=== PATIENT | female | born 1970 | race Caucasian/White ===

== ENCOUNTER 2023-02-02 07:42 | Outpatient (OUT) | payer MEDICAID, SELFPAY ==
--- NOTE | 2023-02-02 08:12 | MM_ITS ---
Patient: DELIO BOUDREAUX Exam Date: 02/02/2023 : 1970 Gender:F Ordering : COLE ENRIQUE Admission #: [id number] Family : Order #: [id number] CLICK HERE TO VIEW EXAM RADIOLOGY REPORT PROCEDURE: MM TOMOSYNTHESIS SCREENING BI COMPARISON: MG MAMM SCREEN CLARENCE W CAD, 02/11/2019. MG MAMM RT DIAG FU, 02/19/2019. INDICATIONS: Screening Calculator Name NCI Breast Cancer Risk Assessment Tool 5 Year Breast Cancer Risk 0.80% Lifetime Breast Cancer Risk 6.30% Personal Breast Cancer No Personal Ovarian Cancer No Treatments None Family Cancers Grandfather-maternal with prostate/penile cancer at age ~60; Grandmother-maternal with breast cancer at age ~70; Uncle-maternal with rectal cancer at age 50. LOCATION: [facility] BREAST COMPOSITION: Scattered areas fibroglandular density. FINDINGS: DIAGNOSTIC CATEGORY 1--NEGATIVE. NO CHANGE FROM COMPARISON ASSESSMENT. Scattered benign-appearing calcifications are present. Scattered benign-appearing lymph nodes are present. RIGHT BREAST: No significant suspicious finding. LEFT BREAST: No significant suspicious finding. RECOMMENDATIONS: ROUTINE MAMMOGRAM AND CLINICAL EVALUATION IN 12 MONTHS. PLEASE NOTE: A NORMAL MAMMOGRAM DOES NOT EXCLUDE THE POSSIBILITY OF BREAST CANCER. A CLINICALLY SUSPICIOUS PALPABLE LUMP SHOULD BE BIOPSIED. Dictated by: Wilberto Arias MD on 02/02/2023 at 08:52 Approved by: Wilberto Arias MD on 02/02/2023 at 08:56
== END 2023-02-02 07:43 ==
LOC: MAMMO 07:47
PROVIDERS: PCP Nurse Practitioner Family; Visit Provider Nurse Practitioner Family
DX: Z12.31 Encounter for screening mammogram for malignant neoplasm of breast (principal); Z80.3 Family history of malignant neoplasm of breast; Z80.42 Family history of malignant neoplasm of prostate; Z80.8 Family history of malignant neoplasm of other organs or systems
CPT/HCPCS: 77063; 77067

== ENCOUNTER 2023-08-28 09:20 | Emergency (ER) | payer MEDICAID, SELFPAY ==
[2023-08-28 09:23] VITALS: BP 181/91; PULSE 94; RESP 18; TEMP 36.7; O2SAT 99; BMI 44.9
--- NOTE | 2023-08-28 09:44 | ED.EXTPRO1 ---
HPI - Extremity Problem General Chief complaint: Extremity Problem, Nontraumatic Stated complaint: UPPER EXTREMITY INJURY R HAND Time Seen by Provider: 08/28/23 09:30 Source: patient Mode of arrival: walk-in Limitations: no limitations History of Present Illness HPI Narrative: 52-year-old female presents for swelling and redness and discomfort to her right index finger. It started a few nights ago when she was cleaning out a freezer and sustained an abrasion. She subsequent developed a blister and some redness which extends to the dorsum of her hand. No fever or drainage. Symptoms are continuous and the pain is moderate. Related Data Home Medications Medication Instructions Recorded Confirmed omeprazole 40 mg capsule,delayed 40 mg PO DAILY 08/28/23 08/28/23 release Previous Rx's Medication Instructions Recorded cephalexin 500 mg capsule 500 mg PO QID 10 days #40 caps 08/28/23 sulfamethoxazole 800 1 tab PO BID 10 days #20 tabs 08/28/23 mg-trimethoprim 160 mg tablet (Bactrim DS) Allergies Allergy/AdvReac Type Severity Reaction Status Date / Time acetaminophen [From Vicodin] AdvReac Intermediate Verified 08/28/23 09:31 diphenhydramine AdvReac Intermediate Verified 08/28/23 09:31 [From Benadryl] hydrocodone [From Vicodin] AdvReac Intermediate Verified 08/28/23 09:31 penicillin G AdvReac Intermediate Verified 08/28/23 09:31 Review of Systems ROS Narrative A ten point review of systems is negative except as noted above. PFSH PFSH Social History Smoking status: Former smoker Exam Narrative Exam Narrative: Nurses note and vital signs reviewed and patient is not hypoxic. General: The patient appears well and in no apparent distress. Patient is resting comfortably on cart. Skin: Warm, dry, no pallor noted. There is no rash noted. Head: Normocephalic, atraumatic Eye: Normal conjunctiva, no drainage Ears, Nose, Mouth, and Throat: oral mucosa is moist. Nares patent. Cardiovascular: Regular Rate and Rhythm Respiratory: Patient is in no distress, no accessory muscle use, lungs are clear to auscultation, no wheezing, rales or rhonchi Back: non-tender GI: soft and nontender Musculoskeletal: in her right index finger there is a tense blister on the dorsum distally. DIP and MCP have good range of motion. There is erythema which extends to the MCP joint. The other fingers are not erythematous or swollen. Neurological: A&O, normal speech Psychiatric: Cooperative Constitutional Vital Signs, click to edit/add: Last Vital Signs Temp 98.0 F 08/28/23 09:23 Pulse 94 H 08/28/23 09:23 Resp 18 08/28/23 09:23 BP 181/91 H 08/28/23 09:23 Pulse Ox 99 08/28/23 09:23 O2 Del Method Room Air 08/28/23 09:23 Course Vital Signs Vital signs: Vital Signs Temperature 98.0 F 08/28/23 09:23 Pulse Rate 94 H 08/28/23 09:23 Respiratory Rate 18 08/28/23 09:23 Blood Pressure 181/91 H 08/28/23 09:23 Pulse Oximetry 99 08/28/23 09:23 Oxygen Delivery Method Room Air 08/28/23 09:23 Temperature 98.0 F 08/28/23 09:23 Pulse Rate 94 H 08/28/23 09:23 Respiratory Rate 18 08/28/23 09:23 Blood Pressure 181/91 H 08/28/23 09:23 Pulse Oximetry 99 08/28/23 09:23 Oxygen Delivery Method Room Air 08/28/23 09:23 MDM - Extremity (Nontraumatic) MDM Narrative Medical decision making narrative: work is nonspecific. she was given IV Ancef and prescribed Keflex and Bactrim. She was advised returning to the emergency department if symptoms worsen, otherwise follow up with PCP. Treatment diagnosis and follow up are discussed with the patient. At this point I do not clinically suspect sheand otitis and she does not require hospitalization at this point. Differential Diagnosis Differential diagnosis: Likely other (cellulitis, abscess, T no synovitis) Lab Data Attestation: I reviewed the patient's lab results. Labs: Lab Results 08/28/23 Range/Units 09:50 WBC 8.8 (4.0-11.0) 10^3/uL RBC 4.96 (4.20-5.40) 10^6/uL Hgb 13.1 (12.0-16.0) g/dL Hct 39.9 (36.0-48.0) % MCV 80.4 L (81.0-99.0) fL MCH 26.4 L (26.7-34.0) pg MCHC 32.8 (29.9-35.2) g/dL RDW 13.4 (11.0-15.0) % Plt Count 243 (150-450) 10^3/uL MPV 10.2 (9.5-13.5) fL Neut % (Auto) 68.9 (43.0-75.0) % Lymph % (Auto) 22.5 (20.5-60.0) % [place] % (Auto) 6.0 (1.7-12.0) % Eos % (Auto) 1.4 (0.9-7.0) % Baso % (Auto) 0.5 (0.2-2.0) % Neut # (Auto) 6.1 (1.4-6.5) 10^3/uL Lymph # (Auto) 2.0 (1.2-3.8) 10^3/uL [place] # (Auto) 0.5 (0.3-0.8) 10^3/uL Eos # (Auto) 0.1 (0.0-0.7) 10^3/uL Baso # (Auto) 0.0 (0.0-0.1) 10^3/uL Abs Immat Gran (auto) 0.06 H (0.00-0.03) 10^3/uL Imm/Tot Granulo (auto) 0.7 H (0.0-0.5) % Sodium 138 (136-145) mmol/L Potassium 4.2 (3.5-5.1) mmol/L Chloride 103 (98-107) mmol/L Carbon Dioxide 29.8 (21.0-32.0) mmol/L Anion Gap 9.4 BUN 10.0 (7.0-18.0) mg/dL Creatinine 0.80 (0.55-1.02) mg/dL Est GFR ( Amer) >60 (>=60) Est GFR (Non-Af Amer) >60 (>=60) BUN/Creatinine Ratio 12.5 Glucose 132 H (74-106) mg/dL Calcium 8.6 (8.5-10.1) mg/dL Discharge Plan Discharge Chief Complaint: Extremity Problem, Nontraumatic Clinical Impression: Cellulitis Patient Disposition: Home, Self-Care Time of Disposition Decision: 11:11 Condition: Good Mode of Transportation: Private Vehicle Prescriptions / Home Meds: New sulfamethoxazole-trimethoprim [Bactrim DS] 800-160 mg tablet 1 tab PO BID 10 Days Qty: 20 0RF cephalexin 500 mg capsule 500 mg PO QID 10 Days Qty: 40 0RF No Action omeprazole 40 mg capsule,delayed release(DR/EC) 40 mg PO DAILY Instructions: Cellulitis (ED) Stand Alone Forms: Portal Instructions Referrals: COLE ENRIQUE [Primary Care Provider] - 1 week Procedures ED Procedure Instructions Procedures Procedures: following procedure was performed by me. Alcohol wipe was carried out to the blister and using a #11 blade a small incision was made and clear fluid was extracted. Culture was obtained.
[2023-08-28 09:59] LABS: Basophils Percent Auto 0.5 % (0.2-2.0); Eosinophils Absolute Auto 0.1 10^3/uL (0.0-0.7); Eosinophils Percent Auto 1.4 % (0.9-7.0); Hematocrit 39.9 % (36.0-48.0); Hemoglobin 13.1 g/dL (12.0-16.0); Immature Granulocytes Abs Auto 0.06 10^3/uL (0.00-0.03); Immature Granulocytes Pct Auto 0.7 % (0.0-0.5); Lymphocytes Percent Auto 22.5 % (20.5-60.0); Mean Corpuscular HGB Conc 32.8 g/dL (29.9-35.2); Mean Corpuscular Hemoglobin 26.4 pg (26.7-34.0); Mean Corpuscular Volume 80.4 fL (81.0-99.0); Mean Platelet Volume 10.2 fL (9.5-13.5); Monocytes Absolute Auto 0.5 10^3/uL (0.3-0.8); Neutrophils Absolute Auto 6.1 10^3/uL (1.4-6.5); Neutrophils Percent Auto 68.9 % (43.0-75.0); Platelet Count 243 10^3/uL (150-450); Red Blood Count 4.96 10^6/uL (4.20-5.40); Red Cell Distribution Width 13.4 % (11.0-15.0); White Blood Count 8.8 10^3/uL (4.0-11.0)
[2023-08-28] MEDS: CEFAZOLIN SODIUM/DEXTROSE,ISO 1 GM/50 ML IV.SOLN IV (09:59)
[2023-08-28 10:09] LABS: Anion Gap 9.4; BUN Creatinine Ratio 12.5; Calcium 8.6 mg/dL (8.5-10.1); Carbon Dioxide 29.8 mmol/L (21.0-32.0); Chloride 103 mmol/L (98-107); Estimated GFR (African America >60 (>=60); Estimated GFR (Non-African Ame >60 (>=60); Glucose 132 mg/dL (74-106); Potassium 4.2 mmol/L (3.5-5.1); Sodium 138 mmol/L (136-145)
[2023-08-28 11:21] VITALS: BP 147/77; PULSE 87; RESP 18; O2SAT 99
== END 2023-08-28 11:22 | disposition home or self-care (01) ==
PROVIDERS: Emergency Provider Emergency Medicine; PCP Nurse Practitioner Family
DX: L03.011 Cellulitis of right finger (principal); Z79.899 Other long term (current) drug therapy; Z87.891 Personal history of nicotine dependence
CPT/HCPCS: 36415; 80048; 85025; 87070; 87150; 87186; 96365; 99284; J0690

== ENCOUNTER 2024-01-11 12:00 | Emergency (ER) | payer MEDICAID, SELFPAY ==
[2024-01-11 12:26] VITALS: BP 187/115; PULSE 84; TEMP 36.9; O2SAT 98
[2024-01-11 12:51] VITALS: BP 179/106; PULSE 83; TEMP 36.7; O2SAT 98; BMI 47.8
[2024-01-11] MEDS: FLUORESCEIN SODIUM 1 MG STRIP OP (12:57)
--- NOTE | 2024-01-11 13:04 | ED.EYEPROB1 ---
HPI - Eye Problem General Chief complaint: Eye Problems Stated complaint: EYE TROUBLES Time Seen by Provider: 01/11/24 12:49 Source: patient Mode of arrival: walk-in Limitations: no limitations History of Present Illness HPI Narrative: 53-year-old female presented to the emergency department for a chief complaint of right eye redness and drainage. No history of trauma or foreign body. She has not been around anybody who she is aware of having pinkeye. She states symptoms seem to be getting in the left eye as well but that left eye is not red. Symptoms present for the last day or 2. Related Data Home Medications ?Medication ?Instructions ?Recorded ?Confirmed omeprazole 40 mg capsule,delayed 40 mg PO DAILY 08/28/23 08/28/23 release Previous Rx's ?Medication ?Instructions ?Recorded cephalexin 500 mg capsule 500 mg PO QID 10 days #40 caps 08/28/23 ibuprofen 800 mg tablet 800 mg PO Q8H PRN pain #20 tabs 08/28/23 sulfamethoxazole 800 1 tab PO BID 10 days #20 tabs 08/28/23 mg-trimethoprim 160 mg tablet (Bactrim DS) sulfacetamide sodium 10 % eye drops 2 drp ophthalmic (eye) Q4H #15 mL 01/11/24 Allergies Allergy/AdvReac Type Severity Reaction Status Date / Time acetaminophen [From Vicodin] AdvReac Intermediate Verified 08/28/23 09:31 diphenhydramine AdvReac Intermediate Verified 08/28/23 09:31 [From Benadryl] hydrocodone [From Vicodin] AdvReac Intermediate Verified 08/28/23 09:31 penicillin G AdvReac Intermediate Verified 08/28/23 09:31 Review of Systems ROS Narrative A ten point review of systems is negative except as noted above. PFSH PFSH Social History Smoking status: Former smoker Exam Narrative Exam Narrative: Nurses note and vital signs reviewed and patient is not hypoxic. General: The patient appears well and in no apparent distress. Patient is resting comfortably on cart. Skin: Warm, dry, no pallor noted. There is no rash noted. Head: Normocephalic, atraumatic Eye: Left eye appears normal, right conjunctiva is injected. No periorbital swelling or erythema. Extraocular movements are intact. No foreign body is found. Staining and Shell lamp examination show no corneal abrasion. Globe intact. Ears, Nose, Mouth, and Throat: oral mucosa is moist. Nares patent. Cardiovascular: Regular Rate and Rhythm Respiratory: Patient is in no distress, no accessory muscle use Back: non-tender GI: Normal bowel sounds, no tenderness to palpation, no masses appreciated. No rebound, guarding, or rigidity noted. Musculoskeletal: No joint swelling Neurological: Awake and alert Psychiatric: Cooperative Constitutional Vital Signs, click to edit/add: Last Vital Signs Temp 98.1 F 01/11/24 12:51 Pulse 83 01/11/24 12:51 Resp 16 01/11/24 12:51 BP 179/106 H 01/11/24 12:51 Pulse Ox 98 01/11/24 12:51 O2 Del Method Room Air 01/11/24 12:26 Course Vital Signs Vital signs: Vital Signs Temperature 98.5 F 01/11/24 12:26 Pulse Rate 84 01/11/24 12:26 Respiratory Rate 20 01/11/24 12:26 Blood Pressure 187/115 H 01/11/24 12:26 Pulse Oximetry 98 01/11/24 12:26 Oxygen Delivery Method Room Air 01/11/24 12:26 Temperature 98.1 F 01/11/24 12:51 Pulse Rate 83 01/11/24 12:51 Respiratory Rate 16 01/11/24 12:51 Blood Pressure 179/106 H 01/11/24 12:51 Pulse Oximetry 98 01/11/24 12:51 Oxygen Delivery Method Room Air 01/11/24 12:26 MDM - Eye Problem MDM Narrative Medical decision making narrative: My clinical impression is that she has conjunctivitis. No evidence of foreign body or corneal abrasion. Treatment diagnosis and follow-up were discussed with the patient. Differential Diagnosis Differential diagnosis: Likely corneal abrasion, conjunctivitis and other (Foreign body) Discharge Plan Discharge Stand Alone Forms: Portal Instructions Chief Complaint: Eye Problems Clinical Impression: Acute conjunctivitis of right eye Patient Disposition: Home, Self-Care Time of Disposition Decision: 13:03 Condition: Good Mode of Transportation: Private Vehicle Prescriptions / Home Meds: New sulfacetamide sodium 10 % drops 2 drp ophthalmic (eye) Q4H Qty: 15 0RF No Action omeprazole 40 mg capsule,delayed release(DR/EC) 40 mg PO DAILY sulfamethoxazole-trimethoprim [Bactrim DS] 800-160 mg tablet 1 tab PO BID 10 Days Qty: 20 0RF cephalexin 500 mg capsule 500 mg PO QID 10 Days Qty: 40 0RF ibuprofen 800 mg tablet 800 mg PO Q8H PRN (Reason: pain) Qty: 20 0RF Print Language: Pashto Instructions: How to Use Eye Drops (ED), Conjunctivitis (ED) Referrals: COLE ENRIQUE [Primary Care Provider] - 1 week
== END 2024-01-11 13:25 | disposition home or self-care (01) ==
PROVIDERS: Emergency Provider Emergency Medicine; PCP Nurse Practitioner Family
DX: H10.31 Unspecified acute conjunctivitis, right eye (principal)
CPT/HCPCS: 99283

== ENCOUNTER 2024-02-07 16:08 | Emergency (ER) | payer MEDICAID, SELFPAY ==
[2024-02-07 16:10] VITALS: BP 152/96; PULSE 88; TEMP 36.8; O2SAT 97; BMI 44.3
--- NOTE | 2024-02-07 16:21 | CT_ITS ---
The [address] [address] Patient Name: DELIO BOUDREAUX MRN: [id number] date: 1970 Sex: F Assigned Patient Location: ER Current Patient Location: ER Accession/Order Number: [id number] Exam Date: 02/07/2024 16:36 Report Date: 02/07/2024 17:12 At the request of: SHAYY FRANCO Procedure: CT head/brain wo con CT HEAD WITHOUT CONTRAST. INDICATION: Head injury. COMPARISON: None available for comparison TECHNIQUE: Axial CT head images from the skull base to the vertex without IV contrast were acquired. Coronal and sagittal reformats were also obtained. FINDINGS: EXTRA-AXIAL SPACE: Age-appropriate ventricles. No acute extra-axial collection. There is an extra-axial hyperdense lesion in the right middle cranial fossa measuring 2.2 x 1.4 cm.. No midline shift. CEREBRUM: No focal abnormality. No CT evidence of acute large territorial cortical infarct, hemorrhage or mass effect. CEREBELLUM: No focal abnormality. No CT evidence of acute infarct, hemorrhage or mass effect. BRAINSTEM: No focal abnormality. No CT evidence of acute infarct, hemorrhage or mass effect. EXTRACRANIAL STRUCTURES. The paranasal sinuses are clear. Mastoid air cells are clear. Orbits are unremarkable. No discrete pituitary mass. Intact calvarium. CT/CT head/brain wo con IMPRESSION: 1. No acute intracranial abnormality. 2. Right middle cranial fossa extra-axial 2.2 cm hyperdense lesion which may represent a meningioma or MCA aneurysm. Consider CTA head for further evaluation. Electronically authenticated by: RAMÓN ARMSTRONG Date: 02/07/2024 17:12
--- NOTE | 2024-02-07 16:28 | ED_ITS ---
HPI HPI - Head Injury General Chief complaint: Head Injury Stated complaint: head injury Time Seen by Provider: 02/07/24 16:10 Source: patient Mode of arrival: walk-in Limitations: no limitations History of Present Illness HPI Narrative: 53-year-old female presents for head injury. 2 hours ago she was working on an air conditioner but goes into the window and the window frame came out and the metal part of the frame hit her on the left forehead. No LOC but she felt dizzy and has a headache. The glass did not break. No other injury was sustained. She does not take blood thinners. Related Data Home Medications ?Medication ?Instructions ?Recorded ?Confirmed omeprazole 40 mg capsule,delayed 40 mg PO DAILY 08/28/23 08/28/23 release Previous Rx's ?Medication ?Instructions ?Recorded cephalexin 500 mg capsule 500 mg PO QID 10 days #40 caps 08/28/23 ibuprofen 800 mg tablet 800 mg PO Q8H PRN pain #20 tabs 08/28/23 sulfamethoxazole 800 1 tab PO BID 10 days #20 tabs 08/28/23 mg-trimethoprim 160 mg tablet (Bactrim DS) sulfacetamide sodium 10 % eye drops 2 drp ophthalmic (eye) Q4H #15 mL 01/11/24 Allergies Allergy/AdvReac Type Severity Reaction Status Date / Time diphenhydramine AdvReac Intermediate Verified 08/28/23 09:31 [From Benadryl] hydrocodone [From Vicodin] AdvReac Intermediate Verified 08/28/23 09:31 penicillin G AdvReac Intermediate Verified 08/28/23 09:31 Opioid HPI Opioid Management Most Recent Pain and Opioid Data: Last Pain Scale 4 08/28/23 10:19 Review of Systems ROS Narrative A ten point review of systems is negative except as noted above. PFSH PFSH Social History Smoking status: Former smoker Exam Narrative Exam Narrative: Nurses note and vital signs reviewed and patient is not hypoxic. General: The patient appears well and in no apparent distress. Patient is resting comfortably on cart. Skin: Warm, dry, no pallor noted. There is no rash noted. Head: Normocephalic, hematoma present on the left upper forehead. No laceration. Cervical spine nontender Eye: Normal conjunctiva, no drainage Ears, Nose, Mouth, and Throat: oral mucosa is moist. Nares patent. Cardiovascular: Regular Rate and Rhythm Respiratory: Patient is in no distress, no accessory muscle use, lungs are clear to auscultation, no wheezing, rales or rhonchi Back: non-tender GI: Soft and nontender Musculoskeletal: The patient has no evidence of calf tenderness, no pitting e george, symmetrical pulses noted bilaterally Neurological: A&O, normal speech, upper and lower extremity strength intact Psychiatric: Cooperative Constitutional Vital Signs, click to edit/add: Last Vital Signs Temp 98.3 F 02/07/24 16:10 Pulse 88 02/07/24 16:10 Resp 16 02/07/24 16:10 BP 152/96 H 02/07/24 16:10 Pulse Ox 97 02/07/24 16:10 O2 Del Method Room Air 02/07/24 16:10 Course Vital Signs Vital signs: Vital Signs Temperature 98.3 F 02/07/24 16:10 Pulse Rate 88 02/07/24 16:10 Respiratory Rate 16 02/07/24 16:10 Blood Pressure 152/96 H 02/07/24 16:10 Pulse Oximetry 97 02/07/24 16:10 Oxygen Delivery Method Room Air 02/07/24 16:10 Temperature 98.3 F 02/07/24 16:10 Pulse Rate 88 02/07/24 16:10 Respiratory Rate 16 02/07/24 16:10 Blood Pressure 152/96 H 02/07/24 16:10 Pulse Oximetry 97 02/07/24 16:10 Oxygen Delivery Method Room Air 02/07/24 16:10 MDM - Head Injury MDM Narrative Medical decision making narrative: CT scan shows a known meningioma. There are no acute findings and she is able to be discharged home. Treatment diagnosis and follow-up were discussed with the patient. Differential Diagnosis Differential diagnosis: Likely epidural hematoma, closed head injury, subarachnoid hematoma and subdural hematoma Discharge Plan Discharge Stand Alone Forms: Portal Instructions Chief Complaint: Head Injury Clinical Impression: Forehead contusion Patient Disposition: Home, Self-Care Time of Disposition Decision: 17:21 Condition: Good Mode of Transportation: Private Vehicle Prescriptions / Home Meds: No Action omeprazole 40 mg capsule,delayed release(DR/EC) 40 mg PO DAILY sulfamethoxazole-trimethoprim [Bactrim DS] 800-160 mg tablet 1 tab PO BID 10 Days Qty: 20 0RF cephalexin 500 mg capsule 500 mg PO QID 10 Days Qty: 40 0RF ibuprofen 800 mg tablet 800 mg PO Q8H PRN (Reason: pain) Qty: 20 0RF sulfacetamide sodium 10 % drops 2 drp ophthalmic (eye) Q4H Qty: 15 0RF Print Language: Senegalese Instructions: Contusion in Adults (ED), Hematoma (ED) Referrals: COLE ENRIQUE [Primary Care Provider] - 1 week
--- OUTSIDE RECORDS SUMMARY | 2024-02-07 16:28 | XMS_ITS ---
Patient Summarization (C-CDA 2.1 CCD) Created on: February 07, 2024 DELIO ANDINO : 1970 Sex: Female Author Organization Sample organization Care Team Providers Care Audit Reviewer Name Role Phone Roxanna Howard Unavailable Idania Enrique Unavailable [place] Unavailable NO FAMILY, PHYSICIAN Primary Care Provider Unava ilable DO Denis Banegas Attending Provider MD [place] Attending Provider [phone] CHARU MCKEON Attending Unavailable CHARU MCKEON Consulting Unavailable MCKNIGHT, ESTELA Primary Care Unavailable CHARU MCKEON Admitting Unavailable CARLTON, TOOTIEOR Consulting Unavailable KLAUS, IDANIA Primary Care Unavailable KLAUS, IDANIA Admitting Unavailable KLAUS, IDANIA Attending Unavailable KLAUS, IDANIA Consulting Unavailable KLAUS, IDANIA Primary Care Unavailable KLAUS, IDANIA Admitting Unavailable KLAUS, IDANIA Attending Unavailable NO FAMILY, PHYSICIAN Primary Care Provider Unava ilable DO Tera Banegas Attending Provider NO FAMILY, PHYSICIAN Primary Care Unavailable [place] Attending Unavailabl e [place] Admitting Unavailabl e NO FAMILY, PHYSICIAN Primary Care Unavailable Tera Banegas Attending Unavailab Tera Perez Admitting Unavailab Tera Perez Admitting Unavailab le NO FAMILY, PHYSICIAN Primary Care Unavailable Tera Banegas Attending Unavailab Tracey Villareal Unavailable Allergies Allergy Classification Reported Allergen(s) Allergy Type Date of Onset Reaction(s) Facility (9 sources) Acetaminophen / HYDROcodone; Translations: [Vicodin] Drug Allergy 03-16-20 14 nausea, palpitations [facility] Repository (2 sources) diphenhydrAMINE; Translations: [Benadryl] Drug Allergy 03-16-20 14 can't breathe and heat palpitations [facility] Repository (8 sources) Penicillin G Drug Allergy [facility] Other (9 sources) diphenhydrAMINE Drug Allergy 08-29-19 23 can't breathe and heat palpitations, Difficulty Breathing [facility] (3 sources) Acetaminophen; Translations: [acetaminophen] Drug Allergy 08-29-19 23 Palpitations [facility] (3 sources) HYDROcodone; Translations: [hydrocodone] Drug Allergy 08-29-19 23 Palpitations [facility] (4 sources) Penicillins; Translations: [Penicillins] Allergy to substance 03-16-20 14 [facility] (1 source) diphenhydrAMINE Drug Allergy 08-29-19 23 [facility] (1 source) Unable to Assess Drug allergy (disorder) 06-12-20 22 [facility] Encounters Encounter Date Encounter Type Care Provider Facility Start: 09-29-2023 End: 09-29-2023 ambulatory Tracey Soriano Other [facility] Other Start: 09-29-2023 Office outpatient visit 15 minutes [facility] Start: 07-08-2023 End: 07-08-2023 ambulatory Tracey Soriano Other [employer] Other Start: 07-08-2023 Office outpatient visit 25 minutes [facility] Start: 05-19-2023 End: 05-19-2023 ambulatory PHYSICIAN NO FAMILY Facility:[facility] Start: 05-19-2023 End: 05-19-2023 ambulatory PHYSICIAN NO [facility] Work Phone: Start: 05-19-2023 End: 05-19-2023 Patient encounter procedure PHYSICIAN NO [facility] [place] Work Phone: Start: 12-27-2022 Encounter for genera l adult medical examination without abnormal findings IDANIA ENRIQUE [facility] Start: 12-20-2022 End: 12-21-2022 ambulatory IDANIA ENRIQUE Facility:[facility] Start: 12-20-2022 End: 12-21-2022 Encounter for general adult medical examination without abnormal findings IDANIA ENRIQUE Facility:[facility] Start: 10-12-2022 End: 10-12-2022 ambulatory Idania Enrique Other [employer] Other Start: 10-12-2022 Telephone encounter Idania myers [facility] Start: 10-11-2022 End: 10-11-2022 ambulatory Idania Ernique Other [facility] Other Start: 10-11-2022 Telephone encounter Idania myers [facility] Start: 09-08-2022 End: 09-08-2022 ambulatory [place] Other [facility] Other Start: 09-08-2022 Telephone encounter Ten [facility]z [facility] Start: 08-29-2022 End: 08-29-2022 ambulatory PHYSICIAN NO FAMILY Facility:[facility] Start: 08-29-2022 End: 08-29-2022 Admission to same day surgery center PHYSICIAN NO [facility] Work Phone: Start: 08-29-2022 End: 08-29-2022 ambulatory PHYSICIAN NO [facility] Work Phone: Start: 06-23-2022 End: 06-23-2022 ambulatory Tera Baengas Facility:[facility] Start: 06-23-2022 End: 06-23-2022 Patient encounter procedure PHYSICIAN NO [facility] [place] Work Phone: Start: 06-07-2022 End: 06-07-2022 ambulatory [place] Other [facility] Other Start: 06-07-2022 Telephone encounter Ten lainez [facility] Start: 05-15-2022 End: 05-16-2022 ambulatory IDANIA ENRIQUE [facility] Other Start: 05-15-2022 Encounter for genera l adult medical examination without abnormal findings Idania Klaus [facility] Start: 05-15-2022 Periodic preventive med est patient 40-64yrs Idania Noriegaault [facility] Start: 01-19-2022 End: 01-19-2022 ambulatory CHARU MCKEON Facility: Start: 09-19-2021 End: 09-19-2021 ambulatory Roxanna Campbellmond Other [employer] Other Start: 09-19-2021 Office outpatient visit 15 minutes Roxanna Howard [facility] Goals Date Patient Goal Desired Activity /State Immunizations Immunization Date Immunization Notes Care Provider Trae rowe 11-03-2013 tetanus toxoid, reduced diphtheria toxoid, and acellular pertussis vaccine, adsorbed Roxanna Anita Other [facility] Other Medications Current Medications Medication Drug Class(es) Dates Sig (Normalized) Sig (Original) Acetaminophen / butalbital / Caffeine (1 source) Barbiturate, Central Nervous System Stimulant, Methylxanthine Fioricet Active acetaminophen 325 mg / HYDROcodone bitartrate 5 mg oral tablet (1 source) Opioid Agonist Start: 09-19-2021 take 1 tablet by mouth every six hours HYDROcodone-Acetami nophen 5-325 MG 1 tablet as needed Orally every 6 hrs for 3 days Aug, Active ciprofloxacin 3 mg/ml ophthalmic solution (1 source) Quinolone Antimicrobial Start: 09-29-2023 take 1-2 drop(s) into the eye(s) every four hours Ciprofloxacin HCl 0.3 % 1-2 drops Ophthalmic every 4 hours for 7 days Sep, Active cyclobenzaprine (1 source) Muscle Relaxant Cyclobenzaprine HCl Active dextromethorphan hydrobromide 15 mg / guaiFENesin 400 mg / pseudoephedrine hydrochloride 60 mg oral tablet (1 source) alpha-Adrenergic Agonist, Uncompetitive I-jqfwug-W-aspartat e Receptor Antagonist, Sigma-1 Agonist Start: 07-08-2023 take 4 tablets by mouth every twenty-four hours as needed Capmist DM 60-15-400 MG as needed Orally every 4-6 hours as needed, max 4 tablets in 24 hours for 5 days Jun, Active elderberry fruit 200 mg oral capsule (2 sources) Start: 08-29-2022 Elderberry Fruit Active 200 MG PO August 29, 2022 1:00am Elderberry preparation (7 sources) Elderberry Activ e ibuprofen 800 mg oral tablet (8 sources) Nonsteroidal Anti-inflammatory Drug Start: 09-19-2021 take 1 tablet by mouth three times daily at mealtime as needed Ibuprofen 800 MG 1 tablet with food or milk as needed Orally Three times a day for 10 day(s) prn mild to moderate pain Aug, Active take 1 tablet by angela th three times daily at mealtime as needed Ibuprofen 600 MG 1 tablet with food or milk as needed Orally Three times a day for 30 days Active Ibuprofen Active methylPREDNISolone 4 mg oral tablet (1 source) Corticosteroid Start: 07-08-2023 methylPREDNISolone 4 MG as directed Orally for daily dose take half with breakfast, half with dinner for 6 days Jun, Active omeprazole 20 mg delayed release oral capsule (8 sources) Proton Pump Inhibitor take 1 capsule by mouth every twenty-fou r hours Omeprazole 20 MG 1 capsule Orally Once a day for 30 days Active sertraline 100 mg oral tablet (1 source) Serotonin Reuptake Inhibitor take 1 tablet by mouth every twenty-fou r hours Zoloft 100 MG 1 tablet Orally Once a day for 30 day(s) Active Completed/Discontinued Medications Medication Drug Class(es) Dates Sig (Normalized) Sig (Original) acyclovir 800 mg oral tablet (5 sources) Herpesvirus Nucleoside Analog DNA Polymerase Inhibitor, Herpes Simplex Virus Nucleoside Analog DNA Polymerase Inhibitor, Herpes Zoster Virus Nucleoside Analog DNA Polymerase Inhibitor Start: 10-12-2022 take 1 tablet by mouth every eight hours Acyclovir 800 MG 1 tablet Orally Three times a day for 5 days Sep, Not-Taking Start: 09-19-2021 take 1 tablet by angela th five times daily Acyclovir 800 MG 1 tablet Orally 5 times a day for 10 day(s) 31 Douglas, 2022 Active Ketorolac (7 sources) Nonsteroidal Anti-inflammatory Drug, Cyclooxygenase Inhibitor Start: 12-15-2016 Toradol p er 15 mg Nov, 60 mg Payers Date Payer Category Payer Medicaid [id number] 2022 Self-pay [id number] 1970 Unknown [id number] 2.16.84 [id number] 1970 Unknown [id number] 2.16.84 [id number] 1970 Unknown [id number] 2.16.84 [id number] 1959 Unknown [id number] 2.1 [id number] Unknown [id number] 2.1 [id number] Unknown [id number] 2.16.8 [id number] Unknown [id number] 2.16.8 [id number] Unknown [id number] 2.16.8 [id number] Plan of Treatment Date Care Activity Detail Author Start: 08-29-2022 [facility] Patient Education Colon Polyps [facility] Work Phone: Problems Active Problems Problem Classification Problem Date Documented Date Episodic/Chronic Acute bronchitis (8 sources) Acute bronchitis; Translations: [Acute bronchitis] Episodic Anxiety disorders (1 source) Anxiety disorder, unspecified Onset: 09-19-2021 Resolved: 09-19-2021 Chronic Esophageal disorders (1 source) Gastro-esophageal reflux disease without esophagitis; Translations: [GERD WITHOUT ESOPHAGITIS] Onset: 01-20-2022 Chronic Inflammation; infection of eye (except that caused by tuberculosis or sexually transmitteddisease) (1 source) Unspecified acute conjunctivitis, bilateral Episodic Neoplasms of unspecified nature or uncertain behavior (8 sources) Neoplasm of brain; Translations: [Neoplasm of unspecified behavior of brain] Chronic Osteoarthritis (8 sources) Osteoarthritis of right knee joint; Translations: [Unilateral primary osteoarthritis, right knee] Chronic Other and unspecified benign neoplasm (1 source) Benign neoplasm of meninges, unspecified; Translations: [Benign neoplasm of meninges, unspecified] Onset: 05-19-2023 Chronic Other and unspecified benign neoplasm (2 sources) History of polyp of colon; Translations: [Personal history of colonic polyps] 08-29-2022 Episodic Other upper respiratory infections (2 sources) Acute pharyngitis, unspecified; Translations: [Acute sinusitis, unspecified] Episodic Residual codes; unclassified (2 sources) Family history of malignant neoplasm of digestive organs Episodic Residual codes; unclassified (6 sources) Family history of malignant neoplasm of digestive organ; Translations: [Family history of malignant neoplasm of digestive organs] Episodic Unclassified (1 source) Encounter for screening for malignant neoplasm of colon; Translations: [Encounter for screening for malignant neoplasm of colon] Onset: 08-29-2022 Viral infection (2 sources) Zoster without complications; Translations: [Other viral agents as the cause of diseases classified elsewhere] Onset: 09-19-2021 Resolved: 09-19-2021 Episodic Past or Other Problems Problem Classification Problem Date Documented Da te Episodic/Chronic Nonspecific chest pain (4 sources) Chest pain, unspecified; Translations: [CHEST PAIN UNSPECIFIED] Onset: 01-19-2022 Episodic Other aftercare (1 source) Other fpc (current) drug therapy; 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] Onset: 01-20-2022 Episodic Other and unspecified benign neoplasm (2 sources) Personal history of colonic polyps; Translations: [Personal history of colonic polyps] Onset: 08-29-2022 08-29-2022 Episodic Other nervous system disorders (1 source) Ataxia, unspecified; Translations: [Ataxia, unspecified] Onset: 06-23-2022 Episodic Screening and history of mental health and substance abuse codes (1 source) Personal history of nicotine dependence; Translations: [PERSONAL HISTORY OF NICOTINE DEPEND] Onset: 01-20-2022 Episodic Procedures Date Procedure Procedure Detail Performing Clinician Start: 05-19-2023 MRI of head PHYSICIAN NO FAMILY Start: 08-29-2022 Colonoscopy PHYSICIAN NO FAMILY Start: 06-23-2022 MRI of head PHYSICIAN NO FAMILY Results Test Name Value Interpretation Reference Range Facility [facility] 07-08-2023 S. pyogenes Org specific cx Ql (Throat) Negative [facility] Other Quick Strep [facility] Other MR head/brain wo/w conon MR head/brain wo/w con [facility] [place] [address] MRI Report Signed Patient: Delio Andino MR#: [id number] 224 : 1970 Acct:[id number] Age/Sex: 52 / F ADM Date: 05/19/23 Loc: MR Room: Type: [facility] Attending Dr: Tera Banegas DO Copies to: Tera Banegas DO Ordering Provider: Tera Banegas DO Date of Service: 05/19/23 MR/MR head/brain wo/w con: D32.9 MRI of the brain with IV contrast. Reason for exam: Meningioma follow-up. COMPARISON: Brain MRI 06/23/2022. TECHNIQUE: Multisequence, multiplanar images of the brain were performed with and without IV contrast. FINDINGS: Midline structures appear unchanged. No evidence of restriction diffusion is an diffusion-weighted imaging. No evidence of blood products are seen on GRE imaging. No abnormal white matter signal is seen on the T2 or T2 FLAIR imaging. Midbrain, marshall, medulla and cerebellum all appear unremarkable. Intraorbital contents appear unremarkable. Visualized paranasal sinuses are clear. Postcontrast imaging with 10 demonstrates a meningioma adjacent to the right temporal lobe measuring 2.3 x 1.6 x 1.6 cm grossly unchanged from the prior MRI study. No new areas of abnormal enhancement are noted. MR/MR head/brain wo/w con IMPRESSION: No significant change in brain findings compared to the prior MRI study from 06/23/2022. A meningioma is once again demonstrated adjacent to the right temporal lobe measuring 2.3 x 1.6 x 1.6 cm. Impression dictated by: Miguel Duncan Jr., D.O.05/19/2023 12:02 PM Dictation Location: [place] [address] Transcribed By: [facility] 05/19/23 1202 Dictated By: Miguel Duncan Jr, 05/19/23 1155 Signed By: 05/19/23 120 [facility] Vladimir 08-29-2022 L Specimen: [id number] Received: 08/29/22 Status: MARIAM Willis Num: [id number] Spec Type: Surgical Subm Dr: [place] MD Tissues: A Colon Biopsy (SIGMOID POLYP) Procedures: HE/Porfirio, Gross/Micro L4 Age/ Patient Sex Location Account Attending Physician Delio Andino 51/F [id number] [place] MD SPEC NUM: [id number] RECD: 08/29/22 STATUS: MARIAM WILLIS NUM: [id number] MELANIE: 08/29/22 DR: [place] MD ENTERED: 08/29/[address]: SPEC TYPE: Surgical DEPT: S ORDERED: HE/2, Gross/Micro L4 ORDERED: HE/2, Gross/Micro L4 Pathological Diagnosis Colon, sigmoid, polypectomy: - Hyperplastic polyp. Clinical Information Family history of colon cancer Gross Description Received in formalin labeled with the patient's name, number and sigmoid polyps is one fragment of soft zimmerman tissue measuring 0.4 cm. Entirely submitted in one cassette labeled A1. Microscopic Description Two glass slides with H E stained material have been examined. The microscopic findings support the above pathologic diagnosis. CPT Codes 43974 Specimen: [id number] Received: 08/29/22 Status: MARIAM Willis Num: [id number] Spec Type: Surgical Subm Dr: [place] MD Tissues: A Colon Biopsy (SIGMOID POLYP) Procedures: HE/2, Gross/Micro L4 Patient: Delio Andino [id number] (Continued) Signed (signature on file) Zack Martinez MD 08/30/[address] [place] [address] MR head/brain wo/w conon MR head/brain wo/[place] [address] MRI Report Signed Patient: Delio Andino MR#: [id number] 224 : 1970 Acct:[id number] Age/Sex: 51 / F ADM Date: 06/23/22 Loc: MR Room: Type: [facility] Attending Dr: Denis Banegas DO Copies to: Tera Banegas DO Ordering Provider: Tera Banegas DO Date of Service: 06/23/22 MR/MR head/brain wo/w con: R27.0 MR head/brain wo/w con 06/23/2022 9:54 AM SIGN AND SYMPTOMS: Dizziness, imbalance, headaches, previous history of brain tumor PROTOCOL: Multiplanar multisequence MR images of the brain were obtained with and without IV contrast CONTRAST: 20 mL of intravenous ProHance COMPARISON: 02/19/2019 FINDINGS: Extra axial spaces: There is redemonstration of a dural based homogeneously enhancing 18 x 25 mm mass over the anterior aspect of the right temporal lobe along the anterior margin of the right middle cranial fossa consistent with a meningioma. This is similar to that seen on the prior study. Hemorrhage: None. Ventricular system: Within normal limits. Basal cisterns: Within normal limits and not effaced. Cerebral parenchyma: Normal in signal. Midline shift: None.. Cerebellum: Within normal limits. Brainstem: Within normal limits. OTHER: Calvarium: Normal marrow signal. Vascular system: Satisfactory flow voids within the anterior and posterior circulation. Visualized Paranasal sinuses: Within normal limits. Visualized Orbits: Within normal limits. Visualized upper cervical spine: Within normal limits. Sella and skull base: Within normal limits. MR/MR head/brain wo/w con IMPRESSION: There is redemonstration of a dural based homogeneously enhancing 18 x 25 mm mass over the anterior aspect of the right temporal lobe along the anterior margin of the right middle cranial fossa consistent with a meningioma. This is similar to that seen on the prior study. No acute intracranial pathology or abnormal postcontrast enhancement is noted otherwise. Impression dictated by: Johann Miguel M.D.06/23/2022 3:32 PM Dictation Location: [place] [address] Transcribed By: [facility] 06/23/22 153 Dictated By: Johann Miguel II, MD 06/23/22 1527 Signed By: 06/23/22 1532 [facility] CBC AUTO DIFFon 05-15-2022 BASO # 0.0 103/ul Normal 0.0-0.1 [facility] Comment on above: Performed By: #### C BC #### [facility] [address] [place] [address] Dr. Rehana Valencia Basophils/100 WBC (Bld) 0.5 % Normal 0.2-2.0 [facility] Comment on above: Performed By: #### C BC #### [facility] [address] [place] [address] Dr. Rehana Valencia EO # 0.1 103/ul Normal 0.0-0.7 [facility] Comment on above: Performed By: #### C BC #### [facility] [address] [place] [address] Dr. Rehana Valencia Eosinophils/100 WBC (Bld) 1.5 % Normal 0.9-7.0 [facility] Comment on above: Performed By: #### C BC #### [facility] [address] [place] [address] Dr. Rehana Valencia Erythrocyte distribution width (RBC) [Ratio] 13.5 % Normal 11.0-15.0 [facility] Comment on above: Performed By: #### C BC #### [facility] [address] [place] [address] Dr. Rehana Valencia Hematocrit (Bld) [Volume fraction] 42.8 % Normal 36.0-48.0 [facility] Comment on above: Performed By: #### C BC #### [facility] [address] [place] [address] Dr. Rehana Valencia Hemoglobin (Bld) [Mass/Vol] 13.8 g/dL Normal 12.0-16.0 [facility] Comment on above: Performed By: #### C BC #### [facility] [address] [place] [address] Dr. Rehana Valencia IG # 0.14 10e3/ul Critically high 0.00-0.03 [facility] Comment on above: Performed By: #### C BC #### [facility] [address] [place] [address] Dr. Rehana Valencia IG % 1.7 % Critically high 0.0-0.5 [facility] Comment on above: Performed By: #### C BC #### [facility] [address] [place] [address] Dr. Rehana Valencia LYMPH # 1.9 103/ul Normal 1.2-3.8 [facility] Comment on above: Performed By: #### C BC #### [facility] [address] [place] [address] Dr. Rehana Valencia Lymphocytes/100 WBC (Bld) 22.6 % Normal 20.5-60.0 [facility] Comment on above: Performed By: #### C BC #### [facility] [address] [place] [address] Dr. Rehana Valencia MANUAL DIFF REQ NO Normal [facility] Comment on above: Performed By: #### C BC #### [facility] [address] [place] [address] Dr. Rehana Valencia MCH (RBC) [Entitic mass] 25.7 pg Critically low 26.7-34.0 [facility] Comment on above: Performed By: #### C BC #### [facility] [address] [place] [address] Dr. Rehana Valencia MCHC (RBC) [Mass/Vol] 32.2 g/dL Normal 29.9-35.2 [facility] Comment on above: Performed By: #### C BC #### [facility] [address] [place] [address] Dr. Rehana Valencia MCV (RBC) [Entitic vol] 79.9 fL Critically low 81.0-99.0 [facility] Comment on above: Performed By: #### C BC #### [facility] [address] [place] [address] Dr. Rehana Valencia MONO # 0.8 103/ul Normal 0.3-0.8 [facility] Comment on above: Performed By: #### C BC #### [facility] [address] [place] [address] Dr. Rehana Valencia Monocytes/100 WBC (Bld) 9.3 % Normal 1.7-12.0 [facility] Comment on above: Performed By: #### C BC #### [facility] [address] [place] [address] Dr. Rehana Valencia NEUT # 5.4 103/ul Normal 1.4-6.5 [facility] Comment on above: Performed By: #### C BC #### [facility] [address] [place] [address] Dr. Rehana Valencia Neutrophils/100 WBC (Bld) 64.4 % Normal 43.0-75.0 [facility] Comment on above: Performed By: #### C BC #### [facility] [address] [place] [address] Dr. Rehana Valencia Platelet mean volume (Bld) [Entitic vol] 10.2 fL Normal 9.5-13.5 [facility] Comment on above: Performed By: #### C BC #### [facility] [address] [place] [address] Dr. Rehana Valencia PLT 221 103/ul Normal 150-450 [facility] Comment on above: Performed By: #### C BC #### [facility] [address] [place] [address] [address] Rehana Valencia RBC 5.36 106/ul Normal 4.20-5.40 [facility] Comment on above: Performed By: #### C BC #### [facility] [address] [place] [address] [address] Rehana Valencia WBC 8.4 103/ul Normal 4.0-11.0 [facility] Comment on above: Performed By: #### C BC #### [facility] [facility] [address] [place] [address] Dr. Rehana Valencia GLYCOHEMOGLOBIN A1Con 2021 ADA RECOMMENDATION SEE BELOW Normal [facility] Comment on above: Result Comment: ADA RECOMMENDED LIMIT 4.0 - 6.0 ADA THERAPEUTIC TARGET < 7.0 ACTION SUGGESTED > 7.0 Performed By: #### A 1C #### [facility] [address] [place] [address] Dr. Rehana Valencia Glucose [Mass/Vol] 120 mg/dL Normal [facility] Comment on above: Performed By: #### A 1C #### [facility] [address] [place] [address] Dr. Rehana Valencia HbA1c (Bld) [Mass fraction] 5.8 % Normal 4.5-6.2 [facility] Comment on above: Performed By: #### A 1C #### [facility] [address] [place] [address] Dr. Rehana Valencia LIPID PROFILEon 05-15-2022 CHOL-HDL RATIO NORM SEE BELOW Normal [facility] Comment on above: Result Comment: 3.3 - 4.4 LOW RISK 4.4 - 7.1 AVERAGE RISK 7.1 - 11.0 MODERATE RISK >11.0 HIGH RISK Performed By: #### C MP, LIPID #### [facility] [address] [place] [address] Dr. Rehana Valencia Cholesterol [Mass/Vol] 171 mg/dL Normal <=200 [facility] Comment on above: Performed By: #### C MP, LIPID #### [facility] [address] [address] [address] Rehana Valencia Cholesterol in HDL [Mass/Vol] 52 mg/dL Normal 40-60 [facility] Comment on above: Performed By: #### C MP, LIPID #### [facility] [address] [address] [address] Rehana Valencia Cholesterol in LDL [Mass/Vol] 81.4 mg/dL Normal [facility] Comment on above: Performed By: #### C MP, LIPID #### [facility] [address] [address] [address] Rehana Valencia Cholesterol.total/Ch olesterol in HDL [Mass ratio] 3.3 {ratio} Normal [facility] Comment on above: Performed By: #### C MP, LIPID #### [facility] [address] [place] [address] Dr. Rehana Valencia HDL NORMAL > or = 60 mg/dl - LOW CARDIOVASCULAR RISK <40 mg/dl - HIGH CARDIOVASCULAR RISK Normal [facility] Comment on above: Performed By: #### C MP, LIPID #### [facility] [address] [address] [address] Rehana Valencia LDL CALC NORMAL SEE BELOW Normal [facility] Comment on above: Result Comment: <100 mg/dl OPTIMAL 100 - 129 mg/dl NEAR OR ABOVE OPTIMAL 130 - 159 mg/dl BORDERLINE HIGH 160 - 189 mg/dl HIGH >190 mg/dl VERY HIGH Performed By: #### C MP, LIPID #### [facility] [address] [address] [address] Rehana Valencia Triglyceride [Mass/Vol] 188 mg/dL Critically high <=150 [facility] Comment on above: Performed By: #### C MP, LIPID #### [facility] [address] [place] [address] Dr. Rehana Valencia VLDL CALC 37.6 mg/dL Normal [facility] Comment on above: Performed By: #### C MP, LIPID #### [facility] [address] [address] [address] Rehana Valencia PROF 14(COMP METB)on 022 Albumin [Mass/Vol] 3.7 g/dL Normal 3.4-5.0 [facility] Comment on above: Performed By: #### C MP, LIPID #### [facility] [address] [place] [address] Dr. Rehana Valencia Albumin/Globulin [Mass ratio] 0.9 {ratio} Normal [facility] Comment on above: Performed By: #### C MP, LIPID #### [facility] [address] [place] [address] Dr. Rehana Valencia ALP [Catalytic activity/Vol] 89 U/L Normal 46-116 [facility] Comment on above: Performed By: #### C MP, LIPID #### [facility] [address] [place] [address] Dr. Rehana Valencia ALT [Catalytic activity/Vol] 78 U/L Critically high 14-59 [facility] Comment on above: Performed By: #### C MP, LIPID #### [facility] [address] [place] [address] Dr. Rehana Valencia Anion gap [Moles/Vol] 9.9 mmol/L Normal [facility] Comment on above: Performed By: #### C MP, LIPID #### [facility] [address] [place] [address] Dr. Rehana Valencia AST [Catalytic activity/Vol] 41 U/L Critically high 15-37 [facility] Comment on above: Performed By: #### C MP, LIPID #### [facility] [address] [place] [address] Dr. Rehana Valencia Bilirubin [Mass/Vol] 0.4 mg/dL Normal 0.2-1.0 [facility] Comment on above: Performed By: #### C MP, LIPID #### [facility] [address] [place] [address] Dr. Rehana Valencia Calcium [Mass/Vol] 8.8 mg/dL Normal 8.5-10.1 [facility] Comment on above: Performed By: #### C MP, LIPID #### [facility] [address] [place] [address] Dr. Rehana Valencia Chloride [Moles/Vol] 104 mmol/L Normal 98-107 [facility] Comment on above: Performed By: #### C MP, LIPID #### [facility] [address] [address] [address] Rehana Valencia CO2 [Moles/Vol] 30.9 mmol/L Normal 21.0-32.0 [facility] Comment on above: Performed By: #### C MP, LIPID #### [facility] [address] [address] [address] Rehana Valencia Creatinine [Mass/Vol] 0.78 mg/dL Normal 0.55-1.02 [facility] Comment on above: Performed By: #### C MP, LIPID #### [facility] [address] [place] [address] Dr. Rehana Valencia EGFR-AF NAURUAN >60 Normal >=60 [facility] Comment on above: Performed By: #### C MP, LIPID #### [facility] [address] [place] [address] Dr. Rehana Valencia EGFR-NON AF NAURUAN >60 Normal >=60 [facility] Comment on above: Performed By: #### C MP, LIPID #### [facility] [address] [place] [address] Dr. Rehana Valencia Globulin (S) [Mass/Vol] 4.0 g/dL Normal [facility] Comment on above: Performed By: #### C MP, LIPID #### [facility] [address] [place] [address] Dr. Rehana Valencia Glucose [Mass/Vol] 97 mg/dL Normal 74-106 [facility] Comment on above: Performed By: #### C MP, LIPID #### [facility] [address] [address] [address] Rehana Valencia Potassium [Moles/Vol] 4.8 mmol/L Normal 3.5-5.1 [facility] Comment on above: Performed By: #### C MP, LIPID #### [facility] [address] [place] [address] Dr. Rehaan Valencia Protein [Mass/Vol] 7.7 g/dL Normal 6.4-8.2 [facility] Comment on above: Performed By: #### C MP, LIPID #### [facility] [address] [place] [address] Dr. Rehana Valencia Sodium [Moles/Vol] 140 mmol/L Normal 136-145 [facility] Comment on above: Performed By: #### C MP, LIPID #### [facility] [address] [place] [address] Dr. Rehana Valencia Urea nitrogen [Mass/Vol] 10.0 mg/dL Normal 7.0-18.0 [facility] Comment on above: Performed By: #### C MP, LIPID #### [facility] [address] [place] [address] Dr. Rehana Valencia Urea nitrogen/Creatinine [Mass ratio] 12.8 mg/mg Normal [facility] Comment on above: Performed By: #### C MP, LIPID #### [facility] [address] [place] [address] Dr. Rehana Valencia CARDIAC JOHANN 3-6on 2 CK [Catalytic activity/Vol] 62 U/L Normal 26-192 [facility] Comment on above: Performed By: #### C MREP #### [facility] [address] [place] [address] Dr. Rehana Valencia CK.MB [Mass/Vol] 1.03 ng/mL Normal <=3.60 [facility] Comment on above: Performed By: #### C MREP #### [facility] [address] [place] [address] Dr. Rehana Valencia HSTROP 8.3 pg/mL Normal 4.0-51.3 [facility] Comment on above: Result Comment: CUT- OFF POINTS HAVE BEEN ESTABLISHED BASED ON THE FOURTH UNIVERSAL DEFINITIONS OF MYOCARDIAL INFARCTION. THE UPPER REFERENCE LIMIT (URL) OF TROPONIN, DEFINED THE 99TH PERCENTILE OF cTnI DISTRIBUTION IN A REFERENCE POPULATION, HAS BEEN CONFIRMED THE DECISION THRESHOLD FOR [place] DIAGNOSIS. Performed By: #### C MREP #### [facility] [address] [place] [address] Dr. Rehana Valencia CARDIAC JOHANN ADMITon 022 CK [Catalytic activity/Vol] 56 U/L Normal 26-192 [facility] Comment on above: Performed By: #### B MORENA ABREU #### [facility] [address] [place] [address] Dr. Rehana Valencia CK.MB [Mass/Vol] 0.98 ng/mL Normal <=3.60 [facility] Comment on above: Performed By: #### B MORENA ABREU #### [facility] [address] [place] [address] Dr. Rehana Valencia HSTROP 7.6 pg/mL Normal 4.0-51.3 [facility] Comment on above: Result Comment: CUT- OFF POINTS HAVE BEEN ESTABLISHED BASED ON THE FOURTH UNIVERSAL DEFINITIONS OF MYOCARDIAL INFARCTION. THE UPPER REFERENCE LIMIT (URL) OF TROPONIN, DEFINED THE 99TH PERCENTILE OF cTnI DISTRIBUTION IN A REFERENCE POPULATION, HAS BEEN CONFIRMED THE DECISION THRESHOLD FOR [place] DIAGNOSIS. Performed By: #### MORENA Sidhu MP #### [facility] [address] [place] [address] Dr. Rehana Valencia LUIS 45 ng/mL Normal 9-82 [facility] Comment on above: Performed By: #### MORENA Sidhu MP #### [facility] [address] [place] [address] Dr. Rehana Valencia CBC AUTO DIFFon 01-19-2022 BASO # 0.0 103/ul Normal 0.0-0.1 [facility] Comment on above: Performed By: #### C BC #### [facility] [address] [place] [address] Dr. Rehana Valencia Basophils/100 WBC (Bld) 0.3 % Normal 0.2-2.0 [facility] Comment on above: Performed By: #### C BC #### [facility] [address] [place] [address] Dr. Rheana Valencia EO # 0.1 103/ul Normal 0.0-0.7 [facility] Comment on above: Performed By: #### C BC #### [facility] [address] [place] [address] Dr. Rehana Valencia Eosinophils/100 WBC (Bld) 1.2 % Normal 0.9-7.0 [facility] Comment on above: Performed By: #### C BC #### [facility] [address] [place] [address] Dr. Rehana Valencia Erythrocyte distribution width (RBC) [Ratio] 13.8 % Normal 11.0-15.0 [facility] Comment on above: Performed By: #### C BC #### [facility] [address] [place] [address] Dr. Rehana Valencia Hematocrit (Bld) [Volume fraction] 38.5 % Normal 36.0-48.0 [facility] Comment on above: Performed By: #### C BC #### [facility] [address] [place] [address] Dr. Rehana Valencia Hemoglobin (Bld) [Mass/Vol] 12.9 g/dL Normal 12.0-16.0 [facility] Comment on above: Performed By: #### C BC #### [facility] [address] [place] [address] Dr. Rehana Valencia IG # 0.11 10e3/ul Critically high 0.00-0.03 [facility] Comment on above: Performed By: #### C BC #### [facility] [address] [place] [address] Dr. Rehana Valencia IG % 1.2 % Critically high 0.0-0.[address] [facility] Comment on above: Performed By: #### C BC #### [facility] [address] [place] [address] Dr. Rehana Valencia LYMPH # 3.0 103/ul Normal 1.2-3.8 [facility] Comment on above: Performed By: #### C BC #### [facility] [address] [place] [address] Dr. Rehana Valencia Lymphocytes/100 WBC (Bld) 31.8 % Normal 20.5-60.0 [facility] Comment on above: Performed By: #### C BC #### [facility] [address] [place] [address] Dr. Rehana Valencia MANUAL DIFF REQ NO Normal [facility] Comment on above: Performed By: #### C BC #### [facility] [address] [place] [address] Dr. Rehana Valencia MCH (RBC) [Entitic mass] 26.4 pg Critically low 26.7-34.0 [facility] Comment on above: Performed By: #### C BC #### [facility] [address] [place] [address] Dr. Rehana Valencia MCHC (RBC) [Mass/Vol] 33.5 g/dL Normal 29.9-35.2 [facility] Comment on above: Performed By: #### C BC #### [facility] [address] [place] [address] Dr. Rehana Valencia MCV (RBC) [Entitic vol] 78.9 fL Critically low 81.0-99.0 [facility] Comment on above: Performed By: #### C BC #### [facility] [address] [place] [address] Dr. Rehana Valencia MONO # 0.6 103/ul Normal 0.3-0.8 [facility] Comment on above: Performed By: #### C BC #### [facility] [address] [place] [address] Dr. Rehana Valencia Monocytes/100 WBC (Bld) 6.8 % Normal 1.7-12.0 [facility] Comment on above: Performed By: #### C BC #### [facility] [address] [place] [address] Dr. Rehana Valencia NEUT # 5.5 103/ul Normal 1.4-6.5 [facility] Comment on above: Performed By: #### C BC #### [facility] [address] [place] [address] Dr. Rehana Valencia Neutrophils/100 WBC (Bld) 58.7 % Normal 43.0-75.0 [facility] Comment on above: Performed By: #### C BC #### [facility] [address] [place] [address] Dr. Rehana Valencia Platelet mean volume (Bld) [Entitic vol] 10.0 fL Normal 9.5-13.5 [facility] Comment on above: Performed By: #### C BC #### [facility] [address] [place] [address] Dr. Rehana Valencia PLT 237 103/ul Normal 150-450 [facility] Comment on above: Performed By: #### C BC #### [facility] [address] [place] [address] Dr. Rehana Valencia RBC 4.88 106/ul Normal 4.20-5.40 [facility] Comment on above: Performed By: #### C BC #### [facility] [address] [place] [address] Dr. Rehana Valencia WBC 9.4 103/ul Normal 4.0-11.0 [facility] Comment on above: Performed By: #### C BC #### [facility] [address] [place] [address] Dr. Rehana Valencia PROF CHEM 8 (BAS METB)on Anion gap [Moles/Vol] 8.1 mmol/L Normal [facility] Comment on above: Performed By: #### B MORENA ABREU #### [facility] [address] [place] [address] Dr. Rehana Valencia Calcium [Mass/Vol] 9.1 mg/dL Normal 8.5-10.1 [facility] Comment on above: Performed By: #### B ASIF ABREUDM #### [facility] [address] [place] [address] Dr. Rehana Valencia Chloride [Moles/Vol] 104 mmol/L Normal 98-107 [facility] Comment on above: Performed By: #### B LOIS CMADM #### [facility] [address] [place] [address] Dr. Rehana Valencia CO2 [Moles/Vol] 32.3 mmol/L Critically high 21.0-32.0 [facility] Comment on above: Performed By: #### B LOIS CMADM #### [facility] [address] [place] [address] Dr. Rehana Valencia Creatinine [Mass/Vol] 0.83 mg/dL Normal 0.55-1.02 [facility] Comment on above: Performed By: #### B MORENA ABREU #### [facility] [address] [place] [address] Dr. Rehana Valencia EGFR-AF NAURUAN >60 Normal >=60 [facility] Comment on above: Performed By: #### B LOIS, ASIFDM #### [facility] [address] [address] [address] Rehana Valencia EGFR-NON AF NAURUAN >60 Normal >=60 [facility] Comment on above: Performed By: #### B LOIS, ASIFDM #### [facility] [address] [place] [address] Dr. Rehana Valencia Glucose [Mass/Vol] 123 mg/dL Critically high 74-106 [facility] Comment on above: Performed By: #### B MORENA ABREU #### [facility] [address] [place] [address] Dr. Rehana Valencia Potassium [Moles/Vol] 4.4 mmol/L Normal 3.5-5.1 [facility] Comment on above: Performed By: #### B MORENA ABREU #### [facility] [address] [place] [address] Dr. Rehana Valencia Sodium [Moles/Vol] 140 mmol/L Normal 136-145 [facility] Comment on above: Performed By: #### B ASIF ABREUDM #### [facility] [address] [place] [address] Dr. Rehana Valencia Urea nitrogen [Mass/Vol] 15.0 mg/dL Normal 7.0-18.0 [facility] Comment on above: Performed By: #### B MORENA ABREU #### [facility] [address] [place] [address] Dr. Rehana Valencia Urea nitrogen/Creatinine [Mass ratio] 18.1 mg/mg Normal [facility] Comment on above: Performed By: #### B MORENA ABREU #### [facility] [address] [place] [address] Dr. Rehana Valencia XR CHEST 1 Von 01-19-2022 XR CHEST 1 V EXAM: XR CHEST 1 V 01/19/2022 12:44 AM EDT [id number] CLINICAL STATEMENT: CHEST PAIN, UNSPECIFIED COMPARISON: 10/07/2010 TECHNIQUE: Single AP radiograph of the chest is submitted.\ FINDINGS: There is no acute airspace disease. The cardiac silhouette is normal. The costophrenic recesses are sharp. No pneumothorax. The bony elements are unremarkable. IMPRESSION: No acute cardiopulmonary process. FOLLOW-UP: Follow-up as clinically indicated. Electronically authenticated by: MARIO VINCENT Date: 2022-01-19 01:58 Normal [facility] Social History Date Type Detail Facility Start: 08-29-2022 End: 08-29-2022 Tobacco smoking status NHIS Ex-smoker (finding) [facility] Start: 1970 Sex Assigned At Female F [facility] Unknown if ever smoked [facility] Other Sex Assigned At Sex Assigned At Bir th [facility] Other Vital Signs Date Time Vital Sign Value Performing Clinician Facility 09-29-2023 09:30-0500 Body height 160.02 cm Tracey Soriano Other [facility] Other 09-29-2023 09:30-0500 Body mass index (BMI) [Ratio] 44.78 kg/m2 Tracey Soriano Other [facility] Other 09-29-2023 09:30-0500 Body temperature 98.2 [degF] Tracey Soriano Other [facility] Other 09-29-2023 09:30-0500 Body weight 114.67 kg Tracey Soriano Other [facility] Other 09-29-2023 09:30-0500 Diastolic blood pressure 85 mm[Hg] Tracey Soriano Other [facility] Other 09-29-2023 09:30-0500 Respiratory rate 18 /min Tracey Soriano Other [facility] Other 09-29-2023 09:30-0500 SaO2% (BldA) [Mass fraction] 98 % Tracey Soriano Other [facility] Other 09-29-2023 09:30-0500 Systolic blood pressure 153 mm[Hg] Tracey Soriano Other [facility] Other 07-08-2023 10:35-0500 Body height 160.02 cm Tracey Soriano Other [facility] Other 07-08-2023 10:35-0500 Body mass index (BMI) [Ratio] 43.32 kg/m2 Tracey Soriano Other [facility] Other 07-08-2023 10:35-0500 Body temperature 99 [degF] Tracey Soriano Other [facility] Other 07-08-2023 10:35-0500 Body weight 110.95 kg Tracye Soriano Other [facility] Other 07-08-2023 10:35-0500 Respiratory rate 18 /min Tracey Soriano Other [facility] Other 07-08-2023 10:35-0500 SaO2% (BldA) [Mass fraction] 97 % Tracey Soriano Other [facility] Other 08-29-2022 12:43-0500 Diastolic blood pressure 70 mm[Hg] PHYSICIAN [facility] 08-29-2022 12:43-0500 Heart rate 70 /min PHYSICIAN NO [facility] 08-29-2022 12:43-0500 Respiratory rate 16 /min PHYSICIAN NO [facility] 08-29-2022 12:43-0500 SaO2% (BldA) [Mass fraction] 98 % PHYSICIAN NO [facility] 08-29-2022 12:43-0500 Systolic blood pressure 130 mm[Hg] PHYSICIAN NO [facility] 08-29-2022 09:36-0500 Body height 162.56 cm PHYSICIAN NO [facility] 08-29-2022 09:36-0500 Body temperature 98.4 [degF] PHYSICIAN NO [facility] 08-29-2022 09:36-0500 Body weight 117.93 kg PHYSICIAN NO [facility] 06-12-2022 14:26-0400 Body height 160.02 cm PHYSICIAN NO [facility] 06-12-2022 14:26-0400 Body weight 108.86 kg PHYSICIAN NO [facility] 05-15-2022 14:30-0400 Body height 160.02 cm Idania Enrique Other [facility] Other 05-15-2022 14:30-0400 Body mass index (BMI) [Ratio] 42.16 kg/m2 Idania Enrique Other [facility] Other 05-15-2022 14:30-0400 Body temperature 97.8 [degF] Idania Enrique Other [facility] Other 05-15-2022 14:30-0400 Body weight 107.96 kg Idania Enrique Other [facility] Other 05-15-2022 14:30-0400 Diastolic blood pressure 73 mm[Hg] Idania Enrique Other [facility] Other 05-15-2022 14:30-0400 Respiratory rate 18 /min Idania Enrique Other [facility] Other 05-15-2022 14:30-0400 SaO2% (BldA) [Mass fraction] 98 % Idania Enrique Other [facility] Other 05-15-2022 14:30-0400 Systolic blood pressure 134 mm[Hg] Idania Enrique Other [facility] Other 09-19-2021 19:40-0500 Body height 160.02 cm Roxanna Howard Other [facility] Other 09-19-2021 19:40-0500 Body mass index (BMI) [Ratio] 44.81 kg/m2 Roxanna Campbellmond Other [facility] Other 09-19-2021 19:40-0500 Body temperature 97.8 [degF] Roxanna Howard Other [facility] Other 09-19-2021 19:40-0500 Body weight 114.76 kg Roxanna Howard Other [employer] Other 09-19-2021 19:40-0500 Diastolic blood pressure 99 mm[Hg] Roxanna Campbellmond Other [employer] Other 09-19-2021 19:40-0500 Respiratory rate 18 /min Roxanna Campbellmond Other [employer] Other 09-19-2021 19:40-0500 SaO2% (BldA) [Mass fraction] 99 % Roxanna Campbellmond Other [employer] Other 09-19-2021 19:40-0500 Systolic blood pressure 172 mm[Hg] Roxanna Howard Other [employer] Other Clinical Notes 09-19-2021 to 09-29-2023 Note Date & Type Note Facility 09-29-2023 Evaluation note Encounter Date Diagnosis Assessment Notes Sep, Acute bacterial conjunctivitis of both eyes (ICD-10 - H10.33) Discussed diagnosis with patient today in office. Advised patient to use eye drops as prescribed, discussed proper administration. Contagious until after 24 hours on antibiotic eye drops. Advised good hand hygiene and infection control, wash linens and bedding, do not touch eye directly with eye drop bottle, wipe off bottle after every use, do not share eye drop bottles. Apply cool compress to eye several times a day, clean eye with warm, most cloth from inner to outer canthus. Avoid eye makeup until sx resolve, discard all eye makeup that was used at time of infection. Eye symptoms should improve in 2-3 days with treatment, if no improvement follow up with PCP or eye doctor. Work note provided, no extension allowed. Immediate eval if symptoms worsen, eye pain, vision changes, redness and swelling occur around the eye, headache, fever, N/V or any other concerning symptoms. Patient verbalizes understanding and is agreeable to treatment plan. [employer] Other 11-19-2023 Evaluation note* Encounter Date Diagnosis Assessment Notes Treatment Notes Treatment Clinical Notes Jun, Sore throat (ICD-10 - J02.9) Jun, Acute sinusitis, unspecified (ICD-10 - J01.90) Advised patient that rapid Strep test was negative. Declines/refusing other testing at this time. Discussed diagnosis with patient today. Will treat as viral at this time based on physical exam and duration of symptoms. Advised patient viral syndromes last 7-10 days. If symptoms do not improve in the next 3-4 days patient may call UC and I will send antibiotic. Take rx of Medrol dose pack and Capmist as directed. Encouraged supportive care as directed today. Push fluids/rest, nasal saline washes as directed, may use Tylenol oas needed for discomfort/ Patient to follow up with PCP or UC for any new or worsening symptoms. Immediate eval if SOB, wheezing, difficulty breathing, or other concerning symptoms. Patient verbalizes understanding and is agreeable to treatment plan. Jun, Other viral agents as the cause of diseases classified elsewhere (ICD-10 - B97.89) [employer] Other [facility] Encounter Date Diagnosis Assessment Notes Treatment Notes Treatment Clinical Notes May, Family history of malignant neoplasm of digestive organs (ICD-10 - Z80.0) [employer] Other 09-26-2022 Evaluation note* Encounter Date Diagnosis Assessment Notes Treatment Notes Treatment Clinical Notes Apr, Brain tumor (ICD-10 - D49.6) referral is being made today to neurology due to history of brain tumor symptoms of dizziness and vertigo symptoms that she was told related to that Apr, Encounter for wellness examination (ICD-10 - Z00.00) Today during your appointment we discussed your health history and family history of chronic health problems. We also discussed screenings that should be done to rule out chronic health problems. These screenings can help prevent many health problems from becoming major as early intervention is the best treatment for all conditions. We will be checking your cholesterol, kidney function, blood sugar as well as special tests to rule out breast cancer and colon cancer. Based on the findings, we will come up with a plan together of when the best time for your next screening should be. Apr, Family hx of colon cancer requiring screening colonoscopy (ICD-10 - Z80.0) [employer] Other 01-31-2022 Evaluation note* Encounter Date Diagnosis Assessment Notes Treatment Notes Treatment Clinical Notes Aug, Herpes zoster without complication (ICD-10 - B02.9) Drink plenty fluids, get plenty of rest. Continue home medications as prescribed. Take the acyclovir as prescribed until gone. Use the ibuprofen as prescribed as needed for mild to moderate pain for severe pain use the [place], hydrocodone as prescribed. Follow-up with your family physician, call tomorrow for an appointment for recheck without fail to discuss your home situation and anxiety as well as reevaluate your herpes rash Aug, Anxiety (ICD-10 - F41.9) [employer] Other Evaluation note* Diagnosis Onset Date Resolution Status History of colon polyps acut e [facility] Work Phone: Evaluation noteNo InformationNort Silver [employer] Other Evaluation noteNo assessment information available [facility] Work Phone: History general Narrative - Reported* Type Description Date Medical History anxiety Medical History depression Medical History Brain tumor Surgical History tonsillectomy Surgical History cholecystectomy Hospitalization History see above surgical histo ry [employer] Other Hospital Discharge instructions Additional Instructions DISCHARGE INSTRUCTIONS FOR ENDOSCOPY FOR COLONOSCOPY: -Expect a gassy or full feeling after a colonoscopy. Report any NEW abdominal pain or vomiting. -Watch for rectal bleeding if you have a polyp removed. You may have oozing, but notify the doctor if you pass clots. -Avoid aspirin for 2 days IF a polyp is removed. -It is important to keep your appointments for follow up examinations because polyps can grow back. FOR SEDATION FOR 24 HOURS: -NO driving -Do NOT operate machinery such as power tools, lawn mowers, snow blowers, sewing machines, etc. -Avoid alcoholic beverages and drugs for allergies, nerves, or sleep. -Do NOT stay alone. Do NOT leave your child unattended. -Do NOT make important personal or business decisions or sign any legal documents. -Eat solid foods and drink liquids in smaller amounts than usual until normal appetite returns. If you should experience an upset stomach, liquids high in sugar content (soda, Shiv-aid, non-acid juices) are recommended. -You can resume normal activities tomorrow. FOLLOW UP Please call the office and make a follow up appointment to see me in 3 months Low FODMAP diet Sernova 1 p.o. every morning which is OTC Repeat colonoscopy in 5 years Take it easy today. Back to normal tomorrow. -Notify the doctor if you have any problems. -Office number [phone] Work Phone: Reason for Referral Reason patient has gi ngosed brain tumor - scans in [facility] Diagnosis 1 Brain tumor (D49.6) Referral Organization [facility] Family Medicin e Basil Referring Provider First Name Idania Referring Provider Last Name Klaus Referring Provider Specialty Nurse Pract aguila Referred Organization [facility] Referred Provider Tera Banegas Referred Address [address] [place], [place],[address] Referred Provider Specialty Neurology Referral Priority Routine General Notes Seema Robert 022 09:28:25 AM >Received today and waiting for office notes to be locked before sending referral Reason screening colon oscopy Diagnosis 1 Family hx of colon c ancer requiring screening colonoscopy (Z80.0) Referral Organization [facility] Family Medicin e Basil Referring Provider First Name Idania Referring Provider Last Name Klaus Referring Provider Specialty Nurse [facility] Referred Organization [facility] Gastroenterolo gy Referred Provider [place] Referred Address [address] ,[place], [place],[address] Referred Provider Specialty Gastroentero logy Referral Priority Routine General Notes Seema Robert 022 03:01:03 PM >Received today and sent P2P Chief Complaint and Reason for Visit Chief Complaint r27.0 Family Hx of Colon Cancer Reason for Visit History of colon gadiel yps Chief Complaint d32.9 Advance Directives Advance Directive Response Recorded Date/ Time Advance Directives No September 10:36am Advance Directive Response Recorded Date/ Time Advance Directives No September 11:36am Summary Purpose Family History No Family History Records Found Additional Source Comments REASON FOR VISIT (unrecogniz ed section and content) RASH ON FACE AND UP NOSEESTA BLISH, Basil Establish PrimaryMAIL PPWGASTRO REPORTSRefillRefillSORE THROAT, HEADACHESPOSSIBLE BILATERAL PINK EYE Care Teams (unrecognized sec tion and content) Team Status: Inactive Member Role Status Dates PHYSICIAN NO FAMILY Primary Care Provider Active [place] MD Attending Provider Active Team Status: Inactive Member Role Status Dates PHYSICIAN NO FAMILY Primary Care Provider Active Denis Banegas DO Attending Provider Active Team Status: Active Member Role Status Dates PHYSICIAN NO FAMILY Primary Care Provider Active Team Status: Inactive Member Role Status Dates PHYSICIAN NO FAMILY Primary Care Provider Active Christopher M Makenzie , DO Attending Provider Active INFORMATION SOURCE (unrecogn ized section and content) DATE CREATED AUTHOR 12/28/2022 [facility] DATE CREATED AUTHOR AUTHOR'S JAIMIE GLEZ 05/25/2023 [facility] Goals (unrecognized section and content) Goals may be documented in a n alternate section FOR RECORDS PERTAINING TO PATIENTS WHO ARE OR HAVE BEEN ENROLLED IN A CHEMICAL DEPENDENCY/SUBSTANCEABUSE PROGRAM, SOME INFORMATION MAY BE OMITTED. This clinical summary was aggregated from multiple sources. Caution should be exercised in using it in the provision of clinical care. This summary normalizes information from multiple sources, and as a consequence, information in this document may materially change the coding, format and clinical context of patient data. In addition, data may be omitted in some cases. CLINICAL DECISIONS SHOULD BE BASED ON THE PRIMARY CLINICAL RECORDS. [employer] provides no warranty or guarantee of the accuracy or completeness of information in this document.
--- NOTE | 2024-02-07 16:51 | ECG_ITS ---
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
[2024-02-07 17:29] VITALS: BP 148/72; O2SAT 98
== END 2024-02-07 17:29 | disposition home or self-care (01) ==
PROVIDERS: Emergency Provider Emergency Medicine; PCP Nurse Practitioner Family
DX: S00.83XA Contusion of other part of head, initial encounter (principal); W22.8XXA Striking against or struck by other objects, initial encounter; Z87.891 Personal history of nicotine dependence
CPT/HCPCS: 70450; 93005; 99284

== ENCOUNTER 2024-04-30 10:39 | Outpatient (OUT) | payer MEDICAID, SELFPAY ==
--- NOTE | 2024-04-30 10:45 | MM_ITS ---
Patient Name: DELIO BOUDREAUX MR#: [id number] : 1970 Exam Date: 04/30/2024 Ordering Doctor: JASON RESTREPO RADIOLOGY REPORT PROCEDURE: MM TOMOSYNTHESIS SCREENING BI COMPARISON: MG MAMM RT DIAG FU, 02/19/2019. MM TOMOSYNTHESIS SCREENING BI, 02/02/2023. INDICATIONS: Screening Calculator Name NCI Breast Cancer Risk Assessment Tool 5 Year Breast Cancer Risk 0.80% Lifetime Breast Cancer Risk 6.20% Personal Breast Cancer No Personal Ovarian Cancer No Treatments None Family Cancers Grandfather-maternal with prostate/penile cancer at age ~60; Grandmother-maternal with breast cancer at age ~70; Uncle-maternal with rectal cancer at age 50. LOCATION: [facility] BREAST COMPOSITION: There are scattered areas of fibroglandular density. FINDINGS: DIAGNOSTIC CATEGORY 2--BENIGN FINDING. NO CHANGE FROM COMPARISON. Scattered benign-appearing calcifications are present. Scattered benign-appearing lymph nodes are present. RIGHT BREAST: No significant suspicious finding. LEFT BREAST: No significant suspicious finding. RECOMMENDATIONS: ROUTINE MAMMOGRAM AND CLINICAL EVALUATION IN 12 MONTHS. PLEASE NOTE: A NORMAL MAMMOGRAM DOES NOT EXCLUDE THE POSSIBILITY OF BREAST CANCER. A CLINICALLY SUSPICIOUS PALPABLE LUMP SHOULD BE BIOPSIED. Dictated by: Wilberto Arias MD on 04/30/2024 at 15:34 Approved by: Wilberto Arias MD on 04/30/2024 at 15:36
--- OUTSIDE RECORDS SUMMARY | 2024-04-30 10:58 | XMS_ITS | CCD ---
Author Organization [facility] Care Team Providers Care Road Maker Name Role Phone Roxanna Howard Unavailable Idania Enrique Unavailable [place] Unavailable NO FAMILY, PHYSICIAN Primary Care Provider Unava ilable DO Denis Banegas Attending Provider MD [place] Attending Provider CHARU MCKEON Attending Unavailable CHARU MCKEON Consulting Unavailable MCKNIGHT, ESTELA Primary Care Unavailable CHARU MCKEON Admitting Unavailable CARLTON, MARIO Consulting Unavailable KLAUS, IDANIA Primary Care Unavailable KLAUS, IDANIA Admitting Unavailable KLAUS, IDANIA Attending Unavailable KLAUS, IDANIA Consulting Unavailable KLAUS, IDANIA Primary Care Unavailable KLAUS, IDANIA Admitting Unavailable KLAUS, IDANIA Attending Unavailable NO FAMILY, PHYSICIAN Primary Care Provider Unava ilable DO Tera Banegas Attending Provider [phone] Tracey Soriano Unavailable KEI Zhou Primary Care Provider KEI Zhou Attending Provider [phone] NO FAMILY, PHYSICIAN Primary Care Unavailable Tera Banegas Attending Unavailab Tera Perez Admitting Unavailab Krys De León Attending Unavailable Krys Zhou Primary Care Unavailable Krys Zhou Admitting Unavailable Allergies Allergy Classification Reported Allergen(s) Allergy Type Date of Onset Reaction(s) Facility (9 sources) Acetaminophen / HYDROcodone; Translations: [Vicodin] Drug Allergy 03-16-20 14 nausea, palpitations [facility] (2 sources) diphenhydrAMINE; Translations: [Benadryl] Drug Allergy 03-16-20 14 can't breathe and heat palpitations [facility] (8 sources) Penicillin G Drug Allergy [facility] [place] [facility] Other (10 sources) diphenhydrAMINE Drug Allergy 08-29-19 23 can't breathe and heat palpitations, Difficulty Breathing, Difficulty Breathing, can't breathe and heat palpitations [place] (4 sources) Acetaminophen; Translations: [acetaminophen] Drug Allergy 08-29-19 23 Palpitations, Palpitations, nausea, palpitations [place] (4 sources) HYDROcodone; Translations: [hydrocodone] Drug Allergy 08-29-19 23 Palpitations, Palpitations, nausea, palpitations [place] (5 sources) Penicillins; Translations: [Penicillins] Allergy to substance 03-16-20 14 [facility] (1 source) diphenhydrAMINE Drug Allergy 03-20-20 24 [place] [facility] Medications Current Medications Medication Drug Class(es) Dates [...] 6 hrs for 3 days Aug, Active busPIRone hydrochloride 5 mg oral tablet (1 source) Start: 03-20-2024 take 5 mg by mouth twice daily Buspirone Active 5 MG PO Twice daily 60 March 20, 2024 12:00am ciprofloxacin 3 mg/ml ophthalmic solution (1 source) Quinolone Antimicrobial Start: 09-29-2023 take 1-2 drop(s) into the eye(s) every four hours Ciprofloxacin HCl 0.3 % 1-2 drops Ophthalmic every 4 hours for 7 days Sep, Active cyclobenzaprine hydrochloride 10 mg oral tablet (2 sources) Muscle Relaxant Start: 10-08-2023 take 10 mg by mouth three times daily Cyclobenzaprine Active 10 MG PO Three times daily 270 90 October 08, 2023 1:00am Cyclobenzaprine HCl Active dextromethorphan hydrobromide 15 mg / guaiFENesin 400 mg / pseudoephedrine hydrochloride 60 mg oral tablet (1 source) alpha-Adrenergic Agonist, Uncompetitive Y-uyrfmp-F-aspartate Receptor Antagonist, Sigma-1 Agonist Start: 07-08-2023 take 4 tablets by mouth every twenty-four hours as needed Capmist DM 60-15-400 MG as needed Orally every 4-6 hours as needed, max 4 tablets in 24 hours for 5 days Jun, Active elderberry fruit 200 mg oral capsule (3 sources) Start: 08-29-2022 Elderberry Fruit Active 200 MG PO August 29, 2022 1:00am Elderberry preparation (7 sources) Elderberry Active ibuprofen 600 mg oral tablet (11 sources) Nonsteroidal Anti-inflammatory Drug Start: 10-08-2023 End: 03-20-2024 take 600 mg by mouth three times daily Ibuprofen Active 600 MG PO Three times daily March 20, 2024 2:11pm Start: 09-19-2021 take 1 tablet by angela th three [...] day for 30 days Active Ibuprofen Active losartan potassium 25 mg oral tablet (3 sources) Angiotensin 2 Receptor Denzel Start: 10-08-2023 End: 03-20-2024 take 25 mg by mouth once daily Losartan Active 25 MG PO Daily March 20, 2024 2:10pm methylPREDNISolone 4 mg oral tablet (2 sources) Corticosteroid Start: 03-20-2024 take 1 tablet by mouth once Methylprednisolone (Medrol (Todd)) 4 mg tablets,dose pack Active 0 PO per package directions 07 02March 20, 2024 12:00am PO PER PKG DIR Start: 07-08-2023 methylPREDNISo lone 4 MG as directed Orally for daily dose take half with breakfast, half with dinner for 6 days Jun, Active omeprazole 20 mg delayed release oral capsule (11 sources) Proton Pump Inhibitor Start: 10-08-2023 End: 03-20-2024 take 20 mg by mouth once daily Omeprazole Active 20 MG PO Daily 90 90 March 20, 2024 2:11pm take 1 capsule by mo [facility] every twenty-four hours Omeprazole 20 MG 1 capsule Orally Once a day for 30 days Active ondansetron 4 mg disintegrating oral tablet (1 source) Serotonin-3 Receptor Antagonist Start: 11-20-2023 take 4 mg by mouth every eight hours Ondansetron Active 4 MG PO Q8H 30 November 20, 2023 12:00am sertraline 100 mg oral tablet (1 source) Serotonin Reuptake Inhibitor take 1 tablet by mouth every twenty-four hours Zoloft 100 MG 1 tablet Orally Once a day for 30 day(s) Active valACYclovir 1000 mg oral tablet (2 sources) Herpesvirus Nucleoside Analog DNA Polymerase Inhibitor, Herpes Simplex Virus Nucleoside Analog DNA Polymerase Inhibitor, Herpes Zoster Virus Nucleoside Analog DNA Polymerase Inhibitor Start: 10-09-2023 End: 03-20-2024 Valacyclovir Active 2000 MG PO Every 12 hours 4 March 20, 2024 2:11pm Take at onset of symptoms, 2 tablets and then repeat in 12 hours Completed/Discontinued Medications Medication Drug Class(es) Dates Sig [...] Start: 09-19-2021 take 1 tablet by angela five times daily Acyclovir 800 MG 1 tablet Orally 5 times a day for 10 day(s) Aug, Active Ketorolac (7 sources) Nonsteroidal Anti-inflammatory Drug, Cyclooxygenase Inhibitor Start: 12-15-2016 Toradol p er 15 mg Nov, 60 mg Problems Active Problems Problem Classification Problem Date Documented Date Episodic/Chronic Acute bronchitis (8 sources) Acute bronchitis; Translations: [Acute bronchitis] Episodic Anxiety disorders (3 sources) Anxiety disorder, unspecified; Translations: [Anxiety] Onset: 09-19-2021 Resolved: 09-19-2021 Chronic Blindness and vision defects (3 sources) Eye / vision finding; Translations: [Unspecified visual disturbance] Onset: 04-23-2024 03-23-2024 Episodic Esophageal disorders (3 sources) Gastro-esophageal reflux disease without esophagitis; Translations: [Gastroesophageal reflux disease] Onset: 01-20-2022 10-08-2023 Chronic Essential hypertension (2 sources) Hypertensive disorder; Translations: [Essential (primary) hypertension] 11-05-2023 Chronic Headache; including migraine (3 sources) Migraine; Translations: [Migraine, unspecified, not intractable, without status migrainosus] Onset: 04-23-2024 11-22-2023 Chronic Headache; including migraine (1 source) Generalized headache; Translations: [Generalized headache] 10-08-2023 Episodic Inflammation; infection of eye (except that caused by tuberculosis or sexually transmitteddisease) (1 source) Unspecified acute conjunctivitis, bilateral Episodic Malaise and fatigue (1 source) Fatigue; Translations: [Other fatigue] 10-08-2023 Episodic Mood disorders (1 source) Depressive disorder; Translations: [Depression] 10-08-2023 Chronic Neoplasms of unspecified nature or uncertain behavior (8 sources) Neoplasm of brain; Translations: [Neoplasm of unspecified behavior of brain] Chronic Noninfectious gastroenteritis (1 source) Gastroenteritis; Translations: [Noninfective gastroenteritis and colitis, unspecified] 11-20-2023 Episodic Osteoarthritis (9 sources) Osteoarthritis of right knee joint; Translations: [Unilateral primary osteoarthritis, right knee] 10-08-2023 Chronic Other and unspecified benign neoplasm (1 source) Intracranial meningioma; Translations: [Benign neoplasm of cerebral meninges] 10-10-2023 Chronic Other and unspecified benign neoplasm (2 sources) Benign neoplasm of cerebral meninges; Translations: [Benign neoplasm of cerebral meninges] Onset: 04-23-2024 03-20-2024 Chronic Other and unspecified benign neoplasm (1 source) Benign neoplasm of meninges, unspecified; Translations: [Benign neoplasm of meninges, unspecified] Onset: 05-19-2023 Chronic Other and unspecified benign neoplasm (3 sources) History of polyp of colon; Translations: [Personal history of colonic polyps] 08-29-2022 Episodic Other and unspecified benign neoplasm (1 source) Personal history of colonic polyps; Translations: [Personal history of colonic polyps] 08-29-2022 Episodic Other and unspecified benign neoplasm (1 source) Polyp of colon; Translations: [Polyp of colon] 10-10-2023 Episodic Other connective tissue disease (1 source) Achilles tendinitis; Translations: [Achilles tendinitis, unspecified leg] 03-20-2024 Episodic Other connective tissue disease (1 source) Achilles tendinitis, unspecified leg; Translations: [Achilles bursitis or tendinitis] 03-20-2024 Episodic Other eye disorders (1 source) Disorder of eye region; Translations: [Ocular pain, unspecified eye] 01-19-2024 Episodic Other nervous system disorders (1 source) Carpal tunnel syndrome; Translations: [Carpal tunnel syndrome, unspecified upper limb] 10-08-2023 Chronic Other non-traumatic joint disorders (1 source) Hip pain; Translations: [Pain in right hip] 11-06-2023 Episodic Other upper respiratory infections (2 sources) Acute pharyngitis, unspecified; Translations: [Acute sinusitis, unspecified] Episodic Residual codes; unclassified (2 sources) Family history of malignant neoplasm of digestive organs Episodic Residual codes; unclassified (6 sources) Family history of malignant neoplasm of digestive organ; Translations: [Family history of malignant neoplasm of digestive organs] Episodic Residual codes; unclassified (1 source) Family history of diabetes mellitus; Translations: [Family history of diabetes mellitus] 10-08-2023 Episodic Spondylosis; intervertebral disc disorders; other back problems (1 source) Neck pain; Translations: [Cervicalgia] 10-08-2023 Episodic Viral infection (4 sources) Zoster without complications; Translations: [Other viral agents as the cause of diseases classified elsewhere] Onset: 09-19-2021 Resolved: 09-19-2021 Episodic Past or Other Problems Problem Classification Problem Date Documented Da te Episodic/Chronic Nonspecific chest pain (4 sources) Chest pain, unspecified; Translations: [CHEST PAIN UNSPECIFIED] Onset: 01-19-2022 Episodic Other aftercare (1 source) Other half-way (current) drug therapy; Translations: [[facility] CURRENT DRUG THERAPY] Onset: 01-20-2022 Episodic Screening and history of mental health and substance abuse codes (1 source) Personal history of nicotine dependence; Translations: [PERSONAL HISTORY OF NICOTINE DEPEND] Onset: 01-20-2022 Episodic Results Test Name Value Interpretation Reference Range Facility MR head/brain wo/w conon MR head/brain wo/w con [facility] [place] [address] [place] [address] MRI Report Signed Patient: Alma Andino MR#: [id number] 224 : 1970 Acct:[id number] Age/Sex: 53 / F ADM Date: 04/23/24 Loc: MR Room: Type: [facility] Attending Dr: Krys Zhou APRN, NP-C Copies to: Krys Zhou APRN, CNP Ordering Provider: Krys Zhou APRN, CNP Date of Service: 04/23/24 MR/MR head/brain wo/w con: H53.9 - Unspecified visual disturbance MR head/brain wo/w con 04/23/2024 7:16 AM SIGN AND SYMPTOMS: Intermittent sharp pain along left side of head with subsequent headaches. History of meningioma. PROTOCOL: Multiplanar multisequence MR images of the brain were obtained with and without IV contrast CONTRAST: 20 mL of intravenous ProHance COMPARISON: 05/19/2023 FINDINGS: Extra axial spaces: There is a slightly larger pleural-based homogeneously enhancing meningioma in the anterior aspect of the floor of the right middle cranial fossa. This measures 1.7 x 2.6 x 1.9 cm in greatest dimension on the current exam. Hemorrhage: None. Ventricular system: Within normal limits. Basal cisterns: Within normal limits and not effaced. Cerebral parenchyma: Mild periventricular white matter T2 and FLAIR hyperintense signal is noted. Midline shift: None.. Cerebellum: Within normal limits. Brainstem: Within normal limits. OTHER: Calvarium: Normal marrow signal. Vascular system: Satisfactory flow voids within the anterior and posterior circulation. Visualized Paranasal sinuses: Within normal limits. Visualized Orbits: Within normal limits. Visualized upper cervical spine: Within normal limits. Sella and skull base: Within normal limits. MR/MR head/brain wo/w con IMPRESSION: No acute intracranial pathology. There is a slightly larger pleural-based homogeneously enhancing meningioma in the anterior aspect of the floor of the right middle cranial fossa. This measures 1.7 x 2.6 x 1.9 cm in greatest dime nsion on the current exam. Impression dictated by: Johann Miguel M.D.04/23/2024 12:51 PM Dictation Location: [place] [address] Transcribed By: KEV 04/23/24 1251 Dictated By: Johann Miguel II, MD 04/23/24 1244 Signed By: 04/23/24 1251 Normal The Replaced By [facility] Quick Strepon 07-08-2023 S. pyogenes Org specific cx Ql (Throat) Negative [employer] [facility] [employer] Other Quick Strep [employer] [facility] [employer] Other MR head/brain wo/w conon MR head/brain wo/w con [facility] [place] [address] [place] [address] MRI Report Signed Patient: Alma Andino MR#: [id number] 224 : 1970 Acct:[id number] Age/Sex: 52 / F ADM Date: 05/19/23 Loc: Room: Type: [facility] Attending Dr: Tera Banegas DO Copies [...] Duncan Jr., D.O.05/19/2023 12:02 PM Dictation Location: [place] [address] Transcribed By: [facility] 05/19/23 120 Dictated By: Miguel Duncan Jr, DO 05/19/23 1155 Signed By: 05/19/23 1202 Normal The Replaced By [facility] CBC AUTO DIFFon 05-15-2022 BASO # 0.0 103/ul Normal 0.0-0.1 [facility] Comment on above: Performed By: #### C BC #### [facility] [address] [place] [address] Dr. Rehana Valencia Basophils/100 WBC (Bld) 0.5 % Normal 0.2-2.0 [facility] Comment on above: Performed By: #### C BC #### [facility] [address] [place] [address] Dr. Rehana Valencia EO # 0.1 103/ul Normal 0.0-0.7 [facility] Comment on above: Performed By: #### C BC #### [facility] [address] [place] [address] Dr. Rehana Valencia Eosinophils/100 WBC (Bld) 1.5 % Normal 0.9-7.0 [facility] Comment on above: Performed By: #### C BC #### [facility] [address] [place] [address] Dr. Rehana Valencia Erythrocyte distribution width (RBC) [Ratio] 13.5 % Normal 11.0-15.0 [facility] Comment on above: Performed By: #### C BC #### [facility] [address] [place] [address] Dr. Rehana Valencia Hematocrit (Bld) [Volume fraction] 42.8 % Normal 36.0-48.0 [facility] Comment on above: Performed By: #### C BC #### [facility] [address] [place] [address] Dr. Rehana Valencia Hemoglobin (Bld) [Mass/Vol] 13.8 g/dL Normal 12.0-16.0 [facility] Comment on above: Performed By: #### C BC #### [facility] [address] [place] [address] Dr. Rehana Valencia IG # 0.14 10e3/ul Critically high 0.00-0.03 [facility] Comment on above: Performed By: #### C BC #### [facility] [address] [place] [address] Dr. Rehana Valencia IG % 1.7 % Critically high 0.0-0.5 [facility] Comment on above: Performed By: #### C BC #### [facility] [address] [place] [address] Dr. Rehana Valencia LYMPH # 1.9 103/ul Normal 1.2-3.8 [facility] Comment on above: Performed By: #### C BC #### [facility] [address] [place] [address] Dr. Rehana Valencia Lymphocytes/100 WBC (Bld) 22.6 % Normal 20.5-60.0 [facility] Comment on above: Performed By: #### C BC #### [facility] [address] [place] [address] Dr. Rehana Valencia MANUAL DIFF REQ NO Normal [facility] Comment on above: Performed By: #### C BC #### [facility] [address] [place] [address] Dr. Rehana Valencia MCH (RBC) [Entitic mass] 25.7 pg Critically low 26.7-34.0 [facility] Comment on above: Performed By: #### C BC #### [facility] [address] [place] [address] Dr. Rehana Valencia MCHC (RBC) [Mass/Vol] 32.2 g/dL Normal 29.9-35.2 [facility] Comment on above: Performed By: #### C BC #### [facility] [address] [place] [address] Dr. Rehana Valencia MCV (RBC) [Entitic vol] 79.9 fL Critically low 81.0-99.0 [facility] Comment on above: Performed By: #### C BC #### [facility] [address] [place] [address] Dr. Rehana Valencia MONO # 0.8 103/ul Normal 0.3-0.8 [facility] Comment on above: Performed By: #### C BC #### [facility] [address] [place] [address] Dr. Rehana Valencia Monocytes/100 WBC (Bld) 9.3 % Normal 1.7-12.0 [facility] Comment on above: Performed By: #### C BC #### [facility] [address] [place] [address] Dr. Rehana Valencia NEUT # 5.4 103/ul Normal 1.4-6.5 [facility] Comment on above: Performed By: #### C BC #### [facility] [address] [place] [address] Dr. Rehana Valencia Neutrophils/100 WBC (Bld) 64.4 % Normal 43.0-75.0 [facility] Comment on above: Performed By: #### C BC #### [facility] [address] [place] [address] Dr. Rehana Valencia Platelet mean volume (Bld) [Entitic vol] 10.2 fL Normal 9.5-13.5 [facility] Comment on above: Performed By: #### C BC #### [facility] [address] [place] [address] Dr. Rehana Valencia PLT 221 103/ul Normal 150-450 [facility] Comment on above: Performed By: #### C BC #### [facility] [address] [place] [address] Dr. Rehana Valencia RBC 5.36 106/ul Normal 4.20-5.40 [facility] Comment on above: Performed By: #### C BC #### [facility] [address] [place] [address] Dr. Rehana Valencia WBC 8.4 103/ul Normal 4.0-11.0 [facility] Comment on above: Performed By: #### C BC #### [facility] [address] [place] [address] [address] Rehana Valencia GLYCOHEMOGLOBIN A1Con 2021 ADA RECOMMENDATION SEE BELOW Normal [facility] Comment on above: Result Comment: ADA RECOMMENDED LIMIT 4.0 - 6.0 ADA THERAPEUTIC TARGET < 7.0 ACTION SUGGESTED > 7.0 Performed By: #### A 1C #### [facility] [address] [place] [address] [address] Rehana Valencia Glucose [Mass/Vol] 120 mg/dL Normal [facility] Comment on above: Performed By: #### A 1C #### [facility] [address] [place] [address] Dr. Rehana Valencia HbA1c (Bld) [Mass fraction] 5.8 % Normal 4.5-6.2 [facility] Comment on above: Performed By: #### A 1C #### [facility] [address] [place] [address] Dr. Rehana Valencia LIPID PROFILEon 05-15-2022 CHOL-HDL RATIO NORM SEE BELOW Normal [facility] Comment on above: Result Comment: 3.3 - 4.4 LOW RISK 4.4 - 7.1 AVERAGE RISK 7.1 - 11.0 MODERATE RISK >11.0 HIGH RISK Performed By: #### C MP, LIPID #### [facility] [address] [place] [address] Dr. Rehana Valencia Cholesterol [Mass/Vol] 171 mg/dL Normal <=200 [facility] Comment on above: Performed By: #### C MP, LIPID #### [facility] [address] [place] [address] Dr. Rehana Valencia Cholesterol in HDL [Mass/Vol] 52 mg/dL Normal 40-60 [facility] Comment on above: Performed By: #### C MP, LIPID #### [facility] [address] [place] [address] [address] Rehana Valencia Cholesterol in LDL [Mass/Vol] 81.4 mg/dL Normal [facility] Comment on above: Performed By: #### C MP, LIPID #### [facility] [address] [place] [address] [address] Rehana Valencia Cholesterol.total/Ch olesterol in HDL [Mass ratio] 3.3 {ratio} Normal [facility] Comment on above: Performed By: #### C MP, LIPID #### [facility] [address] [place] [address] Dr. Rehana Valencia HDL NORMAL > or = 60 mg/dl - LOW CARDIOVASCULAR RISK <40 mg/dl - HIGH CARDIOVASCULAR RISK Normal [facility] Comment on above: Performed By: #### C MP, LIPID #### [facility] [address] [place] [address] Dr. Rehana Valencia LDL CALC NORMAL SEE BELOW Normal [facility] Comment on above: Result Comment: <100 mg/dl OPTIMAL 100 - 129 mg/dl NEAR OR ABOVE OPTIMAL 130 - 159 mg/dl BORDERLINE HIGH 160 - 189 mg/dl HIGH >190 mg/dl VERY HIGH Performed By: #### C MP, LIPID #### [facility] [address] [place] [address] Dr. Rehana Valencia Triglyceride [Mass/Vol] 188 mg/dL Critically high <=150 [facility] Comment on above: Performed By: #### C MP, LIPID #### [facility] [address] [place] [address] Dr. Rehana Valencia VLDL CALC 37.6 mg/dL Normal [facility] Comment on above: Performed By: #### C MP, LIPID #### [facility] [address] [place] [address] Dr. Rehana Valencia PROF 14(COMP METB)on 022 Albumin [Mass/Vol] 3.7 g/dL Normal 3.4-5.0 [facility] Comment on above: Performed By: #### C MP, LIPID #### [facility] [address] [place] [address] Dr. Rehana Valencia Albumin/Globulin [Mass ratio] 0.9 {ratio} Normal [facility] Comment on above: Performed By: #### C MP, LIPID #### [facility] [address] [place] [address] Dr. Rehana Valencia ALP [Catalytic activity/Vol] 89 U/L Normal 46-116 [facility] Comment on above: Performed By: #### C MP, LIPID #### [facility] [address] [place] [address] [address] Rehana Valencia ALT [Catalytic activity/Vol] 78 U/L Critically high 14-59 [facility] Comment on above: Performed By: #### C MP, LIPID #### [facility] [address] [place] [address] [address] Rehana Valencia Anion gap [Moles/Vol] 9.9 mmol/L Normal [facility] Comment on above: Performed By: #### C MP, LIPID #### [facility] [address] [place] [address] [address] Rehana Valencia AST [Catalytic activity/Vol] 41 U/L Critically high 15-37 [facility] Comment on above: Performed By: #### C MP, LIPID #### [facility] [address] [place] [address] Dr. Rehana Valencia Bilirubin [Mass/Vol] 0.4 mg/dL Normal 0.2-1.0 [facility] Comment on above: Performed By: #### C MP, LIPID #### [facility] [address] [place] [address] Dr. Rehana Valencia Calcium [Mass/Vol] 8.8 mg/dL Normal 8.5-10.1 [facility] Comment on above: Performed By: #### C MP, LIPID #### [facility] [address] [place] [address] Dr. Rehana Valencia Chloride [Moles/Vol] 104 mmol/L Normal 98-107 [facility] Comment on above: Performed By: #### C MP, LIPID #### [facility] [address] [place] [address] [address] Rehana Valencia CO2 [Moles/Vol] 30.9 mmol/L Normal 21.0-32.0 [facility] Comment on above: Performed By: #### C MP, LIPID #### [facility] [address] [place] [address] Dr. Rehana Valencia Creatinine [Mass/Vol] 0.78 mg/dL Normal 0.55-1.02 [facility] Comment on above: Performed By: #### C MP, LIPID #### [facility] [address] [place] [address] Dr. Rehana Valencia EGFR-AF GUAMANIAN >60 Normal >=60 [facility] Comment on above: Performed By: #### C MP, LIPID #### [facility] [address] [address] [address] Rehana Valencia EGFR-NON AF GUAMANIAN >60 Normal >=60 [facility] Comment on above: Performed By: #### C MP, LIPID #### [facility] [address] [place] [address] Dr. Rehana Valencia Globulin (S) [Mass/Vol] 4.0 g/dL Normal [facility] Comment on above: Performed By: #### C MP, LIPID #### [facility] [address] [place] [address] Dr. Rehana Valencia Glucose [Mass/Vol] 97 mg/dL Normal 74-106 [facility] Comment on above: Performed By: #### C MP, LIPID #### [facility] [address] [place] [address] Dr. Rehana Valencia Potassium [Moles/Vol] 4.8 mmol/L Normal 3.5-5.1 [facility] Comment on above: Performed By: #### C MP, LIPID #### [facility] [address] [place] [address] Dr. Rehana Valencia Protein [Mass/Vol] 7.7 g/dL Normal 6.4-8.2 [facility] Comment on above: Performed By: #### C MP, LIPID #### [facility] [address] [place] [address] Dr. Rehana Valencia Sodium [Moles/Vol] 140 mmol/L Normal 136-145 [facility] Comment on above: Performed By: #### C MP, LIPID #### [facility] [address] [place] [address] Dr. Rehana Valencia Urea nitrogen [Mass/Vol] 10.0 mg/dL Normal 7.0-18.0 [facility] Comment on above: Performed By: #### C MP, LIPID #### [facility] [address] [place] [address] Dr. Rehana Valencia Urea nitrogen/Creatinine [Mass ratio] 12.8 mg/mg Normal [facility] Comment on above: Performed By: #### C MP, LIPID #### [facility] [address] [place] [address] Dr. Rehana Valencia CARDIAC JOHANN 3-6on 2 CK [Catalytic activity/Vol] 62 U/L Normal 26-192 [facility] Comment on above: Performed By: #### C MREP #### [facility] [address] [place] [address] Dr. Rehana Valencia CK.MB [Mass/Vol] 1.03 ng/mL Normal <=3.60 [facility] Comment on above: Performed By: #### C MREP #### [facility] [address] [place] [address] Dr. Rehana Valencia HSTROP 8.3 pg/mL Normal 4.0-51.3 [facility] Comment on above: Result Comment: CUT- OFF POINTS HAVE BEEN ESTABLISHED BASED ON THE FOURTH UNIVERSAL DEFINITIONS OF MYOCARDIAL INFARCTION. THE UPPER REFERENCE LIMIT (URL) OF TROPONIN, DEFINED THE 99TH PERCENTILE OF cTnI DISTRIBUTION IN A REFERENCE POPULATION, HAS BEEN CONFIRMED THE DECISION THRESHOLD FOR IA DIAGNOSIS. Performed By: #### C MREP #### [facility] [address] [place] [address] Dr. Rehana Valencia CARDIAC JOHANN ADMITon 022 CK [Catalytic activity/Vol] 56 U/L Normal 26-192 [facility] Comment on above: Performed By: #### B LOIS CMADM #### [facility] [address] [place] [address] Dr. Rehana Valencia CK.MB [Mass/Vol] 0.98 ng/mL Normal <=3.60 [facility] Comment on above: Performed By: #### B LOIS CMADM #### [facility] [address] [place] [address] Dr. Rehana Valencia HSTROP 7.6 pg/mL Normal 4.0-51.3 [facility] Comment on above: Result Comment: CUT- OFF POINTS HAVE BEEN ESTABLISHED BASED ON THE FOURTH UNIVERSAL DEFINITIONS OF MYOCARDIAL INFARCTION. THE UPPER REFERENCE LIMIT (URL) OF TROPONIN, DEFINED THE 99TH PERCENTILE OF cTnI DISTRIBUTION IN A REFERENCE POPULATION, HAS BEEN CONFIRMED THE DECISION THRESHOLD FOR IA DIAGNOSIS. Performed By: #### B MORENA ABREU #### [facility] [address] [place] [address] Dr. Rehana Valencia LUIS 45 ng/mL Normal 9-82 [facility] Comment on above: Performed By: #### B MORENA ABREU #### [facility] [address] [place] [address] Dr. Rehana Valencia CBC AUTO DIFFon 01-19-2022 BASO # 0.0 103/ul Normal 0.0-0.1 [facility] Comment on above: Performed By: #### C BC #### [facility] [address] [place] [address] Dr. Rehana Valencia Basophils/100 WBC (Bld) 0.3 % Normal 0.2-2.0 [facility] Comment on above: Performed By: #### C BC #### [facility] [address] [place] [address] Dr. Rehana Valencia EO # 0.1 103/ul Normal 0.0-0.7 [facility] Comment on above: Performed By: #### C BC #### [facility] [address] [place] [address] Dr. Rehana Valencia Eosinophils/100 WBC (Bld) 1.2 % Normal 0.9-7.0 [facility] Comment on above: Performed By: #### C BC #### [facility] [address] [place] [address] Dr. Rehana Valencia Erythrocyte distribution width (RBC) [Ratio] 13.8 % Normal 11.0-15.0 [facility] Comment on above: Performed By: #### C BC #### [facility] [address] [place] [address] Dr. Rehana Valencia Hematocrit (Bld) [Volume fraction] 38.5 % Normal 36.0-48.0 [facility] Comment on above: Performed By: #### C BC #### [facility] [address] [place] [address] Dr. Rehana Valencia Hemoglobin (Bld) [Mass/Vol] 12.9 g/dL Normal 12.0-16.0 [facility] Comment on above: Performed By: #### C BC #### [facility] [address] [place] [address] Dr. Rehana Valencia IG # 0.11 10e3/ul Critically high 0.00-0.03 [facility] Comment on above: Performed By: #### C BC #### [facility] [address] [place] [address] Dr. Rehana Valencia IG % 1.2 % Critically high 0.0-0.5 [facility] Comment on above: Performed By: #### C BC #### [facility] [address] [place] [address] Dr. Rehana Valencia LYMPH # 3.0 103/ul Normal 1.2-3.8 [facility] Comment on above: Performed By: #### C BC #### [facility] [address] [place] [address] Dr. Rehana Valencia Lymphocytes/100 WBC (Bld) 31.8 % Normal 20.5-60.0 [facility] Comment on above: Performed By: #### C BC #### [facility] [address] [place] [address] Dr. Rehana Valencia MANUAL DIFF REQ NO Normal [facility] Comment on above: Performed By: #### C BC #### [facility] [address] [place] [address] Dr. Rehana Valencia MCH (RBC) [Entitic mass] 26.4 pg Critically low 26.7-34.0 [facility] Comment on above: Performed By: #### C BC #### [facility] [address] [place] [address] Dr. Rehana Valencia MCHC (RBC) [Mass/Vol] 33.5 g/dL Normal 29.9-35.2 [facility] Comment on above: Performed By: #### C BC #### [facility] [address] [place] [address] Dr. Rehana Valencia MCV (RBC) [Entitic vol] 78.9 fL Critically low 81.0-99.0 [facility] Comment on above: Performed By: #### C BC #### [facility] [address] [place] [address] Dr. Rehana Valencia MONO # 0.6 103/ul Normal 0.3-0.8 [facility] Comment on above: Performed By: #### C BC #### [facility] [address] [place] [address] Dr. Rehana Valencia Monocytes/100 WBC (Bld) 6.8 % Normal 1.7-12.0 [facility] Comment on above: Performed By: #### C BC #### [facility] [address] [place] [address] Dr. Rehana Valencia NEUT # 5.5 103/ul Normal 1.4-6.5 [facility] Comment on above: Performed By: #### C BC #### [facility] [address] [place] [address] Dr. Rehana Valencia Neutrophils/100 WBC (Bld) 58.7 % Normal 43.0-75.0 [facility] Comment on above: Performed By: #### C BC #### [facility] [address] [place] [address] Dr. Rehana Valencia Platelet mean volume (Bld) [Entitic vol] 10.0 fL Normal 9.5-13.5 [facility] Comment on above: Performed By: #### C BC #### [facility] [address] [place] [address] Dr. Rehana Valencia PLT 237 103/ul Normal 150-450 [facility] Comment on above: Performed By: #### C BC #### [facility] [address] [place] [address] Dr. Rehana Valencia RBC 4.88 106/ul Normal 4.20-5.40 [facility] Comment on above: Performed By: #### C BC #### [facility] [address] [place] [address] Dr. Rehana Valencia WBC 9.4 103/ul Normal 4.0-11.0 [facility] Comment on above: Performed By: #### C BC #### [facility] [address] [place] [address] Dr. Rehana Valencia PROF CHEM 8 (BAS METB)on Anion gap [Moles/Vol] 8.1 mmol/L Normal [facility] Comment on above: Performed By: #### B MORENA ABREU #### [facility] [address] [place] [address] Dr. Rehana Valencia Calcium [Mass/Vol] 9.1 mg/dL Normal 8.5-10.1 [facility] Comment on above: Performed By: #### MORENA Sidhu MP #### [facility] [address] [place] [address] Dr. Rehana Valencia Chloride [Moles/Vol] 104 mmol/L Normal 98-107 [facility] Comment on above: Performed By: #### MORENA Sidhu MP #### [facility] [address] [place] [address] Dr. Rehana Valencia CO2 [Moles/Vol] 32.3 mmol/L Critically high 21.0-32.0 [facility] Comment on above: Performed By: #### MORENA Sidhu MP #### [facility] [address] [place] [address] Dr. Rehana Valencia Creatinine [Mass/Vol] 0.83 mg/dL Normal 0.55-1.02 [facility] Comment on above: Performed By: #### MORENA Sidhu MP #### [facility] [address] [place] [address] Dr. Rehana Valencia EGFR-AF GUAMANIAN >60 Normal >=60 [facility] Comment on above: Performed By: #### MORENA Sidhu MP #### [facility] [address] [place] [address] Dr. Rehana Valencia EGFR-NON AF GUAMANIAN >60 Normal >=60 [facility] Comment on above: Performed By: #### B LOIS, MORENA #### [facility] [address] [place] [address] Dr. Rehana Valencia Glucose [Mass/Vol] 123 mg/dL Critically high 74-106 [facility] Comment on above: Performed By: #### B LOIS, MORENA #### [facility] [address] [place] [address] Dr. Rehana Valencia Potassium [Moles/Vol] 4.4 mmol/L Normal 3.5-5.1 [facility] Comment on above: Performed By: #### B MORENA ABREU #### [facility] [address] [place] [address] Dr. Rehana Valencia Sodium [Moles/Vol] 140 mmol/L Normal 136-145 [facility] Comment on above: Performed By: #### B MORENA ABREU #### [facility] [address] [place] [address] Dr. Rehana Valencia Urea nitrogen [Mass/Vol] 15.0 mg/dL Normal 7.0-18.0 [facility] Comment on above: Performed By: #### B MORENA ABREU #### [facility] [address] [place] [address] Dr. Rehana Valencia Urea nitrogen/Creatinine [Mass ratio] 18.1 mg/mg Normal [facility] Comment on above: Performed By: #### B ASIF ABREUDM #### [facility] [address] [place] [address] Dr. Rehana Valenica XR CHEST 1 Von 01-19-2022 XR CHEST [...] Follow-up as clinically indicated. Electronically authenticated by: BINOR SAID Date: 2022-01-19 01:58 Normal [facility] Vital Signs Date Time Vital Sign Value Performing Clinician Facility 04-23-2024 07:11-0400 Body height 160.02 cm [employer]P [employer] Work Phone: [place] 04-23-2024 07:11-0400 Body weight 122.46 kg EVP [employer] Work Phone: [place] 03-20-2024 13:46-0400 Body height 160.02 cm KEI Zhou Work Phone: [place] 03-20-2024 13:46-0400 Body mass index (BMI) [Ratio] 47.8 kg/m2 [facility] [employer] Work Phone: [place] 03-20-2024 13:46-0400 Body weight 122.46 kg [employer]P [employer] Work Phone: [place] 03-20-2024 13:46-0400 Diastolic blood pressure 80 mm[Hg] [facility]P [employer] Work Phone: [place] 03-20-2024 13:46-0400 Heart rate 80 /min [employer] Work Phone: [place] 03-20-2024 13:46-0400 SaO2% (BldA) [Mass fraction] 98 % [employer] Work Phone: [place] 03-20-2024 13:46-0400 Systolic blood pressure 124 mm[Hg] KEI Zhou Work Phone: [place] 09-29-2023 09:30-0500 Body height 160.02 cm Tracey Soriano Other [facility] Other 09-29-2023 09:30-0500 Body mass index (BMI) [Ratio] 44.78 kg/m2 Tracey Soriano Other [facility] 09-29-2023 09:30-0500 Body temperature 98.2 [degF] Tracey Soriano Other [facility] Other 09-29-2023 09:30-0500 Body weight 114.67 kg Tracey Soriano Other [facility] Other 09-29-2023 09:30-0500 Diastolic blood pressure 85 mm[Hg] Tracey Soriano Other [facility] Other 09-29-2023 09:30-0500 Respiratory rate 18 /min Tracey Soriano Other [facility] Other 09-29-2023 09:30-0500 SaO2% (BldA) [Mass fraction] 98 % Tracey Soriano Other [facility] Other 09-29-2023 09:30-0500 Systolic blood pressure 153 mm[Hg] Tracey Soriano Other [facility] 07-08-2023 10:35-0500 Body height 160.02 cm Tracey Soriano Other [facility] Other 07-08-2023 10:35-0500 Body mass index (BMI) [Ratio] 43.32 kg/m2 Tracey Soriano Other [facility] 07-08-2023 10:35-0500 Body temperature 99 [degF] Tracey Soriano Other [facility] 07-08-2023 10:35-0500 Body weight 110.95 kg Tracey Soriano Other [facility] Other 07-08-2023 10:35-0500 Respiratory rate 18 /min Tracey Soriano Other [facility] Other 07-08-2023 10:35-0500 SaO2% (BldA) [Mass fraction] 97 % Tracey Soriano Other [facility] Other 08-29-2022 12:43-0500 Diastolic blood pressure 70 mm[Hg] PHYSICIAN NO [facility] 08-29-2022 12:43-0500 Heart rate 70 /min PHYSICIAN NO [facility] 08-29-2022 12:43-0500 Respiratory rate 16 /min PHYSICIAN NO [facility] 08-29-2022 12:43-0500 SaO2% (BldA) [Mass fraction] 98 % PHYSICIAN NO [facility] 08-29-2022 12:43-0500 Systolic blood pressure 130 mm[Hg] PHYSICIAN NO [facility] 08-29-2022 09:36-0500 Body height 162.56 cm PHYSICIAN NO [facility] 08-29-2022 09:36-0500 Body temperature 98.4 [degF] PHYSICIAN NO [facility] 08-29-2022 09:36-0500 Body weight 117.93 kg PHYSICIAN NO [facility] 06-12-2022 14:26-0400 Body height 160.02 cm PHYSICIAN NO [facility] 06-12-2022 14:26-0400 Body weight 108.86 kg PHYSICIAN NO [facility] 05-15-2022 14:30-0400 Body height 160.02 cm Idania Enrique Other [facility] Other 05-15-2022 14:30-0400 Body mass index (BMI) [Ratio] 42.16 kg/m2 Idania Enrique Other [facility] Other 05-15-2022 14:30-0400 Body temperature 97.8 [degF] Idania Enrique Other [facility] Other 05-15-2022 14:30-0400 Body weight 107.96 kg Idania Enrique Other [facility] Other 05-15-2022 14:30-0400 Diastolic blood pressure 73 mm[Hg] Idania Enrique Other [facility] Other 05-15-2022 14:30-0400 Respiratory rate 18 /min Idania Enrique Other [facility] Other 05-15-2022 14:30-0400 SaO2% (BldA) [Mass fraction] 98 % Idania Enrique Other [facility] Other 05-15-2022 14:30-0400 Systolic blood pressure 134 mm[Hg] Idania Enrique Other [facility] Other 09-19-2021 19:40-0500 Body height 160.02 cm Roxanna Anita Other [facility] Other 09-19-2021 19:40-0500 Body mass index (BMI) [Ratio] 44.81 kg/m2 Roxanna Howard Other [facility] Other 09-19-2021 19:40-0500 Body temperature 97.8 [degF] Roxanna Howard Other [facility] Other 09-19-2021 19:40-0500 Body weight 114.76 kg Roxanna Howard Other [facility] Other 09-19-2021 19:40-0500 Diastolic blood pressure 99 mm[Hg] Roxanna Howard Other [facility] Other 09-19-2021 19:40-0500 Respiratory rate 18 /min Roxanna Howard Other [facility] Other 09-19-2021 19:40-0500 SaO2% (BldA) [Mass fraction] 99 % Roxanna Howard Other [facility] Other 09-19-2021 19:40-0500 Systolic blood pressure 172 mm[Hg] Roxanna Howard Other [facility] Other Encounters Encounter Date Encounter Type Care Provider Facility Start: 04-23-2024 End: 04-23-2024 Patient encounter procedure KEI Zhou Work Phone: [facility] Work Phone: Start: 04-23-2024 End: 04-23-2024 ambulatory KEI Zhou Work Phone: [facility] Work Phone: Start: 03-20-2024 End: 03-20-2024 Patient encounter procedure KEI Zhou Work Phone: Replaced By [facility] Work Phone: Start: 02-07-2024 Non-patient / Non-visit KEI Zhou Work Phone[facility]: Start: 09-29-2023 End: 09-29-2023 ambulatory Tracey Soriano Other [facility] Other Start: 09-29-2023 Office outpatient visit 15 minutes Tracey Soriano [facility] Start: 07-08-2023 End: 07-08-2023 ambulatory Tracey Soriano Other [facility] Other Start: 07-08-2023 Office outpatient visit 25 minutes Tracey Soriano [facility] Start: 05-19-2023 End: 05-19-2023 Patient encounter procedure PHYSICIAN NO [facility] [place] Work Phone: Start: 05-19-2023 End: 05-19-2023 ambulatory PHYSICIAN NO [facility] Work Phone: Start: 12-27-2022 Encounter for genera l adult medical examination without abnormal findings IDANIA ENRIQUE [facility] Start: 12-20-2022 End: 12-21-2022 ambulatory IDANIA ENRIQUE Facility:[facility] Start: 12-20-2022 End: 12-21-2022 Encounter for general adult medical examination without abnormal findings IDANIA BOGGSAULT Facility:[facility] Start: 10-12-2022 End: 10-12-2022 ambulatory Idania Enrique Other [facility] Other Start: 10-12-2022 Telephone encounter Idaniasarika Barraganl t [facility] Start: 10-11-2022 End: 10-11-2022 ambulatory Idania Boggsault Other [facility] Other Start: 10-11-2022 Telephone encounter Idaniasarika Barraganl t [facility] Start: 09-08-2022 End: 09-08-2022 ambulatory [place] Other [facility] Other Start: 09-08-2022 Telephone encounter Ten lainez [facility] Start: 08-29-2022 End: 08-29-2022 Admission to same day surgery center PHYSICIAN NO [facility] Work Phone: Start: 08-29-2022 End: 08-29-2022 ambulatory PHYSICIAN NO [facility] Work Phone: Start: 06-23-2022 End: 06-23-2022 Patient encounter procedure PHYSICIAN NO [facility] [place] Work Phone: Start: 06-07-2022 End: 06-07-2022 ambulatory [place] Other [facility] Other Start: 06-07-2022 Telephone encounter [facility] Start: 05-15-2022 End: 05-16-2022 ambulatory IDANIA ENRIQUE [employer] Other Start: 05-15-2022 Encounter for genera l adult medical examination without abnormal findings Idania Enrique [facility] Start: 05-15-2022 Periodic preventive med est patient 40-64yrs Idania Enrique [facility] Start: 01-19-2022 End: 01-19-2022 ambulatory CHARU MCKEON Facility: Start: 09-19-2021 End: 09-19-2021 ambulatory Roxanna Howard Other [facility] Other Start: 09-19-2021 Office outpatient visit 15 minutes Roxanna Howard [facility] Procedures Date Procedure Procedure Detail Performing Clinician Start: 04-23-2024 MRI of head KEI Zhou Work Phone: Start: 05-19-2023 MRI of head PHYSICIAN NO FAMILY Start: 08-29-2022 Colonoscopy PHYSICIAN NO FAMILY Start: 06-23-2022 MRI of head PHYSICIAN NO FAMILY Plan of Treatment Date Care Activity Detail Author Start: 08-29-2022 [place] Patient Education Colon Polyps Probiotics [facility] Work Phone: Immunizations Immunization Date Immunization Notes Care Provider Trae rowe 11-03-2013 tetanus toxoid, redu joseph diphtheria toxoid, and acellular pertussis vaccine, adsorbed Roxanna Howard Other [place] Payers Date Payer Category Payer Self-pay [id number] 2022 Medicaid [id number] 1970 Unknown [id number] [id number] [id number] 1970 Unknown [id number] 2.16.84 [id number] 1970 Unknown [id number] 2.16.84 [id number] 1959 Unknown [id number] 2.1 [id number] Unknown [id number] 2.1 [id number] Unknown [id number] 2.16.8 [id number] Unknown [id number] 2.16.8 [id number] Social History Date Type Detail Facility Unknown if ever smoked [facility] Other Sex Assigned At Sex Assigned At Bir th [facility] Other Start: 08-29-2022 End: 01-18-2024 Tobacco smoking status NHIS Ex-smoker (finding) [place] Start: 1970 Sex Assigned At Female F [facility] Goals Date Patient Goal Desired Activity /State Clinical Notes 09-19-2021 to 09-29-2023 Note Date [...] understanding and is agreeable to treatment plan. [facility] Other 11-19-2023 Evaluation note* Encounter Date Diagnosis [...] of diseases classified elsewhere (ICD-10 - B97.89) [facility] [place]* Encounter Date Diagnosis Assessment Notes Treatment Notes Treatment Clinical Notes May, Family history of malignant neoplasm of digestive organs (ICD-10 - Z80.0) [facility] Other 09-26-2022 Evaluation note* Encounter Date Diagnosis [...] cancer requiring screening colonoscopy (ICD-10 - Z80.0) [place] [employer] Other 01-31-2022 Evaluation note* Encounter Date Diagnosis Assessment Notes Treatment Notes Treatment Clinical Notes Aug, Herpes zoster without complication (ICD-10 - B02.9) Drink plenty fluids, get plenty of rest. Continue home medications as prescribed. Take the acyclovir as prescribed until gone. Use the ibuprofen as prescribed as needed for mild to moderate pain for severe pain use the [place], hydrocodone as prescribed. Follow-up with your family physician, call tomorrow for an appointment for recheck without fail to discuss your home situation and anxiety as well as reevaluate your herpes rash Aug, Anxiety (ICD-10 - F41.9) [facility] Other Evaluation note* Diagnosis Onset Date Resolution Status History of colon polyps acut e [facility] Work Phone: Evaluation noteNo InformationNort [employer] Other Evaluation noteNo assessment information available [facility] Work Phone: Evaluation note* Diagnosis Onset Date Resolution Status Achilles tendinitis acute Anxiety acute Benign meningioma of brain a cute GERD (gastroesophageal reflux disease) acute Hypertension acute Migraine acute Recurrent cold sores acute Vision changes acute [facility] Work Phone: History general Narrative - Reported* Type Description Date Medical History anxiety Medical History depression Medical History Brain tumor Surgical History tonsillectomy Surgical History cholecystectomy Hospitalization History see above surgical histo ry [facility] [employer] Other Hospital Discharge instructions Additional Instructions DISCHARGE [...] me in 3 months Low FODMAP diet Pirq 1 p.o. every morning which is OTC Repeat colonoscopy in 5 years Take it easy today. Back to normal tomorrow. -Notify the doctor if you have any problems. -Office number [phone] Work Phone: Reason for Referral Reason patient has gi ngosed brain tumor - scans in [facility] Diagnosis 1 Brain tumor (D49.6) Referral Organization [facility] Referring Provider First Name Idania Referring Provider Last Name Klaus Referring Provider Specialty Nurse Sarah sheehan Referred Organization [facility] [facility] Referred Provider Tera Banegas Referred Address [address] [place],[id number] Referred Provider Specialty Neurology Referral Priority Routine General Notes Seema Robert 022 09:28:25 AM >Received today and waiting for office notes to be locked before sending referral Reason screening colon oscopy Diagnosis 1 Family hx of colon c ancer requiring screening colonoscopy (Z80.0) Referral Organization [facility] Referring Provider First Name Idania Referring Provider Last Name Klaus Referring Provider Specialty Nurse Pract itioner Referred Organization [facility] Referred Provider [place] Referred Address [address] [facility] [address] ,[place], [place],[address] Referred Provider Specialty Gastroentero logy Referral Priority Routine General Notes Seema Robert 022 03:01:03 PM >Received today and sent P2P Chief Complaint and Reason for Visit Chief Complaint r27.0 Family Hx of Colon Cancer Reason for Visit History of colon gadiel yps Chief Complaint d32.9 Chief Complaint left achilles tendon pain H53.9 G43.909 D32.0 Reason for Visit Achilles tendinitis Anxiety Benign meningioma of brain GERD (gastroesophageal reflux disease) Hypertension Migraine Recurrent cold sores Vision changes Advance Directives No Advanced Directives Records Found Advance Directive Response Recorded Date/ Time Advance Directives No September 10:36am Advance Directive Response Recorded Date/ Time Advance Directives No September 11:36am Summary Purpose Family History Relationship Condition Age at Onset Recorded Date/T shelby Not Specified No pertinent family history Unknown mother Hypertension Unknown History of stroke Unknown No Family History Records Found Additional Source [...] PHYSICIAN NO FAMILY Primary Care Provider Active Tera Banegas DO Attending Provider Active Team Status: Active Member Role Status Dates Krys Zhou APRN DYE B[employer]K REEL OPERATOR-C Primary Care Provider Active Team Status: Active Member Role Status Dates Krys Zhou APRN DYE BECK REEL OPERATOR-C Primary Care Provider Active Start: February 07, 2024 Nhan Muller DO Attending Provider Active Sta rt: February 07, 2024 Team Status: Inactive Member Role Status Dates Krys Zhou APRN DYE BECK REEL OPERATOR-C Primary Care Provider, Attending Provider Active Start: March 20, 2024 End: March 20, 2024 Team Status: Inactive Member Role Status Dates Krys Zhou APRN DYE BECK REEL OPERATOR-C Primary Care Provider, Attending Provider Active Start: April 23, 2024 End: April 23, 2024 INFORMATION SOURCE (unrecogn ized section and content) DATE CREATED AUTHOR 12/28/2022 [facility] DATE CREATED AUTHOR AUTHOR'S ORGANIZ ATION 04/24/2024 [facility] Goals (unrecognized section and content) Goals may [...] BE BASED ON THE PRIMARY CLINICAL RECORDS. [email or web address] [facility]. provides no warranty or guarantee of the accuracy or completeness of information in this document.
== END 2024-04-30 10:40 | disposition home or self-care (01) ==
LOC: MAMMO 10:40
PROVIDERS: PCP Nurse Practitioner Family; Visit Provider Nurse Practitioner Family
DX: Z12.31 Encounter for screening mammogram for malignant neoplasm of breast (principal); Z80.42 Family history of malignant neoplasm of prostate; Z80.3 Family history of malignant neoplasm of breast; Z80.8 Family history of malignant neoplasm of other organs or systems
CPT/HCPCS: 77063; 77067

== ENCOUNTER 2024-05-09 08:48 | Outpatient (OUT) | payer MEDICAID, SELFPAY ==
--- OUTSIDE RECORDS SUMMARY | 2024-05-09 08:57 | XMS_ITS | CCD ---
Author Organization [facility] Care Team Providers Care Data Typist Name Role Phone Roxanna Howard Unavailable Idania Enrique Unavailable [place] Unavailable NO FAMILY, PHYSICIAN Primary Care Provider Unava ilable DO Denis Banegas Attending Provider [phone] MD [place] Attending Provider CHARU MCKEON [...] ilable DO Tera Banegas Attending Provider [phone] Tracey Soriano Unavailable KEI Zhou Primary Care Provider KEI Zhou Attending Provider [phone] NO FAMILY, PHYSICIAN Primary Care Unavailable Tera Banegas Attending Unavailab Tera Perez Admitting Unavailab Krys De León Attending Unavailable Krys Zhou Primary Care Unavailable Krys Zhou Admitting Unavailable Allergies Allergy Classification Reported Allergen(s) Allergy Type Date of Onset Reaction(s) Facility (9 sources) Acetaminophen / HYDROcodone; Translations: [Vicodin] Drug Allergy 03-16-20 14 nausea, palpitations [facility] (2 sources) diphenhydrAMINE; Translations: [Benadryl] Drug Allergy 03-16-20 14 can't breathe and heat palpitations [facility] (8 sources) Penicillin G Drug Allergy [facility] [place] [facility] Other (10 sources) diphenhydrAMINE Drug Allergy 08-29-19 23 can't breathe and heat palpitations, Difficulty Breathing, Difficulty Breathing, can't breathe and heat palpitations [facility] (4 sources) Acetaminophen; Translations: [acetaminophen] Drug Allergy 08-29-19 23 Palpitations, Palpitations, nausea, palpitations [facility] (4 sources) HYDROcodone; Translations: [hydrocodone] Drug Allergy 08-29-19 23 Palpitations, Palpitations, nausea, palpitations [facility] (5 sources) Penicillins; Translations: [Penicillins] Allergy to substance 03-16-20 14 [facility] (1 source) diphenhydrAMINE Drug Allergy 03-20-20 24 [facility] Medications Current Medications Medication Drug Class(es) [...] oral tablet (1 source) alpha-Adrenergic Agonist, Uncompetitive T-dkeenu-S-aspartate Receptor Antagonist, Sigma-1 Agonist Start: 07-08-2023 take [...] 2024 2:11pm take 1 capsule by mo [facility]four hours Omeprazole 20 MG 1 [...] 01-19-2022 Episodic Other aftercare (1 source) Other halfway (current) drug therapy; Translations: [OTH NURSING HOME CURRENT DRUG THERAPY] Onset: 01-20-2022 Episodic Screening and history of mental health and substance abuse codes (1 source) Personal history of nicotine dependence; Translations: [PERSONAL HISTORY OF NICOTINE DEPEND] Onset: 01-20-2022 Episodic Results Test Name Value Interpretation Reference Range Facility MR head/brain wo/w conon MR head/brain wo/w con [facility] [place] [address] [place] [address] MRI Report Signed Patient: Alma Andino MR#: [id number] : 1970 Acct:[id number] Age/Sex: 53 / F ADM Date: 04/23/24 Loc: MR Room: Type: [facility] Attending Dr: Krys Zhou APRN, NP-C Copies [...] Johann Miguel M.D.04/23/2024 12:51 PM Dictation Location: [place] [address] Transcribed By: KEV 04/23/24 1251 Dictated By: Johann Miguel II, MD 04/23/24 1244 Signed By: 04/23/24 1251 Normal [facility] Quick Strepon 07-08-2023 S. pyogenes Org specific cx Ql (Throat) Negative [facility] Zachary Prell Other Quick Strep [employer] Zachary Prell Other MR head/brain wo/w conon MR head/brain wo/w con [facility] [place] [address] [place] [address] MRI Report Signed Patient: Alma Andino MR#: [id number] : 1970 Acct:[id number] Age/Sex: 52 / F ADM Date: 05/19/23 Loc: Room: Type: [facility] Attending Dr: Tera Banegas DO Copies to: [...] Duncan Jr., D.O.05/19/2023 12:02 PM Dictation Location: [place] [address] Transcribed By: [facility] 05/19/23 120 Dictated By: Miguel Duncan Jr, DO 05/19/23 1155 Signed By: 05/19/23 1202 Normal [facility] Physician [facility] CBC AUTO DIFFon 05-15-2022 BASO # 0.0 103/ul Normal 0.0-0.1 [facility] Comment on above: Performed By: #### C BC #### [facility] [address] [place] [address] Dr. Rehana Valencia Basophils/100 WBC (Bld) 0.5 % Normal 0.2-2.0 [facility] Comment on above: Performed By: #### C BC #### [facility] [address] [place] [address] Dr. eRhana Valencia EO # 0.1 103/ul Normal 0.0-0.7 [facility] Comment on above: Performed By: #### C BC #### [facility] [address] [place] [address] Dr. Rehana Valencia Eosinophils/100 WBC (Bld) 1.5 % Normal 0.9-7.0 [facility] Comment on above: Performed By: #### C BC #### [facility] [address] [place] [address] Dr. Rehana Valencia Erythrocyte distribution width (RBC) [Ratio] 13.5 % Normal 11.0-15.0 [facility] Comment on above: Performed By: #### C BC #### [facility] [address] [place] [address] Dr. Rehana Valencia Hematocrit (Bld) [Volume fraction] 42.8 % Normal 36.0-48.0 [facility] Comment on above: Performed By: #### C BC #### [facility] [address] [place] [address] Dr. Rehana Valencia Hemoglobin (Bld) [Mass/Vol] 13.8 g/dL Normal 12.0-16.0 [facility] Comment on above: Performed By: #### C BC #### [facility] [address] [place] [address] Dr. Rehana Valencia IG # 0.14 10e3/ul Critically high 0.00-0.03 [facility] Comment on above: Performed By: #### C BC #### [facility] [address] [place] [address] Dr. Rehana Valencia IG % 1.7 % Critically high 0.0-0.5 [facility] Comment on above: Performed By: #### C BC #### [facility] [address] [place] [address] Dr. Rehana Valencia LYMPH # 1.9 103/ul Normal 1.2-3.8 [facility] Comment on above: Performed By: #### C BC #### [facility] [address] [place] [address] Dr. Rehana Valencia Lymphocytes/100 WBC (Bld) 22.6 % Normal 20.5-60.0 [facility] Comment on above: Performed By: #### C BC #### [facility] [address] [place] [address] Dr. Rehana Valencia MANUAL DIFF REQ NO Normal [facility] Comment on above: Performed By: #### C BC #### [facility] [address] [place] [address] Dr. Rehana Valencia MCH (RBC) [Entitic mass] 25.7 pg Critically low 26.7-34.0 [facility] Comment on above: Performed By: #### C BC #### [facility] [address] [place] [address] Dr. Rehana Valencia MCHC (RBC) [Mass/Vol] 32.2 g/dL Normal 29.9-35.2 [facility] Comment on above: Performed By: #### C BC #### [facility] [address] [place] [address] Dr. Rehana Valencia MCV (RBC) [Entitic vol] 79.9 fL Critically low 81.0-99.0 [facility] Comment on above: Performed By: #### C BC #### [facility] [address] [place] [address] Dr. Rehana Valencia MONO # 0.8 103/ul Normal 0.3-0.8 [facility] Comment on above: Performed By: #### C BC #### [facility] [address] [place] [address] Dr. Rehana Valencia Monocytes/100 WBC (Bld) 9.3 % Normal 1.7-12.0 [facility] Comment on above: Performed By: #### C BC #### [facility] [address] [place] [address] Dr. Rehana Valencia NEUT # 5.4 103/ul Normal 1.4-6.5 [facility] Comment on above: Performed By: #### C BC #### [facility] [address] [place] [address] Dr. Rehana Valencia Neutrophils/100 WBC (Bld) 64.4 % Normal 43.0-75.0 [facility] Comment on above: Performed By: #### C BC #### [facility] [address] [place] [address] Dr. Rehana Valencia Platelet mean volume (Bld) [Entitic vol] 10.2 fL Normal 9.5-13.5 [facility] Comment on above: Performed By: #### C BC #### [facility] [address] [place] [address] Dr. Rehana Valencia PLT 221 103/ul Normal 150-450 [facility] Comment on above: Performed By: #### C BC #### [facility] [address] [place] [address] Dr. Rehana Valencia RBC 5.36 106/ul Normal 4.20-5.40 [facility] Comment on above: Performed By: #### C BC #### [facility] [address] [place] [address] Dr. Rehana Valencia WBC 8.4 103/ul Normal 4.0-11.0 [facility] Comment on above: Performed By: #### C BC #### [facility] [address] [place] [address] [address] Rehana Valencia GLYCOHEMOGLOBIN A1Con 2021 ADA RECOMMENDATION SEE BELOW Normal [facility] Comment on above: Result Comment: ADA RECOMMENDED LIMIT 4.0 - 6.0 ADA THERAPEUTIC TARGET < 7.0 ACTION SUGGESTED > 7.0 Performed By: #### A 1C #### [facility] [address] [place] [address] [address] Rehana Valencia Glucose [Mass/Vol] 120 mg/dL Normal [facility] Comment on above: Performed By: #### A 1C #### [facility] [address] [place] [address] Dr. Rehana Valencia HbA1c (Bld) [Mass fraction] 5.8 % Normal 4.5-6.2 [facility] Comment on above: Performed By: #### A 1C #### [facility] [address] [place] [address] Dr. Rehana Valencia LIPID PROFILEon 05-15-2022 CHOL-HDL RATIO NORM SEE BELOW Normal [facility] Comment on above: Result Comment: 3.3 - 4.4 LOW RISK 4.4 - 7.1 AVERAGE RISK 7.1 - 11.0 MODERATE RISK >11.0 HIGH RISK Performed By: #### C MP, LIPID #### [facility] [address] [place] [address] Dr. Rehana Valencia Cholesterol [Mass/Vol] 171 mg/dL Normal <=200 [facility] Comment on above: Performed By: #### C MP, LIPID #### [facility] [address] [place] [address] Dr. Rehana Valencia Cholesterol in HDL [Mass/Vol] 52 mg/dL Normal 40-60 [facility] Comment on above: Performed By: #### C MP, LIPID #### [facility] [address] [place] [address] [address] Rehana Valencia Cholesterol in LDL [Mass/Vol] 81.4 mg/dL Normal [facility] Comment on above: Performed By: #### C MP, LIPID #### [facility] [address] [place] [address] [address] Rehana Valencia Cholesterol.total/Ch olesterol in HDL [Mass ratio] 3.3 {ratio} Normal [facility] Comment on above: Performed By: #### C MP, LIPID #### [facility] [address] [place] [address] Dr. Rehana Valencia HDL NORMAL > or = 60 mg/dl - LOW CARDIOVASCULAR RISK <40 mg/dl - HIGH CARDIOVASCULAR RISK Normal [facility] Comment on above: Performed By: #### C MP, LIPID #### [facility] [address] [place] [address] Dr. Rehana Valencia LDL CALC NORMAL SEE BELOW Normal [facility] Comment on above: Result Comment: <100 mg/dl OPTIMAL 100 - 129 mg/dl NEAR OR ABOVE OPTIMAL 130 - 159 mg/dl BORDERLINE HIGH 160 - 189 mg/dl HIGH >190 mg/dl VERY HIGH Performed By: #### C MP, LIPID #### [facility] [address] [place] [address] Dr. Rehana Valencia Triglyceride [Mass/Vol] 188 mg/dL Critically high <=150 [facility] Comment on above: Performed By: #### C MP, LIPID #### [facility] [address] [place] [address] Dr. Rehana Valencia VLDL CALC 37.6 mg/dL Normal [facility] Comment on above: Performed By: #### C MP, LIPID #### [facility] [address] [place] [address] Dr. Rehana Valencia PROF 14(COMP METB)on 022 Albumin [Mass/Vol] 3.7 g/dL Normal 3.4-5.0 [facility] Comment on above: Performed By: #### C MP, LIPID #### [facility] [address] [place] [address] Dr. Rehana Valencia Albumin/Globulin [Mass ratio] 0.9 {ratio} Normal [facility] Comment on above: Performed By: #### C MP, LIPID #### [facility] [address] [place] [address] Dr. Rehana Valencia ALP [Catalytic activity/Vol] 89 U/L Normal 46-116 [facility] Comment on above: Performed By: #### C MP, LIPID #### [facility] [address] [place] [address] [address] Rehana Valencia ALT [Catalytic activity/Vol] 78 U/L Critically high 14-59 [facility] Comment on above: Performed By: #### C MP, LIPID #### [facility] [address] [place] [address] [address] Rehana Valencia Anion gap [Moles/Vol] 9.9 mmol/L Normal [facility] Comment on above: Performed By: #### C MP, LIPID #### [facility] [address] [place] [address] [address] Rehana Valencia AST [Catalytic activity/Vol] 41 U/L Critically high 15-37 [facility] Comment on above: Performed By: #### C MP, LIPID #### [facility] [address] [place] [address] Dr. Rehana Valencia Bilirubin [Mass/Vol] 0.4 mg/dL Normal 0.2-1.0 [facility] Comment on above: Performed By: #### C MP, LIPID #### [facility] [address] [place] [address] Dr. Rehana Valencia Calcium [Mass/Vol] 8.8 mg/dL Normal 8.5-10.1 [facility] Comment on above: Performed By: #### C MP, LIPID #### [facility] [address] [place] [address] Dr. Rehana Valencia Chloride [Moles/Vol] 104 mmol/L Normal 98-107 [facility] Comment on above: Performed By: #### C MP, LIPID #### [facility] [address] [place] [address] [address] Rehana Valencia CO2 [Moles/Vol] 30.9 mmol/L Normal 21.0-32.0 [facility] Comment on above: Performed By: #### C MP, LIPID #### [facility] [address] [place] [address] Dr. Rehana Valencia Creatinine [Mass/Vol] 0.78 mg/dL Normal 0.55-1.02 [facility] Comment on above: Performed By: #### C MP, LIPID #### [facility] [address] [place] [address] Dr. eRhana Valencia EGFR-AF [place] >60 Normal >=60 [facility] Comment on above: Performed By: #### C MP, LIPID #### [facility] [address] [place] [address] [address] Rehana Valencia EGFR-NON AF [place] >60 Normal >=60 [facility] Comment on above: Performed By: #### C MP, LIPID #### [facility] [address] [place] [address] Dr. Rehana Valencia Globulin (S) [Mass/Vol] 4.0 g/dL Normal [facility] Comment on above: Performed By: #### C MP, LIPID #### [facility] [address] [place] [address] Dr. Rehana Valencia Glucose [Mass/Vol] 97 mg/dL Normal 74-106 [facility] Comment on above: Performed By: #### C MP, LIPID #### [facility] [address] [place] [address] Dr. Rehana Valencia Potassium [Moles/Vol] 4.8 mmol/L Normal 3.5-5.1 [facility] Comment on above: Performed By: #### C MP, LIPID #### [facility] [address] [place] [address] Dr. Rehana Valencia Protein [Mass/Vol] 7.7 g/dL Normal 6.4-8.2 [facility] Comment on above: Performed By: #### C MP, LIPID #### [facility] [address] [place] [address] Dr. Rehana Valencia Sodium [Moles/Vol] 140 mmol/L Normal 136-145 [facility] Comment on above: Performed By: #### C MP, LIPID #### [facility] [address] [place] [address] Dr. Rehana Valencia Urea nitrogen [Mass/Vol] 10.0 mg/dL Normal 7.0-18.0 [facility] Comment on above: Performed By: #### C MP, LIPID #### [facility] [address] [place] [address] Dr. Rehana Valencia Urea nitrogen/Creatinine [Mass ratio] 12.8 mg/mg Normal [facility] Comment on above: Performed By: #### C MP, LIPID #### [facility] [address] [place] [address] Dr. Rehana Valencia CARDIAC JOHANN 3-6on 2 CK [Catalytic activity/Vol] 62 U/L Normal 26-192 [facility] Comment on above: Performed By: #### C MREP #### [facility] [address] [place] [address] Dr. Rehana Valencia CK.MB [Mass/Vol] 1.03 ng/mL Normal <=3.60 [facility] Comment on above: Performed By: #### C MREP #### [facility] [address] [place] [address] Dr. Rehana Valencia HSTROP 8.3 pg/mL Normal 4.0-51.3 [facility] Comment on above: Result Comment: CUT- OFF POINTS HAVE BEEN ESTABLISHED BASED ON THE FOURTH UNIVERSAL DEFINITIONS OF MYOCARDIAL INFARCTION. THE UPPER REFERENCE LIMIT (URL) OF TROPONIN, DEFINED THE 99TH PERCENTILE OF cTnI DISTRIBUTION IN A REFERENCE POPULATION, HAS BEEN CONFIRMED THE DECISION THRESHOLD FOR MD DIAGNOSIS. Performed By: #### C MREP #### [facility] [address] [place] [address] Dr. Rehana Valencia CARDIAC JOHANN ADMITon 022 CK [Catalytic activity/Vol] 56 U/L Normal 26-192 [facility] Comment on above: Performed By: #### B LOIS CMADM #### [facility] [address] [place] [address] Dr. Rehana Valencia CK.MB [Mass/Vol] 0.98 ng/mL Normal <=3.60 [facility] Comment on above: Performed By: #### B LOIS CMADM #### [facility] [address] [place] [address] Dr. Rehana Valencia HSTROP 7.6 pg/mL Normal 4.0-51.3 [facility] Comment on above: Result Comment: CUT- OFF POINTS HAVE BEEN ESTABLISHED BASED ON THE FOURTH UNIVERSAL DEFINITIONS OF MYOCARDIAL INFARCTION. THE UPPER REFERENCE LIMIT (URL) OF TROPONIN, DEFINED THE 99TH PERCENTILE OF cTnI DISTRIBUTION IN A REFERENCE POPULATION, HAS BEEN CONFIRMED THE DECISION THRESHOLD FOR MD DIAGNOSIS. Performed By: #### B MORENA ABREU #### [facility] [address] [place] [address] Dr. Rehana Valencia LUIS 45 ng/mL Normal 9-82 [facility] Comment on above: Performed By: #### B MORENA ABREU #### [facility] [address] [place] [address] Dr. Rehana Valencia CBC AUTO DIFFon 01-19-2022 BASO # 0.0 103/ul Normal 0.0-0.1 [facility] Comment on above: Performed By: #### C BC #### [facility] [address] [place] [address] Dr. Rehana Valencia Basophils/100 WBC (Bld) 0.3 % Normal 0.2-2.0 [facility] Comment on above: Performed By: #### C BC #### [facility] [address] [place] [address] Dr. Rehana Valencia EO # 0.1 103/ul Normal 0.0-0.7 [facility] Comment on above: Performed By: #### C BC #### [facility] [address] [place] [address] Dr. Rehana Valenica Eosinophils/100 WBC (Bld) 1.2 % Normal 0.9-7.0 [facility] Comment on above: Performed By: #### C BC #### [facility] [address] [place] [address] Dr. Rehana Valencia Erythrocyte distribution width (RBC) [Ratio] 13.8 % Normal 11.0-15.0 [facility] Comment on above: Performed By: #### C BC #### [facility] [address] [place] [address] Dr. Rehana Valencia Hematocrit (Bld) [Volume fraction] 38.5 % Normal 36.0-48.0 [facility] Comment on above: Performed By: #### C BC #### [facility] [address] [place] [address] Dr. Rehana Valencia Hemoglobin (Bld) [Mass/Vol] 12.9 g/dL Normal 12.0-16.0 [facility] Comment on above: Performed By: #### C BC #### [facility] [address] [place] [address] Dr. Rehana Valencia IG # 0.11 10e3/ul Critically high 0.00-0.03 [facility] Comment on above: Performed By: #### C BC #### [facility] [address] [place] [address] Dr. Rehana Valencia IG % 1.2 % Critically high 0.0-0.5 [facility] Comment on above: Performed By: #### C BC #### [facility] [address] [place] [address] Dr. Rehana Valencia LYMPH # 3.0 103/ul Normal 1.2-3.8 [facility] Comment on above: Performed By: #### C BC #### [facility] [address] [place] [address] Dr. Rehana Valencia Lymphocytes/100 WBC (Bld) 31.8 % Normal 20.5-60.0 [facility] Comment on above: Performed By: #### C BC #### [facility] [address] [place] [address] Dr. Rehana Valencia MANUAL DIFF REQ NO Normal [facility] Comment on above: Performed By: #### C BC #### [facility] [address] [place] [address] Dr. Rehana Valencia MCH (RBC) [Entitic mass] 26.4 pg Critically low 26.7-34.0 [facility] Comment on above: Performed By: #### C BC #### [facility] [address] [place] [address] Dr. Rehana Valencia MCHC (RBC) [Mass/Vol] 33.5 g/dL Normal 29.9-35.2 [facility] Comment on above: Performed By: #### C BC #### [facility] [address] [place] [address] Dr. Rehana Valencia MCV (RBC) [Entitic vol] 78.9 fL Critically low 81.0-99.0 [facility] Comment on above: Performed By: #### C BC #### [facility] [address] [place] [address] Dr. Rehana Valencia MONO # 0.6 103/ul Normal 0.3-0.8 [facility] Comment on above: Performed By: #### C BC #### [facility] [address] [place] [address] Dr. Rehana Valencia Monocytes/100 WBC (Bld) 6.8 % Normal 1.7-12.0 [facility] Comment on above: Performed By: #### C BC #### [facility] [address] [place] [address] Dr. Rehana Valencia NEUT # 5.5 103/ul Normal 1.4-6.5 [facility] Comment on above: Performed By: #### C BC #### [facility] [address] [place] [address] Dr. Rehana Valencia Neutrophils/100 WBC (Bld) 58.7 % Normal 43.0-75.0 [facility] Comment on above: Performed By: #### C BC #### [facility] [address] [place] [address] Dr. Rehana Valencia Platelet mean volume (Bld) [Entitic vol] 10.0 fL Normal 9.5-13.5 [facility] Comment on above: Performed By: #### C BC #### [facility] [address] [place] [address] Dr. Rehana Valencia PLT 237 103/ul Normal 150-450 [facility] Comment on above: Performed By: #### C BC #### [facility] [address] [place] [address] Dr. Rehana Valencia RBC 4.88 106/ul Normal 4.20-5.40 [facility] Comment on above: Performed By: #### C BC #### [facility] [address] [place] [address] Dr. Rehana Valencia WBC 9.4 103/ul Normal 4.0-11.0 [facility] Comment on above: Performed By: #### C BC #### [facility] [address] [place] [address] Dr. Rehana Valencia PROF CHEM 8 (BAS METB)on Anion gap [Moles/Vol] 8.1 mmol/L Normal [facility] Comment on above: Performed By: #### B MORENA ABREU #### [facility] [address] [place] [address] Dr. Rehana Valencia Calcium [Mass/Vol] 9.1 mg/dL Normal 8.5-10.1 [facility] Comment on above: Performed By: #### MORENA Sidhu MP #### [facility] [address] [place] [address] Dr. Rehana Valencia Chloride [Moles/Vol] 104 mmol/L Normal 98-107 [facility] Comment on above: Performed By: #### MORENA Sidhu MP #### [facility] [address] [place] [address] Dr. Rehana Valencia CO2 [Moles/Vol] 32.3 mmol/L Critically high 21.0-32.0 [facility] Comment on above: Performed By: #### MORENA Sidhu MP #### [facility] [address] [place] [address] Dr. Rehana Valencia Creatinine [Mass/Vol] 0.83 mg/dL Normal 0.55-1.02 [facility] Comment on above: Performed By: #### MORENA Sidhu MP #### [facility] [address] [place] [address] Dr. Rehana Valencia EGFR-AF NORTHER[place] IRISH >60 Normal >=60 [facility] Comment on above: Performed By: #### MORENA Sidhu MP #### [facility] [address] [place] [address] Dr. Rehana Valencia EGFR-NON AF [place]THER[place]ISH >60 Normal >=60 [facility] Comment on above: Performed By: #### B LOIS, MORENA #### [facility] [address] [place] [address] Dr. Rehana Valencia Glucose [Mass/Vol] 123 mg/dL Critically high 74-106 [facility] Comment on above: Performed By: #### B LOIS, MORENA #### [facility] [address] [place] [address] Dr. Rehana Valencia Potassium [Moles/Vol] 4.4 mmol/L Normal 3.5-5.1 [facility] Comment on above: Performed By: #### B MORENA ABREU #### [facility] [address] [place] [address] Dr. Rehana Valencia Sodium [Moles/Vol] 140 mmol/L Normal 136-145 [facility] Comment on above: Performed By: #### B MORENA ABREU #### [facility] [address] [place] [address] Dr. Rehana Valencia Urea nitrogen [Mass/Vol] 15.0 mg/dL Normal 7.0-18.0 [facility] Comment on above: Performed By: #### B MORENA ABREU #### [facility] [address] [place] [address] Dr. Rehana Valencia Urea nitrogen/Creatinine [Mass ratio] 18.1 mg/mg Normal [facility] Comment on above: Performed By: #### B ASIF ABREUDM #### [facility] [address] [place] [address] Dr. Rehana Valencia XR CHEST 1 Von [...] by: BINOR SAID Date: 2022-01-19 01:58 Normal [facility] Vital Signs Date Time Vital Sign Value Performing Clinician Facility 04-23-2024 07:11-0400 Body height 160.02 cm ANALYST GEOCHEMICAL PROSPECTINGYanet Zhou Work Phone: [facility] 04-23-2024 07:11-0400 Body weight 122.46 kg ANALYST GEOCHEMICAL PROSPECTINGYanet Zhou Work Phone: [facility] 03-20-2024 13:46-0400 Body height 160.02 cm KEI Zhou Work Phone: [facility] 03-20-2024 13:46-0400 Body mass index (BMI) [Ratio] 47.8 kg/m2 ANALYST GEOCHEMICAL PROSPECTINGYanet Zhou Work Phone: [facility] 03-20-2024 13:46-0400 Body weight 122.46 kg ANALYST GEOCHEMICAL PROSPECTINGYanet Zhou Work Phone: [facility] 03-20-2024 13:46-0400 Diastolic blood pressure 80 mm[Hg] ANALYST GEOCHEMICAL PROSPECTINGYanet Zhou Work Phone: [facility] 03-20-2024 13:46-0400 Heart rate 80 /min ANALYST GEOCHEMICAL PROSPECTINGYanet Zhou Work Phone: [facility] 03-20-2024 13:46-0400 SaO2% (BldA) [Mass fraction] 98 % ANALYST GEOCHEMICAL PROSPECTINGYanet Zhou Work Phone: [facility] 03-20-2024 13:46-0400 Systolic blood pressure 124 mm[Hg] KEI Zhou Work Phone: [facility] 09-29-2023 09:30-0500 Body height 160.02 cm Tracey Soriano Other [facility] Other 09-29-2023 09:30-0500 Body mass index (BMI) [Ratio] 44.78 kg/m2 Tracey Soriano Other [facility] Other 09-29-2023 09:30-0500 Body temperature 98.2 [degF] Tracey Soriano Other [facility] Other 09-29-2023 09:30-0500 Body weight 114.67 kg Tracey Soriano Other [facility] Other 09-29-2023 09:30-0500 Diastolic blood pressure 85 mm[Hg] Tracey Soriano Other [facility] Other 09-29-2023 09:30-0500 Respiratory rate 18 /min Tracey Soriano Other [facility] Other 09-29-2023 09:30-0500 SaO2% (BldA) [Mass fraction] 98 % Tracey Soriano Other [facility] Other 09-29-2023 09:30-0500 Systolic blood pressure 153 mm[Hg] Tracey Soriano Other [facility] Other 07-08-2023 10:35-0500 Body height 160.02 cm Tracey Soriano Other [facility] Other 07-08-2023 10:35-0500 Body mass index (BMI) [Ratio] 43.32 kg/m2 Tracey Soriano Other [facility] Other 07-08-2023 10:35-0500 Body temperature 99 [degF] Tracey Soriano Other [facility] Other 07-08-2023 10:35-0500 Body weight 110.95 kg Tracey Soriano Other [facility] Other 07-08-2023 10:35-0500 Respiratory rate 18 /min Tracey Soriano Other [facility] Other 07-08-2023 10:35-0500 SaO2% (BldA) [Mass fraction] 97 % Tracey Soriano Other [facility] Other 08-29-2022 12:43-0500 Diastolic blood pressure 70 mm[Hg] PHYSICIAN NO [facility] 08-29-2022 12:43-0500 Heart rate 70 /min PHYSICIAN NO [facility] 08-29-2022 12:43-0500 Respiratory rate 16 /min PHYSICIAN NO [facility] 08-29-2022 12:43-0500 SaO2% (BldA) [Mass fraction] 98 % PHYSICIAN NO [facility] 08-29-2022 12:43-0500 Systolic blood pressure 130 mm[Hg] PHYSICIAN NO [facility] 08-29-2022 09:36-0500 Body height 162.56 cm PHYSICIAN NO [facility] 08-29-2022 09:36-0500 Body temperature 98.4 [degF] PHYSICIAN NO [facility] 08-29-2022 09:36-0500 Body weight 117.93 kg PHYSICIAN NO [facility] 06-12-2022 14:26-0400 Body height 160.02 cm PHYSICIAN NO [facility] 06-12-2022 14:26-0400 Body weight 108.86 kg PHYSICIAN NO [facility] 05-15-2022 14:30-0400 Body height 160.02 cm Idania Enrique Other [facility] Other 05-15-2022 14:30-0400 Body mass index (BMI) [Ratio] 42.16 kg/m2 Idania Enrique Other [facility] Other 05-15-2022 14:30-0400 Body temperature 97.8 [degF] Idania Enrique Other [facility] Other 05-15-2022 14:30-0400 Body weight 107.96 kg Idania Enrique Other [facility] Other 05-15-2022 14:30-0400 Diastolic blood pressure 73 mm[Hg] Idania Enrique Other [facility] Other 05-15-2022 14:30-0400 Respiratory rate 18 /min Idania Enrique Other [facility] Other 05-15-2022 14:30-0400 SaO2% (BldA) [Mass fraction] 98 % Idania Enrique Other [facility] Other 05-15-2022 14:30-0400 Systolic blood pressure 134 mm[Hg] Idania Enrique Other [facility] Other 09-19-2021 19:40-0500 Body height 160.02 cm Roxanna Anita Other [facility] Other 09-19-2021 19:40-0500 Body mass index (BMI) [Ratio] 44.81 kg/m2 Roxanna Howard Other [facility] Other 09-19-2021 19:40-0500 Body temperature 97.8 [degF] Roxanna Howard Other [facility] Other 09-19-2021 19:40-0500 Body weight 114.76 kg Roxanna Howard Other [facility] Other 09-19-2021 19:40-0500 Diastolic blood pressure 99 mm[Hg] Roxanna Howard Other [facility] Other 09-19-2021 19:40-0500 Respiratory rate 18 /min Roxanna Howard Other [facility] Other 09-19-2021 19:40-0500 SaO2% (BldA) [Mass fraction] 99 % Roxanna Howard Other [facility] Other 09-19-2021 19:40-0500 Systolic blood pressure 172 mm[Hg] Roxanna Howard Other [facility] Other Encounters Encounter Date Encounter Type Care Provider Facility Start: 04-23-2024 End: 04-23-2024 Patient encounter procedure KEI Zhou Work Phone: [facility] Work Phone: Start: 04-23-2024 End: 04-23-2024 ambulatory KEI Zhou Work Phone: [facility] Work Phone: Start: 03-20-2024 End: 03-20-2024 Patient encounter procedure KEI Zhou Work Phone: [facility] Physician [facility] Work Phone: Start: 02-07-2024 Non-patient / Non-visit KEI Zhou Work Phone[facility]: Start: 09-29-2023 End: 09-29-2023 ambulatory Tracey Soriano Other [facility] Other Start: 09-29-2023 Office outpatient visit 15 minutes Tracey Soriano [facility] Start: 07-08-2023 End: 07-08-2023 ambulatory Tracey Soriano Other [facility] Other Start: 07-08-2023 Office outpatient visit 25 minutes Tracey Soriano [facility] Start: 05-19-2023 End: 05-19-2023 Patient encounter procedure PHYSICIAN NO [facility] [place] Work Phone: Start: 05-19-2023 End: 05-19-2023 ambulatory PHYSICIAN NO [facility] Work Phone: Start: 12-27-2022 Encounter for genera l adult medical examination without abnormal findings IDANIA ENRIQUE [facility] Start: 12-20-2022 End: 12-21-2022 ambulatory IDANIA ENRIQUE Facility:[facility] Start: 12-20-2022 End: 12-21-2022 Encounter for general adult medical examination without abnormal findings IDANIA BOGGSAULT Facility:[facility] Start: 10-12-2022 End: 10-12-2022 ambulatory Idania Enrique Other [facility] Other Start: 10-12-2022 Telephone encounter Idaniasarika Barraganl t [facility] Start: 10-11-2022 End: 10-11-2022 ambulatory Idania Boggsault Other [facility] Other Start: 10-11-2022 Telephone encounter Idaniasarika Barraganl t [facility] Start: 09-08-2022 End: 09-08-2022 ambulatory [place] Other [facility] Other Start: 09-08-2022 Telephone encounter Ten lainez [facility] Start: 08-29-2022 End: 08-29-2022 Admission to same day surgery center PHYSICIAN NO [facility] Work Phone: Start: 08-29-2022 End: 08-29-2022 ambulatory PHYSICIAN NO [facility] Work Phone: Start: 06-23-2022 End: 06-23-2022 Patient encounter procedure PHYSICIAN NO [facility] [place] Work Phone: Start: 06-07-2022 End: 06-07-2022 ambulatory [place] Other [facility] Other Start: 06-07-2022 Telephone encounter [facility] Start: 05-15-2022 End: 05-16-2022 ambulatory IDANIA ENRIQUE [facility] Other Start: 05-15-2022 Encounter for genera l adult medical examination without abnormal findings Idania Enrique [facility] Start: 05-15-2022 Periodic preventive med est patient 40-64yrs Idania Enrique [facility] Start: 01-19-2022 End: 01-19-2022 ambulatory CHARU MCKEON Facility: Start: 09-19-2021 End: 09-19-2021 ambulatory Roxanna Howard Other [facility] Other Start: 09-19-2021 Office outpatient visit 15 minutes Roxanna Howard [facility] Procedures Date Procedure Procedure Detail Performing Clinician Start: 04-23-2024 MRI of head KEI Zhou Work Phone: Start: 05-19-2023 MRI of head PHYSICIAN NO FAMILY Start: 08-29-2022 Colonoscopy PHYSICIAN NO FAMILY Start: 06-23-2022 MRI of head PHYSICIAN NO FAMILY Plan of Treatment Date Care Activity Detail Author Start: 08-29-2022 [facility] Patient Education Colon Polyps Probiotics [facility] Work Phone: Immunizations Immunization Date Immunization Notes Care Provider Trae rowe 11-03-2013 tetanus toxoid, redu joseph diphtheria toxoid, and acellular pertussis vaccine, adsorbed Roxanna Howard Other [facility] Payers Date Payer Category Payer Self-pay [id number] 2022 Medicaid [id number] 1970 Unknown [id number] 2.16.84 [id number] 1970 Unknown [id number] 2.16.84 [id number] 1970 Unknown [id number] 2.16.84 [id number] 1959 Unknown [id number] 2.1 [id number] Unknown [id number] 2.1 [id number] Unknown [id number] 2.16.8 [id number] Unknown [id number] 2.16.8 [id number] Social History Date Type Detail Facility Unknown if ever smoked [facility] Other Sex Assigned At Sex Assigned At Bir th [facility] Other Start: 08-29-2022 End: 01-18-2024 Tobacco smoking status NHIS Ex-smoker (finding) [facility] Start: 1970 Sex Assigned At Female F [facility] Goals Date Patient Goal Desired Activity [...] understanding and is agreeable to treatment plan. [facility] Other 11-19-2023 Evaluation note* Encounter Date Diagnosis [...] of diseases classified elsewhere (ICD-10 - B97.89) [facility]* Encounter Date Diagnosis Assessment Notes Treatment Notes Treatment Clinical Notes May, Family history of malignant neoplasm of digestive organs (ICD-10 - Z80.0) [facility] Other 09-26-2022 Evaluation note* Encounter Date Diagnosis [...] cancer requiring screening colonoscopy (ICD-10 - Z80.0) [place] [facility] Other 01-31-2022 Evaluation note* Encounter Date Diagnosis Assessment Notes Treatment Notes Treatment Clinical Notes Aug, Herpes zoster without complication (ICD-10 - B02.9) Drink plenty fluids, get plenty of rest. Continue home medications as prescribed. Take the acyclovir as prescribed until gone. Use the ibuprofen as prescribed as needed for mild to moderate pain for severe pain use the Yulan, hydrocodone as prescribed. Follow-up with your family physician, call tomorrow for an appointment for recheck without fail to discuss your home situation and anxiety as well as reevaluate your herpes rash Aug, Anxiety (ICD-10 - F41.9) [facility] Other Evaluation note* Diagnosis Onset Date Resolution Status History of colon polyps acut e [facility] Work Phone: Evaluation noteNo InformationNort [facility] Other Evaluation noteNo assessment information available [facility] Work Phone: Evaluation note* Diagnosis Onset Date Resolution Status Achilles tendinitis acute Anxiety acute Benign meningioma of brain a cute GERD (gastroesophageal reflux disease) acute Hypertension acute Migraine acute Recurrent cold sores acute Vision changes acute [facility] Work Phone: History general Narrative - Reported* Type Description Date Medical History anxiety Medical History depression Medical History Brain tumor Surgical History tonsillectomy Surgical History cholecystectomy Hospitalization History see above surgical histo ry [facility] Zachary Prell Other Hospital Discharge instructions Additional Instructions DISCHARGE [...] me in 3 months Low FODMAP diet [facility] 1 p.o. every morning which is OTC Repeat colonoscopy in 5 years Take it easy today. Back to normal tomorrow. -Notify the doctor if you have any problems. -Office number [phone] Work Phone: Reason for Referral Reason patient has gi ngosed brain tumor - scans in [facility] Diagnosis 1 Brain tumor (D49.6) Referral Organization [facility] Family Eli Gracia Referring Provider First Name Idania Referring Provider Last Name Klaus Referring Provider Specialty Nurse Sarah sheehan Referred Organization [facility] Referred Provider Tera Banegas Referred Address [address] [place],[address] Referred Provider Specialty Neurology Referral Priority Routine General Notes Seema Robert 022 09:28:25 AM >Received today and waiting for office notes to be locked before sending referral Reason screening colon oscopy Diagnosis 1 Family hx of colon c ancer requiring screening colonoscopy (Z80.0) Referral Organization [facility] [place] Referring Provider First Name Idania Referring Provider Last Name Klaus Referring Provider Specialty Nurse Pract itioner Referred Organization [facility] Gastroenterolo gy Referred Provider [place] Referred Address [address] [facility] [address], [place],[address] Referred Provider Specialty Gastroentero logy Referral Priority [...] Member Role Status Dates Krys Zhou APRN DEPUTY TREASURER-C Primary Care Provider Active Team Status: Active Member Role Status Dates Krys Zhou APRN DEPUTY TREASURER-C Primary Care Provider Active Start: February 07, 2024 Nhan Muller DO Attending Provider Active Sta rt: February 07, 2024 Team Status: Inactive Member Role Status Dates Krys Zhou APRN DEPUTY TREASURER-C Primary Care Provider, Attending Provider Active Start: March 20, 2024 End: March 20, 2024 Team Status: Inactive Member Role Status Dates Krys Zhou APRN DEPUTY TREASURER-C Primary Care Provider, Attending Provider Active Start: April 23, 2024 End: April 23, 2024 INFORMATION SOURCE (unrecogn ized section and content) DATE CREATED AUTHOR 12/28/2022 [facility] DATE CREATED AUTHOR AUTHOR'S ORGANIZ ATION 04/24/2024 [facility] Goals (unrecognized section and content) [...] BE BASED ON THE PRIMARY CLINICAL RECORDS. [employer] [facility]. provides no warranty or guarantee of the accuracy or completeness of information in this document.
[2024-05-09 09:08] LABS: Basophils Absolute Auto 0.1 10^3/uL (0.0-0.1); Basophils Percent Auto 0.7 % (0.2-2.0); Eosinophils Absolute Auto 0.1 10^3/uL (0.0-0.7); Eosinophils Percent Auto 1.6 % (0.9-7.0); Hematocrit 38.7 % (36.0-48.0); Hemoglobin 12.5 g/dL (12.0-16.0); Immature Granulocytes Abs Auto 0.11 10^3/uL (0.00-0.03); Immature Granulocytes Pct Auto 1.5 % (0.0-0.5); Lymphocytes Absolute Auto 2.2 10^3/uL (1.2-3.8); Lymphocytes Percent Auto 29.5 % (20.5-60.0); Mean Corpuscular HGB Conc 32.3 g/dL (29.9-35.2); Mean Corpuscular Hemoglobin 25.7 pg (26.7-34.0); Mean Corpuscular Volume 79.5 fL (81.0-99.0); Mean Platelet Volume 9.6 fL (9.5-13.5); Monocytes Absolute Auto 0.5 10^3/uL (0.3-0.8); Monocytes Percent Auto 6.1 % (1.7-12.0); Neutrophils Absolute Auto 4.6 10^3/uL (1.4-6.5); Neutrophils Percent Auto 60.6 % (43.0-75.0); Platelet Count 224 10^3/uL (150-450); Red Blood Count 4.87 10^6/uL (4.20-5.40); Red Cell Distribution Width 13.8 % (11.0-15.0); White Blood Count 7.5 10^3/uL (4.0-11.0)
[2024-05-09 10:14] LABS: Percent Iron Saturation 13.5 %
[2024-05-09 10:44] LABS: Anion Gap 11.7; Carbon Dioxide 27.8 mmol/L (21.0-32.0); Chloride 103 mmol/L (98-107); Potassium 4.5 mmol/L (3.5-5.1); Sodium 138 mmol/L (136-145)
[2024-05-09 10:45] LABS: Alanine Aminotransferase 44 U/L (14-59); Aspartate Amino Transferase 27 U/L (15-37); BUN Creatinine Ratio 21.7; Bilirubin Total 0.3 mg/dL (0.2-1.0); Calcium 8.8 mg/dL (8.5-10.1); Estimated GFR (African America >60 (>=60); Estimated GFR (Non-African Ame >60 (>=60); Glucose 110 mg/dL (74-106)
[2024-05-09 10:46] LABS: Albumin Globulin Ratio 0.9; Albumin Level 3.5 g/dL (3.4-5.0); Alkaline Phosphatase 111 U/L (46-116); Cholesterol 172 mg/dL (<=200); HDL Cholesterol 60 mg/dL (40-60); TSH W/ REFLEX FT4 1.629 uIU/mL (0.358-3.740); Total Protein 7.5 g/dL (6.4-8.2); Triglycerides 122 mg/dL (<=150); VLDL CHOLESTEROL 24.4 mg/dL
[2024-05-09 10:52] LABS: Estimated Average Glucose 120 mg/dL; Glycohemoglobin A1C 5.8 % (4.5-6.2)
[2024-05-09 12:06] LABS: Chol HDL Ratio 2.9
== END 2024-05-09 08:49 | disposition home or self-care (01) ==
LOC: LAB 08:51
PROVIDERS: PCP Nurse Practitioner Family; Visit Provider Nurse Practitioner Family
DX: R53.83 Other fatigue (principal); I10 Essential (primary) hypertension; Z83.3 Family history of diabetes mellitus
CPT/HCPCS: 36415; 80053; 80061; 83036; 83540; 83550; 84443; 85025

== ENCOUNTER 2025-07-23 10:41 | Emergency (ER) | payer MEDICAID, SELFPAY ==
--- OUTSIDE RECORDS SUMMARY | 2024-04-15 08:45 | XMS_ITS ---
Author Organization [facility] Address [address] [place] [id number] Care Team Providers Care Chair Spring Assembler Name Role Phone Tamara Perez Primary Care Provider [phone] Rodrigo Liu Unavailable [phone] Lorrie Montes Unavailable [phone] REASON FOR VISIT Prophy (A) (53) Social History Sex Assigned At : Social History Observation Description Sex Assigned At Female Encounters Encounter Location Date Provider Diagnosis [facility] [address] [place] [phone] 04/15/2024 Lorrie Montes Plan Of Treatment Next Appt Details Provider Name:Rodrigo Liu , 08/18/2025 10:45:00 AM, [address], [place], [id number], Progress Notes * Alma BOUDREAUXDOB:1970 (54 yo F)Acc No.[id number]:04/15/2024 Dental Note Patient: Alma Watkins :?Lorrie Montes DMDDOB:1970???Age:53 Y ???Sex:FemaleDate:04/15/2024hone:[phone]:[address] [place] [id number]:Tamara Perez Subjective: * Chief Complaints: * P rophy (A) (53) Billing Information: * Procedure Codes: * Electronic signature of Lorrie Montes DMD on 07/23/2025 at 10:59 AM ESTSign off status: Pending * Provider: Shelby Montes DMD Date: 0 04/15/2024 Generated for Printing/Faxing/eTransmitting on:?07/23/2025 10:59 AM EST
--- OUTSIDE RECORDS SUMMARY | 2025-03-11 05:15 | XMS_ITS ---
Author Organization [facility] vices Address [address] [place] [id number] Care Team Providers Care Manual Qa Tester Name Role Phone Tamara Perez Primary Care Provider [phone] Rodrigo Helm Unavailable [phone] REASON FOR VISIT Rest #18-O Social History Sex Assigned At : Social History Observation Description Sex Assigned At Female Encounters Encounter Location Date Provider Diagnosis [facility] [address] [place] [id number] 03/11/2025 Rodrigo Liu Plan Of Treatment Next Appt Details Provider Name:Rodrigo Liu , 08/18/2025 10:45:00 AM, [facility] [place], [place], [id number], Progress Notes * Alma BOUDREAUXDOB:1970 (54 yo F)Acc No.[id number]:03/11/2025 Patient:?Alma Boudreaux :?Rodrigo Liu DDSDOB:1970???Age:54 Y ???Sex:FemaleDate:03/11/2025Phone:[phone]:[address] [place] [address] [place], [id number]:Tamara Perez Subjective: * Chief Complaints: * R est #18-O Billing Information: * Procedure Codes: * Electronic signature of Rodrigo Liu DDS on 07/23/2025 at 10:59 AM ESTSign off status: Pending * Provider: Anthony Liu DDS Date: 0 03/11/2025 Generated for Printing/Faxing/eTransmitting on:?07/23/2025 10:59 AM EST
--- OUTSIDE RECORDS SUMMARY | 2025-07-07 07:37 | XMS_ITS | Encounter Summary ---
Author Organization [facility] Address [address], [address] [place] [address] Care Team Providers Care Commercial Leasing Manager Name Role Phone Krys Zhou APRN - SEWER INSPECTOR Primary Care Pro vider Reason for Visit * Imaging (Routine) - ClosedSpecialtyDiagnoses / ProceduresReferred By Contact Referred To ContactRadiology Diagnoses Endometrial adenocarcinoma (HCC) Procedures PET CT SKULL BASE TO MID THIGH Daina Null DO [facility], [address] [place] [address] Phone: tel: fax: Referral IDStatusReasonStart DateExpiration DateVisits RequestedVisits [id number]/13/[id number]/ Encounter Details DateTypeDepartmentCare Team (Latest Contact Info)Enxngtjuvkq65/18/2025 7:37 AM EST - 07/09/2025 11:59 PM ESTHospital Encounter [facility] [address] [facility] [place] [address] Discharge Disposition: Home or Self Care Social History Tobacco UseTypesPacks/DayYears UsedDateSmoking Tobacco: [id number] - 2000Smokeless Tobacco: NeverAlcohol UseStandard Drinks/WeekCommentsNot Currently0 (1 standard drink = 0.6 oz pure alcohol)rarely- maybe 3 x year CommentsUnknownSex and Gender InformationValueDate RecordedSex Assigned at BirthNot on fileLegal ZukOxgpcu50/10/2013 7:28 PM ESTGender IdentityNot on fileSexual OrientationNot on filedocumented as of this encounter Medications at Time of Discharge MedicationSigDispense QuantityRefillsLast FilledStart DateEnd Date ibuprofen (ADVIL;MOTRIN) 600 MG tablet Take 1 tablet by mouth 4 times daily as needed for Pain 120 tablet 07/14/2025 acetaminophen (TYLENOL) 500 MG tablet Take 2 tablets by mouth every 6 hours as needed for Pain 80 tablet sennosides-docusate sodium (SENOKOT-S) 8.6-50 MG tablet Take 1 tablet by mouth daily 60 tablet 07/14/2025 losartan (COZAAR) 25 MG tablet Take 1 tablet by mouth daily omeprazole (PRILOSEC) 20 MG delayed release capsule Take 1 capsule by mouth daily05/12/2025 valACYclovir (VALTREX) 1 g tablet Take 1 tablet by mouth 2 times daily as tqoobl1205/12/2025 oxyCODONE (ROXICODONE) 5 MG immediate release tablet Indications:Post-op painTake 1 tablet by mouth every 6 hours as needed for Pain for up to 7 days. Intended supply: 7 days. Take lowest dose possible to manage pain Max Daily Amount: 20 mg 20 tablet benzocaine (ORAJEL) 10 % mucosal gel Take by mouth as needed for Pain Take by mouth as needed.07/14/2025 ELDERBERRY PO Take 1 Dose by mouth daily07/14/2025 ibuprofen (ADVIL;MOTRIN) 600 MG tablet Take 1 tablet by mouth every 6 hours as needed for Pain documented as of this encounter Plan of Treatment DateTypeDepartmentCare Team (Latest Contact Info)Zzqqmwsegbv77/08/2025 1:30 PM ESTOffice Visit [facility] [address] [place] [address] Tamara Byrd PA-C [address] [facility] [address] [place] [address] 2 WK P/O DOS: 07/13/25; DAY CGWRZP9008/27/2025 1:00 PM ESTOffice Visit [facility] [address] [facility] [address] [place] [address] Jose Jimenez MD [address] [facility] [address] [place], [place] [id number] BATCH MIXER - Endometrial cancer (HCC)documented as of this encounter Procedures Procedure NamePriorityDate/TimeAssociated DiagnosisCommentsPET CT SKULL BASE TO MID VRKMOEowufft13/18/2025 8:00 AM EST Endometrial adenocarcinoma (HCC) documented in this encounter Results * PET CT SKULL BASE TO MID THIGH (07/07/2025 8:00 AM EST)Anatomical Region LateralityModalityHead, Neck, Chest, Abdomen, Pelvis, ThighNuclear Medicine Specimen (Source)Anatomical Location / LateralityCollection Method / Volume Collection TimeReceived Time07/08/2025 5:00 PM EST Impressions 07/08/2025 5:09 PM EST Focal metabolic activity in the mid sigmoid in area of diverticulosis. Differential diagnosis would include inflammation versus neoplasm. ??Further evaluation with endoscopy of this area may be useful. Otherwise, no metabolically active lesion is seen, specifically in the region and distribution of the uterus or endometrial cavity. Narrative 07/08/2025 5:09 PM EST EXAMINATION: WHOLE BODY PET/CT 07/07/2025 TECHNIQUE: Following IV injection of 14.9 mCi of F-18 FDG, PET ??tumor imaging was acquired from the base of the skull to the mid thighs. ??Computed tomography was used for purposes of attenuation correction and anatomic localization. Fusion imaging was utilized for interpretation. Uptake time 55 min. ??Glucose level 128 mg/dl. COMPARISON: None HISTORY: ORDERING SYSTEM PROVIDED HISTORY: Endometrial adenocarcinoma (HCC) TECHNOLOGIST PROVIDED HISTORY: Is the patient ?->No Reason for Exam: Endometrial adenocarcinoma FINDINGS: HEAD/NECK: No abnormal metabolically active lesion is seen in the visualized basal portion of the head. No abnormal metabolic activity is seen in the lymph nodes of the neck. No abnormal activity is noted in the soft tissues of the nasopharynx, oropharynx, glottic, or subglottic compartments. No abnormal metabolic activity is seen in the remainder of the soft tissues of the neck. The CT portion of the study demonstrates no masses or lymphadenopathy in the neck. CHEST: No abnormal activity is seen in the hilum or mediastinum. No metabolic activity is seen in the lung parenchyma. The CT portion of the chest demonstrates no lung parenchymal nodules or masses. ABDOMEN: No abnormal metabolic activity is seen in the lymph nodes of the retroperitoneum, ??mesentery, chasity hepatis, gastrohepatic ligament. No abnormal activity is noted in the liver. No abnormal metabolic activity is seen in the ??remainder of the intra-abdominal solid organs. CT portion of the study of the abdomen demonstrates no abnormality of the intra-abdominal solid organs. No abnormality of the stomach the remainder of the enteric tract. PELVIS: No iliac chain lymphadenopathy is seen. No other lymph nodes are seen in the pelvis. No abnormal metabolic activity is seen in the pelvic soft tissues. BONES/SOFT TISSUE: No abnormal metabolic activity is seen in the subcutaneous soft tissues. No abnormal metabolic activity is seen in the skeletal system. The CT portion of the study in bone window settings demonstrates no osteolytic or osteoblastic lesions. INCIDENTAL CT FINDINGS: Surgical clips are demonstrated in the right upper quadrant consistent with prior cholecystectomy. A duodenal diverticulum measuring 2.9 cm diameter is seen off of the 3rd segment of the duodenum. Multiple diverticula are demonstrated in the sigmoid colon and descending colon. ??No significant paracolic inflammatory changes are identified. ??Focal metabolic activity is seen with a max SUV of 6.9 within the mid sigmoid and could represent either inflammatory lesion or possible underlying neoplasm. Further assessment with the endoscopy may be of benefit, if clinically indicated. Procedure Note Keanu Childress MD - 07/08/2025 EXAMINATION: WHOLE BODY PET/CT 07/07/2025 TECHNIQUE: Following IV injection of 14.9 mCi of F-18 FDG, PET tumor imaging was acquired from the base of the skull to the mid thighs. Computedtomography was used for purposes of attenuation correction and anatomiclocalization. Fusion imaging was utilized for interpretation. Uptake time 55 min. Glucose level 128 mg/dl. COMPARISON: None HISTORY: ORDERING SYSTEM PROVIDED HISTORY: Endometrial adenocarcinoma (HCC) TECHNOLOGIST PROVIDED HISTORY: Is the patient ?->No Reason for Exam: Endometrial adenocarcinoma FINDINGS: HEAD/NECK: No abnormal metabolically active lesion is seen in thevisualized basal portion of the head. No abnormal metabolic activity is seen in the lymph nodes of the neck. No abnormal activity is noted in the soft tissues of the nasopharynx, oropharynx, glottic, or subglottic compartments. No abnormal metabolic activity is seen in the remainder of the softtissues of the neck. The CT portion of the study demonstrates no masses or lymphadenopathy inthe neck. CHEST: No abnormal activity is seen in the hilum or mediastinum. No metabolic activity is seen in the lung parenchyma. The CT portion of the chest demonstrates no lung parenchymal nodules or masses. ABDOMEN: No abnormal metabolic activity is seen in the lymph nodes ofthe retroperitoneum, mesentery, chasity hepatis, gastrohepatic ligament. No abnormal activity is noted in the liver. No abnormal metabolic activity is seen in the remainder of the intra-abdominal solid organs. CT portion of the study of the abdomen demonstrates no abnormality ofthe intra-abdominal solid organs. No abnormality of the stomach the remainderof the enteric tract. PELVIS: No iliac chain lymphadenopathy is seen. No other lymph nodes areseen in the pelvis. No abnormal metabolic activity is seen in the pelvic soft tissues. BONES/SOFT TISSUE: No abnormal metabolic activity is seen in thesubcutaneous soft tissues. No abnormal metabolic activity is seen in the skeletal system. The CT portion of the study in bone window settings demonstrates no osteolytic or osteoblastic lesions. INCIDENTAL CT FINDINGS: Surgical clips are demonstrated in the rightupper quadrant consistent with prior cholecystectomy. A duodenal diverticulum measuring 2.9 cm diameter is seen off of the 3rd segment of the duodenum. Multiple diverticula are demonstrated in the sigmoid colon anddescending colon. No significant paracolic inflammatory changes are identified.Focal metabolic activity is seen with a max SUV of 6.9 within the mid sigmoidand could represent either inflammatory lesion or possible underlyingneoplasm. Further assessment with the endoscopy may be of benefit, if clinically indicated. IMPRESSION: Focal metabolic activity in the mid sigmoid in area of diverticulosis. Differential diagnosis would include inflammation versus neoplasm.Further evaluation with endoscopy of this area may be useful. Otherwise, no metabolically active lesion is seen, specifically in theregion and distribution of the uterus or endometrial cavity. Authorizing ProviderResult TypeResult StatusSasha Chaka DOIMG NM ORDERABLES Final Result documented in this encounter Visit Diagnoses Not on filedocumented in this encounter Care Teams Team MemberRelationshipSpecialtyStart DateEnd Date Krys Zhou APRN - [address] [place] [address] PCP - Smnkype95/10/25documented as of this encounter
--- OUTSIDE RECORDS SUMMARY | 2025-07-07 07:37 | XMS_ITS | Encounter Summary ---
Author Organization [facility] Address [address], [address] [place] [address] Care Team Providers Care Reed Press Feeder Name Role Phone Krys Zhou APRN - SUPPLY CHAIN VICE PRESIDENT Primary Care Pro vider Reason for Referral * Imaging (Routine) - ClosedSpecialtyDiagnoses / ProceduresReferred By Contact Referred To ContactRadiology Diagnoses Endometrial adenocarcinoma (HCC) Procedures PET CT SKULL BASE TO MID THIGH Daina Null DO [facility], [address] [place] [address] Phone: tel: fax: Referral IDStatusReasonStart DateExpiration DateVisits RequestedVisits [id number]/[id number]/10/202611 Reason for Visit * Imaging (Routine) - ClosedSpecialtyDiagnoses / ProceduresReferred By Contact Referred To ContactRadiology Diagnoses Endometrial adenocarcinoma (HCC) Procedures PET CT SKULL BASE TO MID THIGH Daina Null DO [facility], [address] [place] [address] Phone: tel: fax: Referral IDStatusReasonStart DateExpiration DateVisits RequestedVisits [id number]/[id number]/10/202611 Encounter Details DateTypeDepartmentCare Team (Latest Contact Info)Jbzcgwvmaue29/18/2025 7:37 AM EST - 07/09/2025 11:59 PM ESTHospital Encounter [facility] [address] [place] [address] Endometrial adenocarcinoma (HCC) Discharge Disposition: Home or Self Care Social History Tobacco UseTypesPacks/DayYears UsedDateSmoking Tobacco: [id number] - 2000Smokeless Tobacco: NeverAlcohol UseStandard Drinks/WeekCommentsNot Currently0 (1 standard drink = 0.6 oz pure alcohol)rarely- maybe 3 x year CommentsUnknownSex and Gender InformationValueDate RecordedSex Assigned at BirthNot on fileLegal ImaJtolpl73/10/2013 7:28 PM ESTGender IdentityNot on fileSexual OrientationNot [...] tablet by mouth 2 times daily as xwmuap4605/12/2025 oxyCODONE (ROXICODONE) 5 MG immediate release tablet [...] Plan of Treatment DateTypeDepartmentCare Team (Latest Contact Info)Pcrqiwwpogj99/08/2025 1:30 PM ESTOffice Visit [facility] [address] [facility] [address] [place] [address] Tamara Byrd PA-C [address] [facility] [address] [place] [address] 2 WK P/O DOS: 07/13/25; DAY QTGDQQ2908/27/2025 1:00 PM ESTOffice Visit [facility] [address] [facility] [address] [place] [address] Jose Jimenez MD [address] [facility] [address] [place], [place] [id number] 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 Authorizing ProviderResult TypeResult StatusSasha Chaka DOI NM ORDERABLES Final Result * (ABNORMAL) POC Glucose Fingerstick (07/07/2025 7:50 AM EST)ComponentValueRef RangeTest MethodAnalysis TimePerformed AtPathologist SignaturePOC Iiwbrjf346 (H)65 - 105 mg/dL07/07/2025 7:50 AM ESTMERCY LABORATORIESSpecimen (Source) Anatomical Location / LateralityCollection Method / VolumeCollection Time Received Time07/07/2025 7:50 AM EST07/07/2025 7:57 AM EST Narrative Authorizing ProviderResult TypeResult StatusChristopher Consuelo V, MDPOINT OF CARE TEST ORDERABLESFinal ResultPerforming OrganizationAddressCity/State/ZIP Code[place] [address], [facility] [phone] documented in this encounter Visit Diagnoses Diagnosis Endometrial adenocarcinoma (HCC) Malignant neoplasm of corpus uteri, except isthmus documented in this encounter Administered Medications Medication OrderMAR ActionAction DateDoseRateSite fludeoxyglucose F 18 injection 10 millicurie 10 millicurie, IntraVENous, IMG ONCE PRN, 1 dose, Starting on Sun07/07/25 at 0740, Until Sun07/07/25 at 0751, Other, Indication of use: Oncology Imaging Given07/07/2025 7:51 AM EST14.875 millicuries sodium chloride flush 0.9 % injection 10 mL 10 mL, IntraVENous, ONCE, 1 dose, On Sun07/07/25 at 0800 Given07/07/2025 7:51 AM EST10 mLsdocumented in this encounter Care Teams Team MemberRelationshipSpecialtyStart DateEnd Date Krys Zhou APRN - SUPPLY CHAIN VICE PRESIDENT [address] [id number] PCP - Gyetmmo55/10/25documented as of this encounter
--- OUTSIDE RECORDS SUMMARY | 2025-07-13 09:30 | XMS_ITS | Encounter Summary ---
Author Organization [facility] [employer] [facility] Address [address], [address] [place] [address] Care Team Providers Care Fur Trimmer Name Role Phone Krys Zhou APRN - COLLECTION SPECIALIST Primary Care Pro vider Reason for Visit * Auth/CertSpecialtyDiagnoses / ProceduresReferred By ContactReferred To Contact Diagnoses Endometrial cancer (HCC) Procedures MI LAPS TOTAL HYSTERECT 250 GM/< W/RMVL TUBE/OVARY MI LAPS SURG BILATERAL TOTAL PELVIC LMPHADECTOMY TOTAL ROBOTIC HYSTERECTOMY; BILATERAL SALPINGO-OOPHORECTOMY; REMOVAL OF LYMPH NODES; POSSIBLE LAPAROTOMY; OTHER NECESSARY PROCEDURES (INDOCYANINE GREEN DYE) Tera Cordero MD [address], [address] [place] [address] Phone: tel: fax: [facility] [address] [place] [address] Referral IDStatusReasonStart DateExpiration DateVisits RequestedVisits [id number] Encounter Details DateTypeDepartmentCare Team (Latest Contact Info)Arpkbnulvzi48/24/2025 9:30 AM EST - 07/14/2025 7:09 PM ESTHospital Encounter [facility] 3C MED SURG [address] [place], [place] [id number] Tera Cordero MD [address] [place], [place] [id number] Post-op pain (Primary Dx); Endometrial cancer (HCC) Discharge Disposition: Home or Self Care Social History Tobacco UseTypesPacks/DayYears UsedDateSmoking Tobacco: [id number] - 2000Smokeless Tobacco: NeverAlcohol UseStandard Drinks/WeekCommentsNot Currently0 (1 standard drink = 0.6 oz pure alcohol)rarely- maybe 3 x yearHousing Stability Vital SignAnswerDate RecordedIn the last 12 months, was there a time when you were not able to pay the mortgage or rent on time?No07/14/2025In the past 12 months, how many times have you moved where you were living? At any time in the past 12 months, were you homeless or living in a [place] (including now)?No07/14/2025Hunger Vital SignAnswerDate RecordedWithin the past 12 months, you worried that your food would run out before you got the money to buymore.Never true07/14/2025Within the past 12 months, the food you bought just didn't last and you didn't have money to get more.Never true07/14/2025PRAPARE - TransportationAnswerDate RecordedIn the past 12 months, has lack of transportation kept you from medical appointments or from getting medications?No 07/14/2025In the past 12 months, has lack of transportation kept you from meetings, work, or from getting things needed for daily living?No07/14/2025HC UtilitiesAnswerDate RecordedIn the past 12 months has the [place], gas, oil, or water [employer] threatened to shut off services in your home?No07/14/2025 Interpersonal Safety Domain Source: IP Abuse ScreeningAnswerDate Recorded Physical qvafaEwokwe02/24/2025Verbal rzcmgRmwskb21/24/2025Emotional abuseDenies 07/13/2025Financial kiuseHpfmve25/24/2025Sexual jomstQmxauq23/24/2025 CommentsNoSex and Gender InformationValueDate RecordedSex Assigned at BirthNot on fileLegal TbcYsglxs33/10/2013 7:28 PM ESTGender IdentityNot on fileSexual OrientationNot on filedocumented as of this encounter Last Filed Vital Signs Vital SignReadingTime TakenCommentsBlood Oxkybzvo785/7407/14/2025 7:26 AM EST Vcufn484207/14/2025 7:26 AM AXKYbnrajxmgki36.7 ??C (98.1 ??F)07/14/2025 7:26 AM ESTRespiratory Jyum585509/13/2024 7:26 AM ESTOxygen Mtbljbajpj23%07/14/2025 7:26 AM ESTInhaled Oxygen Concentration--Hfjlex503.5 kg (270 lb)07/13/2025 10:10 AM HWINyiwkl321.6 cm (5' 4 )07/13/2025 10:10 AM ESTBody Mass Index46.35109/12/2024 10:10 AM ESTdocumented in this encounter Discharge Summaries * Aleah Gonzalez MD - 07/14/2025 11:18 AM EST Planning Feeder Onc Discharge Summary [facility] Patient Name: Alma Andino Patient : 1970 Primary Care Physician: Krys Zhou APRN - CNP Admit Date: 07/13/2025 Principal Diagnosis: Endometrioid Adenocarcinoma Grade 2 Other Diagnosis: Endometrial cancer (HCC) [C54.1] S/P hysterectomy [Z90.710] Patient Active Problem List Diagnosis Endometrial cancer (HCC) S/P hysterectomy S/p RALH, BSO, PLND, cysto 07/13/25 Infection: No Hospital Acquired: NA Surgical Operations & Procedures: Robotic Assisted Laparoscopic Hysterectomy, Bilateral Salpingo-Oophorectomy, Pelvic Lymph Node Dissection, Consultations: Anesthesia Pertinent Findings & Procedures: Alma Andino is a 54 y.o. female admitted for surgical management of above diagnosis; received Ancef and Flagyl pre-operatively. She underwent above procedure on 07/13/25. Post-op course normal, discharged home. Follow up in 2 weeks. Discharge instructions reviewed and questions answered. Course of patient: normal POD#1: Hgb 12.8 Discharge to: Home Readmission planned: No Recommendations on Discharge: Medications: Medication List START taking these medications acetaminophen 500 MG tablet Commonly known as: TYLENOL Take 2 tablets by mouth every 6 hours as needed for Pain oxyCODONE 5 MG immediate release tablet Commonly known as: Roxicodone Take 1 tablet by mouth every 6 hours as needed for Pain for up to 7 days. Intended supply: 7 days. Take lowest dose possible to manage pain Max Daily Amount: 20 mg sennosides-docusate sodium 8.6-50 MG tablet Commonly known as: SENOKOT-S Take 1 tablet by mouth daily CHANGE how you take these medications ibuprofen 600 MG tablet Commonly known as: ADVIL;MOTRIN Take 1 tablet by mouth 4 times daily as needed for Pain What changed: when to take this CONTINUE taking these medications losartan 25 MG tablet Commonly known as: COZAAR omeprazole 20 MG delayed release capsule Commonly known as: PRILOSEC valACYclovir 1 g tablet Commonly known as: VALTREX STOP taking these medications benzocaine 10 % mucosal gel Commonly known as: ORAJEL ELDERBERRY PO Where to Get Your Medications These medications were sent to [address] - [phone] - F [phone] [place] [id number] acetaminophen 500 MG tablet ibuprofen 600 MG tablet oxyCODONE 5 MG immediate release tablet sennosides-docusate sodium 8.6-50 MG tablet Activity: pelvic rest x8 weeks, no driving on narcotics, no lifting greater than 8 lbs Diet: regular diet Follow up: 2 weeks Condition on discharge: good and stable Discharge Date: 07/14/25 Comments: Home care, Follow-up care, restrictions reviewed. Aleah Gonzalez MD Dragger Resident [facility] 07/14/2025, 11:18 AM Cosigned by Tera Cordero MD at 07/14/2025 2:37 PM EST documented in this encounter Discharge Instructions * Discharge Instructions* Aleah Gonzalez MD - 07/12/2025 8:42 PM EST Post operative instructions for a TOTAL LAPAROSCOPIC HYSTERECTOMY Do not lift, push or pull anything greater than 10 pounds for 6 weeks, and until pelvic exam by provider. Avoid bathtubs, hot tubs and swimming for 4-6 weeks, and until pelvic exam by provider. Please do not put anything in the vagina, including tampons, and avoid sexual activity until pelvicexam by provider. Please call our office if any of the following occur: Increase in vaginal bleeding, fever (>100.4), dramatic increase in pain, abdominal pain, shortness of breath, chest pain, increase in redness or swelling. Occasionally, there may be a mild increase in vaginal spotting 3-4 weeks after surgery. However, ifyou experience a significant increase in vaginal bleeding, pain and soreness after you leave the hospital, please call and let us know. Common questions/concerns Abdominal pain can occur from the CO2 use to inflate your abdomen in laparoscopic surgery. Occasionally, it can cause right shoulder pain. If you have questions about this, please call our office. You may take Simethicone (Gas-X) 80mg four times daily for bowel gas pain. However, the best treatment for gas post-operatively is walking. Activity As able, it is good to start walking. This improves circulation and helps prevent blood clots. Start with a few minutes several times a day and gradually increase. If pain or vaginal bleeding increases, then decrease the amount of walking. Showering It is okay to shower normally two days after surgery. Please do not put Neosporin on your incisions. If there are steri-strips in place, they may be left on until they fall off. The clear tape dressing may be removed on the second day. If your incisions increase in redness or have drainage, please call and let us know. Diet After surgery it is common for the bowels to be slow to return to normal. Eat a light/soft diet until regularly passing gas and make sure to stay well hydrated. Frequent small meals rather than threelarger meals can be better tolerated. A healthy diet is very important in healing. Protein is a vital part of this, so protein supplements, beans, and lean meats are very important in the healing process. Constipation Narcotic pain relievers, such as Lortab and Percocet, can cause constipation. It is a good idea to take an over the counter stool softener (such as Metamucil, Colace or Senna) and/or prunes while taking narcotics. You may take Tylenol if you do not need something as strong as the prescription you received. It isokay to take up to 4000mg of Tylenol per day, as long as your liver is healthy. Lortab and Percocethave Tylenol in it, (it is the second number in the dosage, Lortab 5/325, has 325 mg of Tylenol in it) be careful not to take too much. Ibuprofen: If you are NOT taking Lovenox or enoxaparin, Ibuprofen 800mg taken every 8 hours for thefirst week post-operatively is effective at pain control and at lowering inflammation. If you have a history of bleeding ulcers, or have been instructed to avoid ibuprofen, please do not take it. Ibuprofen should be taken with a small amount of food (two crackers). Also, it is safe to take both ibuprofen and Tylenol. Pathology If any biopsies were taken during your surgery, the final pathology should be available in one week. If you have not heard from us after one week, please contact our office. Emergencies A provider from our office can be reached at any time during the day or night in event of emergencies. Please call the office phone number, and they will contact a provider through our answering service. If at any point in time you feel you are in danger, call [phone] or go straight to the emergency room. Follow up Please follow up in the clinic in 2 weeks. Call sooner if you have any problems or concerns. Please call our office to set up the appointment. documented in this encounter Medications at Time of Discharge [...] tablet by mouth 2 times daily as kokfif2105/12/2025 oxyCODONE (ROXICODONE) 5 MG immediate release tablet Indications:Post-op painTake 1 tablet by mouth every 6 hours as needed for Pain for up to 7 days. Intended supply: 7 days. Take lowest dose possible to manage pain Max Daily Amount: 20 mg 20 tablet documented as of this encounter Progress Notes * Tera Cordero MD - 07/14/2025 3:35 PM EST Physician Progress Note PATIENT: ALMA ANDINO CSN #: [id number] : 1970 ADMIT DATE: 07/13/2025 9:30 AM DISCH DATE: RESPONDING PROVIDER #: Tera Cordero MD QUERY TEXT: BMI of 46.3 is documented in the medical record. Based on your medical judgment, please clarify these findings and document if any of the following are being evaluated and/or treated: The clinical indicators include: BMI 46.3 Op note on 07/13 states- grade 2 endometrial cancer in an obese woman Options provided: -- Morbid obesity -- Obesity class 3 -- Other - I will add my own diagnosis -- Disagree - Not applicable / Not valid -- Refer to Clinical Documentation Reviewer PROVIDER RESPONSE TEXT: This patient has morbid obesity. Query created by: Nicky Avila on 07/14/2025 12:32 PM Electronically signed by: Tera Cordero MD 07/14/2025 3:34 PM * Aleah Gonzalez MD - 07/14/2025 6:51 AM EST Gynecology Oncology Progress Note Alma Andino is a 54 y.o. female No obstetric history on file., POD # 1 s/p RALH, BSO, PLND, Cystoscopy Patient seen and examined. Pain is controlled. Patient is tolerating oral intake. She is urinating without difficulty. She denies any vaginal bleeding. She is ambulating without difficulty. She is passing flatus. She denies Fever/Chills, Chest Pain, SOB, N/V, Calf Pain. Vitals: Vitals: 07/13/25 1600 07/13/25 2000 07/14/25 0000 07/14/25 0400 BP: (!) 146/83 (!) 150/79 (!) 159/87 136/70 Pulse: 92 83 81 83 Resp: Temp: 97.3 ??F (36.3 ??C) 98.4 ??F (36.9 ??C) 98.6 ??F (37 ??C) 98.6 ??F (37 ??C) TempSrc: Oral Oral Oral Oral SpO2: 95% 93% 95% Weight: Height: Intake/Output: Last Shift: I/O last 3 completed shifts: In: 2100 [P.O.:100; I.V.:2000] Out: 1130 [Urine:950; Blood:180] Current Shift: I/O this shift: In: 1150 [I.V.:1150] Out: 600 [Urine:600] 1400 mL in the last 16 hrs of clear UOP ~87 mL/hr Physical Exam: General: Alert and oriented, no acute distress HEENT: normocephalic, atraumatic, supple, symmetrical, trachea midline, Pupils equal and reactive to light, Extraocular muscles intact, sclera non icteric Respiratory: Good air movement bilaterally, unlabored respirations, no wheezes or rhonchi Cardiovascular: Regular rate and rhythm, no murmurs rubs or gallops Abdomen: soft, non tender, non distended, no rebound, guarding, or rigidity Incisions: Dermabond in place, dry and intact Extremities: No LE edema, no calf tenderness or swelling, EPC in place Psych: affect appropriate Assessment/Plan: Alma Andino 54 y.o. female No obstetric history on file., POD # 1 s/p RALH, BSO, PLND, Cystoscopy - Doing well, vitals stable - UOP adequate - IVF discontinued this am - Pain control: Toradol>Motrin/Tylenol/Cynthia, Gabapentin/Flexeril PRN - Labs: CBC, CMP pending this am - DVT Proph: Lovenox 60 mg qD - Abx: s/p Ancef, Flagyl pre-operatively - Diet: Regular - Encourage ambulation and use of incentive spirometer - Path: pending - Anticipate discharge today Hypertension - Reports she intermittently takes Cozaar 25 mg qD at home - BP hypertensive throughout admission - Continue Cozaar 25 mg qD Depression - Stable on no medications GERD - Continue Protonix 40 mg qD Principal Problem: Endometrial cancer (HCC) Active Problems: S/P hysterectomy Resolved Problems: * No resolved hospital problems. * Attending: Dr. Cordero Please page the resident named below with questions and concerns. Aleah Gonzalez MD OBGYN Resident PGY2 07/14/2025, 6:51 AM * Tera Cordero MD - 07/13/2025 9:25 AM EST Planning Feeder Onc Note Patient seen and evaluated by me today Chart notes records labs imaging history revd by me in detail She tells me that she understands the situation and the operation She tells me that she understands all of the serious risks, downstream consequences of the planned operation today She tells me that I have answered all questions to her satisfaction again today. She tells me that she is ready to move to OR today as scheduled. MAGGY Cordero MD * Shannen Blount RN - 07/06/2025 12:13 PM EST Per Julianna/ Dr. Cordero, ok to give ancef with pt. PCN allergy for OR 07-13-25. documented in this encounter Plan of Treatment DateTypeDepartmentCare Team (Latest Contact Info)Ckhhzfocgak84/08/2025 1:30 PM ESTOffice Visit [facility] [address] [address] [place] [address] Tamara Byrd PA-C [address] [facility] [address] [place] [address] 2 WK P/O DOS: 07/13/25; 90 DAY ZFZNBU2608/27/2025 1:00 PM ESTOffice Visit [facility] [address] [facility] [address] [place], [place] [id number] Jose Jimenez MD [address] [facility] [address] [place], [place] [id number] RAIL SWITCHMAN - Endometrial cancer (HCC)NameTypePriorityAssociated DiagnosesOrder Schedule Surgical PathologyLabRoutine Endometrial cancer (HCC) Release Upon Ordering for 1 Occurrences starting 07/13/2025documented as of this encounter Procedures Procedure NamePriorityDate/TimeAssociated DiagnosisCommentsCBC WITH AUTO ESLYMPXHCBIPHqwnavf01/25/2025 7:22 AM EST COMPREHENSIVE METABOLIC CNHIQQrpztjr43/25/2025 7:22 AM EST MI LAPS TOTAL HYSTERECT 250 GM/< W/RMVL TUBE/OVARY07/13/2025 11:41 AM EST Endometrial cancer (HCC) Special Needs PAT SURGICAL PATHOLOGY NQYHCMMvqpaex88/24/2025 12:00 AM EST documented in this encounter Results * (ABNORMAL) Comprehensive Metabolic Panel (07/14/2025 7:22 AM EST)Component ValueRef RangeTest MethodAnalysis TimePerformed AtPathologist SignatureSodium 270315 - 145 mmol/L109/13/2024 7:22 AM [facility] LABORATORIESPotassium3.6(L)3.7 - 5.3 mmol/L109/13/2024 7:22 AM [facility] YCJTHBBYUBTMWnmppcoz10293 - 107 mmol/L 07/14/2025 7:22 AM [facility] LNEVTMIPQKLSVI90114 - 31 mmol/L109/13/2024 7:22 AM [facility] LABORATORIESAnion Nub466 - 16 mmol/L109/13/2024 7:22 AM [facility] PQXYDETZAHBZEugfsjl246(H)74 - 99 mg/dL07/14/2025 7:22 AM [facility] BUN96 - 20 mg/dL07/14/2025 7:22 AM [facility]ORATORIESCreatinine0.70.6 - 0.9 mg/dL07/14/2025 7:22 AM E[facility]CY LABORATORIESEst, Glom Filt Rate>90>60 mL/min/1.68s70007/14/2025 7:22 AM ESTMERCY LABORATORIESComment: ? These results are not intended for use in patients <18 years of age. ? eGFR results are calculated without a race factor using the 2020 CKD-EPI equation. Careful clinical correlation is recommended, particularly when comparing to results calculated using previous equations. The CKD-EPI equation is less accurate in patients with extremes of muscle mass, extra-renal metabolism of creatine, excessive creatine ingestion, or following therapy that affects renal tubular secretion. Calcium8.68.6 - 10.4 mg/dL07/14/2025 7:22 AM [facility] LABORATORIESTotal Protein 6.86.6 - 8.7 g/dL07/14/2025 7:22 AM [facility]ORATORIESAlbumin3.83.5 - 5.2 g/dL07/14/2025 7:22 AM [facility]ORATORIESAlbumin/Globulin Ratio1.31.0 - 2.5 07/14/2025 7:22 AM [facility] LABORATORIESTotal Bilirubin0.50.0 - 1.2 mg/dL 07/14/2025 7:22 AM [facility] LABORATORIESAlkaline Tzmrbxkgukx0827 - 104 U/L 07/14/2025 7:22 AM [facility] GYXRZSSGFOVUBPL36(H)10 - 35 U/L109/13/2024 7:22 AM [facility] DELWBMSHOIYMMWY2378 - 35 U/L109/13/2024 7:22 AM [facility] Specimen (Source)Anatomical Location / LateralityCollection Method / Volume Collection TimeReceived TimeBloodBLOOD SPECIMEN / Quyofqd8207/14/2025 7:22 AM EST 07/14/2025 7:38 AM EST Narrative Authorizing ProviderResult TypeResult StatusTaryn D Miracle MDCHEMISTRY ORDERABLESFinal ResultPerforming OrganizationAddressCity/State/ZIP CodePhone Number [employer] [address] [place] [address], [facility] [phone] * (ABNORMAL) CBC auto differential (07/14/2025 7:22 AM EST)ComponentValueRef RangeTest MethodAnalysis TimePerformed AtPathologist CnzemdwdfKLI53.9(H)3.5 - 11.3 k/uL07/14/2025 7:22 AM [facility] LABORATORIESRBC5.023.95 - 5.11 m/uL 07/14/2025 7:22 AM [facility] CSSHQGSUGFYTEyqydhdwig38.811.9 - 15.1 g/dL 07/14/2025 7:22 AM [facility] TUCWOCPSOISTZsrkluenwx75.536.3 - 47.1 %07/14/2025 7:22 AM [facility] FKGXZIBACOJQZNG53.7(L)82.6 - 102.9 fL07/14/2025 7:22 AM EST [employer] GNENEECDXHJOWEP98.525.2 - 33.5 pg07/14/2025 7:22 AM [facility] HARTHKORCICEIHDV71.128.4 - 34.8 g/dL07/14/2025 7:22 AM [facility] RDW14.5(H)11.8 - 14.4 %07/14/2025 7:22 AM [facility] LFXUFZSQMQXQLmxqoibpk004494 - 453 k/uL07/14/2025 7:22 AM [facility] LABORATORIESMPV9.48.1 - 13.5 fL 07/14/2025 7:22 AM [facility] LABORATORIESNRBC Automated0.00.0 per 100 WBC 07/14/2025 7:22 AM [facility]ORATORIESNeutrophils %80(H)36 - 65 %07/14/2025 7:22 AM [facility]ORATORIESLymphocytes %12(L)24 - 43 %07/14/2025 7:22 AM EST [employer] LABORATORIESMonocytes %73 - 12 %07/14/2025 7:22 AM [facility] Eosinophils %0(L)1 - 4 %07/14/2025 7:22 AM [facility]ORATORIESBasophils %00 - 2 %07/14/2025 7:22 AM [facility]ORATORIESImmature Granulocytes %1(H)0 % 07/14/2025 7:22 AM [facility] LABORATORIESNeutrophils Pltdfzwz60.09(H)1.50 - 8.10 k/uL07/14/2025 7:22 AM [facility] LABORATORIESLymphocytes Absolute1.601.10 - 3.70 k/uL07/14/2025 7:22 AM [facility]ORATORIESMonocytes Absolute1.020.10 - 1.20 k/uL07/14/2025 7:22 AM [facility] LABORATORIESEosinophils Absolute<0.03 0.00 - 0.44 k/uL07/14/2025 7:22 AM [facility] LABORATORIESBasophils Absolute <0.030.00 - 0.20 k/uL07/14/2025 7:22 AM [facility]Gamer[facility] LABORATORIESImmature Granulocytes Absolute0.150.00 - 0.30 k/uL07/14/2025 7:22 AM ESTM[facility]Gamer[facility] LABORATORIESRBC MorphologyANISOCYTOSIS PRESENT MICROCYTOSIS BRAFOEM3107/14/2025 7:22 AM ESTMERGamerizon Studio LABORATORIESSpecimen (Source)Anatomical Location / Laterality Collection Method / VolumeCollection TimeReceived TimeBLOOD SPECIMEN / Unknown 07/14/2025 7:22 AM EST07/14/2025 7:38 AM EST Narrative Authorizing ProviderResult TypeResult StatusTaryn Fransisca Gonzalez MDHEMATOLOGY ORDERABLESFinal ResultPerforming OrganizationAddressCity/State/[facility] CodePhone Number [address] [phone] * SURGICAL PATHOLOGY REPORT (07/13/2025 12:00 AM EST)ComponentValueRef RangeTest MethodAnalysis TimePerformed AtPathologist SignatureSurgical Pathology Report Path Number: [id number] -- Diagnosis -- A. ??Uterus, cervix, bilateral fallopian tubes and ovaries, hysterectomy bilateral salpingo-oophorectomy: -Endometrioid adenocarcinoma, FIGO grade 1, involving anterior and posterior endometrium with less than 50% myometrial invasion. ??See comment. - Lower uterine segment involved by myoinvasive carcinoma. - Margins negative. ?? - Leiomyoma. - Serosal adhesions. - Benign left ovary; benign left fallopian tube with benign paratubal cysts. - Benign right ovary; benign right fallopian tube with benign paratubal cysts. B. ??Bilateral pelvic sentinel lymph nodes, excision: - Six (6) lymph nodes negative for carcinoma (pancytokeratin immunostain confirmatory). -- Diagnosis Comment -- Per [facility] pathology report in the patient's electronic medical record: MMR BY IMMUNOHISTOCHEMISTRY: [LOSS OF NUCLEAR EXPRESSION OF MLH1 AND PMS2] Wilberto Drummond M.D. Electronically Signed Out ? mj07/17/2025 Clinical Information Pre-Op Diagnosis: ??ENDOMETRIAL CANCER Operative Findings: ??UTERUS, CERVIX, BILATERAL FALLOPIAN TUBES AND OVARIES; BILATERAL PELVIC SENTINEL LYMPH NODES Operation Performed: ??LAPAROSCOPIC ROBOTIC TOTAL HYSTERECTOMY, BILATERAL SALPINGO-OOPHORECTOMY, REMOVAL OF LYMPH NODES (INDOCYANINE GREEN DYE), CYSTOSCOPY se Source of Specimen A: UTERUS, CERVIX, BILATERAL FALLOPIAN TUBES AND OVARIES B: BILATERAL PELVIC SENTINEL LYMPH NODES Gross Description A. ?? ALMA ANDINO, UTERUS, CERVIX, BILATERAL FALLOPIAN TUBES AND OVARIES Received in formalin is a 114 gram, 7.7 x 4.5 x 4.5 cm distorted uterus and cervix with attached bilateral fimbriated fallopian tubes (right: 5.5 cm in length x 0.4 to 0.7 cm in diameter, left: 7.0 cm in length x 0.7 cm in diameter) and attached bilateral intact ovaries (right: 2.9 x 1.6 x 1.4 cm, right: 2.9 x 1.6 x 1.5 cm). The uterine serosa is zimmerman-pink, hyperemic and smooth with fibrous adhesions (anterior = blue and posterior = black). ??There is a zimmerman-pink, hyperemic and slightly ragged ectocervical mucosa that surrounds a patent slit-like os. ??There is a 2.0 x 1.3 cm endometrial cavity. ??The cavity is focally lined by pink-white, ragged mucosa measuring up to 2.0 cm in greatest dimension. ??This white mucosa is superficial and does not grossly extend into the inner half of the myometrium. ??The remainder of the uninvolved endometrial cavity is lined by zimmerman-pink, hyperemic and flat mucosa averaging 0.1 cm in thickness. ??The myometrium is zimmerman-pink, rubbery, trabeculated and is up to 0.2.0 cm. ??Additionally, the anterior myometrium is focally cystic and contains red, hemorrhagic material. ??A 2.0 cm pale yellow, whorled nodule is identified at the fundus. ??This pink-white mucosa does not grossly extend into the lower uterine segment nor cervix. The cervix is lined by zimmerman, flat to corrugated mucosa. ??Sectioning of the cervix shows zimmerman, rubbery cut surfaces with multiple nabothian cysts up to 1.0 cm and contains cloudy mucoid material. ??The fallopian tube serosa is pink-purple and smooth with few paratubal cysts. ??The cysts are up to 0.2 cm. ??Sectioning of the tubes shows a pinpoint to stellate lumen lined by zimmerman-pink, soft mucosa. ??The ovarian cortex is zimmerman and finely lobulated. ??Sectioning of the ovaries reveals zimmerman to pale yellow, solid cut surfaces with no masses or lesions identified. Environmental Health Safety Engineer sections are submitted in [facility] as follows: ?? 1-3 cash applications representative posterior endomyometrium with white mucosa 4 presumed uninvolved endomyometrium ?? 5 posterior lower uterine segment 6 posterior cervix 7 anterior endomyometrium 8-9 cash applications representative anterior lower uterine segment and cervix 10 cash applications representative fundic nodule 11 serosal adhesions 12-14 cash applications representative left fallopian tube and ovary 15-17 cash applications representative right fallopian tube and ovary. B. ?? ALMA ANDINO, BILATERAL PELVIC SENTINEL LYMPH NODES Received in formalin is a 5.5 x 4.0 x 2.0 cm aggregate of yellow-red, lobulated fat. ??Upon palpation and dissection, multiple lymph node candidates are identified ranging from 0.2 to 3.6 cm in greatest dimension. ??The lymph nodes show zimmerman to fatty replaced cut surfaces. ??The lymph nodes are totally embedded in 5c as follows: 1 two lymph nodes 2 one lymph node 3 two lymph nodes, differentially inked and bisected 4-5 one lymph node. ??tm Idania Saini/:07/14/2025 Microscopic Description A, B. ??Microscopic examination performed. ??For water quality tester, selected slides reviewed by additional pathologists (Drs. Locke, Sendy, and Angela), who concur with the diagnosis. 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 Molecular Type Mismatch Repair (MMR) / Microsatellite Instability (MSI) Status MMR Immunohistochemistry Loss of nuclear MMR protein expression (per [facility] pathology report in the patient's electronic medical ?? record) MLH1 PMS2 Microsatellite Instability (MSI) Testing Not performed MSI Testing Method Not applicable (not performed) ?? p53 Status p53 Immunohistochemistry Normal (wild-type) expression (rare cells with weak nuclear staining, control reacts as expected). TP53 Mutation Testing Not performed POLE Status POLE Status Not performed Myometrial Invasion Present, inner half (less than 50%) Specify Percentage: 27% Adenomyosis Present, uninvolved by carcinoma Uterine Serosal Involvement Not identified Lower Uterine Segment Involvement Present, myoinvasive Cervical Involvement Not identified Other Tissue / Organ Involvement Not identified (other tissues / organs submitted and not involved) ?? Peritoneal / Pelvic Washings / Ascitic Fluid Not submitted Lymphatic and / or Vascular Invasion Not identified MARGINS Margin Status All margins negative for carcinoma REGIONAL LYMPH NODES Regional Lymph Node Status Regional lymph nodes present All regional lymph nodes negative for tumor cells Pelvic Lymph Nodes Total Number of Pelvic Nodes with Macrometastasis Exact number: 0 Total Number of Pelvic Nodes with Micrometastasis Exact number: 0 Total Number of Pelvic Nodes with Isolated Tumor Cells Exact number: 0 Para-aortic Nodes Not applicable Lymph Nodes Examined Total Number of Pelvic Nodes Examined (sentinel and non-sentinel) Exact number: 6 Number of Pelvic Paulina Nodes Examined (required only if applicable) Exact number: 6 Total Number of Para-aortic Nodes Examined (sentinel and non-sentinel) Exact number: 0 Number of Para-aortic Paulina Nodes Examined Exact number: 0 DISTANT METASTASIS Distant Site(s) Involved, if applicable Not applicable pTNM CLASSIFICATION (AJCC 8th Edition) Reporting of pT, pN, and (when applicable) pM categories is based on information available to the pathologist at the time the report is issued. As per the AJCC (Chapter 1, 8th Ed.) it is the managing physician's responsibility to establish the final pathologic stage based upon all pertinent information, including but potentially not limited to this pathology report. pT Category pT1a: Tumor limited to the endometrium or invading less than half the myometrium pN Category pN0: No regional lymph node metastasis N Suffix (sn) Paulina node procedure pM Category Not applicable - pM cannot be determined from the submitted specimen(s) FIGO STAGE FIGO Stage (FIGO 2009 Staging / 2018 FIGO Cancer Report) IA: No or less than half myometrial invasion FIGO Stage (2022 Staging for Cancer of the Endometrium) IA2: Non-aggressive histological types involving less than half of the myometrium with no or focal ? LVSI Processing Lab: ??[address] [id number] Interpretation Performed at [address] [id number] SURGICAL PATHOLOGY CONSULTATION Patient Name: ALMA ANDINO [facility] Rec: [id number] [facility] ??[facility] ANATOMIC PATHOLOGY [address] [place] [address]. ??[place], [place] [address] [facility]First Meta LABSSpecimen (Source)Anatomical Location / LateralityCollection Method / VolumeCollection TimeReceived Time 7:14 AM EST Narrative Authorizing ProviderResult TypeResult StatusChristopher Consuelo Hazel MD PATHOLOGY/CYTOLOGY ORDERABLESFinal ResultPerforming OrganizationAddress City/State/ZIP CodePhone Number [employer] [address] [place] [address] [facility] documented in this encounter Visit Diagnoses Diagnosis S/p RALH, BSO, PLND, cysto 07/13/25- Primary Acquired absence of both cervix and uterus Endometrial cancer (HCC) Malignant neoplasm of corpus uteri, except isthmus Post-op pain Other acute postoperative pain Endometrial cancer (HCC) Malignant neoplasm of corpus uteri, except isthmus S/P hysterectomy Acquired absence of both cervix and uterus Post-operative state Other postprocedural status documented in this encounter Admitting Diagnoses Diagnosis Endometrial cancer (HCC) Malignant neoplasm of corpus uteri, except isthmus S/P hysterectomy Acquired absence of both cervix and uterus H/O total hysterectomy Acquired absence of both cervix and uterus Post-operative state Other postprocedural status documented in this encounter Administered Medications Medication OrderMAR ActionAction DateDoseRateSite acetaminophen (TYLENOL) tablet 1,000 mg 1,000 mg, Oral, EVERY 6 HOURS, First dose on Sun07/13/25 at 1630, Until Discontinued, Maximum doseof acetaminophen is 4000mg from all sources in 24 hours. Alternate ibuprofen and acetaminophen every 3 hours., Post-op Given07/14/2025 9:11 AM EST1,000 meAuwwt3207/14/2025 3:30 AM EST1,000 mgGiven 07/13/2025 9:44 PM EST1,000 mg droPERidol (INAPSINE) injection 0.625 mg 0.625 mg, IntraVENous, ONCE, 1 dose, On Sun07/13/25 at 1545, PACU only Given07/13/2025 3:22 PM EST0.625 mg enoxaparin (LOVENOX) injection 60 mg 60 mg (rounded from 61.25 mg = 0.5 mg/kg ?? 122.5 kg), SubCUTAneous, DAILY, First dose on Sun07/14/25 at 0900, Until Discontinued, Indication of Use: Prophylaxis-DVT/PE, Administer by deep subCUTAneous injection with pt lying down. Alternate injection sites on abdominal wall. Do not rub site after injection. Check with provider prior to any invasive procedure., Post-op Given07/14/2025 9:11 AM EST60 mgAbdomen LLQ (Left Lower Quadrant) fentaNYL (SUBLIMAZE) injection 50 mcg 50 mcg, IntraVENous, EVERY 5 MIN PRN, 4 doses, Starting on Sun07/13/25 at 1422, Until Sun07/13/25at 1601, Pain Severe (7-10), Phase I - Initial therapy for severe pain., PACU only Given07/13/2025 2:49 PM EST50 mcg ketorolac (TORADOL) injection 30 mg 30 mg, IntraVENous, EVERY 6 HOURS, 4 doses, First dose on Sun07/13/25 at 2015, Last dose on Sun07/14/25 at 1415, Give all 4 doses and then proceed to Motrin, Post-op Given07/14/2025 3:30 AM EST30 gyOqvcx2007/13/2025 8:01 PM EST30 mg lactated ringers infusion IntraVENous, at 125 mL/hr, CONTINUOUS, Starting on Sun07/13/25 at 1015, Pre-op (day of surgery) Octlhkfcs97/24/2025 1:39 PM NBYQiEcwwHpzlgn40/24/2025 11:41 AM XXV111 mL/hrNew Bag07/13/2025 10:15 AM UDQ818 mL/hr lactated ringers infusion IntraVENous, at 75 mL/hr, CONTINUOUS, Starting on Sun07/13/25 at 1630, Post-op New 07/13/2025 4:23 PM EST75 mL/hr losartan (COZAAR) tablet 25 mg 25 mg, Oral, DAILY, First dose on Sun07/13/25 at 1615, Until Discontinued Given07/14/2025 9:14 AM EST25 moMekxy3507/13/2025 5:08 PM EST25 mg oxyCODONE (ROXICODONE) immediate release tablet 5 mg 5 mg, Oral, EVERY 4 HOURS PRN, Starting on Sun07/13/25 at 1601, Until Sun07/14/25 at 2109, Pain Moderate (4-6) OR per patient request for pain score (7- 10), Post-op Given07/14/2025 3:23 PM EST5 mg oxyCODONE HCl (OXY-IR) immediate release tablet 10 mg 10 mg, Oral, EVERY 4 HOURS PRN, Starting on Sun07/13/25 at 1601, Until Sun07/14/25 at 2109, Pain Severe (7-10), Post-op pantoprazole (PROTONIX) tablet 40 mg 40 mg, Oral, DAILY, First dose on Sun07/13/25 at 1615, Until Discontinued, Do not crush or break. Substituted for Omeprazole (PRILOSEC). Given07/14/2025 9:12 AM EST40 ggTraqs5707/13/2025 4:24 PM EST40 mg prochlorperazine (COMPAZINE) injection 10 mg 10 mg, IntraVENous, EVERY 6 HOURS PRN, Starting on Sun07/13/25 at 1627, Until Sun07/14/25 at 2109, Nausea, If administering IV push, administer at a maximum rate of 5 mg/minute. Patients should remain lying down following administration and be reassessed for relief of nausea and presence of hypotension. Patients should be assisted the first time they get up after administration. Given07/13/2025 9:48 PM EST10 mg sennosides-docusate sodium (SENOKOT-S) 8.6-50 MG tablet 2 tablet 2 tablet, Oral, Nightly, First dose on Sun07/13/25 at 2100, Until Discontinued, Post-op Given07/13/2025 8:01 PM EST2 tablets sodium chloride flush 0.9 % injection 5-40 mL 5-40 mL, IntraVENous, EVERY 12 HOURS SCHEDULED (2 times per day), First dose on Sun07/13/25 at 2100, Until Discontinued, For Line Patency: Peripheral IV = 5 mL; Midline or Central Line = 10 mL/lumen. If following IV push medication, administer flush at same rate as the IV push. Flush volume is determined by type of infusion therapy being given. For non-viscous solutions use: Peripheral IV = 5 mLMidline or Central Line = 10 mL/lumen For viscous solutions (i.e. blood components, parenteral nutrition, contrast media, or after obtaining blood sample) use: Peripheral IV = 10 mL Midline or Central Line = 20 mL/lumen, Post-op Given07/14/2025 9:11 AM EST10 cWoYpacc56/24/2025 7:10 PM EST10 mLsdocumented in this encounter Active and Recently Administered Medications Times are shown in EST.Medication Order5109/13/2024 acetaminophen (TYLENOL) tablet 1,000 mg 1,000 mg, Oral, EVERY 6 HOURS, First dose on Sun07/13/25 at 1630, Until Discontinued, Maximum doseof acetaminophen is 4000mg from all sources in 24 hours. Alternate ibuprofen and acetaminophen every 3 hours., Post-op * 1624 (Given - Provider: Nanette Pan RN) * 2144 (Given - Provider: Anette Patel RN - Comment: scheduled) * 0330 (Given - Provider: Anette Patel RN - Comment: scheduled) * 0911 (Given - Provider: Suresh Chambers RN) * 1524 (Canceled Entry - Provider: Suresh Chambers RN) ceFAZolin (ANCEF) 3000 mg in sterile water 30 mL IV syringe (COMPLETED)(Linked Group 1) 3,000 mg, IntraVENous, ONCE, 1 dose, On Sun07/13/25 at 1015, Antimicrobial Indications: Surgical Prophylaxis, Administer over 5 mins., Pre-op (day of surgery) * 1156 (Given - Provider: Reynaldo Negron MD) droPERidol (INAPSINE) injection 0.625 mg (COMPLETED) 0.625 mg, IntraVENous, ONCE, 1 dose, On Sun07/13/25 at 1545, PACU only * 1522 (Given - Provider: Kat Zavala RN) enoxaparin (LOVENOX) injection 60 mg 60 mg (rounded from 61.25 mg = 0.5 mg/kg ?? 122.5 kg), SubCUTAneous, DAILY, First dose on Sun07/14/25 at 0900, Until Discontinued, Indication of Use: Prophylaxis-DVT/PE, Administer by deep subCUTAneous injection with pt lying down. Alternate injection sites on abdominal wall. Do not rub site after injection. Check with provider prior to any invasive procedure., Post-op * 0911 (Given - Provider: Suresh Chambers RN) ibuprofen (ADVIL;MOTRIN) tablet 600 mg(Linked Group 2) 600 mg, Oral, EVERY 6 HOURS, First dose on Sun07/14/25 at 2014, Until Discontinued, Notify pharmacy to coordinate scheduled Tylenol and ibuprofen alternating every 3 hours, Post-op ketorolac (TORADOL) injection 30 mg(Linked Group 2) 30 mg, IntraVENous, EVERY 6 HOURS, 4 doses, First dose on Sun07/13/25 at 2014, Last dose on Sun07/14/25 at 1415, Give all 4 doses and then proceed to Motrin, Post-op * 2000 (Given - Provider: Anette Patel RN - Comment: scheduled for prophelactic management) * 0330 (Given - Provider: Anette Patel RN) * 0910 (Not Given - Provider: Suresh Chambers RN - Reason: Patient/family refused) * 1415 (Held - Provider: Suresh Chambers RN - Reason: Patient/family refused) losartan (COZAAR) tablet 25 mg 25 mg, Oral, DAILY, First dose on Sun07/13/25 at 1615, Until Discontinued * 1708 (Given - Provider: Nanette Pan RN) * 0914 (Given - Provider: Suresh Chambers, DONNY) pantoprazole (PROTONIX) tablet 40 mg 40 mg, Oral, DAILY, First dose on Sun07/13/25 at 1615, Until Discontinued, Do not crush or break. Substituted for Omeprazole (PRILOSEC). * 1624 (Given - Provider: Nanette Pan RN) * 0912 (Given - Provider: Suresh Chambers, DONNY) sennosides-docusate sodium (SENOKOT-S) 8.6-50 MG tablet 2 tablet 2 tablet, Oral, Nightly, First dose on Sun07/13/25 at 2100, Until Discontinued, Post-op * 2000 (Given - Provider: Anette Patel RN) sodium chloride flush 0.9 % injection 5-40 mL 5-40 mL, IntraVENous, EVERY 12 HOURS SCHEDULED (2 times per day), First dose on Sun07/13/25 at 2100, Until Discontinued, For Line Patency: Peripheral IV = 5 mL; Midline or Central Line = 10 mL/lumen. If following IV push medication, administer flush at same rate as the IV push. Flush volume is determined by type of infusion therapy being given. For non-viscous solutions use: Peripheral IV = 5 mLMidline or Central Line = 10 mL/lumen For viscous solutions (i.e. blood components, parenteral nutrition, contrast media, or after obtaining blood sample) use: Peripheral IV = 10 mL Midline or Central Line = 20 mL/lumen, Post-op * 1910 (Given - Provider: Anette Patel RN) * 0911 (Given - Provider: Suresh Chambers, DONNY) Medication Order07/12/20240820/ lactated ringers infusion (CANCELED) IntraVENous, at 125 mL/hr, CONTINUOUS, Starting on Sun07/13/25 at 1015, Pre-op (day of surgery) * 1015 (New Bag - Provider: Sachi Macdonald RN) * 1141 (NoRateChange - Provider: Reynaldo Negron MD) * 1338 (Paused - Provider: Reynaldo Negron MD - Comment: Switch to gravity) * 1339 (Restarted - Provider: Reynaldo Negron MD) * 1412 (Anesthesia Volume Adjustment - Provider: Reynaldo Negron MD) * 1453 (Stopped - Provider: Suresh Chambers, DONNY) lactated ringers infusion (CANCELED) IntraVENous, at 75 mL/hr, CONTINUOUS, Starting on Sun07/13/25 at 1630, Post-op * 1623 (New Bag - Provider: Nanette Pan, RN) * 0636 (Stopped - Provider: Anette Patel RN) Medication Order 0.9 % sodium chloride infusion IntraVENous, at 5-250 mL/hr, PRN, if patient receiving piggyback infusions and maintenance fluids are not ordered, Starting on Sun07/13/25 at 1601, For piggyback infusion, administer at same rate aspiggyback for a total of 25 mL. Enter 25 mL into dose field and piggyback rate into rate field of order. If piggyback is infusing at a rate less than 100 mL/hr, enter 25 mL into dose field and 100 mL/hr into rate field of order., Post-op * 1453 (Stopped - Provider: Suresh Chambers, DONNY) aluminum & magnesium hydroxide-simethicone (MAALOX PLUS) 200-200-20 MG/5ML suspension 30 mL 30 mL, Oral, EVERY 6 HOURS PRN, Starting on Sun07/13/25 at 1601, Until Sun07/14/25 at 2109, Indigestion, Post-op BUPivacaine (MARCAINE) 0.25 % 20 mL, BUPivacaine liposome (EXPAREL) 20 mL (CANCELED) PRN, Starting on Sun07/13/25 at 1258, Intra-op * 1258 (Given - Provider: Tera Hazel MD - Comment: 18 ML GIVEN AT OP SITES) * 1427 (Given - Provider: Tera Hazel MD - Comment: GIVEN AT OP SITE AT END OF PROCEDURE) cyclobenzaprine (FLEXERIL) tablet 10 mg 10 mg, Oral, 3 TIMES DAILY PRN, Starting on Sun07/13/25 at 1446, Until Sun07/14/25 at 2109, Muscle spasms fentaNYL (SUBLIMAZE) injection 50 mcg (CANCELED) 50 mcg, IntraVENous, EVERY 5 MIN PRN, 4 doses, Starting on Sun07/13/25 at 1422, Until Sun07/13/25at 1601, Pain Severe (7-10), Phase I - Initial therapy for severe pain., PACU only * 1449 (Given - Provider: Krystal Garcia RN) gabapentin (NEURONTIN) capsule 300 mg 300 mg, Oral, 3 TIMES DAILY PRN, Starting on Sun07/13/25 at 1446, Until Sun07/14/25 at 2109, Nerve pain indocyanine green (IC-GREEN) syringe (CANCELED) PRN, Starting on Sun07/13/25 at 1256, Until Sun07/13/25 at 1421, Intra-op * 1256 (Given - Provider: Aleah Gonzalez MD - Comment: 10ML STERILE WATER MIXED IN ICG5ML DRAWN UP TO BACK SPUOW1NK GIVEN IN CERVIX) magnesium hydroxide (MILK OF MAGNESIA) 400 MG/5ML suspension 30 mL 30 mL, Oral, DAILY PRN, Starting on Sun07/13/25 at 1601, Until Sun07/14/25 at 2109, Constipation,First line therapy for constipation., Post-op magnesium hydroxide (MILK OF MAGNESIA) 400 MG/5ML suspension 30 mL 30 mL, Oral, DAILY PRN, Starting on Sun07/13/25 at 1601, Until Sun07/14/25 at 2109, Constipation,Second line therapy for constipation, After 24 hours, if no result from first line PRN therapy, give second line therapy in combination with first line therapy., Post-op melatonin tablet 3 mg 3 mg, Oral, NIGHTLY PRN, Starting on Sun07/13/25 at 1601, Until Sun07/14/25 at 2109, Sleep, Post-op oxyCODONE (ROXICODONE) immediate release tablet 5 mg(Linked Group 3) 5 mg, Oral, EVERY 4 HOURS PRN, Starting on Sun07/13/25 at 1601, Until Sun07/14/25 at 2109, Pain Moderate (4-6) OR per patient request for pain score (7- 10), Post-op * 1523 (Given - Provider: Suresh Chambers RN) oxyCODONE HCl (OXY-IR) immediate release tablet 10 mg(Linked Group 3) 10 mg, Oral, EVERY 4 HOURS PRN, Starting on Sun07/13/25 at 1601, Until Sun07/14/25 at 210, Pain Severe (7-10), Post-op * 1523 (See Alternative - Provider: Suresh Chambers RN) prochlorperazine (COMPAZINE) injection 10 mg 10 mg, IntraVENous, EVERY 6 HOURS PRN, Starting on Sun07/13/25 at 1627, Until Sun07/14/25 at 2109, Nausea, If administering IV push, administer at a maximum rate of 5 mg/minute. Patients should remain lying down following administration and be reassessed for relief of nausea and presence of hypotension. Patients should be assisted the first time they get up after administration. 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 Document the following action when infusion is complete: Stopped]) sodium chloride flush 0.9 % injection 5-40 mL 5-40 mL, IntraVENous, PRN, Starting on Sun07/13/25 at 1601, Until Sun07/14/25 at 2109, Line Care,After every IV line use, For Line Patency: Peripheral IV = 5 mL; Midline or Central Line = 10 mL/lumen. If following IV push medication, administer flush at same rate as the IV push. Flush volume is determined by type of infusion therapy being given. For non-viscous solutions use: Peripheral IV = 5mL Midline or Central Line = 10 mL/lumen For viscous solutions (i.e. blood components, parenteral nutrition, contrast media, or after obtaining blood sample) use: Peripheral IV = 10 mL Midline or Central Line = 20 mL/lumen, Post-op sterile water injection (CANCELED) PRN, Starting on Sun07/13/25 at 1257, Until Sun07/13/25 at 1421, Intra-op * 1257 (Given - Provider: Tera Hazel MD - Comment: MIXED WITH ICG) valACYclovir (VALTREX) tablet 1,000 mg 1,000 mg, Oral, 2 TIMES DAILY PRN, Starting on Sun07/13/25 at 1442, Until Sun07/14/25 at 2109, Symptoms Order Group 1: metroNIDAZOLE (FLAGYL) 500 mg in 0.9% NaCl 100 mL IVPB premix (CANCELED) 500 mg, IntraVENous, OFFICE ASSISTANT RECEPTIONIST TO O.R., 1 dose, On Sun07/13/25 at 1015, Antimicrobial Indications: Surgical Prophylaxis, Pre-op (day of surgery) And ceFAZolin (ANCEF) 3000 mg in sterile water 30 mL IV syringe (COMPLETED)Jump to med 3,000 mg, IntraVENous, ONCE, 1 dose, On Sun07/13/25 at 1015, Antimicrobial Indications: Surgical Prophylaxis, Administer over 5 mins., Pre-op (day of surgery) Group 2: ketorolac (TORADOL) injection 30 mgJump to med 30 mg, IntraVENous, EVERY 6 HOURS, 4 doses, First dose on Sun07/13/25 at 2015, Last dose on Sun07/14/25 at 1415, Give all 4 doses and then proceed to Motrin, Post-op Followed by ibuprofen (ADVIL;MOTRIN) tablet 600 mgJump to med 600 mg, Oral, EVERY 6 HOURS, First dose on Sun07/14/25 at 2015, Until Discontinued, Notify pharmacy to coordinate scheduled Tylenol and ibuprofen alternating every 3 hours, Post-op Group 3: oxyCODONE (ROXICODONE) immediate release tablet 5 mgJump to med 5 mg, Oral, EVERY 4 HOURS PRN, Starting on Sun07/13/25 at 1601, Until Sun07/14/25 at 2109, Pain Moderate (4-6) OR per patient request for pain score (7- 10), Post-op Or oxyCODONE HCl (OXY-IR) immediate release tablet 10 mgJump to med 10 mg, Oral, EVERY 4 HOURS PRN, Starting on Sun07/13/25 at 1601, Until Sun07/14/25 at 2109, Pain Severe (7-10), Post-op documented in this encounter Care Teams Team MemberRelationshipSpecialtyStart DateEnd Date Krys Zhou APRN - KEIR[facility] [address] [place] [address] PCP - Kbqjxjn83/10/25documented as of this encounter
--- OUTSIDE RECORDS SUMMARY | 2025-07-13 11:08 | XMS_ITS | Encounter Summary ---
Author Organization [facility] [employer] [facility] Address [address], [address] [place] [address] Care Team Providers Care Drama Therapist Name Role Phone Krys Zhou APRN - ENGINEERING SYSTEMS ANALYST Primary Care Pro vider Reason for Visit * Auth/CertSpecialtyDiagnoses / ProceduresReferred By ContactReferred To Contact Diagnoses Endometrial cancer (HCC) Procedures [place] LAPS TOTAL HYSTERECT 250 GM/< W/RMVL TUBE/OVARY [place] LAPS SURG BILATERAL TOTAL PELVIC LMPHADECTOMY TOTAL ROBOTIC HYSTERECTOMY; BILATERAL SALPINGO-OOPHORECTOMY; REMOVAL OF LYMPH NODES; POSSIBLE LAPAROTOMY; OTHER NECESSARY PROCEDURES (INDOCYANINE GREEN DYE) Tera Cordero MD [address] [address], [address] [place] [address] Phone: tel: fax: [facility] [employer] [address] [place] [address] Referral IDStatusReasonStart DateExpiration DateVisits RequestedVisits [id number] Encounter Details DateTypeDepartmentCare Team (Latest Contact Info)Oxsachvykao75/24/2025 11:08 AM EST - 07/13/2025 2:08 PM ESTSurgery [facility] OR [address] [place] [address] Tera Cordero MD [address] [facility] [address] [place], [place] [id number] ROBOTIC LAPAROSCOPIC TOTAL HYSTERECTOMY, BILATERAL SALPINGO-OOPHORECTOMY, REMOVAL OF BILATERAL SENTINEL LYMPH NODES (INDOCYANINE GREEN DYE), CYSTOSCOPY Surgery Details Date/TimeStatusLocationORServicePatient ClassCase ClassCase TypeTrauma Case? 07/13/2025 11:08 AMPostedSTVZ OROR 17Obstetrics and GynecologyOutpatient Surgery ElectiveNoPanel 1 ProcedureLRBAnesOp RegionWound ClassCommentsROBOTIC LAPAROSCOPIC TOTAL HYSTERECTOMY, BILATERAL SALPINGO-OOPHORECTOMY, REMOVAL OF BILATERAL SENTINEL LYMPH NODES (INDOCYANINE GREEN DYE), CYSTOSCOPYN/AGeneral Class II Clean Contaminated SurgeonSurgeon RoleServicePanelLutmanTera V, MDPrimaryObstetrics and Gynecology1 Special Needs PAT documented in this encounter Social History Tobacco UseTypesPacks/DayYears UsedDateSmoking Tobacco: [id number] - 2000Smokeless Tobacco: NeverAlcohol UseStandard Drinks/WeekCommentsNot Currently0 [...] were you homeless or living in a long term (including now)?No07/14/2025Hunger Vital SignAnswerDate RecordedWithin the past [...] RecordedIn the past 12 months has the electric, gas, oil, or water company threatened to shut off services in your home?No07/14/2025 Interpersonal Safety Domain Source: IP Abuse ScreeningAnswerDate Recorded Physical altphFqznmj27/24/2025Verbal rxwrpEzhiaw16/24/2025Emotional abuseDenies 07/13/2025Financial cwxfpGgzvvj99/24/2025Sexual deeslCbjkrh83/24/2025 CommentsNoSex and Gender InformationValueDate RecordedSex Assigned at BirthNot on fileLegal TkzMemuua31/10/2013 7:28 PM ESTGender IdentityNot on fileSexual OrientationNot on filedocumented as of this encounter Last Filed Vital Signs Vital SignReadingTime TakenCommentsBlood Jcrrzhxl926/8807/13/2025 10:10 AM EST Goycz288707/13/2025 10:10 AM TXBElxcuxxltxm21.7 ??C (98.1 ??F)07/13/2025 10:10 AM ESTRespiratory Umxq638909/12/2024 10:10 AM ESTOxygen Wxropfsvpb55%07/13/2025 10:10 AM ESTInhaled Oxygen Concentration--Fvqama883.5 kg (270 lb)07/13/2025 10:10 AM UDKGugwqc282.6 cm (5' 4 )07/13/2025 10:10 AM ESTBody Mass Index46.35109/12/2024 10:10 AM ESTdocumented in this encounter Discharge Summaries * Aleah Gonzalez MD - 07/14/2025 11:18 AM EST Merchant Patroller Onc Discharge Summary [facility] Patient Name: Alma Andino Patient : 1970 [...] Your Medications These medications were sent to [facility], [address] - P [phone] - F [phone] [place] [address] acetaminophen 500 MG tablet ibuprofen 600 MG tablet oxyCODONE 5 MG immediate release tablet sennosides-docusate sodium 8.6-50 MG tablet Activity: pelvic rest x8 weeks, no driving on narcotics, no lifting greater than 8 lbs Diet: regular diet Follow up: 2 weeks Condition on discharge: good and stable Discharge Date: 07/14/25 Comments: Home care, Follow-up care, restrictions reviewed. Aleah Gonzalez MD Paint Stock Clerk Resident [facility] 07/14/2025, 11:18 AM Cosigned by Tera Cordero [...] you feel you are in danger, call or go straight to the emergency room. Follow up Please follow up in the clinic in 2 weeks. Call sooner if you have any problems or concerns. Please call our office to set up the appointment. documented in this encounter Medications at Time of Discharge MedicationSigDispense QuantityRefillsLast FilledStart DateEnd ibuprofen (ADVIL;MOTRIN) 600 MG tablet Take 1 [...] tablet by mouth 2 times daily as fnhufy2105/12/2025 oxyCODONE (ROXICODONE) 5 MG immediate release tablet [...] Progress Note PATIENT: ALMA ANDINO CSN #: [id number] : 1970 ADMIT DATE: 07/13/2025 9:30 AM [...] 136/70 Pulse: 92 83 81 83 Resp: 15 17 19 Temp: 97.3 ??F (36.3 ??C) 98.4 ??F (36.9 ??C) 98.6 ??F (37 ??C) 98.6 ??F (37 ??C) TempSrc: Oral Oral Oral Oral SpO2: 95% 93% 95% Weight: Height: Intake/Output: Last Shift: I/O last 3 completed shifts: In: 2100 [P.O.:100; I.V.:1999] Out: 1130 [Urine:950; Blood:180] Current Shift: I/O [...] Cordero MD - 07/13/2025 9:25 AM EST Merchant Patroller Onc Note Patient seen and evaluated by [...] - 07/06/2025 12:13 PM EST Per Julianna/ barrera Morocho to give ancef with pt. PCN allergy for OR 07-13-25. documented in this encounter Plan of Treatment DateTypeDepartmentCare Team (Latest Contact Info)Dnndvihxrhr45/08/2025 1:30 PM ESTOffice Visit [facility] [address] [place] [address] Tamara Byrd PA-C [address] [facility] [address] [place] [address] 2 WK P/O DOS: 07/13/25; 90 DAY VOFBVL2208/27/2025 1:00 PM ESTOffice Visit [facility] [address] [place] [address] Jose Jimenez MD [address] [facility] [address] [place] [address] [phone] [employer]NER - Endometrial cancer (HCC)NameTypePriorityAssociated DiagnosesOrder Schedule Surgical PathologyLabRoutine Endometrial cancer (HCC) Release Upon Ordering for 1 Occurrences starting 07/13/2025documented as of this encounter Procedures Procedure NamePriorityDate/TimeAssociated DiagnosisCommentsCBC WITH AUTO WYKOGHTCQJCUVgumxam03/25/2025 7:22 AM EST COMPREHENSIVE METABOLIC OWUBKGvwxdue73/25/2025 7:22 AM EST [place] LAPS TOTAL HYSTERECT 250 GM/< W/RMVL TUBE/OVARY07/13/2025 11:41 AM EST Endometrial cancer (HCC) Special Needs PAT SURGICAL PATHOLOGY CIMSORXewwssk83/24/2025 12:00 AM EST documented in this encounter Results * (ABNORMAL) Comprehensive Metabolic Panel (07/14/2025 7:22 AM EST)Component ValueRef RangeTest MethodAnalysis TimePerformed AtPathologist SignatureSodium 610343 - 145 mmol/L109/13/2024 7:22 AM ESTMERCY LABORATORIESPotassium3.6(L)3.7 - 5.3 mmol/L109/13/2024 7:22 AM [facility] SCCYAALSJQBAHtwmkcmc98062 - 107 mmol/L 07/14/2025 7:22 AM [facility] LOJVXPDNMPWBMU17177 - 31 mmol/L109/13/2024 7:22 AM ESTMERCY LABORATORIESAnion Pfn528 - 16 mmol/L109/13/2024 7:22 AM E[facility] BHHITWZOMFCRMhnppzx953(H)74 - 99 mg/dL07/14/2025 7:22 AM [facility] BUN96 - 20 mg/dL07/14/2025 7:22 AM ESTM[facility] LABORATORIESCreatinine0.70.6 - 0.9 mg/dL07/14/2025 7:22 AM ESTMERCY LABORATORIESEst, Glom Filt Rate>90>60 mL/min/1.33x49807/14/2025 7:22 AM ESTMERCY LABORATORIESComment: ? These results [...] 1.2 mg/dL 07/14/2025 7:22 AM ESTMERCY LABORATORIESAlkaline Vmdsyqcsbih9092 - 104 U/L 07/14/2025 7:22 AM [facility] QCNAKZSSFHHZHRS43(H)10 - 35 U/L109/13/2024 7:22 AM [facility] BRETDMBCNYAYDBM7346 - 35 U/L109/13/2024 7:22 AM [facility] Specimen (Source)Anatomical Location / LateralityCollection Method / Volume Collection TimeReceived TimeBloodBLOOD SPECIMEN / Jaozens0207/14/2025 7:22 AM EST 07/14/2025 7:38 AM EST Narrative Authorizing ProviderResult TypeResult StatusTaryn D Miracle MDCHEMISTRY ORDERABLESFinal ResultPerforming OrganizationAddressCity/State/ZIP CodePhone Number [facility] CENTEREcquire, Inc[facility] [address] [place] [address], [facility] [phone] * (ABNORMAL) CBC auto differential (07/14/2025 7:22 AM EST)ComponentValueRef RangeTest MethodAnalysis TimePerformed AtPathologist LsisyasooASW58.9(H)3.5 - 11.3 k/uL07/14/2025 7:22 AM ESTMERKybernesis LABORATORIESRBC5.023.95 - 5.11 m/uL 07/14/2025 7:22 AM E[facility]ERCY MBCBRHOBDWWNEantjgnqzz56.811.9 - 15.1 g/dL 07/14/2025 7:22 AM E[facility] RKJTDPZIDJVTBacbwijnwe73.536.3 - 47.1 %07/14/2025 7:22 AM ESTMERKybernesis BKHUXTZDKQQGAEE33.7(L)82.6 - 102.9 fL07/14/2025 7:22 AM EST [facility] GRABYVACOFAUVNK12.525.2 - 33.5 pg07/14/2025 7:22 AM ESTMERKybernesis ODTBJQFWNOBQFHLQ37.128.4 - 34.8 g/dL07/14/2025 7:22 AM [facility] LABORATORIES RDW14.5(H)11.8 - 14.4 %07/14/2025 7:22 AM ESTMERCY HDXFJOGQWIZLDwfzybjjw673882 - 453 k/uL07/14/2025 7:22 AM ESTMER[facility] LABORATORIESMPV9.48.1 - 13.5 fL 07/14/2025 7:22 AM E[facility] LABORATORIESNRBC Automated0.00.0 per 100 WBC 07/14/2025 7:22 AM ESTM[facility] LABORATORIESNeutrophils %80(H)36 - 65 %07/14/2025 7:22 AM ESTM[facility] LABORATORIESLymphocytes %12(L)24 - 43 %07/14/2025 7:22 AM EST [facility]IESMonocytes %73 - 12 %07/14/2025 7:22 AM [facility] Eosinophils %0(L)1 - 4 %07/14/2025 7:22 AM ESTM[facility] LABORATORIESBasophils %00 - 2 %07/14/2025 7:22 AM ESTM[facility] LABORATORIESImmature Granulocytes %1(H)0 % 07/14/2025 7:22 AM ESTMER[facility] LABORATORIESNeutrophils Axkzsdvu26.09(H)1.50 - 8.10 k/uL07/14/2025 7:22 AM ESTM[facility] LABORATORIESLymphocytes Absolute1.601.10 - 3.70 k/uL07/14/2025 7:22 AM ESTM[facility] LABORATORIESMonocytes Absolute1.020.10 - 1.20 k/uL07/14/2025 7:22 AM ESTM[facility] LABORATORIESEosinophils Absolute<0.03 0.00 - 0.44 k/uL07/14/2025 7:22 AM ESTM[facility] LABORATORIESBasophils Absolute <0.030.00 - 0.20 k/uL07/14/2025 7:22 AM ESTMER[facility] LABORATORIESImmature Granulocytes Absolute0.150.00 - 0.30 k/uL07/14/2025 7:22 AM ESTMERCY LABORATORIESRBC MorphologyANISOCYTOSIS PRESENT MICROCYTOSIS SVGNFWF8607/14/2025 7:22 AM ESTMERCY LABORATORIESSpecimen (Source)Anatomical Location / Laterality Collection Method / VolumeCollection TimeReceived TimeBLOOD SPECIMEN / Unknown 07/14/2025 7:22 AM EST07/14/2025 7:38 AM EST Narrative Authorizing ProviderResult TypeResult StatusTaryn Fransisca Gonzalez MDHEMATOLOGY ORDERABLESFinal ResultPerforming OrganizationAddressCity/State/ZIP CodePhone Number [facility] [employer] [facility] [place] [address], [facility] [phone] * SURGICAL PATHOLOGY REPORT (07/13/2025 12:00 AM EST)ComponentValueRef RangeTest MethodAnalysis TimePerformed AtPathologist SignatureSurgical Pathology Report Path Number: [id number] -- Diagnosis -- A. ??Uterus, cervix, bilateral [...] immunostain confirmatory). -- Diagnosis Comment -- Per [facility] pathology report in the patient's electronic medical [...] LYMPH NODES Gross Description A. ?? ALMA MAERNELL, UTERUS, CERVIX, BILATERAL FALLOPIAN TUBES AND OVARIES [...] surfaces with no masses or lesions identified. Department Store General Manager sections are submitted in [facility] as follows: ?? 1-3 junior sales representative posterior endomyometrium with white mucosa 4 presumed uninvolved endomyometrium ?? 5 posterior lower uterine segment 6 posterior cervix 7 anterior endomyometrium 8-9 junior sales representative anterior lower uterine segment and cervix 10 junior sales representative fundic nodule 11 serosal adhesions 12-14 junior sales representative left fallopian tube and ovary 15-17 junior sales representative right fallopian tube and ovary. B. [...] bisected 4-5 one lymph node. ??tm Idania Saini/se:07/14/2025 Microscopic Description A, B. ??Microscopic examination performed. ??For water quality technician, selected slides reviewed by additional pathologists (Drs. [...] Loss of nuclear MMR protein expression (per [facility] pathology report in the patient's electronic medical [...] non-sentinel) Exact number: 6 Number of Pelvic Golcond[place] Nodes Examined (required only if applicable) Exact number: 6 Total Number of Para-aortic Nodes Examined (sentinel and non-sentinel) Exact number: 0 Number of Para-aortic [place]cond[place] Nodes Examined Exact number: 0 DISTANT METASTASIS [...] regional lymph node metastasis N Suffix (sn) Gol[place] node procedure pM Category Not applicable - pM cannot be determined from the submitted specimen(s) FIGO STAGE FIGO Stage (FIGO 2009 Staging / 2018 FIGO Cancer Report) IA: No or less than half myometrial invasion FIGO Stage (2022 Staging for Cancer of the Endometrium) IA2: Non-aggressive histological types involving less than half of the myometrium with no or focal ? LVSI Processing Lab: ??[address] [address] Interpretation Performed at [address] [address] SURGICAL PATHOLOGY CONSULTATION Patient Name: ALMA ANDINO [facility] Rec: [id number] [facility] ??LABORATORIES CONSULTING PATHOLOGISTS [facility] PATH[facility] [address] [place] [address]. ??[place], [place] [id number] bFORMERLY VIDANT BEAUFORT HOSPITALWebydo. LABSSpecimen (Source)Anatomical Location / LateralityCollection Method / VolumeCollection TimeReceived Time 7:14 AM EST Narrative Authorizing ProviderResult TypeResult StatusChristopher Consuelo Hazel MD PATHOLOGY/CYTOLOGY ORDERABLESFinal ResultPerforming OrganizationAddress City/State/ZIP CodePhone Number [employer] [address] [place] [address] [facility] Accountable documented in this encounter Visit Diagnoses Diagnosis Endometrial cancer (HCC) Malignant neoplasm of corpus uteri, except isthmus Post-op pain Other acute postoperative pain Endometrial cancer (HCC) Malignant neoplasm of corpus uteri, except isthmus S/P hysterectomy Acquired absence of both cervix and uterus Endometrial cancer (HCC) Malignant neoplasm of corpus uteri, except isthmus documented in this encounter Admitting Diagnoses Diagnosis [...] 3 hours., Post-op Given07/14/2025 9:11 AM EST1,000 bgWnygu7307/14/2025 3:30 AM EST1,000 mgGiven 07/13/2025 9:44 PM EST1,000 mg BUPivacaine (MARCAINE) 0.25 % 20 mL, BUPivacaine liposome (EXPAREL) 20 mL PRN, Starting on Sun07/13/25 at 1258, Intra-op Given07/13/2025 2:27 PM EST12 bIqRlzjm33/24/2025 12:58 PM EST40 mLs droPERidol (INAPSINE) injection 0.625 mg 0.625 mg, [...] PACU only Given07/13/2025 2:49 PM EST50 mcg indocyanine green (IC-GREEN) syringe PRN, Starting on Sun07/13/25 at 1256, Until Sun07/13/25 at 1421, Intra-op Given07/13/2025 12:56 PM EST5 mgOther ketorolac (TORADOL) injection 30 mg 30 mg, IntraVENous, EVERY 6 HOURS, 4 doses, First dose on Sun07/13/25 at 2015, Last dose on Sun07/14/25 at 1415, Give all 4 doses and then proceed to Motrin, Post-op Given07/14/2025 3:30 AM EST30 egIakoy1407/13/2025 8:01 PM EST30 mg lactated ringers infusion IntraVENous, at 125 mL/hr, CONTINUOUS, Starting on Sun07/13/25 at 1015, Pre-op (day of surgery) Ueflpwcdo41/24/2025 1:39 PM YRFWfWcpbJxetlq35/24/2025 11:41 AM KMX762 mL/hrNew 07/13/2025 10:15 AM KUQ143 mL/hr lactated ringers infusion IntraVENous, at 75 mL/hr, CONTINUOUS, Starting on Sun07/13/25 at 1630, Post-op New 07/13/2025 4:23 PM EST75 mL/hr losartan (COZAAR) tablet 25 mg 25 mg, Oral, DAILY, First dose on Sun07/13/25 at 1615, Until Discontinued Given07/14/2025 9:14 AM EST25 laYesjj3807/13/2025 5:08 PM EST25 mg oxyCODONE (ROXICODONE) immediate [...] for Omeprazole (PRILOSEC). Given07/14/2025 9:12 AM EST40 sfDpuxb9507/13/2025 4:24 PM EST40 mg prochlorperazine (COMPAZINE) injection 10 mg 10 mg, IntraVENous, EVERY 6 HOURS PRN, Starting on Sun07/13/25 at 1627, Until Sun07/14/25 at 2108, Nausea, If administering IV push, administer at [...] Discontinued, Post-op Given07/13/2025 8:01 PM EST2 tablets sod chloride IRR soln 0.9 % irrigation CONTINUOUS PRN, Starting on Sun07/13/25 at 1245, Intra-op New Bag07/13/2025 1:56 PM EST1,000 mLsNew Bag07/13/2025 12:57 PM EST1,000 mLsNew Bag07/13/2025 12:45 PM EST1,000 mLs sodium chloride flush 0.9 % injection 5-40 [...] 20 mL/lumen, Post-op Given07/14/2025 9:11 AM EST10 qQcJsyji34/24/2025 7:10 PM EST10 mLs sterile water injection PRN, Starting on Sun07/13/25 at 1257, Until Sun07/13/25 at 1421, Intra-op Given07/13/2025 12:57 PM EST10 mLsdocumented in this encounter Active [...] RN) * 0912 (Given - Provider: Suresh Chambers RN) sennosides-docusate sodium (SENOKOT-S) 8.6-50 MG tablet 2 [...] RN) * 0911 (Given - Provider: Suresh Chambers RN) Medication Order/ lactated ringers infusion (CANCELED) IntraVENous, at 125 [...] MD) * 1453 (Stopped - Provider: Suresh Chambers RN) lactated ringers infusion (CANCELED) IntraVENous, at 75 mL/hr, CONTINUOUS, Starting on Sun07/13/25 at 1630, Post-op * 1623 (New Bag - Provider: Nanette Pan RN) * 0636 (Stopped - Provider: Anette Patel RN) Medication Order/ 0.9 % sodium chloride infusion IntraVENous, at [...] Post-op * 1453 (Stopped - Provider: Suresh Chambers RN) aluminum & magnesium hydroxide-simethicone (MAALOX PLUS) 200-200-20 [...] MIXED IN ICG5ML DRAWN UP TO BACK WCDZG7AG GIVEN IN CERVIX) magnesium hydroxide (MILK OF [...] Sun07/14/25 at 2109, Pain Severe (7-10), Post-op * 1523 (See Alternative - Provider: Suresh Chambers RN) prochlorperazine (COMPAZINE) injection 10 mg 10 mg, IntraVENous, EVERY 6 HOURS PRN, Starting on Sun07/13/25 at 1627, Until Sun07/14/25 at 210, Nausea, If administering IV push, administer at [...] MD - Comment: HANGING IRRIGATION FOR SUCTION DIE FINISHER FORGING) * 1356 (New Bag - Provider: Tera [...] rate as the IV push. Flush volume isdetermined by type of infusion therapy being given. For non-viscous solutions use: Peripheral IV = 5 mL Midline or Central Line = 10 mL/lumen [...] mL IVPB premix (CANCELED) 500 mg, IntraVENous, SENIOR RESERVATIONS AGENT TO O.R., 1 dose, On Sun07/13/25 at [...] Date Krys Zhou APRN - [facility] [address] [place] [address] PCP - Souimna16/10/25documented as of this encounter
--- OUTSIDE RECORDS SUMMARY | 2025-07-13 11:41 | XMS_ITS | Encounter Summary ---
Author Organization [facility] Insight[facility] Address [address], [address] [place] [address] Care Team Providers Care Zinc Plater Name Role Phone Krys Zhou APRN - EDUCATION RESEARCH ANALYST Primary Care Pro vider Reason for Visit * Auth/CertSpecialtyDiagnoses / ProceduresReferred By ContactReferred To Contact Diagnoses Endometrial cancer (HCC) Procedures CO LAPS TOTAL HYSTERECT 250 GM/< W/RMVL TUBE/OVARY CO LAPS SURG BILATERAL TOTAL PELVIC LMPHADECTOMY TOTAL ROBOTIC HYSTERECTOMY; BILATERAL SALPINGO-OOPHORECTOMY; REMOVAL OF LYMPH NODES; POSSIBLE LAPAROTOMY; OTHER NECESSARY PROCEDURES (INDOCYANINE GREEN DYE) Tera Cordero MD [address] [place] [address] Phone: tel: fax: [facility] [address] [facility] [address] [place] [address] Referral IDStatusReasonStart DateExpiration DateVisits RequestedVisits [id number] Encounter Details DateTypeDepartmentCare Team (Latest Contact Info)Rvcizlyoyxz25/24/2025 11:41 AM ESTAnesthesia Event [facility] OR [address] [place] [address] Radu Zhao MD [address] [place] [address] Reynaldo Negron MD Anesthesia Record Procedure NameResponsible AnesthesiologistAnesthesia Start TimeAnesthesia Stop TimeROBOTIC LAPAROSCOPIC TOTAL HYSTERECTOMY, BILATERAL SALPINGO-OOPHORECTOMY, REMOVAL OF BILATERAL SENTINEL LYMPH NODES (INDOCYANINE GREEN DYE), CYSTOSCOPY Radu Zhao MD07/13/25 [id number] 5685QmaoQfzsVjdpoTjkxgre08/24/48068997 An StartLocation: {AN Start Location:[id number]}1141An Start Zwjw2274Qwvklwv9023 An InductionThe patient was reevaluated immediately before anesthesia induction. 1154An Zgjqifmjws8805Pveozpabcl Tgmxr0302Mpmar NoteTroubleshooting pulse atkfcaxl6784Zoaku NoteScopolamine patch placed behind right yng8618Gx Data Art 1430An Njxrnhbgbp7908qq stop phcp9204Tgghtkc to RNVital signs are within acceptable limits and stable, SBAR handoff/transfer of care to RN. Patient Hamilton ndoff Status: Level of Response: -- Oxygen device: -- Airway Status: -- BP: -- Pulse: -- SpO2: -- Respirations: -- Temp: -- Temp Source: --1441An Stop* Name Totalketamine 50 MG/5ML50 mgmidazolam 2 MG/2ML2 mgfentaNYL 100 MCG/1AI123 mcg lidocaine PF 1 %50 mgpropofol 10 mg/mL 200 MG/71UF282 mgrocuronium 50 MG/5ML 130 mgceFAZolin (ANCEF) 3000 mg in sterile water 30 mL IV syringe3,000 mg metronidazole (FLAGYL) 500 mg in NaCl 100 mL ADLT978 mgdexamethasone (DECADRON) injection 4 mg/mL4 mghydrALAZINE (APRESOLINE) injection 20 mg/mL15 mgHYDROmorphone 1 MG/ML1 mgdexmedetomidine (PRECEDEX) injection 200 mcg/ 2mL36 mcgondansetron 4 MG/2ML4 mgketorolac 30 MG/ML30 mgsugammadex 200 MG/7SQ129 mg lactated ringers infusion2,000 mL * Agents Name O2 N2O Air Sevoflurane Inspired Sevoflurane Inspired N2O N2O * Blood No blood administrations on file. NzenQlkmoklTsitvvsthCiodrydUbstt58/24/25; 1235; N; Abdomen; Medial, Upper 07/13/25 1235 by Dahlia Mcdaniel RNPeripheral IVPlacement date 07/13/25; Placement time 1015; Size 20 g; Orientation Left, Anterior; Location Hand;Local anesthetic None; Removal date 07/14/25; Removal time 1448; Removal reason Patient hiaicwyght20/24/25 1015 by Sachi Macdonald RN07/14/25 1448 by Suresh Chambers RNETTPlacement date 07/13/25; Placement time 1154; Preoxygenation Yes; Technique Video laryngoscopy; Type Cuffed; Tube size 7.5 mm; Laryngoscope GlideScope; Blade size 3; Location Oral; Grade view 1; Insertion attempts 1; Atraumatic Yes07/13/25 1154 by Reynaldo Negron MD07/13/25 1430 by Reynaldo Negron MDPeripheral IVPlacement date 07/13/25; Placement time 1159; Size 16 g; Orientation Right; Location Hand; Local ane sthetic None; Removal date 07/14/25; Removal time 1448; Removal reason Patient nihkolymeu53/24/25 1159 by Reynaldo Negron MD07/14/25 1448 by Suresh Chambers RNUrinary Mmgovhhx92/24/25; 1235; EMMANUEL BEJARANO MD, PGY2; 1; 2 Way; 16 FR; 10 mL; Pre-connected closed drainage system, Properly inflated balloon, Smallest acceptable bore catheter, Sterile drapes, Securement device us ed, Sterlie gloves, Skin antiseptic (10% povidone-iodine) or soap and water if allergic; 07/13/25; 1416; Other (Comment) (PER DR. CORDERO); No complications 07/13/25 1235 by Dahlia Mcdaniel RN07/13/25 1416 by Dahlia Mcdaniel RNdocumented in this encounter Social History Tobacco UseTypesPacks/DayYears UsedDateSmoking Tobacco: [id number] - 2000Smokeless Tobacco: NeverAlcohol UseStandard Drinks/WeekCommentsNot Currently0 [...] were you homeless or living in a detention (including now)?No07/14/2025Hunger Vital SignAnswerDate RecordedWithin the past [...] Domain Source: IP Abuse ScreeningAnswerDate Recorded Physical kkakxBrgtya60/24/2025Verbal qppuhWqcyrz86/24/2025Emotional abuseDenies 07/13/2025Financial ycpnkVnhxdz58/24/2025Sexual rrrxnXwpdsg49/24/2025 CommentsNoSex and Gender InformationValueDate RecordedSex Assigned at BirthNot on fileLegal PueMatosa44/10/2013 7:28 PM ESTGender IdentityNot on fileSexual OrientationNot on filedocumented as of this encounter Plan of Treatment DateTypeDepartmentCare Team (Latest Contact Info)Fvyjrhfbngs25/08/2025 1:30 PM ESTOffice Visit [facility] [address] [place] [address] Tamara Byrd PA-C [address] [facility] [facility] [address] [place], [place] [id number] 2 WK P/O DOS: 07/13/25; DAY FGMNOF8908/27/2025 1:00 PM ESTOffice Visit [facility] [address] [place] [address] Jose Jimenez MD [address] [place], [place] [id number] HEALTH CARE SOCIAL WORKER - Endometrial cancer (HCC)documented as of this encounter Visit Diagnoses Not on filedocumented in this encounter Administered Medications Medication OrderMAR ActionAction DateDoseRateSite ceFAZolin (ANCEF) 3000 mg in sterile water 30 mL IV syringe 3,000 mg, IntraVENous, ONCE, 1 dose, On Sun07/13/25 at 1015, Antimicrobial Indications: Surgical Prophylaxis, Administer over 5 mins., Pre-op (day of surgery) Given07/13/2025 11:56 AM EST3,000 mg dexAMETHasone (DECADRON) IntraVENous IntraVENous, ANES ONCE PRN, Starting on Sun07/13/25 at 1226, Until Sun07/13/25 at 1441, Intra-op Given07/13/2025 12:26 PM EST4 mg dexmedeTOMIDine (PRECEDEX) injection IntraVENous, ANES ONCE PRN, Starting on Sun07/13/25 at 1331, Until Sun07/13/25 at 1441, Intra-op Given07/13/2025 2:03 PM EST12 gunFinel70/24/2025 1:48 PM EST12 mcgGiven 07/13/2025 1:31 PM EST12 mcg fentaNYL (SUBLIMAZE) injection IntraVENous, ANES ONCE PRN, Starting on Sun07/13/25 at 1149, Until Sun07/13/25 at 1441, Intra-op Given07/13/2025 11:49 AM CFP195 mcg hydrALAZINE (APRESOLINE) injection IntraVENous, ANES ONCE PRN, Starting on Sun07/13/25 at 1244, Until Sun07/13/25 at 1441, Intra-op Given07/13/2025 1:20 PM EST5 ckFqpgr7207/13/2025 12:56 PM EST5 yjTdysv0207/13/2025 12:44 PM EST5 mg HYDROmorphone (DILAUDID) injection IntraVENous, ANES ONCE PRN, Starting on Sun07/13/25 at 1328, Until Sun07/13/25 at 1441, Intra-op Given07/13/2025 1:28 PM EST1 mg ketamine (KETALAR) IntraVENous IntraVENous, ANES ONCE PRN, Starting on Sun07/13/25 at 1225, Until Sun07/13/25 at 1441, Intra-op Given07/13/2025 1:26 PM EST10 hgNpzwd5907/13/2025 1:15 PM EST10 acFsyxe8407/13/2025 12:48 PM EST10 mg ketorolac (TORADOL) injection IntraVENous, ANES ONCE PRN, Starting on Sun07/13/25 at 1415, Until Sun07/13/25 at 1441, Intra-op Given07/13/2025 2:15 PM EST30 mg lactated ringers infusion IntraVENous, at 125 mL/hr, CONTINUOUS, Starting on Sun07/13/25 at 1015, Pre-op (day of surgery) Faknssawq02/24/2025 1:39 PM WUWZqOmwaEhrgfk26/24/2025 11:41 AM BFC668 mL/hrNew Bag07/13/2025 10:15 AM YHG795 mL/hr lidocaine PF 1 % injection IntraVENous, ANES ONCE PRN, Starting on Sun07/13/25 at 1149, Until Sun07/13/25 at 1441, Intra-op Given07/13/2025 11:49 AM EST50 mg metroNIDAZOLE (FLAGYL) 500 mg in 0.9% NaCl 100 mL IVPB premix IntraVENous, Administer over 60 Minutes, ANES ONCE PRN, Starting on Sun07/13/25 at 1156, For 1 dose, Intra-op Given07/13/2025 11:56 AM LWO924 mg midazolam (VERSED) IntraVENous IntraVENous, ANES ONCE PRN, Starting on Sun07/13/25 at 1142, Until Sun07/13/25 at 1441, Intra-op Given07/13/2025 11:42 AM EST2 mg ondansetron (ZOFRAN) injection IntraVENous, ANES ONCE PRN, Starting on Sun07/13/25 at 1355, Until Sun07/13/25 at 1441, Intra-op Given07/13/2025 1:55 PM EST4 mg propofol 10 mg/mL infusion IntraVENous, ANES ONCE PRN, Starting on Sun07/13/25 at 1149, Until Sun07/13/25 at 1441, Intra-op Given07/13/2025 11:49 AM NVT820 mg rocuronium (ZEMURON) injection IntraVENous, ANES ONCE PRN, Starting on Sun07/13/25 at 1214, Until Sun07/13/25 at 1441, Intra-op Given07/13/2025 2:01 PM EST20 usQnrgk6307/13/2025 1:26 PM EST20 pzObvhw0307/13/2025 12:37 PM EST20 mg sugammadex (BRIDION) 200 MG/2ML injection IntraVENous, ANES ONCE PRN, Starting on Sun07/13/25 at 1428, Until Sun07/13/25 at 1441, Intra-op Given07/13/2025 2:28 PM GCQ202 mgdocumented in this encounter Care Teams Team MemberRelationshipSpecialtyStart DateEnd Date Krys Zhou, KEI - EDUCATION RESEARCH ANALYST [address] [place] [address] PCP - Mmlojzo38/10/25documented as of this encounter
--- OUTSIDE RECORDS SUMMARY | 2025-07-15 20:44 | XMS_ITS | Encounter Summary ---
Author Organization [facility] Address [address], [address] [place] [address] Care Team Providers Care Microsoft Exchange Administrator Name Role Phone Krys Zhou APRN - VP INTEGRITY Primary Care Pro vider Reason for Referral * Imaging (Emergency) - OpenSpecialtyDiagnoses / ProceduresReferred By Contact Referred To ContactCardiology Diagnoses Endometrial cancer (HCC) Post-operative state Right calf pain Procedures Vascular duplex lower extremity venous right Tamara Byrd PA-C [address] [address] Phone: tel: fax: Referral IDStatusReasonStart DateExpiration DateVisits RequestedVisits [id number]/26/202511/26/202611 Reason for Visit * Imaging (Emergency) - OpenSpecialtyDiagnoses / ProceduresReferred By Contact Referred To ContactCardiology Diagnoses Endometrial cancer (HCC) Post-operative state Right calf pain Procedures Vascular duplex lower extremity venous right Tamara Byrd PA-C [address] [facility] [address] [place] [address] Phone: tel: fax: Referral IDStatusReasonStart DateExpiration DateVisits RequestedVisits [id number]/26/572917/ Encounter Details DateTypeDepartmentCare Team (Latest Contact Info)Iqtlibmqfms51/26/2025 8:44 PM EST - 07/17/2025 11:59 PM ESTHospital Encounter [facility] [address] [place], [place] [phone] Endometrial cancer (HCC); Post-operative state; Right calf pain Discharge Disposition: Home or Self Care Social History Tobacco UseTypesPacks/DayYears UsedDateSmoking Tobacco: [id number] - 2000Smokeless Tobacco: NeverAlcohol UseStandard Drinks/WeekCommentsNot Currently0 [...] were you homeless or living in a usp (including now)?No07/14/2025Hunger Vital SignAnswerDate RecordedWithin the past [...] Domain Source: IP Abuse ScreeningAnswerDate Recorded Physical rcdtaDznzpg11/24/2025Verbal cacsjUjutdm30/24/2025Emotional abuseDenies 07/13/2025Financial kbfhhOeompa67/24/2025Sexual ryfpzRewomz24/24/2025 CommentsNoSex and Gender InformationValueDate RecordedSex Assigned at BirthNot on fileLegal PtaDuuzgu95/10/2013 7:28 PM ESTGender IdentityNot on fileSexual OrientationNot [...] tablet by mouth 2 times daily as yuuafe5105/12/2025 oxyCODONE (ROXICODONE) 5 MG immediate release tablet Indications:Post-op painTake 1 tablet by mouth every 6 hours as needed for Pain for up to 7 days. Intended supply: 7 days. Take lowest dose possible to manage pain Max Daily Amount: 20 mg 20 tablet documented as of this encounter Plan of Treatment DateTypeDepartmentCare Team (Latest Contact Info)Mjiqxuvshtd02/08/2025 1:30 PM ESTOffice Visit [facility] [address] [facility] [address] [place] [address] Tamara Byrd PA-C [address] [place] [address] [address] [place] [address] 2 WK P/O DOS: 07/13/25; DAY ENNEDD5108/27/2025 1:00 PM ESTOffice Visit [facility] [address] [place] [address] Jose Jimenez MD [address] [facility] [address] [place], [place] [id number] HEMATOLOGIST ONCOLOGIST - Endometrial cancer (HCC)documented as of this encounter Procedures Procedure NamePriorityDate/TimeAssociated DiagnosisCommentsVAS DUP LOWER EXTREMITY VENOUS LCMZCEQJD73/26/2025 9:10 PM EST Endometrial cancer (HCC) Post-operative state Right calf pain documented in this encounter Results * Vascular duplex lower extremity venous right (07/15/2025 9:10 PM EST) Anatomical RegionLateralityModalityVascular UltrasoundSpecimen (Source) Anatomical Location / LateralityCollection Method / VolumeCollection Time Received Time Narrative 07/17/2025 8:41 AM EST No evidence of acute deep vein or superficial vein thrombosis in the right lower extremity. Right Lower Venous No evidence of acute deep vein or superficial vein thrombosis. The common femoral, saphenofemoral junction, profunda femoral, femoral, popliteal, greater saphenous, and small saphenous veins were imaged in the transverse view and showed normal compressibility. The common femoral, popliteal, and middle femoral veins were imaged in the longitudinal view and showed normal color filling and normal phasic and spontaneous flow. Left Lower Venous For comparison purposes, the left common femoral vein was briefly interrogated. The vein demonstrates normal color filing and compressibility. Doppler flow was phasic and spontaneous. Resident Care Spec Details A robertson scale, color Doppler imaging and spectral Doppler analysis ultrasound was performed. During the study longitudinal and transverse views were obtained. Pulsed wave doppler was performed. Overall the study quality was adequate. Authorizing ProviderResult TypeResult StatusAlyssa Rochelle PA-CCV VASCULAR ORDERABLESFinal Result documented in this encounter Visit Diagnoses Diagnosis Endometrial cancer (HCC) Malignant neoplasm of corpus uteri, except isthmus Post-operative state Other postprocedural status Right calf pain documented in this encounter Care Teams Team MemberRelationshipSpecialtyStart DateEnd Date Krys Zhou APRN - KEIRA [address] [place] [address] [facility] - Yqxqgpy42/10/25documented as of this encounter
[2025-07-23 10:44] VITALS: BP 166/117; PULSE 78; TEMP 36.7; O2SAT 98; BMI 46.3
--- NOTE | 2025-07-23 10:54 | ED.GENADUL1 ---
HPI HPI - General Adult General Chief complaint: Skin/Abscess/Foreign Body Stated complaint: R HAND SWELLING Time Seen by Provider: 07/23/25 10:43 Source: patient Mode of arrival: walk-in Limitations: no limitations History of Present Illness HPI narrative: 54-year-old female presents for pain on the dorsum of her right hand going up into the distal forearm area. She had an IV there in late June. Since then she has had increasing pain and she is worried about a blood clot. She has never had a DVT previously. No chest pain or shortness of breath. Related Data Home Medications ?Medication ?Instructions ?Recorded ?Confirmed acetaminophen 500 mg tablet 500 mg PO Q4H PRN pain 07/23/25 07/23/25 ibuprofen 600 mg tablet 600 mg PO Q8H PRN pain 07/23/25 07/23/25 losartan 25 mg tablet 25 mg PO DAILY 07/23/25 07/23/25 omeprazole 20 mg capsule,delayed 20 mg PO DAILY 07/23/25 07/23/25 release oxycodone 5 mg tablet 5 mg PO BID 07/23/25 07/23/25 senna 187 mg tablet 50 mg PO QAM 07/23/25 07/23/25 sennosides 8.6 mg-docusate sodium 1 tab-cap PO DAILY 07/23/25 07/23/25 50 mg tablet (Senexon-S) Previous Rx's ?Medication ?Instructions ?Recorded sulfacetamide sodium 10 % eye drops 2 drp ophthalmic (eye) Q4H #15 mL 01/11/24 Allergies Allergy/AdvReac Type Severity Reaction Status Date / Time hydrocodone (From Vicodin) Allergy Severe Nausea Verified 07/23/25 10:49 diphenhydramine (From AdvReac Intermediate shortness Verified 07/23/25 10:49 Benadryl) of breath penicillin G AdvReac Intermediate Hives Verified 07/23/25 10:49 Opioid HPI Opioid Management Most Recent Opioid Data: Last Pain Scale 5 Today, 10:44 Review of Systems ROS Narrative A ten point review of systems is negative except as noted above. PFSH PFSH Social History Smoking status: Former smoker Little interest or pleasure in doing things: not at all Feeling down, depressed, or hopeless: not at all Exam Narrative Exam Narrative: Nurses note and vital signs reviewed General:The patient appears well and in no apparent distress.Patient is resting comfortably on cart. Skin:Warm, dry, no pallor noted.There is no rash noted. Head:Normocephalic, atraumatic Eye: Normal conjunctiva, no drainage Ears, Nose, Mouth, and Throat: oral mucosa is moist. Nares patent. Cardiovascular:Regular Rate and Rhythm Respiratory:Patient is in no distress, no accessory muscle use Back:non-tender GI: Nontender Musculoskeletal: Her right arm is examined. There is some tenderness on the dorsum of the right hand which extends into the distal forearm area on the extensor side. There is no discrete mass noted. No erythema or drainage. Neurological:A&O, normal speech Psychiatric:Cooperative Constitutional Vital Signs, click to edit/add: Last Vital Signs Temp 98.1 F 07/23/25 10:44 Pulse 78 07/23/25 10:44 Resp 20 07/23/25 10:44 BP 175/98 H 07/23/25 11:45 Pulse Ox 98 07/23/25 10:44 Course Vital Signs Vital signs: Vital Signs Temperature 98.1 F 07/23/25 10:44 Pulse Rate 78 07/23/25 10:44 Respiratory Rate 20 07/23/25 10:44 Blood Pressure 166/117 H 07/23/25 10:44 Pulse Oximetry 98 07/23/25 10:44 Temperature 98.1 F 07/23/25 10:44 Pulse Rate 78 07/23/25 10:44 Respiratory Rate 20 07/23/25 10:44 Blood Pressure 175/98 H 07/23/25 11:45 Pulse Oximetry 98 07/23/25 10:44 Medical Decision Making [facility] Narrative Medical decision making narrative: Superficial thrombophlebitis is identified and she is able to be discharged home. She was recommended rest, warm compresses, elevation, and an aspirin a day. Treatment diagnosis and follow-up were discussed with the patient. Differential Diagnosis Differential Diagnosis: Superficial thrombophlebitis, DVT Imaging Data Venous Doppler of arm: Radiologist's impression: Superficial thrombophlebitis Discharge Plan Discharge Chief Complaint: Skin/Abscess/Foreign Body Clinical Impression: Superficial thrombophlebitis Patient Disposition: Home, Self-Care Time of Disposition Decision: 12:39 Condition: Good Mode of Transportation: Private Vehicle Prescriptions / Home Meds: No Action sulfacetamide sodium 10 % drops 2 drp ophthalmic (eye) Q4H Qty: 15 0RF ibuprofen 600 mg tablet 600 mg PO Q8H PRN (Reason: pain) omeprazole 20 mg capsule,delayed release(DR/EC) 20 mg PO DAILY sennosides-docusate sodium [Senexon-S] 8.6-50 mg tablet 1 tab-cap PO DAILY acetaminophen 500 mg tablet 500 mg PO Q4H PRN (Reason: pain) senna 187 mg tablet 50 mg PO QAM losartan 25 mg tablet 25 mg PO DAILY oxycodone 5 mg tablet 5 mg PO BID Print Language: Guyanese Instructions: Superficial Thrombophlebitis (ED) Additional Instructions: Warm compresses, elevation, and take an aspirin a day. Referrals: JASON DE LA CRUZ [Primary Care Provider, Unknown] - 1 week
--- OUTSIDE RECORDS SUMMARY | 2025-07-23 10:59 | XMS_ITS | Clinical Summary ---
Author Organization [facility] Address [address] [place] [address] Care Team Providers Care Double End Trimmer Name Role Phone Tera Banegas DO Unavailable [phone] Social History Tobacco UseTypesPacks/DayYears UsedDateSmoking Tobacco: Never Assessed CommentsUnknownSex and Gender InformationValueDate RecordedSex Assigned at Not on fileLegal SaiUmnlaw46/29/2023 2:35 PM EDTGender IdentityNot on fileSexual OrientationNot on file Plan of Treatment Not on file Insurance Care Teams Team MemberRelationshipSpecialtyStart DateEnd Date Tera Banegas DO [address] [place] [phone] ReferringNeurology04/17/23
--- OUTSIDE RECORDS SUMMARY | 2025-07-23 10:59 | XMS_ITS | Clinical Summary ---
Author Organization [facility] Address [address] [place] [address] Care Team Providers Care Cake Icer Name Role Phone Aye Zhoufer Raine MARKETING ANALYTICS LEAD Primary Care Provider Tamara Stapels Unavailable Unavailable Allergies Active AllergyReactionsCriticalityNoted DateCommentsAcetaminophenUnknown 05/14/2024 Other Reaction(s): Palpitations, nausea, palpitations KdxiphniyeiatmrLxuuykd80/28/2017 Other Reaction(s): Difficulty Breathing, can't breathe and heat palpitations Xuqiudgumxx16/25/2024 Other Reaction(s): Palpitations, nausea, palpitations HwctjkvrxswMwtzl35/28/2017 Medications MedicationSigDispense QuantityRefillsLast FilledStart DateEnd DateStatus acyclovir (Zovirax) 400 MG tablet take 1 tablet by ORAL route every day while awake OralActive xwydomlytk-ookderscvblzn-bdtrhqii (Fioricet) 50-300-40 MG capsule 1 capsule as needed Orally prnActive cyclobenzaprine (Flexeril) 10 MG tablet Three times daily10/08/2023ctive ibuprofen 600 MG tablet Three times daily03/20/2024ctive losartan (Cozaar) 25 MG tablet Daily03/20/2024ctive omeprazole (PriLOSEC) [address] capsule Take 20 mg by mouth Daily03/20/2024ctive valACYclovir (Valtrex) 1 g tablet Every 12 hours03/20/2024ctive triamcinolone (Kenalog) 0.1 % cream Indications:Chronic vulvitisApply topically 2 (two) times a day 30 g ctive nystatin (Mycostatin) cream Indications:IntertrigoApply topically 2 (two) times a day 30 g 5011/24/2025ctive nystatin (Mycostatin) 391100 UNIT/GM powder Indications:IntertrigoApply topically 3 (three) times a day 15 g ctiveHospital, Clinic, or Other Facility Administered MedicationOrdered DoseRouteFrequencyStart DateEnd DateStatus iopamidol (Isovue-300) 61 % injection 100 mL Indications:Endometrial cancer (HCC)100 mLIVOnce in hlxnguc17/05/61117808/24/2024 Ended Encounters DateTypeDepartmentCare PsjyQmggmoibmdc73/07/2025Telephone [facility] [address] [place] [phone] Ant Bergeron LPN 06/24/2025 12:00 PM ESTAncillary Procedure [facility] [address] [place] [phone] Endometrial cancer (HCC)06/24/20253797Cxvxbg69/05/2025Telephone [facility] [address] [place] [address] Ant Bergeron LPN 06/23/2025Orders Only [facility] [address] [place] [address] Ar Murray MD 06/23/2025Orders Only [facility] [address] [place] [address] Ar Murray MD Endometrial cancer (HCC) (Primary Dx)06/16/2025Results Follow-Up [facility] [address] [place] [phone] Ar Murray MD Estradiol, Follicle stimulating hormone, Pathology Rsycbs7906/15/2025 9:15 AM EDT Office Visit [facility] [address] [place] [phone] Ar Murray MD Cervical polyp; Ovarian mass; Intertrigo; Asymptomatic menopausal state06/15/2025Travelfrom Last 3 Months Family History Medical HistoryRelationNameCommentsHyperlipidemiaDaughterDiabetesMaternal GrandfatherPenile cancerMaternal GrandfatherStrokeMaternal GrandfatherBreast cancerMaternal GrandmotherHyperlipidemiaMaternal GrandmotherStrokeMaternal GrandmotherHyperlipidemiaMotherCancerMother's BrotherCOPDMother's SisterStroke Mother's SisterAsthmaSisterRelationNameStatusCommentsDaughterMaternal GrandfatherMaternal GrandmotherMotherAliveMother's BrotherMother's SisterSister Social History Tobacco UseTypesPacks/DayYears UsedDateSmoking Tobacco: NeverSmokeless Tobacco: Never Tobacco Cessation:Counseling Given: Not Answered Alcohol UseStandard Drinks/WeekCommentsYes0 (1 standard drink = 0.6 oz pure alcohol)AUDIT-CAnswerDate RecordedQ1: How often do you have a drink containing alcohol?Monthly or less05/21/2024Q2: How many drinks containing alcohol do you have on a typical day when you are drinking?1 or Q3: How often do you have six or more drinks on one occasion?Less than ogsajhb38/02/2024PHQ-2Answer Date RecordedPatient Health Questionnaire-2 Ijhco416regnantCommentsNo Sex and Gender InformationValueDate RecordedSex Assigned at BirthNot on file Legal OhfPommwh05/15/2023 6:59 PM EDTGender IdentityNot on fileSexual OrientationNot on file Last Filed Vital Signs Vital SignReadingTime TakenCommentsBlood Rzxbmvxc212/7606/15/2025 9:09 AM EDT Pulse--Temperature--Respiratory Rate--Oxygen Saturation--Inhaled Oxygen Concentration--Uunrdv576 kg (270 lb)06/15/2025 9:09 AM HQOBwulha586.6 cm (5' 4 ) 06/15/2025 9:09 AM EDTBody Mass Index46.351 9:09 AM EDT Plan of Treatment Health MaintenanceDue DateLast DoneCommentsCT Appyyfgpkcuw69/30/1971Colonoscopy 04/30/1971Colorectal Cancer Duqzmesue40/30/1971FIT-DNA1970FIT1970 FOBT1970 1530Jnjkcfkxuvlgk13/30/1971Pap Smear12/18/19913107Dypikrvsb80/03/2020 02/19/2019COVID-19 Vaccine ( season)2025Influenza Vaccine (#1) 2025ervical Cancer Xdkvsctyw66/07/2030HPV/Fltbqz54 Pneumococcal Vaccine: Pediatrics (0 to 5 Years) and At-Risk Patients (6 to 64 Years)Aged OutNo longer eligible based on patient's age to complete this topic Procedures Procedure NamePriorityDate/TimeAssociated DiagnosisCommentsCT ABDOMEN PELVIS W IV CONTRASTHigh Jxozhsyf04/05/2025 12:49 PM EST Endometrial cancer (HCC) HTCDeodlvc96/27/2025 11:03 AM EDT Asymptomatic menopausal state GPGODBUMIJqasfpv75/27/2025 11:02 AM EDT Asymptomatic menopausal state PATHOLOGY QJWKDVClvgcwk42/27/2025 10:34 AM EDT Cervical polyp Ovarian mass ENDOMETRIAL ZUTRTRUknchtw56/27/2025 10:00 AM EDT Cervical polyp Ovarian mass IGP, APT HPV,RFX 16/18,64Byaowqh73/07/2025 12:00 AM EDT Encounter for screening for cervical cancer Cervical polyp Ovarian mass Asymptomatic menopausal state from Last 3 Months or Most Recently Relevant to Health Maintenance Results * CT abdomen pelvis w IV contrast (06/24/2025 12:49 PM EST)Anatomical Region LateralityModalityBody, Pelvis, AbdomenComputed TomographySpecimen (Source) Anatomical Location / LateralityCollection Method / VolumeCollection Time Received Time06/26/2025 9:38 AM EST Impressions 06/26/2025 9:44 AM EST Hepatomegaly. Splenomegaly. Colonic diverticulosis without diverticulitis. ELECTRONICALLY SIGNED BY: Hakeem Kathleen DO Narrative 06/26/2025 9:44 AM EST EXAM: CT ABDOMEN PELVIS W IV CONTRAST History: Endometrial cancer Technique: Multiple contiguous axial images were obtained of the abdomen and pelvis from the level of the lung bases through the ischial tuberosities with contrast. Multiplanar reformats were obtained. Delayed images were obtained. All CT scans at this facility use dose modulation, iterative reconstruction, and/or weight based dosing when appropriate to reduce radiation dose to as low as reasonably achievable. Comparison: Pelvic ultrasound December 11, 2024 Findings: Lung bases are clear. The liver is enlarged measuring approximately 21 cm in craniocaudal length. Postsurgical changes ofcholecystectomy. The spleen is enlarged measuring 15 cm in AP dimension. The stomach, pancreas, andadrenal glands appear within normal limits. The kidneys enhance uniformly. No urinary tract calculi or hydronephrosis. The urinary bladder is suboptimally distended but otherwise unremarkable. The uterus is present. Abdominal aorta is nonaneurysmal. ??No retroperitoneal or abdominal/pelvic lymphadenopathy. No small bowel obstruction. Colonic diverticuli are identified. No overt colonic mass or pericolonic inflammation. No findings of acute appendicitis. No free fluid or free air. No acute osseous abnormality. Degenerative changes of the spine. Procedure Note Hakeem Kathleen, - 06/26/2025 EXAM: CT ABDOMEN PELVIS W IV CONTRAST History: Endometrial cancer Technique: Multiple contiguous axial images were obtained of the abdomenand pelvis from the level of the lung bases through the ischialtuberosities with contrast. Multiplanar reformats were obtained. Delayedimages were obtained. All CT scans at this facility use dose modulation, iterativereconstruction, and/or weight based dosing when appropriate to reduceradiation dose to as low as reasonably achievable. Comparison: Pelvic ultrasound December 11, 2024 Findings: Lung bases are clear. The liver is enlarged measuring approximately 21 cm in craniocaudallength. Postsurgical changes of cholecystectomy. The spleen is enlargedmeasuring 15 cm in AP dimension. The stomach, pancreas, and adrenal glandsappear within normal limits. The kidneys enhance uniformly. No urinary tract calculi or hydronephrosis.The urinary bladder is suboptimally distended but otherwise unremarkable.The uterus is present. Abdominal aorta is nonaneurysmal. No retroperitoneal or abdominal/pelvic lymphadenopathy. No small bowel obstruction. Colonic diverticuli are identified. No overtcolonic mass or pericolonic inflammation. No findings of acuteappendicitis. No free fluid or free air. No acute osseous abnormality. Degenerative changes of the spine. IMPRESSION: Hepatomegaly. Splenomegaly. Colonic diverticulosis without diverticulitis. ELECTRONICALLY SIGNED BY: Hakeem Kathleen DO Authorizing ProviderResult TypeResult StatusAr BAEZAG CT PROCEDURES Final Result * Follicle stimulating hormone (06/15/2025 11:03 AM EDT)ComponentValueRef Range Test MethodAnalysis TimePerformed AtPathologist EckeugqiaCTS47.4mIU/mLLABC[facility]P Comment: ? Adult Female ? Range ?Follicular phase ?3.5 - ??12.5 ?Ovulation phase ? 4.7 - ??21.5 ?Luteal phase ?1.7 - ?? 7.7 ?Postmenopausal ? 25.8 - 134.8 Specimen (Source)Anatomical Location / LateralityCollection Method / Volume Collection TimeReceived TimeBloodVenous blood specimen / Wclcarw6706/15/2025 11:03 AM EDT1omment:BLOOD, VENOUS Narrative [facility] - 06/16/2025 12:08 PM EDT Performed at: - Lab[address], [place], [place] ??[id number] Community Specialist: Demetrius Bean PhD, Phone: ??[phone] Authorizing ProviderResult TypeResult StatusAr Murray MDLAB BLOOD ORDERABLESFinal ResultPerforming OrganizationAddressCity/State/ZIP CodePhone Number [facility] * Estradiol (06/15/2025 11:02 AM EDT)ComponentValueRef RangeTest MethodAnalysis TimePerformed AtPathologist MtigfmyfrHcbnkmeuw71.6pg/mLLABCORPComment: ? Adult Female ? Range ?Follicular phase ? 12.5 - 166.0 ?Ovulation phase ?85.8 - 498.0 ?Luteal phase ? 43.8 - 211.0 Postmenopausal <6.0 - 54.7 ? 1st trimester 215.0 - >4300.0 Jael ECLIA methodology Specimen (Source)Anatomical Location / LateralityCollection Method / Volume Collection TimeReceived TimeBloodVenous blood specimen / Tidaily1606/15/2025 11:02 AM EDT1omment:BLOOD, VENOUS Narrative [facility] - 06/16/2025 12:08 PM EDT Performed at: 01 - [address] ??[id number] Community Specialist: Demetrius Bean PhD, Phone: ??[phone] Authorizing ProviderResult TypeResult StatusAr Murray MDLAB BLOOD ORDERABLESFinal ResultPerforming OrganizationAddressCity/State/ZIP CodePhone Number [facility] * Pathology Report (06/15/2025 10:34 AM EDT)ComponentValueRef RangeTest Method Analysis TimePerformed AtPathologist SignatureMaterial Submitted:Comment [facility]PComment: Material submitted: ?. endometrium - EMB Clinician Provided XYP12IzymjgfZBIUWKDAqpejkv: Clinician provided ICD-10: N84.1 N83.8 Diagnosis:CommentLABCORPComment: Diagnosis: ENDOMETRIAL BIOPSY: - INVOLVED WITH ENDOMETRIAL CARCINOMA, FAVOR ENDOMETRIOID ADENOCARCINOMA, GRADE 2. - LESION IS STRONGLY CK7 POSITIVE AND ER POSITIVE SUPPORTING FINAL DIAGNOSIS. TEST(S) PERFORMED: MMR BY IMMUNOHISTOCHEMISTRY: [LOSS OF NUCLEAR EXPRESSION OF MLH1 AND PMS2] MMR STAINING NUCLEAR MLH1 STAINING: [LOSS] NUCLEAR PMS2 STAINING: [LOSS] NUCLEAR MSH2 STAINING: [INTACT] NUCLEAR MSH6 STAINING: [INTACT] CONTROLS (SELECT ALL THAT APPLY): ??[INTERNAL CONTROL CELLS PRESENT; EXPECTED IMMUNOREACTIVITY], [INTERNAL CONTROL CELLS PRESENT; NO IMMUNOREACTIVITY OF EITHER TUMOR CELLS OR INTERNAL CONTROLS], [EXTERNAL CONTROLS AVAILABLE, EXPECTED IMMUNOREACTIVITY], [EXTERNAL CONTROLS AVAILABLE; NO IMMUNOREACTIVITY IN EXPECTED CELLS] TEST TYPE: FOOD AND DRUG ADMINISTRATION (FDA) CLEARED TEST/VENDOR: MLH1, PMS2, MSH2, MSH6-G2[employer] PRIMARY ANTIBODY: M1, A14-4, P913-2600, SP93 COMMENT: SELECTED SLIDES HAVE BEEN PROSPECTIVELY REVIEWED BY ADDITIONAL MEMBERS OF PATHOLOGY DEPARTMENT. SMI ??06/22/2025 ??1504 Local Comment:Comment:[facility]ABC[facility]PComment: THE [facility] HISTOLOGY ANTIBODY, ANTI-y40oir3s (CLONE E6H4) PERFORMANCE CHARACTERISTICS WERE VALIDATED BY [facility]. IT HAS NOT BEEN CLEARED OR APPROVED BY THE FOOD AND DRUG ADMINISTRATION. Electronically Signed:CommentLABCORPComment: Electronically signed: ? . Sohail Lainez MD, Pathologist Gross Description:CommentLABCORPComment: Gross description: ? . RECEIVED IN FORMALIN LABELED WITH THE PATIENT'S NAME AND EMB IS A 2.5 X 1.7 X 0.2 CM AGGREGATE OF MULTIPLE IRREGULAR FRAGMENTS OF BROWN/OBRIEN SOFT TISSUE. ENTIRELY SUBMITTED IN ONE CASSETTE. MZH/TMZ ??06/16/2025 ??1213 Local Pathologist Provided HIU81SxmecisEOYVMXNUabwxjy: Pathologist provided ICD-10: C54.1 CPTCommentLABCORPComment: CPT ?. 351930, V44830, O40742 Specimen (Source)Anatomical Location / LateralityCollection Method / Volume Collection TimeReceived EiamUjxby76/27/2025 10:34 AM EDT1 Narrative [facility] - 06/23/2025 2:08 PM EST Performed at: [facility] - [facility] [address] [place] [address] ??[id number] Community Specialist: Andre Awan MD, Phone: ??[phone] Performed at: ??02 - [address] ??[id number] Community Specialist: Sohail Lainez MD, Phone: ??[phone] Performed at: ??03 - [facility] [address] [place] [id number] Community Specialist: Andre Awan MD, Phone: ??[phone] Specimen Comment: No. of containers..01 Tissue Authorizing ProviderResult TypeResult StatusAr HALEY PATHOLOGY ORDERABLESFinal ResultPerforming OrganizationAddressCity/State/ZIP CodePhone Number [facility] * Endometrial biopsy (06/15/2025 10:00 AM EDT) Narrative Ar Murray MD - 06/15/2025 10:00 AM EDT Ar Murray MD 06/15/2025 7:21 PM Endometrial biopsy Date/Time: 06/15/2025 10:00 AM Performed by: Ar Murray MD Authorized by: Ar Murray MD ?? Consent: ??Consent obtained: verbal ??Consent given by: patient ??Risks discussed: bleeding, infection and pain ??Alternatives discussed: referral ??Patient agrees, verbalizes understanding, and wants to proceed: yes ?? Indications: ??Indications: abnormal uterine bleeding ?? Pre-procedure: ??Urine test: negative ?Premeds: misoprostol Procedure: ??Local anesthetic: lidocaine 1% WITH epi Findings: ??Cervix: normal ?Specimen collected: specimen collected and sent to pathology ?Patient tolerance: tolerated well, no immediate complications Comments: ??Procedure comments: One pass with pipelle Authorizing ProviderResult TypeResult StatusAr Murray MDIN CLINIC/BEDSIDE ORDERABLESFinal Result * IGP, APT HPV,RFX 16/18,45 (11/24/2024 12:00 AM EDT)ComponentValueRef RangeTest MethodAnalysis TimePerformed AtPathologist SignatureDiagnosis:CommentLABC[facility]P Comment: NEGATIVE FOR INTRAEPITHELIAL LESION OR MALIGNANCY. REACTIVE CELLULAR CHANGES AND/OR REPAIR ARE PRESENT. Specimen Adequacy:CommentLABCORPComment: Satisfactory for evaluation. ??Endocervical and/or squamous metaplastic cells (endocervical component) are present. Clinician Provided ICD10:CommentLABCORPComment: Z12.4 N84.1 N83.8 Z78.0 Performed By:CommentLABCORPComment:Kyree Ricks, Natural Sciences Professor (ASCP) Electronically Signed By:CommentLABCORPComment:Lakshmi Szymanski MD, PathologistCyto Comments.LABCORPNote:CommentLABCORPComment: The Pap smear is a screening test designed to aid in the detection of premalignant and malignant conditions of the uterine cervix. ??It is not a diagnostic procedure and should not be used as the sole means of detecting cervical cancer. ??Both false-positive and false-negative reports do occur. Test Methodology:CommentLABCORPComment: This liquid based ThinPrep(R) pap test was screened with the use of an image guided system. HPV AptimaNegativeNegativeLABCORPComment: This nucleic acid amplification test detects fourteen high-risk HPV types (16,18,31,33,35,39,45,51,52,56,58,59,66,68) without differentiation. Specimen (Source)Anatomical Location / LateralityCollection Method / Volume Collection TimeReceived TimeVaginal Fluid504/03/2025 Narrative [facility] - 11/28/2024 8:08 AM EDT Performed at: 01 - [facility] [address] ??[id number] Community Specialist: Sherly Souza MD, Phone: ??[phone] Performed at: ??02 - [facility] ??[id number] Community Specialist: Sherly Souza MD, Phone: ??[phone] Specimen Comment: No. of containers..01 ThinPrep Vial Authorizing ProviderResult TypeResult StatusAr Murray MDNE[facility] BLOOD ORDERABLESFinal ResultPerforming OrganizationAddressCity/State/ZIP CodePhone Number [facility] from Last 3 Months or Most Recently Relevant to Health Maintenance Insurance Care Teams Team MemberRelationshipSpecialtyStart DateEnd Date Krys Zhou NP [address] [place] [address] [place] [address] PCP - GeneralFamily Medicine04/30/24 Tamara Staples PCP - PBS Jong [facility]02/18/24
--- OUTSIDE RECORDS SUMMARY | 2025-07-23 10:59 | XMS_ITS | Encounter Summary ---
Author Organization [facility] Address [address], [address] [place] [address] Care Team Providers Care Hat Finisher Name Role Phone ChidiKrys sanders KEI - FILM PRODUCER Primary Care Pro vider Encounter Details DateTypeDepartmentCare Team (Latest Contact Info)Cbglsaaywrt60/01/2025Orders Christ[facility] [address] [facility] [address] [place] [phone] Tera Cordero MD [address] [facility] [address] [facility] [address] [place] [address] Endometrial cancer (HCC) (Primary Dx) Social History Tobacco UseTypesPacks/DayYears UsedDateSmoking Tobacco: [id number] - 2000Smokeless Tobacco: NeverAlcohol UseStandard Drinks/WeekCommentsNot Currently0 [...] Domain Source: IP Abuse ScreeningAnswerDate Recorded Physical ydceaEjndza22/24/2025Verbal ducvrPsyllk06/24/2025Emotional abuseDenies 07/13/2025Financial qffzkWnbazz70/24/2025Sexual ixeiyHhaobv12/24/2025 CommentsNoSex and Gender InformationValueDate RecordedSex Assigned at BirthNot on fileLegal WlcLkysae99/10/2013 7:28 PM ESTGender IdentityNot on fileSexual OrientationNot on filedocumented as of this encounter Plan of Treatment DateTypeDepartmentCare Team (Latest Contact Info)Zlgajcdzstg00/08/2025 1:30 PM ESTOffice Visit [facility] [address] [facility] [address] [place] [address] Tamara Byrd PA-C [address] [facility] [address] [place] [address] 2 WK P/O DOS: 07/13/25; DAY ESODVL0508/27/2025 1:00 PM ESTOffice Visit [facility] [address] [facility] [address] [place], [place] [id number] Jose Jimenez MD [address] [facility] [address] [place] [address] GREEN MARKETING ANALYST - Endometrial cancer (HCC)documented as of this encounter Visit Diagnoses Diagnosis Endometrial cancer (HCC)- Primary Malignant neoplasm of corpus uteri, except isthmus documented in this encounter Care Teams Team MemberRelationshipSpecialtyStart DateEnd Date Krys Zhou APRN - FILM PRODUCER [address] [place] [address] PCP - Lxrkdju94/10/25documented as of this encounter
--- OUTSIDE RECORDS SUMMARY | 2025-07-23 10:59 | XMS_ITS | Clinical Summary ---
[facility] Organization [facility] Address [address], [address] [place] [address] Care Team Providers Care Mobility Developer Name Role Phone rKys Zhou APRN - READINESS PARAPROFESSIONAL Primary Care Pro vider Allergies Active AllergyReactionsCriticalityNoted DateCommentsDiphenhydramineShortness Of YfmwhfRkds95/28/2017 Other Reaction(s): Difficulty Breathing, can't breathe and heat palpitations HqwqfygfiomBmzpqw17/25/2024 Other Reaction(s): Palpitations, nausea, palpitations SxixwcclzbrRsxfpPqt61/28/2017 Medications MedicationSigDispense QuantityRefillsLast FilledStart DateEnd DateStatus omeprazole (PRILOSEC) 20 MG delayed release capsule Take 1 capsule by mouth daily5Active valACYclovir (VALTREX) 1 g tablet Take 1 tablet by mouth 2 times daily as zimqnn6505/12/2025tive losartan (COZAAR) 25 MG tablet Take 1 tablet by mouth dailyActive ibuprofen (ADVIL;MOTRIN) 600 MG tablet Take 1 tablet by mouth 4 times daily as needed for Pain 120 tablet 07/14/2025tive acetaminophen (TYLENOL) 500 MG tablet Take 2 tablets by mouth every 6 hours as needed for Pain 80 tablet 5Active sennosides-docusate sodium (SENOKOT-S) 8.6-50 MG tablet Take 1 tablet by mouth daily 60 tablet 07/14/2025tive ELDERBERRY PO Take 1 Dose by mouth daily07/14/2025Discontinued(Patient Discharge) ibuprofen (ADVIL;MOTRIN) 600 MG tablet Take 1 tablet by mouth every 6 hours as needed for Pain Discontinued benzocaine (ORAJEL) 10 % mucosal gel Take by mouth as needed for Pain Take by mouth as needed.07/14/2025Discontinued (Patient Discharge) oxyCODONE (ROXICODONE) 5 MG immediate release tablet Indications:Post-op painTake 1 tablet by mouth every 6 hours as needed for Pain for up to 7 days. Intended supply: 7 days. Take lowest dose possible to manage pain Max Daily Amount: 20 mg 20 tablet Expired Active Problems ProblemNoted DateDiagnosed DateS/p RALH, BSO, PLND, cysto 07/13/2511 Post-operative state07/14/2025S/P pvncyudccnoc66/24/2025Endometrial cancer 06/30/2025 Encounters DateTypeDepartmentCare YilyDnjxymsjcfr58/01/2025Orders Only [facility] [address] [place] [address] [address] [place] [address] Tera Cordero MD Endometrial cancer (HCC) (Primary Dx)07/20/2025Telephone [facility] [address] [place] [address] [address] - [address] [place] [address] Tera Cordero MD Post op iugnwd0807/15/2025 8:44 PM EST - 07/17/2025 11:59 PM ESTHospital Encounter [facility] [address] [place] [address] Endometrial cancer (HCC); Post-operative state; Right calf pain Discharge Disposition: Home or Self Care07/15/2025Telephone [facility] [address] [place] [address] [address] [place] [address] Tamara Byrd PA-C 07/15/2025Telephone [facility] [address] [place] [address] [address] [place] [address] Tera Cordero MD Calf eodcdvbppp23/25/4950Iidmsp46/24/2025 11:41 AM ESTAnesthesia Event [facility] OR [address] [place] [address] Radu Zhao MD Chakrabarty, Annapoorna, MD 07/13/2025 11:08 AM EST - 07/13/2025 2:08 PM ESTSurgery [facility] OR [address] [place] [address] Tera Cordero MD ROBOTIC LAPAROSCOPIC TOTAL HYSTERECTOMY, BILATERAL SALPINGO-OOPHORECTOMY, REMOVAL OF BILATERAL SENTINEL LYMPH NODES (INDOCYANINE GREEN DYE), CYSTOSCOPY 07/13/2025 9:30 AM EST - 07/14/2025 7:09 PM ESTHospital Encounter [facility] [address] [place] [address] Tera Cordero MD Post-op pain (Primary Dx); Endometrial cancer (HCC) Discharge Disposition: Home or Self Care07/09/2025Orders Only [facility]nec[facility] Oncology Services [facility] [facility] [address] [place] [address] Tera Cordero MD Endometrial cancer (HCC) (Primary Dx); Abnormal PET scan of colon07/07/2025 7:37 AM EST - 07/09/2025 11:59 PM EST Hospital Encounter [facility] [address] [place] [address] Discharge Disposition: Home or Self Care07/07/2025 7:37 AM EST - 07/09/2025 11:59 PM ESTHospital Encounter [facility] [address] [place] [address] Endometrial adenocarcinoma (HCC) Discharge Disposition: Home or Self Care07/03/2025 3:08 PM EST - 07/05/2025 11:59 PM ESTHospital Encounter [facility] [address] [place] [address] Discharge Disposition: Home or Self Care07/03/2025 2:10 PM EST - 07/07/2025 11:59 PM ESTHospital Encounter [facility] Pre-Admit Testing [address] [facility] [place] [address] Discharge Disposition: Home or Self Care07/03/20254174Xtaswz86/11/2025Telephone [facility] [address] [facility] [place] [address] Tera Cordero MD Surgery Yscrzzvwuu47/11/2025Prep for Procedure [facility] [facility] [address] - [address] [place] [address] Tera Cordero MD Pre-op testing (Primary Dx); Endometrial cancer (HCC)06/29/2025 2:30 PM ESTOffice Visit [facility] [address] [facility] [address] [facility] [address] [place] [address] Tera Cordero MD Endometrial adenocarcinoma (HCC) (Primary Dx)06/25/2025Tephone [facility] [facility] [address] - [address] [place] [address] Tera Cordero MD Appointment Frulszloi76/05/2025[facility] [facility] [address] - [address] [place] [address] Tera Cordero MD Referralfrom Last 3 Months Immunizations ImmunizationAdministration DatesNext DueTDaP, ADACEL (age 10y-64y), BOOSTRIX (age 10y+), IM, 0.5mL11/03/2013 Family History Medical HistoryRelationNameCommentsCancerMaternal GrandfatherDiabetesMaternal GrandfatherStrokeMaternal GrandfatherCancerMaternal GrandmotherbreastHigh Blood PressureMaternal GrandmotherStrokeMaternal GrandmotherHigh Blood PressureMother RelationNameStatusCommentsMaternal GrandfatherDeceasedMaternal Grandmother DeceasedMotherPaternal UncleAlive Social History Tobacco UseTypesPacks/DayYears UsedDateSmoking Tobacco: GsubfxXxxfmqvzei6740187 - 2000Smokeless Tobacco: Never Tobacco Cessation:Counseling Given: Not Answered Alcohol UseStandard Drinks/WeekCommentsNot Currently0 (1 standard drink = 0.6 oz pure alcohol)rarely- maybe 3 x yearHousing Stability Vital SignAnswerDate RecordedIn the last 12 months, was there a time when you were not able to pay the mortgage or rent on time?No07/14/2025In the past 12 months, how many times have you moved where you were living?t any time in the past 12 months, were you homeless or living in a nursing home (including now)?No07/14/2025 Hunger Vital SignAnswerDate RecordedWithin the past 12 months, you worried that your food would run out before you got the money to buymore.Never true07/14/2025 Within the past 12 months, the food you bought just didn't last and you didn't have money to get more.Never true07/14/2025PRAPARE - TransportationAnswerDate RecordedIn the past 12 months, has lack of transportation kept you from medical appointments or from getting medications?No07/14/2025In the past 12 months, has lack of transportation kept you from meetings, work, or from getting things needed for daily living?07/14/2025HC UtilitiesAnswerDate RecordedIn the past 12 months has the [employer], gas, oil, or water [employer] threatened to shut off services in your home?No07/14/2025Interpersonal Safety Domain Source: IP Abuse ScreeningAnswerDate RecordedPhysical zqndiZmzjww63/24/2025Verbal abuseDenies 07/13/2025Emotional rygruMqcekt01/24/2025Financial lfvizFafhaw04/24/2025Sexual ngqywLkvene80/24/2025CommentsNoSex and Gender InformationValueDate RecordedSex Assigned at BirthNot on fileLegal IdzVltstf91/10/2013 7:28 PM EST Gender IdentityNot on fileSexual OrientationNot on file Last Filed Vital Signs Vital SignReadingTime TakenCommentsBlood Rpjvootr733/7411 7:26 AM EST Xporr264607/14/2025 7:26 AM UTAXndmuqyvrqt60.7 ??C (98.1 ??F)07/14/2025 7:26 AM ESTRespiratory Fiah893709/13/2024 7:26 AM ESTOxygen Exnlqixxnl18%07/14/2025 7:26 AM ESTInhaled Oxygen Concentration--Xrqvqw065.5 kg (270 lb)07/13/2025 10:10 AM SENYcytcb259.6 cm (5' 4 )07/13/2025 10:10 AM ESTBody Mass Index46.35109/12/2024 10:10 AM EST Plan of Treatment DateTypeDepartmentCare Team (Latest Contact Info)Mgkgmiqkunu31/08/2025 1:30 PM ESTOffice Visit [facility] [address] [facility] [address] - [facility] [address] [place] [address] Tamara Byrd PA-C [address] [place] [address] [address] [place] [address] 2 WK P/O DOS: 07/13/25; DAY MMXTBZ6108/27/2025 1:00 PM ESTOffice Visit [facility] [address] [place] [address] Jose Jimenez MD [address] [place], [place] [id number] WET END TESTER - Endometrial cancer (HCC)Health MaintenanceDue DateLast DoneComments Depression Smchoa0712/17/1982HIV yrknua2212/17/1985Hepatitis C sbpkar7212/17/1988 Hepatitis B vaccine (1 of 3 - 19+ 3-dose series)1989Diabetes screen 12/17/20053698Mylajc97/30/7504Gksicnsdtzv27/30/2016Colorectal Cancer Screen 12/18/2015FIT/FOBT: Average risk12/18/2015Fecal-DNA (Cologuard): Average risk 12/18/2015Sigmoidoscopy/CT qptqlakdygiy08/30/2016Pneumococcal 50+ years Vaccine (1 of 1 - PCV)2020hingles vaccine (1 of 2)2020reast cancer screen /10/2018DTaP/Tdap/Td vaccine (2 - Td or Tdap)/Flu vaccine (#1)03/20/2025OVID-19 Vaccine (1 - season)2025Hepatitis A vaccineAged OutNo longer eligible based on patient's age to complete this topic Hib vaccineAged OutNo longer eligible based on patient's age to complete this topicMeningococcal (ACWY) vaccineAged OutNo longer eligible based on patient's age to complete this topicMeningococcal B vaccineAged OutNo longer eligible based on patient's age to complete this topicPolio vaccineAged OutNo longer eligible based on patient's age to complete this topic Procedures Procedure NamePriorityDate/TimeAssociated DiagnosisCommentsVAS DUP LOWER EXTREMITY VENOUS OWZIQFKQZ52/26/2025 9:10 PM EST Endometrial cancer (HCC) Post-operative state Right calf pain COMPREHENSIVE METABOLIC AGVGYZdpznxr21/25/2025 7:22 AM EST CBC WITH AUTO RXCPEEGZRUWAKckehof95/25/2025 7:22 AM EST ID LAPS TOTAL HYSTERECT 250 GM/< W/RMVL TUBE/OVARY07/13/2025 11:41 AM EST Endometrial cancer (HCC) Special Needs PAT SURGICAL PATHOLOGY PSSGSALdoizya63/24/2025 12:[address] SKULL BASE TO MID AOFJOQmgiyhb02/18/2025 8:00 AM EST Endometrial adenocarcinoma (HCC) POC GLUCOSE TTQKPUGHZSSPwodxxf98/18/2025 7:50 AM EST EKG 12-JSVUQucnnah48/14/2025 3:53 PM EST TYPE AND CYRCJLSaqivun50/14/2025 3:25 PM EST CA 873Sxfikgl79/14/2025 3:25 PM EST COMPREHENSIVE METABOLIC CIOLZCscvunb90/14/2025 3:25 PM EST CBC WITH AUTO EZTPFBUMRCSOXrljdvs50/14/2025 3:25 PM EST XR CHEST (2 VW)Dbetuml0907/03/2025 3:10 PM EST from Last 3 Months Results * Vascular duplex lower extremity venous [...] compressibility. Doppler flow was phasic and spontaneous. College Admissions Counselor Details A robertson scale, color Doppler imaging and spectral Doppler analysis ultrasound was performed. During the study longitudinal and transverse views were obtained. Pulsed wave doppler was performed. Overall the study quality was adequate. Authorizing ProviderResult TypeResult StatusAlyssa Rochelle LICEA-CCIlir VASCULAR ORDERABLESFinal Result * (ABNORMAL) CBC auto differential (07/14/2025 7:22 AM EST) Only the most recent of2 resultswithin the time period is included. ComponentValueRef RangeTest MethodAnalysis TimePerformed AtPathologist Signature WBC13.9(H)3.5 - 11.3 k/uL11/ 7:22 AM [facility] LABORATORIESRBC5.023.95 - 5.11 m/uL07/14/2025 7:22 AM [facility] AXMSEZPPRCSXEdecwwgsxj60.811.9 - 15.1 g/dL 07/14/2025 7:22 AM [facility] KMIBIJPSVZYMKcrojeuwsc65.536.3 - 47.1 %07/14/2025 7:22 AM [facility] WJEBJWEONTFBOJD31.7(L)82.6 - 102.9 fL07/14/2025 7:22 AM EST [facility] OTWRHLYCVHNLWFI81.525.2 - 33.5 pg07/14/2025 7:22 AM [facility] MCHC34.128.4 - 34.8 g/dL07/14/2025 7:22 AM [facility] QAAEIWCGUIFHBPG62.5(H)11.8 - 14.4 %07/14/2025 7:22 AM [facility] SAXETQYLQBWYMagntxkgd191757 - 453 k/uL 07/14/2025 7:22 AM [facility] LABORATORIESMPV9.48.1 - 13.5 fL07/14/2025 7:22 AM [facility]ORATORIESNRBC Automated0.00.0 per 100 WBC07/14/2025 7:22 AM [facility]ORATORIESNeutrophils %80(H)36 - 65 %07/14/2025 7:22 AM [facility] Lymphocytes %12(L)24 - 43 %07/14/2025 7:22 AM [facility]ORATORIESMonocytes %73 - 12 %07/14/2025 7:22 AM [facility]ATORIESEosinophils %0(L)1 - 4 %07/14/2025 7:22 AM [facility]ORATORIESBasophils %00 - 2 %07/14/2025 7:22 AM [facility] LABORATORIESImmature Granulocytes %1(H)0 %07/14/2025 7:22 AM [facility] LABORATORIESNeutrophils Trogtxot45.09(H)1.50 - 8.10 k/uL07/14/2025 7:22 AM EST [facility] LABORATORIESLymphocytes Absolute1.601.10 - 3.70 k/uL07/14/2025 7:22 AM EST [facility]ORATORIESMonocytes Absolute1.020.10 - 1.20 k/uL07/14/2025 7:22 AM EST [facility] LABORATORIESEosinophils Absolute<0.030.00 - 0.44 k/uL07/14/2025 7:22 AM [facility]ORATORIESBasophils Absolute<0.030.00 - 0.20 k/uL07/14/2025 7:22 AM [facility]ORATORIESImmature Granulocytes Absolute0.150.00 - 0.30 k/uL 07/14/2025 7:22 AM [facility] LABORATORIESRBC MorphologyANISOCYTOSIS PRESENT MICROCYTOSIS HGYEZUB0807/14/2025 7:22 AM [facility]CY LABORATORIESSpecimen (Source) Anatomical Location / LateralityCollection Method / VolumeCollection Time Received TimeBLOOD SPECIMEN / Waespjv2507/14/2025 7:22 AM EST07/14/2025 7:38 AM EST Narrative Authorizing ProviderResult TypeResult StatusTaryn Fransisca Gonzalez MDHEMATOLOGY ORDERABLESFinal ResultPerforming OrganizationAddressCity/State/ZIP CodePhone Number [place] [address] [phone] * (ABNORMAL) Comprehensive Metabolic Panel (07/14/2025 7:22 AM EST) Only the most recent of2 resultswithin the time period is included. ComponentValueRef RangeTest MethodAnalysis TimePerformed AtPathologist Signature Htazcd836081 - 145 mmol/L109/13/2024 7:22 AM [facility] LABORATORIESPotassium3.6(L) 3.7 - 5.3 mmol/L109/13/2024 7:22 AM [facility] KYUQJPBJVIVNXqbtuecm87032 - 107 mmol/L109/13/2024 7:22 AM [facility] AMMSEMLBDUQPXK82230 - 31 mmol/L109/13/2024 7:22 AM [facility] LABORATORIESAnion Txl744 - 16 mmol/L109/13/2024 7:22 AM [facility] VTAUUHINXXKIVbqamfr547(H)74 - 99 mg/dL07/14/2025 7:22 AM [facility] BUN96 - 20 mg/dL07/14/2025 7:22 AM [facility]ORATORIESCreatinine0.70.6 - 0.9 mg/dL07/14/2025 7:22 AM [facility] LABORATORIESEst, Glom Filt Rate>90>60 mL/min/1.78y80807/14/2025 7:22 AM [facility] LABORATORIESComment: ? These results [...] 1.2 mg/dL 07/14/2025 7:22 AM [facility] LABORATORIESAlkaline Buvoicrubqj0871 - 104 U/L 07/14/2025 7:22 AM [facility] AKMZTFQGKAIOTTO65(H)10 - 35 U/L109/13/2024 7:22 AM [facility] URPXZVVZEKULZFI4894 - 35 U/L109/13/2024 7:22 AM [facility] Specimen (Source)Anatomical Location / LateralityCollection Method / Volume Collection TimeReceived TimeBloodBLOOD SPECIMEN / Icxmwuy3107/14/2025 7:22 AM EST 07/14/2025 7:38 AM EST Narrative Authorizing ProviderResult TypeResult StatusTaryn D Miracle MDCHEMISTRY ORDERABLESFinal ResultPerforming OrganizationAddressCity/State/ZIP CodePhone Number [place] [address] [address] [phone] * SURGICAL PATHOLOGY REPORT (07/13/2025 12:00 AM EST)ComponentValueRef RangeTest MethodAnalysis TimePerformed AtPathologist SignatureSurgical Pathology Report Path Number: [id number] -- Diagnosis -- A. ??Uterus, cervix, bilateral [...] immunostain confirmatory). -- Diagnosis Comment -- Per [facility] pathology report in the patient's electronic [...] surfaces with no masses or lesions identified. String Studies Director sections are submitted in [facility] as follows: ?? 1-3 retail service representative posterior endomyometrium with white mucosa 4 presumed uninvolved endomyometrium ?? 5 posterior lower uterine segment 6 posterior cervix 7 anterior endomyometrium 8-9 retail service representative anterior lower uterine segment and cervix 10 retail service representative fundic nodule 11 serosal adhesions 12-14 retail service representative left fallopian tube and ovary 15-17 retail service representative right fallopian tube and ovary. B. [...] Description A, B. ??Microscopic examination performed. ??For quality control expert, selected slides reviewed by additional pathologists (Drs. [...] Loss of nuclear MMR protein expression (per [facility] pathology report in the patient's electronic [...] non-sentinel) Exact number: 6 Number of Pelvic Caspian Nodes Examined (required only if applicable) Exact number: 6 Total Number of Para-aortic Nodes Examined (sentinel and non-sentinel) Exact number: 0 Number of Para-aortic Caspian Nodes Examined Exact number: 0 DISTANT METASTASIS [...] regional lymph node metastasis N Suffix (sn) Caspian node procedure pM Category Not applicable - pM cannot be determined from the submitted specimen(s) FIGO STAGE FIGO Stage (FIGO 2009 Staging / 2018 FIGO Cancer Report) IA: No or less than half myometrial invasion FIGO Stage (2022 Staging for Cancer of the Endometrium) IA2: Non-aggressive histological types involving less than half of the myometrium with no or focal ? LVSI Processing Lab: ??[address] [address] Interpretation Performed at [address] [address] SURGICAL PATHOLOGY CONSULTATION Patient Name: AL[facility] Rec: [id number] [facility] ANATOMIC PATHOLOGY [address] [place] [address]. ??[place], [place] [address] bon [facility] JetaportSpecimen (Source)Anatomical Location / LateralityCollection Method / VolumeCollection TimeReceived Time 7:14 AM EST Narrative Authorizing ProviderResult TypeResult StatusChristopher Consuelo Hazel MD PATHOLOGY/CYTOLOGY ORDERABLESFinal ResultPerforming OrganizationAddress City/State/ZIP CodePhone Number [place] [address] [place] [address] [facility] * PET CT SKULL BASE TO MID [...] or endometrial cavity. Authorizing ProviderResult TypeResult StatusSasha Margob DOIMG NM ORDERABLES Final Result * (ABNORMAL) POC Glucose Fingerstick (07/07/2025 7:50 AM EST)ComponentValueRef RangeTest MethodAnalysis TimePerformed AtPathologist SignaturePOC Hrjhqjn760 (H)65 - 105 mg/dL07/07/2025 7:50 AM [facility] LABORATORIESSpecimen (Source) Anatomical Location / LateralityCollection Method / VolumeCollection Time Received Time07/07/2025 7:50 AM EST07/07/2025 7:57 AM EST Narrative Authorizing ProviderResult TypeResult StatusChristopher LILIAN RobertsOINT OF CARE TEST ORDERABLESFinal ResultPerforming OrganizationAddressCity/State/ZIP CodePhone Number [place] [address] [place] [address], [facility] [phone] * EKG 12 Lead (07/03/2025 3:53 PM EST)ComponentValueRef RangeTest MethodAnalysis TimePerformed AtPathologist SignatureVentricular Pmph99KBSUQCM STV MUSEAtrial Raok92KVHWEBM STV MUSEP-R Oclmfobo280pmRNAW STV MUSEQRS Mlwzpaij27xtZBQB STV MUSEQ-T Jbteaxab152zeMYPA STV MUSEQTc Calculation (Bazett)434msMHPN STV MUSEP Lqco61sxvksgtFTGY STV MUSER Dzlm18ifuxabeWIUQ STV MUSET Oujk90eayurudOGAJ STV MUSESpecimen (Source)Anatomical Location / LateralityCollection Method / VolumeCollection TimeReceived Time07/03/2025 3:53 PM EST Narrative MHPN STV MUSE - 07/04/2025 11:01 AM EST Normal sinus rhythm Normal ECG When compared with ECG of 05-Nov-2008 02:35, No significant change was found Procedure Note Joel Krishna MD - 07/04/2025 Normal sinus rhythm Normal ECG When compared with ECG of 05-Nov-2008 02:35, No significant change was found Authorizing ProviderResult TypeResult StatusChristopher Consuelo V, MDECG ORDERABLESFinal ResultPerforming OrganizationAddressCity/State/ZIP CodePhone Number [facility] STV MUSE * TYPE AND SCREEN (07/03/2025 3:25 PM EST)ComponentValueRef RangeTest Method Analysis TimePerformed AtPathologist SignatureBlood Bank Sample Expiration 07/16/2025,87508709/02/2024 3:25 PM [facility] LABORATORIESArm Band NumberBE 7355860909/02/2024 3:25 PM [facility] LABORATORIESABO/RhA LQQYSTIG28/14/2025 3:25 PM [facility] LABORATORIESAntibody JsgdvfOINPTKXI71/14/2025 3:25 PM [facility] LABORATORIESSpecimen (Source)Anatomical Location / LateralityCollection Method / VolumeCollection TimeReceived TimeBLOOD SPECIMEN / Qdcscpm2007/03/2025 3:25 PM EST07/03/2025 3:28 PM EST Narrative Authorizing ProviderResult TypeResult StatusChristopher Liliantmsurya V MDBLOOD BANK TEST ORDERABLESFinal ResultPerforming OrganizationAddressCity/State/ZIP Code Phone Number [place] [address] [place] [address], [facility] [phone] * [place] 125 (07/03/2025 3:25 PM EST)ComponentValueRef RangeTest MethodAnalysis Time Performed AtPathologist SignatureCA [address] - 38 U/mL07/03/2025 3:25 PM ESTMERCY LABORATORIESComment: The Jael ECLIA assay is used. ??Results obtained with different assay methods cannot be used interchangeably. Specimen (Source)Anatomical Location / LateralityCollection Method / Volume Collection TimeReceived TimeBloodBLOOD SPECIMEN / Uovgcon5707/03/2025 3:25 PM EST 07/03/2025 3:27 PM EST Narrative Authorizing ProviderResult TypeResult StatusChristopher Lutman V, MDCHEMISTRY ORDERABLESFinal ResultPerforming OrganizationAddressCity/State/[place] [address], [facility] [phone] * XR CHEST (2 VW) (07/03/2025 3:10 PM EST)Anatomical RegionLateralityModality ChestDigital RadiographySpecimen (Source)Anatomical Location / Laterality Collection Method / VolumeCollection TimeReceived SdabWqzcl11/15/2025 2:43 PM EST Impressions 07/04/2025 2:45 PM EST No acute process. Narrative 07/04/2025 2:45 PM EST EXAMINATION: TWO XRAY VIEWS OF THE CHEST 07/03/2025 3:08 pm COMPARISON: Two-view chest from 2008 HISTORY: ORDERING SYSTEM PROVIDED HISTORY: pre-op TECHNOLOGIST PROVIDED HISTORY: pre-op FINDINGS: The lungs are without acute focal process. ??There is no effusion or pneumothorax. The cardiomediastinal silhouette is without acute process. The osseous structures are without acute process. ??Interval worsening degenerative changes, now mild-moderate TS. Procedure Note Esvin Cortez MD - 07/04/2025 EXAMINATION: TWO XRAY VIEWS OF THE CHEST 07/03/2025 3:08 pm COMPARISON: Two-view chest from 2008 HISTORY: ORDERING SYSTEM PROVIDED HISTORY: pre-op TECHNOLOGIST PROVIDED HISTORY: pre-op FINDINGS: The lungs are without acute focal process. There is no effusion or pneumothorax. The cardiomediastinal silhouette is without acute process. The osseous structures are without acute process. Interval worsening degenerative changes, now mild-moderate TS. IMPRESSION: No acute process. Authorizing ProviderResult TypeResult StatusChristopher OZZY Roberts DIAGNOSTIC IMAGING ORDERABLESFinal Result from Last 3 Months Insurance Advance Directives * Full Code (Latest Code Status on File) Date ActivatedDate KisdkwqqdpbIadqrlbj90/24/2025 9:48 AM07/14/2025 9:14 PM Care Teams Team MemberRelationshipSpecialtyStart DateEnd Date Krys Zhou APRN - CNP [address] [place] [address] PCP - Onmebmf99/10/25
--- OUTSIDE RECORDS SUMMARY | 2025-07-23 11:00 | XMS_ITS | Patient Health Record ---
Author Organization [facility] vices Address [address] [place], [place] [address] Care Team Providers Care Extension Service Specialist Name Role Phone Chris Tamara Primary Care Provider [phone] Rodrigo Liu Unavailable [phone] Lorrie Montes Unavailable [phone] Allergies Allergen (clinical drug ingredient) Drug/Non Drug Allergy documented on EMR Reaction Allergy Type Onset Date Status diphenhydramine Benadryl Unknown Drug Allergy ActiveVicodinUnknownDrug AllergyActivePenicillinUnknownDrug AllergyActive Reason For Referral No Information Medications Medication SIG (Take, Route, Frequency, Duration) Notes Start Date End Date Status Ibuprofen ActiveElderberry Immune Health GummyActivevalACYclovir HCl 1 GM TabletTAKE 2 TABLETS BY MOUTH EVERY 12 HOURS at the onset OF SYMPTOMS Oral; Duration: 1 Days ActiveOmeprazoleActive Social History Tobacco Use: Social History Observation Description Date Details (start date - stop date) Never Smoker NA - NA Sex Assigned At : Social History Observation Description Sex Assigned At Female Social History Social DeterminantsSocial InfoQuestionAnswerNotesPRAPAREDate Completed/Updated: 11/14/2024patient entered dataWhat is your current housing situation?I have housingpatient entered dataAre you worried about losing your housing?No patient entered dataWhat is the highest level of school that you have finished?High school diploma or GEDpatient entered dataWhat 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 (For example: talkingto friends on the phone, visiting friends or family, going to cheondoism or club meetings)More than 5 times a weekpatient entered dataHow stressed are you? Stress is when someone feels tense, nervous, anxious, or can't sleep at nightbecause their mind is troubledA little bitpatient entered dataIn the past year have you spent more than 2 nights in a row in a residential, shelter, care home center, orjuvenile correctional facility?Nopatient entered dataAre you a refugee?Nopatient entered dataWhat country are you from?[place] Statespatient entered dataDo you feel physically and emotionally safe where you currently live?Yespatient entered dataIn the past year, have you been afraid of your partner or ex-partner?I have not had a partner in the past yearpatient entered data PRAPARE Score:4PCMH and UDS DemographicsSocial InfoQuestionAnswerNotesPriMercyOne [facility] Home QuestionsDo you have any barriers to learning?Nonepatient entered dataWhat is your preferred method of learning?Readingpatient entered dataHow often do you need to have someone help you read instructions?Never patient entered dataDrugs/Alcohol/Caffeine:Social InfoQuestionAnswerNotes CAGE-AID Questionnaire (2018 Edition)Have you ever felt that you ought to cut down on your drinking or drug use?Nopatient entered dataHave people annoyed you by criticizing your drinking or drug use?Nopatient entered dataHave you ever felt bad or guilty about your drinking or drug use?Nopatient entered dataHave you ever had a drink or used drugs first thing in the morning to steady your nerves or to get rid of a hangover?Nopatient entered dataCAGE-AID Score0 InterpretationNegativeTobacco Use:Social InfoQuestionAnswerNotesTobacco Control (Standard)Tobacco use:NonsmokerAdditional Findings: Tobacco non-userCurrent nonsmokerTobacco Use/SmokingTobacco use:former smokerpatient entered data? How long has it been since you last smoked?> 10 yearspatient entered data? When did you start smoking?10/01/1984patient entered data? When did you stop smoking?01/31/2001patient entered dataSection Notes: Nutrition counseling focusin g on a low sodium and low sugar diet discussed with the patient, as well as appropriate weekly exercise and increased activity as tolerated to work towards a more optimal body mass index for improved overall health. Problems Problem Type SNOMED Code ICD Code Onset Dates Problem Status W/U Status Risk Notes Problem Body mass index 40+ - severely obese (038979735) BMI 45.0-49.9, adult (Z68.42) Activeconfirmed Vital Signs Heart Rate 73 /min 05/11/2025 Flcddhehpgp30.5 degrees Qaxojafqrv45/28/2025Valdovinos, Manny 11/14/2024 08:35:18 AM EDT >Respiratory Rate18 /min11/14/2024Valdovinos, Manny 11/14/2024 08:35:18 AM EDT >Blood pressure dakcwypxv75 mm Hg05/11/20257342Rgldbyxa11 %11/14/2024Valdovinos, Manny 11/14/2024 08:35:18 AM EDT >Height-cm162.56 cm 05/11/2025Weight-kg123.38 kg05/11/20257158Mikohs4'4 in05/11/2025lood pressure iwzmnlwx051 mm Hg05/11/20253363Pxfolt804 lbs05/11/2025BMI46.68 kg/m205/11/2025 Encounters Encounter Location Date Provider Diagnosis Main [address] [place], [place] [id number] 11/14/2024 Tamara Perez BMI 45.0-49.9, adult Z68.42 and Encounter to establish care Z76.89 Dental Main [address] [place], [place] [id number] 01/01/2025 Lorrie Montes BMI 45.0-49.9, justin lt Z68.42 ; Dietary counseling Z71.3 ; Exercise counseling Z71.82 ; Encounter for dental examination and cleaning with abnormal findings Z01.21 ; Dental caries into dentine K02.62 and Dental mosque status Z98.811 Dental Main [address] [place], [place] [id number] 02/27/2025 Rodrigo Liu Dental caries into dentine K02.62 Dental Main [address] [place] [id number] 05/11/2025 Rodrigo Liu Dental caries into dentine K02.62 Assessments Encounter Date Diagnosis (ICD Code) Assessment Notes Treatment Notes Treatment Clinical Notes Section Notes 11/14/2024 BMI 45.0-49.9, adult (ICD-10 - Z 68.42) 11/14/2024Encounter to establish care (ICD-10 - Z76.89) Pt is already established w/ a PCP Was told by her PCP to go to practice her grandchildren are seen at for [place] paperwork Completed [facility] paperwork to cover pt from November to December. F/U PRN 01/01/2025MI 45.0-49.9, adult (ICD-10 - Z68.42)02/27/2025Dental caries into dentine (ICD-10 - K02.62)05/11/2025Dental caries into dentine (ICD-10 - K02.62) 01/01/2025Dietary counseling (ICD-10 - Z71.3)01/01/2025Exercise counseling (ICD- 10 - Z71.82)01/01/2025Encounter for dental examination and cleaning with abnormal findings (ICD-10 - Z01.21)01/01/2025Dental caries into dentine (ICD-10 - K02.62)01/01/2025Dental mosque status (ICD-10 - Z98.811) Plan Of Treatment Next Appt Details Provider Name:Rodrigo Liu , 08/18/2025 10:45:00 AM, [address] [place], [place], [id number], Insurance Providers Payer Name Payer Address Payer Phone Subscriber Number Group Number Insured Name Patient Relationship to Insured Coverage Start Date Coverage End Date Formerly [facility] [address] [place] [address] [id number] Nash Andinoelf - patient is the [id number] 2022[facility] DentalPO [address] [address] [place] [phone], TraLuis Angelministerio - patient is the [id number] 2024DMedicaid CFC after AnthemPO [address] [place], [place] [id number], TracySelf - patient is the insuredMedicaid CFC after AnthemPo [address] [place], [place] [id number] - patient is the [id number] 2023 Medical (General) History Medical History History ICD Code Hypertension Surgical History Surgery Date(Month/Year) gallbladder 1990
--- OUTSIDE RECORDS SUMMARY | 2025-07-23 11:00 | XMS_ITS | Encounter Summary ---
Author Organization [facility] Address [address] [facility] [facility], [address] [place] [address] Care Team Providers Care School Teacher Name Role Phone Krys Zhou APRN - FIREARMS INSPECTOR Primary Care Pro vider Reason for Referral * Imaging (Emergency) - OpenSpecialtyDiagnoses / ProceduresReferred By Contact Referred To ContactCardiology Diagnoses Endometrial cancer (HCC) Post-operative state Right calf pain Procedures Vascular duplex lower extremity venous right Tamara Byrd PA-C [address] [facility] [address] [place] [address] Phone: tel: fax: Referral IDStatusReasonStart DateExpiration DateVisits RequestedVisits [id number]/26/202511/26/202611 Reason for Visit * ReasonOnset DateCommentsCalf wjygadljzz77/26/2025 Encounter Details DateTypeDepartmentCare Team (Latest Contact Info)Qawdvnapgwo73/26/2025Telephone [facility] Gynecologic Oncology Services [address] [facility] [address] [place] [phone] Tera Cordero MD [address] [facility] [address] [place], [place] [id number] Calf tenderness Social History Tobacco UseTypesPacks/DayYears UsedDateSmoking Tobacco: [id number] - 2000Smokeless Tobacco: NeverAlcohol UseStandard Drinks/WeekCommentsNot Currently0 [...] were you homeless or living in a penitentiary (including now)?No07/14/2025Hunger Vital SignAnswerDate RecordedWithin the past [...] Domain Source: IP Abuse ScreeningAnswerDate Recorded Physical wdahaPknpla03/24/2025Verbal npgqgVszdev72/24/2025Emotional abuseDenies 07/13/2025Financial rtzvvLivwvl85/24/2025Sexual kpgwkSbftcm97/24/2025 CommentsNoSex and Gender InformationValueDate RecordedSex Assigned at BirthNot on fileLegal VdeObqwvc66/10/2013 7:28 PM ESTGender IdentityNot on fileSexual OrientationNot on filedocumented as of this encounter Plan of Treatment DateTypeDepartmentCare Team (Latest Contact Info)Jgkjlqmmmmr17/08/2025 1:30 PM ESTOffice Visit [facility] [address] [facility] [address] [place] [address] Tamara Byrd PA-C [address] [facility] [address] [place] [address] 2 WK P/O DOS: 07/13/25; DAY GPFXFE5508/27/2025 1:00 PM ESTOffice Visit [facility] [address] [facility] [address] [place] [address] Jose Jimenez MD [address] [facility] [address] [place] [address] WHEEL LACER AND TRUER - Endometrial cancer (HCC)documented as of this encounter Results * Vascular duplex lower [...] compressibility. Doppler flow was phasic and spontaneous. Bag Bleacher Details A robertson scale, color Doppler imaging and spectral Doppler analysis ultrasound was performed. During the study longitudinal and transverse views were obtained. Pulsed wave doppler was performed. Overall the study quality was adequate. Authorizing ProviderResult TypeResult StatusAlyssa Rochelle WHEELERCCV VASCULAR ORDERABLESFinal Result documented in this encounter Visit Diagnoses Diagnosis Endometrial cancer (HCC)- Primary Malignant neoplasm of corpus uteri, except isthmus Post-operative state Other postprocedural status Right calf pain Endometrial cancer (HCC) Malignant neoplasm of corpus uteri, except isthmus Post-operative state Other postprocedural status Right calf pain documented in this encounter Care Teams Team MemberRelationshipSpecialtyStart DateEnd Date Krys Zhou APRN - FIREARMS INSPECTOR [address] [id number] PCP - Pytsjvy87/10/25documented as of this encounter
--- OUTSIDE RECORDS SUMMARY | 2025-07-23 11:00 | XMS_ITS | Clinical Summary ---
Author Organization [facility] Address [id number] [place] [address] Care Team Providers Care Community Development Officer Name Role Phone Krys Zhou APRN-NIELS Primary Care Provid er Allergies Active AllergyReactionsCriticalityNoted DateCommentsDiphenhydramine Hcl 02/14/20174796Mnxwqowakio02/28/2017Hydrocodone-Olmhvuvfeecpt77/01/2025 Medications MedicationSigDispense QuantityRefillsLast FilledStart DateEnd DateStatus iffieyvfhhlk-Rv-ebqw-minerals tablet Take by mouth.Active acyclovir (ZOVIRAX) 400 mg tablet Indications:Herpes simplex type 1 infectionTake 1 tablet (400 mg total) by mouth 3 (three) times a day. X 5 days for each episode 90 tablet 10/03/2018Active Additional Information Patient not taking.Reported on 11/18/2024 mrtzfqkvxm-jdmjnmulilqhx-gbig (FIORICET, ESGIC) 50-325-40 mg per tablet Indications:Tension-type headache, not intractable, unspecified chronicity patternTake 1 tablet by mouth every 4 (four) hours as needed for headaches. 30 tablet 10/03/2018Active Additional Information Patient not taking.Reported on 11/18/2024 hydrocortisone (ANUSOL-HC) 2.5 % rectal cream Indications:External hemorrhoidInsert 1 application into the rectum 2 (two) times a day as needed for hemorrhoids. 30 g Active Additional Information Patient not taking.Reported on 11/18/2024 lysine 600 mg tablet Indications:Recurrent cold soresTake 1 tablet by mouth 2 (two) times a day. 60 tablet 6001/23/2019Active Additional Information Patient not taking.Reported on 11/18/2024 glycerin-witch aleksey (AER) 12.5-50 % pad Indications:External hemorrhoidInsert 1 application into the rectum as needed for irritation. 40 each Active Additional Information Patient not taking.Reported on 11/18/2024 omeprazole (PriLOSEC) 20 mg capsule Indications:Gastroesophageal reflux disease, esophagitis presence not specified Take 1 capsule (20 mg total) by mouth daily. 30 capsule Active cholecalciferol (VITAMIN D3) 50,000 units capsule Indications:Vitamin D deficiencyTAKE 1 CAPSULE BY MOUTH once weekly 12 capsule Active Additional Information Patient not taking.Reported on 11/18/2024 ibuprofen (ADVIL,MOTRIN) 600 mg tablet Indications:Tension-type headache, not intractable, unspecified chronicity patternTAKE 1 TABLET BY MOUTH EVERY 6 HOURS NEEDED FOR PAIN 60 tablet Active cyclobenzaprine (FLEXERIL) 10 mg tablet Indications:Tension-type headache, not intractable, unspecified chronicity patternTAKE 1 TABLET BY MOUTH NIGHTLY FOR MUSCLE SPASMS 30 tablet 03/08/2020Active Additional Information Patient not taking.Reported on 11/18/2024 ELDERBERRY FRUIT ORAL Take by mouth.Active Active Problems ProblemNoted DateDiagnosed DateVitamin D /20/2020Screening for malignant neoplasm of ogtngz5512/08/2019Bleeding /10/2019External gsqunhpszr38/06/2019Recurrent cold sores01/23/2019Lumbar back pain11/25/2018Leg pain, left11/21/2018Other byjsnce5010/23/2018Herpes simplex type 1 infection 10/09/2018Tension-type headache, not fwzqwbtloaf66/20/2019H/O meningioma of the brain10/09/2018Moderate episode of recurrent major depressive dkuddwje95/14/2019 Osteoarthritis of right knee03/13/2018Generalized anxiety /28/2017 Gastroesophageal reflux syaxxdy2802/14/2017Abnormal liver function tests02/14/2017 Morbid obesity due to excess /28/2891Meeamrfggf36/28/2017Snoring 02/14/2017Mitral valve knnrwolg96/28/2017AnxietyDepressionChronic headache Resolved Problems ProblemNoted DateDiagnosed DateResolved DateHA (headache) Family History Medical HistoryRelationNameCommentsCOPDMaternal AuntHypertensionMotherMitral valve prolapseMotherAsthmaSisterHearing lossSisterRelationNameStatusComments BrotherAliveno contactDaughter 1AliveDaughter 2AliveDaughter 3Deceased (Age 6 mo)FatherAliveno contactMaternal AuntDeceasedMotherAliveSisterAlive Social History Tobacco UseTypesPacks/DayYears UsedDateSmoking Tobacco: NeverSmokeless Tobacco: Never Tobacco Cessation:Counseling Given: No Alcohol UseStandard Drinks/WeekCommentsNo0 (1 standard drink = 0.6 oz pure alcohol)PHQ-2AnswerDate RecordedTotal Pfvqs839ChildcareAnswerDate DbqouugnTgvihqpjoDnstiyk13/03/2019EmploymentAnswerDate RecordedEmploymentUnknown 01/20/2019Hunger ScreeningAnswerDate RecordedWithin the past 12 months we worried whether our food would run out before we got money to buy more.Never True11/18/2024Within the past 12 months the food we bought just didn't last and we didn't have money to get more.Never True11/18/2024Purpose - LifeAnswerDate RecordedPurpose and direction in zpmcBsesxdz87/11/2021CommentsNoSex and Gender InformationValueDate RecordedSex Assigned at BirthNot on fileLegal Sex Ywogyk5103/25/2015 12:08 PM EDTGender IdentityNot on fileSexual OrientationNot on file Last Filed Vital Signs Vital SignReadingTime TakenCommentsBlood Arymxqle299/67011/18/2024 4:00 PM EDT Iasov167711/18/2024 3:31 PM SCIOjamwgxhxdn82.9 ??C (98.4 ??F)11/18/2024 3:31 PM EDTRespiratory Dtyr535611/18/2024 3:31 PM EDTOxygen Ryumrhzpqp562%11/18/2024 4:00 PM EDTInhaled Oxygen Concentration--Ltuyjc165.7 kg (275 lb)11/18/2024 3:31 PM XQHLejsic890 cm (5' 3 )11/18/2024 3:31 PM EDTBody Mass Index48.71011/18/2024 3:31 PM EDT Plan of Treatment Health MaintenanceDue DateLast DoneCommentsDepression Uzmiumahv43/30/1983Adult BMI Follow Up Plan1988DTaP,Tdap and Td Vaccines (1 - Tdap)1989Pap SmearMammogram, 02/19/2019Zoster (Shingles) Vaccine (1 of 2)2020Influenza Julufnz7104/20/2025dult BMI Dydtwpvol81Tobacco Ubjbhsyvv86 Medical Devices Not on file Procedures Procedure NamePriorityDate/TimeAssociated DiagnosisCommentsMAMM SCREENING BILATERAL W WPXGnvqlyq17/03/2019 4:42 PM EDT Encounter for screening mammogram for malignant neoplasm of breast HIGH RISK HPV W/JUSPOardeut10/12/2015 6:20 PM EDT from Last 3 Months or Most Recently Relevant to Health Maintenance Results * Mammography screening bilateral with CAD (02/19/2019 4:42 PM EDT)Anatomical RegionLateralityModalityBreastBilateralMammography Narrative Authorizing ProviderResult TypeResult StatusLucinda Russell SCARIFIER OPERATOR-CNPIMG MAMMOGRAPHY ORDERABLESFinal Result * High risk HPV w/lesley (12/29/2014 6:20 PM EDT)ComponentValueRef RangeTest MethodAnalysis TimePerformed AtPathologist SignatureHpv specimen typeThinPrep 12/30/2014 6:20 PM EDTSUNQUESTHpv 90RhckkywsBpsqcqpp93/14/2015 11:36 AM EDT SUNQUESTHpv 97ApcihhztGfsfvzfw45/14/2015 11:36 AM EDTSUNQUESTOther high risk czeSjfvzeazRpqrwdgi27/14/2015 11:36 AM EDTSUNQUESTComment: HPV types 31,33,35,39,45,52,56,58,59,66 and 68 DNA were undetectable. Specimen (Source)Anatomical Location / LateralityCollection Method / Volume Collection TimeReceived Time12/29/2014 6:20 PM EDT12/30/2014 6:20 PM EDT Narrative Authorizing ProviderResult TypeResult StatusSindura Keith DOLAB BLOOD ORDERABLES Final ResultPerforming OrganizationAddressCity/State/ZIP CodePhone Number SUNQUEST from Last 3 Months or Most Recently Relevant to Health Maintenance Insurance Care Teams Team MemberRelationshipSpecialtyStart DateEnd Date Krys Zhou APRN-NP [address] [place] [address] PCP - GeneralNurse Practitioner11/18/24
--- OUTSIDE RECORDS SUMMARY | 2025-07-23 11:00 | XMS_ITS | Encounter Summary ---
Author Organization [facility] Address [address] [facility] [address] [facility] [address], [address] [place] [address] Care Team Providers Care Community Liaison Officer Name Role Phone YolettefahadAyeKrys KEI - POOL INSTALLER Primary Care Pro vider Encounter Details DateTypeDepartmentCare Team (Latest Contact Info)Phgrxtoojpq06/25/2025Travel Social History Tobacco UseTypesPacks/DayYears UsedDateSmoking Tobacco: UtwtibUvspjparsl4884415 - 2000Smokeless Tobacco: NeverAlcohol UseStandard Drinks/WeekCommentsNot Currently0 [...] or living in a nursing home (including now)?No07/14/2025Hunger Vital SignAnswerDate RecordedWithin the past [...] Domain Source: IP Abuse ScreeningAnswerDate Recorded Physical fqegpOaxtpv10/24/2025Verbal zcwxoBjsdey43/24/2025Emotional abuseDenies 07/13/2025Financial sukyuJeuteg71/24/2025Sexual ewarrEwmxfz96/24/2025 CommentsNoSex and Gender InformationValueDate RecordedSex Assigned at BirthNot on fileLegal GeyWafqza50/10/2013 7:28 PM ESTGender IdentityNot on fileSexual OrientationNot on filedocumented as of this encounter Plan of Treatment DateTypeDepartmentCare Team (Latest Contact Info)Nptalwxrrzo08/08/2025 1:30 PM ESTOffice Visit [facility] [address] [facility] [address] [place] [address] Tamara Byrd PA-C [address] [facility] [address] [place] [address] 2 WK P/O DOS: 07/13/25; DAY GVUFLQ3308/27/2025 1:00 PM ESTOffice Visit [facility] [address] [facility] [address] [place] [address] Jose Jimenez MD [address] [facility] [address] [place] [address] HYDROCHLORIC MANUFACTURING SUPERVISOR - Endometrial cancer (HCC)documented as of this encounter Visit Diagnoses Not on filedocumented in this encounter Care Teams Team MemberRelationshipSpecialtyStart DateEnd Date Krys Zhou APRN - POOL INSTALLER [address] [place] [address] [facility] Dovvzxb20/10/25documented as of this encounter
--- OUTSIDE RECORDS SUMMARY | 2025-07-23 11:00 | XMS_ITS | Encounter Summary ---
Author Organization [facility] Address [address] [facility] [place] [address] Care Team Providers Care Clinical Document Improvement Educator Name Role Phone KentonKrys pérez KEI - PRIMER INSPECTOR Primary Care Pro vider Reason for Visit * ReasonOnset DateCommentsPost op klmwjz8807/20/2025 Encounter Details DateTypeDepartmentCare Team (Latest Contact Info)Urvhfxdwglp33/01/2025Telephone [facility] [address] [facility] [address] [place] [address] Tera Cordero MD [address] [facility] [address] [place], [place] [id number] Post op status Social History Tobacco UseTypesPacks/DayYears UsedDateSmoking Tobacco: QcutmuXdgwajamjx8814349 - 2000Smokeless Tobacco: NeverAlcohol UseStandard Drinks/WeekCommentsNot Currently0 [...] were you homeless or living in a retirement (including now)?No07/14/2025Hunger Vital SignAnswerDate RecordedWithin the past [...] Domain Source: IP Abuse ScreeningAnswerDate Recorded Physical jbciwUstqtz83/24/2025Verbal ahaxxXwdufp39/24/2025Emotional abuseDenies 07/13/2025Financial vasokAxmrwv95/24/2025Sexual lidbjKpvxiq75/24/2025 CommentsNoSex and Gender InformationValueDate RecordedSex Assigned at BirthNot on fileLegal AteKswatl30/10/2013 7:28 PM ESTGender IdentityNot on fileSexual OrientationNot on filedocumented as of this encounter Plan of Treatment DateTypeDepartmentCare Team (Latest Contact Info)Hpupntixjsf25/08/2025 1:30 PM ESTOffice Visit [facility] [address] [facility] [address] [place] [address] Tamara Byrd PA-C [address] [facility] [address] [place] [address] 2 WK P/O DOS: 07/13/25; 90 DAY VYUYVP3608/27/2025 1:00 PM ESTOffice Visit [facility] [address] [facility] [address] [place] [address] Jose Jimenez MD [address] [facility] [address] [place] [address] PANELBEATER - Endometrial cancer (HCC)documented as of this encounter Visit Diagnoses Not on filedocumented in this encounter Care Teams Team MemberRelationshipSpecialtyStart DateEnd Date Krys Zohu APRN - KEIRA [address] [place] [address] PCP - Rymrxfn51/10/25documented as of this encounter
--- OUTSIDE RECORDS SUMMARY | 2025-07-23 11:01 | XMS_ITS | Encounter Summary ---
Author Organization [facility] Address [address], [address] [place] [address] Care Team Providers Care Drag Seiner Name Role Phone YolettefahadKrys APRN - BUSINESS DEVELOPMENT SALES EXECUTIVE Primary Care Pro vider Encounter Details DateTypeDepartmentCare Team (Latest Contact Info)Juewnegplnb20/26/2025Telephone [facility] [address] [facility] [address] [place] [phone] Tamara Byrd PA-C [address] [facility] [address] [place] [address] Social History Tobacco UseTypesPacks/DayYears UsedDateSmoking Tobacco: [id number] - 2000Smokeless Tobacco: NeverAlcohol UseStandard Drinks/WeekCommentsNot Currently0 [...] Domain Source: IP Abuse ScreeningAnswerDate Recorded Physical taknzPmhguw60/24/2025Verbal zydfgSfqdkl75/24/2025Emotional abuseDenies 07/13/2025Financial lsleaKzxtnh76/24/2025Sexual sopieEfgqiv00/24/2025 CommentsNoSex and Gender InformationValueDate RecordedSex Assigned at BirthNot on fileLegal YwkBrutmk10/10/2013 7:28 PM ESTGender IdentityNot on fileSexual OrientationNot on filedocumented as of this encounter Plan of Treatment DateTypeDepartmentCare Team (Latest Contact Info)Prdktcsxsbd51/08/2025 1:30 PM ESTOffice Visit [facility] [address] [place] [address] Tamara Byrd PA-C [address] [facility] [address] [place] [address] 2 WK P/O DOS: 07/13/25; DAY GGAZAM6608/27/2025 1:00 PM ESTOffice Visit [facility] [address] [place] [address] Jose Jimenez MD [address] [facility] [address] [place], [place] [id number] SCIENTIFIC DIRECTOR - Endometrial cancer (HCC)documented as of this encounter Visit Diagnoses Not on filedocumented in this encounter Care Teams Team MemberRelationshipSpecialtyStart DateEnd Date Krys Zhou APRN - [address] [place] [address] PCP - Ohyxkww79/10/25documented as of this encounter
--- OUTSIDE RECORDS SUMMARY | 2025-07-23 11:01 | XMS_ITS | Encounter Summary ---
Author Organization [facility] Address [address], [address] [place] [address] Care Team Providers Care Barrel Loader Name Role Phone Krys Zhou APRN - HYDRAULIC BOOM OPERATOR Primary Care Pro vider Reason for Referral * Eval and Treat (Urgent) - Pending ReviewSpecialtyDiagnoses / Procedures Referred By ContactReferred To ContactGastroenterology Diagnoses Endometrial cancer (HCC) Abnormal PET scan of colon Tera Cordero MD [address] [facility] [address], [facility] [address] [place] [address] Phone: tel: fax: Jose Jimenez MD [address] [facility] [address] [place] [address] Phone: tel: fax: Referral IDStatusReasonStart DateExpiration DateVisits RequestedVisits [id number] Review Specialty Services Required Scheduling Instructions [facility] Gastroenterology QuestionAnswer Referral Reason Diagnostic Colonoscopy - August of 2025 please My clinical question is: Focal metabolic activity is seen with a max SUV of 6.9 within the mid sigmoid - PET SCAN Comments The patient can be scheduled with any member of the group, including the provider with the first available appointments. Encounter Details DateTypeDepartmentCare Team (Latest Contact Info)Dgcyoyeciso19/20/2025Orders Only [facility] [address] [facility] [address] [place] [address] Tera Cordero MD [address] [facility] [address], [address] [place] [address] Endometrial cancer (HCC) (Primary Dx); Abnormal PET scan of colon Social History Tobacco UseTypesPacks/DayYears UsedDateSmoking Tobacco: [id number] - 2000Smokeless Tobacco: NeverAlcohol UseStandard Drinks/WeekCommentsNot Currently0 [...] Domain Source: IP Abuse ScreeningAnswerDate Recorded Physical daxytUtoalk92/24/2025Verbal obbraMidthi02/24/2025Emotional abuseDenies 07/13/2025Financial ikloxKqhihv12/24/2025Sexual tgptsDwftlk10/24/2025 CommentsUnknownSex and Gender InformationValueDate RecordedSex Assigned at Not on fileLegal WwpBdxcfz69/10/2013 7:28 PM ESTGender IdentityNot on fileSexual OrientationNot on filedocumented as of this encounter Plan of Treatment DateTypeDepartmentCare Team (Latest Contact Info)Ycfrvbirngi67/08/2025 1:30 PM ESTOffice Visit [facility] [address] [facility] [address] [place] [address] Tamara Byrd PA-C [address] [facility] [address] [place] [address] 2 WK P/O DOS: 07/13/25; 90 DAY DFWPRP2308/27/2025 1:00 PM ESTOffice Visit [facility] [address] [facility] [facility] [address] [place], [place] [id number] Jose Jimenez MD [address] [facility] [address] [place], [place] [id number] BARKER OPERATOR - Endometrial cancer (HCC)NameTypePriorityAssociated DiagnosesOrder Schedule Luan Damon MD, Gastroenterology, ZearingOutpatient Referral Routine Endometrial cancer (HCC) Abnormal PET scan of colon Ordered: 07/09/2025documented as of this encounter Visit Diagnoses Diagnosis Endometrial cancer (HCC)- Primary Malignant neoplasm of corpus uteri, except isthmus Abnormal PET scan of colon Nonspecific abnormal results of other specified function study documented in this encounter Care Teams Team MemberRelationshipSpecialtyStart DateEnd Date Krys Zhou APRN - HYDRAULIC BOOM OPERATOR [address] [place] [address] PCP - Gmdfufh84/10/25documented as of this encounter
--- OUTSIDE RECORDS SUMMARY | 2025-07-23 11:06 | XMS_ITS | CCD ---
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 g/bHRbeuxi86.0-16.0The [facility] HealthComment on above:Performed By: #### CBC #### [facility] [address] [place] [address] Dr. Rehana White #0.14 10e3/ulCritically high0.00-0.03The [facility] Comment on above:Performed By: #### CBC #### [facility] [address] [place] [address] Dr. Rehana White %1.7 %Critically high0.0-0.5The [facility] HealthComment on above:Performed By: #### CBC #### [facility] [address] [place] [address] Dr. Rehana Max #1.9 103/ulNormal1.2-3.8The [facility] HealthComment on above:Performed By: #### CBC #### [facility] [address] [place] [address] Dr. Rehana Martinhocytes/100 WBC (Bld)22.6 %Xbfrvc92.5-60.0The [facility] HealthComment on above:Performed By: #### CBC #### [facility] [address] [place] [address] Dr. Rehana WashingtonUAL DIFF REQNONormalThe [facility] HealthComment on above: Performed By: #### CBC #### [facility] [address] [place] [address] Dr. Rehana Chamorro (RBC) [Entitic mass]25.7 pgCritically low26.7-34.0The [facility] HealthComment on above:Performed By: #### CBC #### [facility] [address] [place] [address] Dr. Rehana Chamorro (RBC) [Mass/Vol]32.2 g/gBEymwys59.9-35.2The [facility] HealthComment on above:Performed By: #### CBC #### [facility] [address] [address] [address] Rehana Giordano (RBC) [Entitic vol]79.9 fLCritically low81.0-99.0The [facility] HealthComment on above:Performed By: #### CBC #### [facility] [address] [place] [address] Dr. Rehana Knowles #0.8 103/ulNormal0.3-0.8The [facility] HospitalComment on above:Performed By: #### CBC #### [facility] [address] [place] [address] Dr. Rehana Joyocytes/100 WBC (Bld)9.3 %Normal1.7-12.0The [facility] Comment on above:Performed By: #### CBC #### [facility] [address] [place] [address] Dr. Rehana DyeUT #5.4 103/ulNormal1.4-6.5The [facility] HealthComment on above:Performed By: #### CBC #### [facility] [address] [place] [address] Dr. Rehana Dyeutrophils/100 WBC (Bld)64.4 %Crgyml01.0-75.0The [facility] HealthComment on above:Performed By: #### CBC #### [facility] [address] [place] [address] Dr. Rehana Dobbinslet mean volume (Bld) [Entitic vol]10.2 fLNormal9.5-13.5The [facility] HealthComment on above:Performed By: #### CBC #### [facility] [address] [place] [address] Dr. Rehana ValenciaPLT221 103/ntLleqds690-429Clz [facility] HealthComment on above: Performed By: #### CBC #### [facility] [address] [place] [address] Dr. Rehana ValenciaRBC5.36 106/ulNormal4.20-5.40The [facility] HealthComment on above:Performed By: #### CBC #### [facility] [address] [address] [address] Rehana ValenciaWBC8.4 103/ulNormal4.0-11.0The [facility] on above: Performed By: #### CBC #### [facility] [address] [address] [address] Rehana aVlenciaGLYCOHEMOGLOBIN A1Con [id number] RECOMMENDATIONSEE BELOWThe University Of Toledo Medical CenterComselect specialty hospital-[place] on above:Result Comment: ADA RECOMMENDED LIMIT 4.0 - 6.0 ADA THERAPEUTIC TARGET < 7.0 ACTION SUGGESTED > 7.0Performed By: #### A1C #### [facility] [address] [place] [address] Dr. Rehana ValenciaGlucose [Mass/Vol]120 mg/dLNoUniversity Hospitals Health SystemComment on above:Performed By: #### A1C #### [facility] [address] [place] [address] Dr. Rehana ValenciaHbA1c (Bld) [Mass fraction]5.8 %Normal4.5-6.2The [facility] on above:Performed By: #### A1C #### [facility] [address] [place] [address] Dr. Rehana ValenciaLIPID PROFILEon [id number]-HDL RATIO NORMSEE [facility], BeachwoodComselect specialty hospital-[place] on above:Result Comment: 3.3 - 4.4 LOW RISK 4.4 - 7.1 AVERAGE RISK 7.1 - 11.0 MODERATE RISK >11.0 HIGH RISKPerformed By: #### CMP, LIPID #### [facility] [address] [place] [address] Dr. Rehana ValenciaCholesterol [Mass/Vol]171 mg/dLNormal<=200[facility] Comment on above:Performed By: #### CMP, LIPID #### [facility] [address] [place] [address] Dr. Rehana ValenciaCholesterol in HDL [Mass/Vol]52 mg/eGUuycrh50-67Awz [facility] on above:Performed By: #### CMP, LIPID #### [facility] [address] [address] [address] Rehana ValenciaCholesterol in LDL [Mass/Vol]81.4 mg/dLNoUniversity Hospitals Health SystemComselect specialty hospital-[place] on above:Performed By: #### CMP, LIPID #### [facility] [address] [address] [address] Rehana Laurentesterzeinab.total/Cholesterol in HDL [Mass ratio]3.3 {ratio} NormalThe [facility] on above:Performed By: #### CMP, LIPID #### [facility] [address] [address] [address] Rehana Barba NORMAL> or = 60 mg/dl - LOW CARDIOVASCULAR RISK <40 mg/dl - HIGH CARDIOVASCULAR RISKMiddletown Hospital on above:Performed By: #### CMP, LIPID #### [facility] [address] [place] [address] Dr. Rehana Holt CALC NORMALSEE BELOWNoUniversity Hospitals Health SystemComselect specialty hospital-[place] on above:Result Comment: <100 mg/dl OPTIMAL 100 - 129 mg/dl NEAR OR ABOVE OPTIMAL 130 - 159 mg/dl BORDERLINE HIGH 160 - 189 mg/dl HIGH >190 mg/dl VERY HIGH Performed By: #### CMP, LIPID #### [facility] [address] [place] [address] Dr. Rehana ValenciaTriglyceride [Mass/Vol]188 mg/dLCritically high<=150The [facility] on above:Performed By: #### CMP, LIPID #### [facility] [address] [place] [address] Dr. Rehana RedLDL CALC37.6 mg/dLNoUniversity Hospitals Health SystemComselect specialty hospital-[place] on above: Performed By: #### CMP, LIPID #### [facility] [address] [place] [address] Dr. Rehana Sanchez 14(COMP METB)on [id number] [Mass/Vol]3.7 g/dLNormal 3.4-5.0The [facility] HospitalComment on above:Performed By: #### CMP, LIPID #### [facility] [address] [address] [address] Rehana ValenciaAlbumin/Globulin [Mass ratio]0.9 {ratio}NormalThe [facility] HealthComment on above:Performed By: #### CMP, LIPID #### [facility] [address] [place], [place] [address] Dr. Rehana BartonP [Catalytic activity/Vol]89 U/ANsnawd85-844Zwn [facility] HealthComment on above:Performed By: #### CMP, LIPID #### [facility] [address] [address] [address] Rehana Ball [Catalytic activity/Vol]78 U/LCritically kimt32-52Wcc [facility] HealthComment on above:Performed By: #### CMP, LIPID #### [facility] [address] [address] [address] Rehana Marquezon gap [Moles/Vol]9.9 mmol/LNormalThe [facility] HealthComment on above:Performed By: #### CMP, LIPID #### [facility] [address] [address] [address] Rehana ValenciaAST [Catalytic activity/Vol]41 U/LCritically mmfr63-98Vor [facility] on above:Performed By: #### CMP, LIPID #### [facility] [address] [address] [address] Rehana ValenciaBilirubin [Mass/Vol]0.4 mg/dLNormal0.2-1.0The [facility] Comment on above:Performed By: #### CMP, LIPID #### [facility] [address] [address] [address] Rehana ValenciaCalcium [Mass/Vol]8.8 mg/dLNormal8.5-10.1The [facility] Comment on above:Performed By: #### CMP, LIPID #### [facility] [address] [address] [address] Rehana ValenciaChloride [Moles/Vol]104 mmol/IPgdrwb43-320Dny [facility] Comment on above:Performed By: #### CMP, LIPID #### [facility] [address] [address] [address] Rehana ValenciaCO2 [Moles/Vol]30.9 mmol/LBtygbb45.0-32.0The [facility] Comment on above:Performed By: #### CMP, LIPID #### [facility] [address] [address] [address] Rehana ValenciaCreatinine [Mass/Vol]0.78 mg/dLNormal0.55-1.02The [facility] HealthComment on above:Performed By: #### CMP, LIPID #### [facility] [address] [address] [address] Rehana TaiGFR-AF UKRAINIAN>60Normal>=60The [facility] HealthComment on above:Performed By: #### CMP, LIPID #### [facility] [address] [address] [address] Rehana TaiGFR-NON AF UKRAINIAN>60Normal>=60The [facility] HealthComment on above:Performed By: #### CMP, LIPID #### [facility] [address] [address] [address] Rehana ValenciaGlobulin (S) [Mass/Vol]4.0 g/dLNormalThe [facility] HealthComment on above:Performed By: #### CMP, LIPID #### [facility] [address] [address] [address] Rehana ValenciaGlucose [Mass/Vol]97 mg/hDZsgkam87-671Jxh [facility] Comment on above:Performed By: #### CMP, LIPID #### [facility] [address] [address] [address] Rehana ValenciaPotassium [Moles/Vol]4.8 mmol/LNormal3.5-5.1The [facility] Comment on above:Performed By: #### CMP, LIPID #### [facility] [address] [address] [address] Rehana ValenciaProtein [Mass/Vol]7.7 g/dLNormal6.4-8.2The [facility] Comment on above:Performed By: #### CMP, LIPID #### [facility] [address] [place] [address] Dr. Rehana Alegriaum [Moles/Vol]140 mmol/ZMwlddy968-562Mrh [facility] Comment on above:Performed By: #### CMP, LIPID #### [facility] [address] [place] [address] Dr. Rehana Munguia nitrogen [Mass/Vol]10.0 mg/dLNormal7.0-18.0The [facility] HealthComment on above:Performed By: #### CMP, LIPID #### [facility] [address] [place] [address] Dr. Rehana Munguia nitrogen/Creatinine [Mass ratio]12.8 mg/mgNormalThe [facility] HealthComment on above:Performed By: #### CMP, LIPID #### [facility] [address] [place] [address] Dr. Rehana WILLS 3-6on [id number] [Catalytic activity/Vol]62 U/L Aqpuwf36-026Tpf [facility] HealthComment on above:Performed By: #### CMREP #### [facility] [address] [place] [address] Dr. Rehana Carias.MB [Mass/Vol]1.03 ng/mLNormal<=3.60[facility] Comment on above:Performed By: #### CMREP #### [facility] [address] [place] [address] Dr. Rehana GraffTROP8.3 pg/mLNormal4.0-51.3TMercy Health St. Vincent Medical CenterComment on above:Result Comment: CUT-OFF POINTS HAVE BEEN ESTABLISHED BASED ON THE FOURTH UNIVERSAL DEFINITIONS OF MYOCARDIAL INFARCTION. THE UPPER REFERENCE LIMIT (URL) OF TROPONIN, DEFINED THE 99TH PERCENTILE OF cTnI DISTRIBUTION IN A REFERENCE POPULATION, HAS BEEN CONFIRMED THE DECISION THRESHOLD FOR DC DIAGNOSIS.Performed By: #### CMREP #### [facility] [address] [place] [address] Dr. Rehana WILLS ADMITon [id number] [Catalytic activity/Vol]56 U/L Laornk90-103AjlPromedica Flower HospitalComment on above:Performed By: #### MARY CMADM #### [facility] [address] [place] [address] Dr. Rehana Carias.MB [Mass/Vol]0.98 ng/mLNormal<=3.60[facility] Comment on above:Performed By: #### MARY CMADM #### [facility] [address] [place] [address] Dr. Rehana GraffTROP7.6 pg/mLNormal4.0-51.3The [facility] HealthComment on above:Result Comment: CUT-OFF POINTS HAVE BEEN ESTABLISHED BASED ON THE FOURTH UNIVERSAL DEFINITIONS OF MYOCARDIAL INFARCTION. THE UPPER REFERENCE LIMIT (URL) OF TROPONIN, DEFINED THE 99TH PERCENTILE OF cTnI DISTRIBUTION IN A REFERENCE POPULATION, HAS BEEN CONFIRMED THE DECISION THRESHOLD FOR DC DIAGNOSIS.Performed By: #### ASIF HERNANDEZDM #### [facility] [address] [place] [address] Dr. Rehana PinaO45 ng/mLNormal9-82The [facility] HealthComment on above: Performed By: #### ASIF HERNANDEZDM #### [facility] [address] [place] [address] Dr. Rehana López AUTO DIFFon [id number] #0.0 103/ulNormal0.0-0.1[facility] HospitalComment on above:Performed By: #### CBC #### [facility] [address] [place] [address] Dr. Rehana Alvarengasophils/100 WBC (Bld)0.3 %Normal0.2-2.0[facility] Comment on above:Performed By: #### CBC #### [facility] [address] [place] [address] Dr. Rehana Magdaleno #0.1 103/ulNormal0.0-0.7The [facility] HealthComment on above: Performed By: #### CBC #### [facility] [address] [place] [address] Dr. Rehana Taiosinophils/100 WBC (Bld)1.2 %Normal0.9-7.0[facility] Comment on above:Performed By: #### CBC #### [facility] [address] [place] [address] Dr. Rehana Tairythrocyte distribution width (RBC) [Ratio]13.8 %Lfxvxi97.0-15.0 The [facility] HealthComment on above:Performed By: #### CBC #### [facility] [address] [place] [address] Dr. Rehana ValenciaHematocrit (Bld) [Volume fraction]38.5 %Oisgdm51.0-48.0The [facility] HealthComment on above:Performed By: #### CBC #### [facility] [address] [place] [address] Dr. Rehana ValenciaHemoglobin (Bld) [Mass/Vol]12.9 g/iRPmkzes74.0-16.0The [facility] HealthComment on above:Performed By: #### CBC #### [facility] [address] [place] [address] Dr. Rehana White #0.11 10e3/ulCritically high0.00-0.03[facility] Comment on above:Performed By: #### CBC #### [facility] [address] [place] [address] Dr. Rehana White %1.2 %Critically high0.0-0.5The [facility] HealthComment on above:Performed By: #### CBC #### [facility] [address] [place] [address] Dr. Rehana MartinH #3.0 103/ulNormal1.2-3.8The [facility] HealthComment on above:Performed By: #### CBC #### [facility] [address] [place] [address] Dr. Rehana Hernandezmphocytes/100 WBC (Bld)31.8 %Pltamo74.5-60.0The [facility] HealthComment on above:Performed By: #### CBC #### [facility] [address] [place] [address] Dr. Rehana Chandra DIFF REQNONormalThe [facility] HealthComment on above: Performed By: #### CBC #### [facility] [address] [place] [address] Dr. Rehana Chamorro (RBC) [Entitic mass]26.4 pgCritically low26.7-34.0The [facility] HealthComment on above:Performed By: #### CBC #### [facility] [address] [place] [address] Dr. Rehana Chamorro (RBC) [Mass/Vol]33.5 g/eBCwivil19.9-35.2The [facility] HealthComment on above:Performed By: #### CBC #### [facility] [address] [place] [address] Dr. Rehana Chamorro (RBC) [Entitic vol]78.9 fLCritically low81.0-99.0The [facility] HealthComment on above:Performed By: #### CBC #### [facility] [address] [place] [address] Dr. Rehana Knowles #0.6 103/ulNormal0.3-0.8The [facility] HealthComment on above:Performed By: #### CBC #### [facility] [address] [place] [address] Dr. Rehana Joyocytes/100 WBC (Bld)6.8 %Normal1.7-12.0The [facility] Comment on above:Performed By: #### CBC #### [facility] [address] [place] [address] Dr. Rehana Arreola #5.5 103/ulNormal1.4-6.5The [facility] HealthComment on above:Performed By: #### CBC #### [facility] [address] [place] [address] Dr. Rehana Dyeutrophils/100 WBC (Bld)58.7 %Azplvd95.0-75.0The [facility] HealthComment on above:Performed By: #### CBC #### [facility] [address] [address] [address] Rehana ValenciaPlatelet mean volume (Bld) [Entitic vol]10.0 fLNormal9.5-13.5The [facility] HealthComment on above:Performed By: #### CBC #### [facility] [address] [address] [address] Rehana ValenciaPLT237 103/msPbwcgk663-713Piq [facility] HealthComment on above: Performed By: #### CBC #### [facility] [address] [place] [address] Dr. Rehana ValenciaRBC4.88 106/ulNormal4.20-5.40The [facility] HealthComment on above:Performed By: #### CBC #### [facility] [address] [place] [address] Dr. Rehana ValenciaWBC9.4 103/ulNormal4.0-11.0The [facility] HealthComment on above: Performed By: #### CBC #### [facility] [address] [place] [address] Dr. Rehana ValenciaPROF CHEM 8 (BAS METB)on [id number] gap [Moles/Vol]8.1 mmol/LNormalThe [facility] HealthComment on above:Performed By: #### BMP, CMADM #### [facility] [address] [place] [address] Dr. Rehana ValenciaCalcium [Mass/Vol]9.1 mg/dLNormal8.5-10.1The [facility] Comment on above:Performed By: #### BMP, CMADM #### [facility] [address] [place] [address] Dr. Rehana ValenciaChloride [Moles/Vol]104 mmol/DLvkcsu63-483Nor [facility] Comment on above:Performed By: #### BMP, CMADM #### [facility] [address] [place] [address] Dr. Rehana ValenciaCO2 [Moles/Vol]32.3 mmol/LCritically high21.0-32.0The [facility] HealthComment on above:Performed By: #### BMP, CMADM #### [facility] [address] [address] [address] Rehana ValenciaCreatinine [Mass/Vol]0.83 mg/dLNormal0.55-1.02The [facility] Trumbullment on above:Performed By: #### BMP, CMADM #### [facility] [address] [address] [address] Rehana TaiGFR-AF UKRAINIAN>60Normal>=60The [facility] HealthComment on above:Performed By: #### BMP, CMADM #### [facility] [address] [address] [address] Rehana TaiGFR-NON AF UKRAINIAN>60Normal>=60The [facility] HealthComment on above:Performed By: #### BMP, CMADM #### [facility] [address] [address] [address] Rehana ValenciaGlucose [Mass/Vol]123 mg/dLCritically tnkh40-945Idt [facility] on above:Performed By: #### BMP, CMADM #### [facility] [address] [address] [address] Rehana ValenciaPotassium [Moles/Vol]4.4 mmol/LNormal3.5-5.1[facility] Comment on above:Performed By: #### BMP, CMADM #### [facility] [address] [address] [address] Rehana ValenciaSodium [Moles/Vol]140 mmol/KXmawik316-153Dyb [facility] Comment on above:Performed By: #### BMP, CMADM #### [facility] [address] [address] [address] Rehana ValenciaUrea nitrogen [Mass/Vol]15.0 mg/dLNormal7.0-18.0The [facility] on above:Performed By: #### BMP, CMADM #### [facility] [address] [address] [address] Rehana ValenciaUrea nitrogen/Creatinine [Mass ratio]18.1 mg/mgNormalThe [facility] HospitalComment on above:Performed By: #### BMP, CMADM #### [facility] [address] [address] [address] Rehana ValenciaXR CHEST 1 Von [id number] CHEST 1 VEXAM: XR CHEST 1 V 01/19/2022 12:44 AM [...] Electronically authenticated by: MARIO VINCENT Date: 2022-01-19 01:58[facility] Vital Signs Date TimeVital SignValuePerforming AtyxqdpguKdadlfba44-67-8568 09:09-0400Body kpswyt220.6 Bradley Quiñonez MD Work Phone: [facility] HospitalYckbgeifzp40-94-5164 09:09-0400Body mass index (BMI) [Ratio]46.35 kg/s8XdpirkAr Quiñonez MD Work Phone: [facility] HospitalXtpnjcfuio35-01-9621 09:09-0400Body icrksc491.47 kgAr Quiñonez MD Work Phone: [facility] HospitalJwyzojegxj89-93-0667 09:09-0400Diastolic blood dyneewxa43 mm[Hg]Ar Quiñonez MD Work Phone: [facility] HospitalNkgjpcargk30-43-6310 09:09-0400Systolic blood fezosqhm297 mm[Hg]Ar Quiñonez MD Work Phone: [facility] HospitalHnqstpcupd80-14-4959 09:34-0400Body ouphiz483.02 cmKrys Zhou APRN Work Phone: [facility]10-01-2025 09:34-0400 Body mass index (BMI) [Ratio]48.5 kg/t1DqadxdkkKrys Zhou APRN Work Phone: [facility]10-01-2025 09:34-0400 Body plhwzmabitg47.3 [degF]Krys Winnie HEAD RIGGER Work Phone: [phone]10-01-2025 09:34-0400 Body afcddu939.28 kgKrys Murillocaragenovevafahad HEAD RIGGER Work Phone: [phone] [place], [place] 0534310-01-2025 09:34-0400 Diastolic blood woqgcyxp88 mm[Hg]Krys Winnie HEAD RIGGER Work Phone: [phone])[address]10-01-2025 09:34-0400 Heart rate73 /minAixaarmen Zhou HEAD RIGGER Work Phone: [phone]10-01-2025 09:34-0400 SaO2% (BldA) [Mass fraction]97 %Krysrebecca Zhou HEAD RIGGER Work Phone: [phone]10-01-2025 09:34-0400 Systolic blood xynouatp416 mm[Hg]Krys Winnie CHOUDHURY Work Phone: [phone] [place], [place] [address]34304-24-2025 09:30-0400 Body cpaemh972.91 Delaney Quiñonez MD Work Phone: [facility] HospitalAvrzkedovq20-86-6158 09:30-0400Diastolic blood vyfwjmgh58 mm[Hg]Ar Quiñonez MD Work Phone: [facility] HospitalGbukkplccv95-77-8243 09:30-0400Systolic blood jpnfqred220 mm[Hg]Ar Quiñonez MD Work Phone: noC[facility] HospitalRroganxbiq98-63-1292 09:25-0400Body jkiqaq261.01 Delaney Quiñonez MD Work Phone: noC[facility] Memorial HospitalGzgphrtyal19-50-4742 09:25-0400Diastolic blood dtgehhvi51 mm[Hg]Ar Quiñonez MD Work Phone: [facility] HospitalEsarrjapor72-35-7925 09:25-0400Systolic blood mm[Hg]Ar Quiñonez MD Work Phone: [facility] HospitalZtaandabbu67-64-7015 12:09-0400Body .02 cmOhio[facility]03-10-2025 12:09-0400Body mass index (BMI) [Ratio]47.9 kg/t4PmnmmhmcrOhiohealth Doctors Hospital03-10-2025 12:09-0400Body ldpelpfqfdm31.9 [degF][facility]03-10-2025 12:09-0400Body mwaaqv097.81 kgOhiohealth Doctors Hospital03-10-2025 12:09-0400Diastolic blood wmrupugz09 mm[Hg][facility]03-10-2025 12:09-0400 Heart rate85 /[facility]03-10-2025 12:09-0400 Respiratory rate16 /[facility]03-10-2025 12:09-0400 SaO2% (BldA) [Mass fraction]97 %[facility]03-10-2025 12:09-0400Systolic blood raoxclwj861 mm[Hg][facility] 10-10-2024 10:59-0500Body bqyxpt273.02 cmOhiohealth Doctors Hospital 10-10-2024 10:59-0500Body mass index (BMI) [Ratio]47.5 kg/u3BattldkscOhiohealth Doctors Hospital02-21-2025 10:59-0500Body .4 [degF][facility]02-21-2025 10:59-0500Body viktfx348.56 kgOhiohealth Doctors Hospital02-21-2025 10:59-0500Diastolic blood dyjczbus17 mm[Hg][facility]02-21-2025 10:59-0500Heart rate85 /[facility]02-21-2025 10:59-1539UlZ3% (BldA) [Mass fraction]97 %[facility]02-21-2025 10:59-0500Systolic blood rfllyxbp122 mm[Hg] [facility]10-29-2024 15:32-0400Body dhueyy813.29 kgAr Quiñonez MD Work Phone: [facility] HospitalFqiusiestp36-34-9198 15:32-0400Diastolic blood dsiqlqza80 mm[Hg]Ar Quiñonez MD Work Phone: [facility] HospitalWewyxgxwno46-38-7704 15:32-0400Systolic blood mm[Hg]Ar Quiñonez MD Work Phone: [facility] HospitalDwvzxqqsgu01-62-7136 13:11-0400Body wcwove099.83 kgAr Quiñonez MD Work Phone: [phone]-[facility] HospitalUuzvofkoit49-01-2294 13:11-0400Diastolic blood roknoshd72 mm[Hg]Ar Quiñonez MD Work Phone: [facility] HospitalRqelzmnlqf47-39-0424 13:11-0400Systolic blood mm[Hg]Ar Quiñonez MD Work Phone: [phone])387-[facility] HospitalSpdvgeafvr31-95-2250 07:11-0400Body sktkgo780.02 cmAGURJIT Zhou Work Phone: [phone])[address]09-04-2024 07:11-0400 Body .46 kgAPRYanet Zhou Work Phone: [phone] [address]08-01-2024 13:46-0400 Body .02 cmAGURJIT Zhou Work Phone: [phone])[address]08-01-2024 13:46-0400 Body mass index (BMI) [Ratio]47.8 kg/m2KEI Zhou Work Phone: [phone] [place], [place] 0534308-01-2024 13:46-0400 Body bazedn395.46 kgKEI Zhou Work Phone: [phone]08-01-2024 13:46-0400 Diastolic blood mfiprppy04 mm[Hg]KEI Zhou Work Phone: [phone] [place], [place] 0534308-01-2024 13:46-0400 Heart rate80 /minAPRYanet Zhou Work Phone: [facility]08-01-2024 13:46-0400 SaO2% (BldA) [Mass fraction]98 %KEI Zhou Work Phone: [facility]08-01-2024 13:46-0400 Systolic blood pedrbbhf972 mm[Hg]KEI Zhou Work Phone: [facility]02-10-2024 09:30-0500 Body nqgyaq945.02 cmAfatoumata Soriano Other [employer] Other 02-10-2024 09:30-0500Body mass index (BMI) [Ratio] 44.78 kg/n5GzndeTracey Soriano Other [employer] Other 02-10-2024 09:30-0500Body lytzbdlknbb38.2 [degF]Tracey Soriano Other [employer] Other 02-10-2024 09:30-0500Body loewcg506.67 kgTracey Soriano Other [employer] Other 02-10-2024 09:30-0500Diastolic blood mzohrgjb32 mm[Hg] Tracey Soriano Other [employer] Other 02-10-2024 09:30-0500Respiratory rate18 /minTracey Soriano Other [employer] Other 02-10-2024 09:30-1588NlX9% (BldA) [Mass fraction]98 % Tracey Soriano Other [employer] Other 02-10-2024 09:30-0500Systolic blood eyteuqjo251 mm[Hg] Tracey Soriano Other [employer] Other 11-19-2023 10:35-0500Body nwkueb521.02 cmAmbartemio Soriano Other [employer] Other 11-19-2023 10:35-0500Body mass index (BMI) [Ratio] 43.32 kg/b2InlrgTracey Soriano Other [employer] Other 11-19-2023 10:35-0500Body caiuxexqhzt00 [degF]Tracey Soriano Other [employer] Other 11-19-2023 10:35-0500Body anwkai067.95 kgTracey Soriano Other [employer] Other 11-19-2023 10:35-0500Respiratory rate18 /minTracey Soriano Other [employer] Other 11-19-2023 10:35-8752SeF3% (BldA) [Mass fraction]97 % Tracey Soriano Other [employer] Other [id number] 12:43-0500Diastolic blood xtijhrhm92 mm[Hg] PHYSICIAN NO [facility]01-10-2023 12:43-0500Heart rate70 /minPHYSICIAN [facility]01-10-2023 12:43-0500Respiratory rate16 /minPHYSICIAN [facility]01-10-2023 12:43-2074GnS3% (BldA) [Mass fraction]98 %PHYSICIAN NO [facility]01-10-2023 12:43-0500Systolic blood mm[Hg]PHYSICIAN NO [facility]01-10-2023 09:36-0500 Body .56 cmPHYSICIAN [facility] 08-29-2022 09:36-0500Body rmjyxdwyqcy71.4 [degF]PHYSICIAN [facility]01-10-2023 09:36-0500Body lfumiv015.93 kgPHYSICIAN [facility]10-24-2022 14:26-0400Body .02 cm PHYSICIAN NO [facility]10-24-2022 14:26-0400Body ltyakt916.86 kgPHYSICIAN [facility]09-26-2022 14:30-0400Body fxmvbo315.02 cmSmillie Wolff Other [employer] Other 09-26-2022 14:30-0400Body mass index (BMI) [Ratio] 42.16 kg/z1TnzfwaknuIdania Wolff Other [employer] Other 09-26-2022 14:30-0400Body hqewqpvybut45.8 [degF] Idania Wolff Other [employer] Other 09-26-2022 14:30-0400Body ysszkl430.96 kgStchica Wolff Other [employer] Other 09-26-2022 14:30-0400Diastolic blood cwiiyhas61 mm[Hg] Idania Wolff Other [employer] Other 09-26-2022 14:30-0400Respiratory rate18 /minSmillie Wolff Other [employer] Other 09-26-2022 14:30-7903YqW3% (BldA) [Mass fraction]98 % Idania Wolff Other [employer] Other 09-26-2022 14:30-0400Systolic blood siepghli559 mm[Hg] Idania Wolff Other [employer] Other 01-31-2022 19:40-0500Body .02 cmPamela Anita Other [employer] Other 01-31-2022 19:40-0500Body mass index (BMI) [Ratio] 44.81 kg/r3Hxlbeo Anita Other [employer] Other 01-31-2022 19:40-0500Body tjitlyargqh58.8 [degF]Roxanna Anita Other [employer] Other 01-31-2022 19:40-0500Body ffvhux091.76 kgPamelzachary Anita Other [employer] Other 01-31-2022 19:40-0500Diastolic blood taoiuxxb41 mm[Hg] Roxanna Anita Other [employer] Other 01-31-2022 19:40-0500Respiratory rate18 /minPamela Anita Other [employer] Other 01-31-2022 19:40-5801HrE8% (BldA) [Mass fraction]99 % Roxanna Anita Other [employer] Other 01-31-2022 19:40-0500Systolic blood byipmcgv174 mm[Hg] Roxanna Anita Other [employer] Other Encounters Encounter DateEncounter TypeCare ProviderFacilityStart: 06-24-2025 End: 94-66-0906uaxruqvgqbMLUIGS P JONESNot AvailableStart: 06-23-2025 End: 71-73-3497Yitzsq OnlyAr Quiñonez MD Work Phone: [facility] [place] OBGYNComment on above:Endometrial cancer (HCC) (Primary Dx)Start: 06-15-2025 End: 23-90-3411Wfprzhb encounter procedureAr Quiñonez MD Work Phone: [facility] [place] OBGYNComment on above:Cervical polyp; Ovarian mass; Intertrigo; Asymptomatic menopausal stateStart: 06-15-2025 End: 96-99-2708hrilquxnawMFWBBE P JONESNot AvailableStart: 05-20-2025 End: 40-98-3123bnzdxwwhsmKtibrrqr Rohrbacher APRN Work Phone: [facility] Work Phone: Start: 05-20-2025 End: 25-10-0588Lzyjceo encounter procedureKrys Zhou APRN [facility] Work Phone: Start: 05-20-2025 End: 58-34-6405Ffllggz encounter statusKrys Zhou APRN [facility]tart: 12-11-2024 End: 03-48-8484Igqsjw outpatient visit 15 minutesAr Quiñonez MD Work Phone: noms SWS OBComment on above:Cervical polyp; Ovarian mass; Intertrigo; Asymptomatic menopausal stateStart: 12-11-2024 End: 03-67-0206svsatcjqmiPCKUIF P JONESNot AvailableStart: 11-24-2024 End: 52-89-0619Svlhypem preventive med est patient 40-64yrsPfausto Quiñonez MD Work Phone: [facility] SWS OBComment on above:Intertrigo (Primary Dx); Encounter for screening for cervical cancer; Cervical polyp; Ovarian mass; Asymptomatic menopausal stateStart: 11-24-2024 End: 38-22-9710ehzfcurppxNBIJVX P JONESNot AvailableStart: 11-18-2024 End: 72-86-5098Nytfhdjtk department patient visitKRYS RamirezLoma Linda University Children's Hospitaltart: 10-27-2024 End: 18-89-6930fqbujjshuxQoltkltspMercy Hospital Work Phone: Start: 10-27-2024 End: 10-22-9672Rkdukyr encounter procedureFormerly [facility] Work Phone: Start: 10-10-2024 End: 62-77-7709bidboapchxPdkctrhuhUpper Valley Medical Center Work Phone: Start: 10-10-2024 End: 75-53-3924Qooevqm encounter procedureFormerly [facility] Work Phone: Start: 06-23-2024 End: 48-86-1797Ikahoi outpatient visit 10 minutesAr Quiñonez MD Work Phone: noms SWS OBComment on above:Cervical polyp; Ovarian mass; Asymptomatic menopausal stateStart: 06-17-2024 End: 77-94-6771Phscfx outpatient visit 15 minutesAr Quiñonez MD Work Phone: [facility] SWS OBComment on above:Ovarian mass (Primary Dx); Cervical polyp; Asymptomatic menopausal stateStart: 05-21-2024 End: 10-47-3921Qaymvpg encounter statusAr Quiñonez MD Work Phone: noms HealthcareStart: 05-21-2024 End: 73-76-8982Dvhdkhfa preventive med est patient 40-64yrsPfausto Quiñonez MD Work Phone: n[facility] SWS OBComment on above:Chronic vulvitis (Primary Dx); Screening for malignant neoplasm of cervix; Encounter for gynecological examination without abnormal finding; Encounter for screening mammogram for malignant neoplasm of breastStart: 04-23-2024 End: 26-89-4752Iryokid encounter procedureKEI Zhou Work Phone: [facility] [place] Work Phone: Start: 04-23-2024 End: 93-20-8084rgakjfhehuIDWI Krysfaviola Zhou Work Phone: [facility] Work Phone: Start: 03-20-2024 End: 95-31-1669Fgxqyzx encounter procedureAPRYanet Krysrebecca Zhou Work Phone: [facility] Work Phone: Start: 25-84-9021Hkm-patient / Non-visitAPRYanet Zhou Work Phone: [facility] Work Phone: Start: 09-29-2023 End: 02-88-1009jqpuvfaevxOmfxx Keller Other [employer] Other Start: 93-01-1103Yasbbo outpatient visit 15 minutes Tracey MikylerFPG Urgent Care ClydeStart: 07-08-2023 End: 00-70-1152bijpbffzevBuswb Keller Other [employer] Other Start: 70-14-2740Vekpgm outpatient visit 25 minutes Tracey BoFPG Urgent Care ClydeStart: 05-19-2023 End: 24-81-3397Osydfbd encounter procedurePHYSICIAN NO [facility] [place] Work Phone: Start: 05-19-2023 End: 14-82-5043usjxzybfhvJWPYRBKUR NO [facility] Work Phone: Start: 01-66-8326Bcbahsjwj for general adult medical examination without abnormal findingsCHICA [facility] Start: 12-20-2022 End: 20-59-9616gqzonnzuflXLVWGTSNE BREAULTFacility:G9Xexoy: 12-20-2022 End: 32-55-1019Xdnskkiab for general adult medical examination without abnormal findingsSTEPHANIE MARIELLAFacility:D8Dbeiy: 10-12-2022 End: 76-00-7307rhcytkkabjKwtcwrapm Mariella Other [employer] Other Start: 37-11-2501Mxrnnsgyq encounterStephanie Mariella [facility] ClydeStart: 10-11-2022 End: 55-20-6702nwtaimdrfyZqnhocwds Mariella Other [employer] Other Start: 50-11-1486Yyrcshogo encounterStephanie Mariella [facility] ClydeStart: 09-08-2022 End: 83-81-7598urzxhbidzjDjcthtmc Jaya Other [employer] Other Start: 02-02-2008Xyaudskkq encounterLawrence Jaya [facility] Referral CoordinatorStart: 08-29-2022 End: 91-40-2405Jslaekxhe to same day surgery centerPHYSICIAN NO [facility] Work Phone: Start: 08-29-2022 End: 61-16-9238qmkkcqjrdtHUGITAQDF NO [facility] Work Phone: Start: 06-23-2022 End: 63-34-5802Legcwrc encounter procedurePHYSICIAN NO [facility] [place] Work Phone: Start: 06-07-2022 End: 89-33-8731msxugljvwtCtqeugbj Jaya Other [employer] Other Start: 25-26-6251Mngnwvhdj encounterLawrence Jaya [facility] GastroenterologyStart: 05-15-2022 End: 66-99-2572pukatmnqitNBIHYJYCX [facility] [employer] Other Start: 90-03-1255Sikxlriau for general adult medical examination without abnormal findingsStepsarika oNriegaaultFPG [facility] Start: 18-61-6079Nyliygko preventive med est patient 40-64yrsStephanie Mariella [facility] Family Medicine ClydeStart: 01-19-2022 End: 92-35-6800olwkvsayfpLLUET PARKERFacility:M5Wskcb: 09-19-2021 End: 47-84-5469aqhwuejbrvVksfjb Anita Other [place] [employer] Other Start: 12-90-7170Spqqrh outpatient visit 15 minutes Roxanna HowardFPRupesh Urgent Care Basil Procedures DateProcedureProcedure DetailPerforming ClinicianStart: 18-09-3881DHCFSJKIBCU BIOPSYAr Quiñonez MD Work Phone: start: 20-60-9593IUP of headAPRN Krys Winnie Work Phone: Start: 24-61-4295VBO of headPHYSICIAN NO FAMILYStart: 53-56-7464ZnukdzmsbtnOAELLGSJX NO FAMILYStart: 17-70-5236RDC of headPHYSICIAN NO FAMILYStart: 41-67-0279JcihiqihhxbQalnuv Jones MD Work Phone: Plan of Treatment DateCare ActivityDetailAuthorStart: 62-95-4428Jyqtqbtpx for malignant neoplasm of cervixNOMS HealthcareStart: 07-01-2025 End: 15-54-9227Xpgzsoq encounter xxviehqip30/12/2025 11:00 AM EST Office Visit MELONIE PELAEZ [address] [place] [id number] Ar Quiñonez MD [address] [place] [address] MELONIE GARCIAGYNStart: 07-01-2025 End: 30-77-7444Plopjtdjstzz / ancillary services cnipzcugai63/12/2025 10:30 AM EST Ancillary Procedure [facility] [address] [place] [address] [facility] [place] OBGYNStart: 06-23-2025 End: 77-76-5491Jhcnezaraf [Mass/volume] in Serum or PlasmaCreatinine, Serum Lab Routine Endometrial cancer (HCC) Expected: 06/23/2025 (Approximate), Expires: 06/23/2026NOTN HealthcareComment on above:Expected: 06/23/2025 (Approximate), Expires: 06/23/2026Start: 06-23-2025 End: 43-77-2986QO Abdomen and Pelvis W contrast IVCT abdomen pelvis w IV contrast Imaging High Priority Endometrial cancer (HCC) Expected: 06/23/2025, Expires: 06/23/2026NOTN Healthcare Work Phone: comment on above:Expected: 06/23/2025, Expires: 06/23/2026Start: 06-15-2025 End: 23-77-7007Uapiqecm stimulating hormoneFollicle stimulating hormone Lab Routine Asymptomatic menopausal state Expected: 06/15/2025 (Approximate), Expires: 06/15/2026NOMS HealthcareComment on above:Expected: 06/15/2025 (Approximate), Expires: 06/15/2026Start: 06-15-2025 End: 37-50-6033Mpdonnq encounter /27/2025 9:15 AM EDT Office Visit [facility] [address] [place] [address] Ar Quiñonez MD [address] [place] [address] [facility] OBStart: 05-21-2025 End: 35-99-5343NYJ Breast - bilateral screeningBilateral screening mammogram with tomosynthesis Imaging Routine Encounter for screening mammogram for malignant neoplasm of breast Expected: 05/21/2025, Expires: 08/21/2025NOTN HealthcareComment on above:Expected: 05/21/2025, Expires: 08/21/2025Start: 05-65-7712SDTFC-19 Vaccine ( season)COVID-19 Vaccine ( season)[facility]OM[facility] HealthcareStart: 40-97-0974Tgaarowlq vaccinationNOTN Healthcare Start: 12-11-2024 End: 04-91-2622Idtsjdg encounter rmqhexzfp31/24/2025 9:45 AM EDT Office Visit [facility] [address] [place] [address] Ar Quiñonez MD [address] [place] [address] [facility] OBStart: 12-11-2024 End: 40-78-8324Flatsliloylf / ancillary services ktgkfqaegy20/24/2025 8:30 AM EDT Ancillary Procedure [facility] [address] [place] [address] [phone] SWS OBStart: 11-24-2024 End: 79-56-4604Fajglczk stimulating hormoneFollicle stimulating hormone Lab Routine Asymptomatic menopausal state Expected: 11/24/2024 (Approximate), Expires: 11/24/2025NOTN HealthcareComment on above:Expected: 11/24/2024 (Approximate), Expires: 11/24/2025Start: 11-24-2024 End: 84-79-0041Bvxyslq encounter kpotyiyhu99/07/2025 9:15 AM EDT Office Visit [facility] [address] [place] [address] Ar Quiñonez MD [address] [place] [address] [facility] OBStart: 06-23-2024 End: 66-98-9411Hmtrvds encounter cmkeqbghg68/04/2024 4:15 PM EST Office Visit [facility] [address] [place] [address] Ar Quiñonez MD [address] [place] [address] [facility] OBStart: 06-17-2024 End: 60-12-9622Dlbejyo encounter uuelwkzsc45/29/2024 2:45 PM EDT Office Visit [facility] [address] [place] [address] Ar Quiñonez MD [address] [place] [address] [facility] OBStart: 06-17-2024 End: 97-36-1605PU 125CA 125 Lab Routine Ovarian mass Expected: 06/17/2024 (Approximate), Expires: 06/17/2025NOTN HealthcareComment on above:Expected: 06/17/2024 (Approximate), Expires: 06/17/2025Start: 06-17-2024 End: 13-19-4563Umtdedla stimulating hormoneFollicle stimulating hormone Lab Routine Asymptomatic menopausal state Expected: 06/17/2024 (Approximate), Expires: 06/17/2025[facility] Healthcare Work Phone: comment on above:Expected: 06/17/2024 (Approximate), Expires: 06/17/2025Start: 06-17-2024 End: 61-71-5181Ewpjjiwdttbk / ancillary services berwpukxeq42/29/2024 2:00 PM EDT Ancillary Procedure [facility] [address] [place] [address] [facility] OBStart: 72-10-3968Djeaugyog vaccination Influenza Vaccine (#1)[facility] HealthcareStart: 31-55-9970QrermcrwxSelect Medical [facility] Shawtart: 42-24-1659Srvbtumbp for malignant neoplasm of breastMammogramNOMS HealthcareStart: 48-52-1759Auofuxcja for malignant neoplasm of cervixNOMS HealthcareStart: 58-13-1052Hvrjtokcb for malignant neoplasm of cervixPap Smear [facility] HealthcareStart: 60-63-7383Efdrzcjbb B Vaccines (1 of 3 - 19+ 3-dose series)Hepatitis B Vaccines (1 of 3 - 19+ 3-dose series)[facility] HealthcareStart: 49-85-5533URnX/Tdap/Td Vaccines (1 - Tdap)DTaP/Tdap/Td Vaccines (1 - Tdap)[facility] HospitalStart: 06-26-0449UAK Vaccines (1 of 1 - Standard series)MMR Vaccines (1 of 1 - Standard series)[facility] HospitalStart: 32-48-4113Tywgrjhmy for malignant neoplasm of colonNOTN HealthcareComprehensive metabolic 2000 panel - Serum or PlasmaOhiohealth Doctors HospitalEstradiolEstradiol Lab Routine Asymptomatic menopausal state Ordered: 11/24/2024[facility] HealthcareComment on above:Ordered: 11/24/2024EstradiolEstradiol Lab Routine Asymptomatic menopausal state Ordered: 06/15/2025[facility] Healthcare Work Phone: comment on above:Ordered: 06/15/2025IGP, APT HPV,RFX 16/18,45IGP, APT HPV,RFX 16/18,45 Lab Routine Encounter for screening for cervical cancer Cervical polyp Ovarian mass Asymptomatic menopausal state Ordered: 11/24/2024[facility] Healthcare Work Phone: comment on above:Ordered: 11/24/2024Pathology Report Pathology Report Pathology and Cytology Routine Cervical polyp Ovarian mass Ordered: 06/15/2025[facility] HealthcareComment on above:Ordered: 06/15/2025Patient EducationColon Polyps [facility] Work Phone: SENDOUT TEST MISCELLANEOUS LABCORPSENDOUT TEST MISCELLANEOUS [facility] Lab Routine Screening for malignant neoplasm of cervix Encounterfor gynecological examination without abnormal finding Ordered: 05/21/2024[facility] Healthcare Work Phone: comment on above:Ordered: 05/21/2024[facility] Immunizations Immunization DateImmunizationNotesCare GleosaxeNjxfpizo85-03-5751ojtzebj toxoid, reduced diphtheria toxoid, and acellular pertussis vaccine, adsorbedPamela Anita Other [facility] Payers DatePayer CategoryPayerPolicy [id number] 2023Medicaid [id number] [id number] 1971 [id number] 2.0.1.422924.3.57[id number] 2..1.229482.3.57[id number] 2..1.407683.3.57[id number] 2..1.461164.3.57[id number] 2..1.494678.3.57[id number] 2..1.463146.3.57[id number] 2..1.036297.3.57[id number] 2..1.539681.3.57[id number] 2..1.772308.3.57[id number] 2..1.457564.19 [id number] 2..[id number] 2.0.1.6[id number] 2.0.1.655060.3.579.2.531 [id number] Social History DateTypeDetailFacilityUnknown if ever smokedOlympic Memorial Hospital [employer] Other Start: 05-21-2024 End: 42-59-1399Yow Assigned At [facility] [employer] Other Start: 08-29-2022 End: 82-56-6663Csvmqvq smoking status NHISEx-smoker (finding)[facility]tart: 37-30-7728Kcu Assigned At [facility] Hospitaltart: 06-94-9068Dxnhmkv smoking status NHISNever smoked tobacco [facility] HealthcareStart: 99-37-2565Wowdbkj use and exposureSmokeless tobacco non-userNOMS HealthcareStart: 05-21-2024 End: 10-17-0146Hlfxgaxnh beverage intakeCurrent drinker of alcohol (finding)[facility] HealthcareStart: 05-21-2024 End: 90-57-6026Ritjtdn of Social functionNOMS HealthcareHow often to you have a drink containing alcohol?Monthly or lessNOMS HealthcareHow many standard drinks containing alcohol do you have on a typical day?1 or 2NOMS HealthcareHow often do you have 6 or more drinks on 1 occasion?Less than monthlyNOMS Healthcare Start: 45-49-2370Wbz assigned at birthNot on fileUTAH STATE HOSPITAL HealthcareStart: 10-10-2024 End: 45-88-2376NbrZvjjwr (finding)[facility] Shawtart: 01-04-6028FjlYsnjzkYWVD Healthcare Goals DatePatient GoalDesired Activity/State Clinical Notes 09-19-2021 to 06-23-2025 Note Date & RghqSuvcOztlzhgp82-88-9919 History of Present illness Narrative* Ar Quiñonez MD - 06/23/2025 2:32 PM EST Bendometrial cancer Pt informed Client Associate Oncology and Ct scan ordered documented in this encounterNOCedar County Memorial HospitalGjviipuuep44-15-0936 History of Present illness Narrative* Ar Quiñonez MD - 06/15/2025 9:15 AM EDTAssociated Order(s): Endometrial biopsy Post-Procedure Diagnose(s): Cervical polyp; Ovarian mass Images from the original note were not included. Ar Quiñonez MD Obstetrics and Gynecology Patient: Alma Andino : 1970 (54 y.o.) Exam Date: 06/15/2025 Reason for Visit - Chief Complaint Patient presents with Follow-up 6 month follow-up for Irregularities/sonolucencies in the uterine lining. Requests EMB History of Present Illness 3. Menstrual cycle irregularities: Spotting in past 4 years - Patient reports not having a recent period for years - Endometrial lining measured at 4.7mm 6 months ago -FSH 06/12 13.6 - No hormonal medications or supplements being taken - Plan: a) Repeat ultrasound for endometrial depth in 6 ,onths Repeat FSH The patient presenting for gynecologic evaluation with a history of irregular menstrual bleeding. Her last menstrual period was years ago, and she reports occasional spotting, with the most recent episode occurring approximately 4 years ago. She denies any current bleeding problems or other gynecologic symptoms. a. She came to the appointment expecting to have an endometrial biopsy performed today. The patient presents for evaluation with concerns about pelvic cramping and questions regarding sexual health. She reports experiencing cramping in the pelvic area that feels similar to menstrual cramps, though she notes that she no longer has menstrual periods. The patient expresses anxiety about a recent biopsy, having heard from her mother that biopsies can open things up and make someone sick. Additionally, the patient inquires whether lack of sexual intercourse affects vaginal health, She appears nervous about the current visit and requests emotional support during the examination. Visit Vitals OB Status Postmenopausal Smoking Status Never Endometrial biopsy Date/Time: 06/15/2025 10:00 AM Performed by: Ar Quiñonez MD Authorized by: Ar Quiñonez MD Consent: Consent obtained: verbal Consent given by: patient Risks discussed: bleeding, infection and pain Alternatives discussed: referral Patient agrees, verbalizes understanding, and wants to proceed: yes Indications: Indications: abnormal uterine bleeding Pre-procedure: Urine test: negative Premeds: misoprostol Procedure: Local anesthetic: lidocaine 1% WITH epi Findings: Cervix: normal Specimen collected: specimen collected and sent to pathology Patient tolerance: tolerated well, no immediate complications Comments: Procedure comments: One pass with pipelle History of Present Illness, Associated Treatments and Results - OB History Para Term AB Living 2 0 0 0 0 0 SAB IAB Ectopic Multiple Live Births 0 0 0 0 3 # Outcome Date GA Lbr Randy/2nd Weight Sex Type Anes PTL Lv 2 1 Constitutional: Negative. HENT: Negative. Eyes: Negative. Respiratory: Negative. Cardiovascular: Negative. Gastrointestinal: Negative. Endocrine: Negative. Genitourinary: Negative. Musculoskeletal: Negative. Skin: Negative. Allergic/Immunologic: Negative. Neurological: Negative. Hematological: Negative. Psychiatric/Behavioral: Negative. Allergies[1] Current Medications[2] Medical History[3] Surgical History[4] Family History[5] Tobacco Use History[6] Physical Exam - General appearance, mentation, extraocular movements, facial strength and movement, hearing, upper and lower extremity strength and tone, sensation to gross testing, coordination, and gait are normalor at baseline unless noted below. Physical Exam Constitutional: Appearance: Normal appearance. Genitourinary: Right Labia: No rash. Left Labia: No rash. No vaginal discharge. No vaginal prolapse present. No vaginal atrophy present. No cervical lesion. HENT: Head: Normocephalic and atraumatic. Neurological: Mental Status: She is alert and oriented to person, place, and time. Psychiatric: Mood and Affect: Mood normal. Behavior: Behavior normal. Assessment/Plan ICD-10-CM 1. Cervical polyp N84.1 2. Ovarian mass N83.8 3. Intertrigo L30.4 4. Asymptomatic menopausal state Z78.0 Postmenopausal spotting Assessment: Patient reports last menstrual period was years ago with occasional spotting episodes, most recent approximately 4 years ago. Previous evaluation in November showed patient was not menopausal at that time with normal endometrial lining on prior assessment, which was reassuring. Patient hadprevious ultrasound performed. Currently denies any bleeding problems or spotting irregularities. Plan: - Endometrial biopsy to be performed today - Schedule ultrasound appointment for further evaluation Pelvic cramping Assessment: Patient reports experiencing cramping in the pelvic area similar to menstrual cramps despite no longer having menstrual periods. She inquires whether lack of sexual intercourse could cause vaginal contracture or cramping. The etiology of the cramping requires further evaluation. Plan: - Schedule ultrasound for further assessment in 6 months - Administer Tylenol for comfort Post-procedure bleeding Assessment: Patient will experience some bleeding following the procedure, which may cause mild fatigue the following day. Plan: - Expect minimal bleeding after procedure Pt will be informed of results Assessment & Plan Electronically signed by Ar Quiñonez MD [1] Allergies Allergen Reactions Acetaminophen Unknown Other Reaction(s): Palpitations, nausea, palpitations Diphenhydramine Unknown Other Reaction(s): Difficulty Breathing, can't breathe and heat palpitations Hydrocodone Other Reaction(s): Palpitations, nausea, palpitations Penicillins Hives [2] Current Outpatient Medications: acyclovir (Zovirax) 400 MG tablet, take 1 tablet by ORAL route every day while awake Oral, Disp: , Rfl: mnocxpjcob-odsvornhtimtm-xsclbrkr (Fioricet) 50-300-40 MG capsule, 1 capsule as needed Orally prn, Disp: , Rfl: cyclobenzaprine (Flexeril) 10 MG tablet, Three times daily, Disp: , Rfl: ibuprofen 600 MG tablet, Three times daily, Disp: , Rfl: losartan (Cozaar) 25 MG tablet, Daily, Disp: , Rfl: nystatin (Mycostatin) 269334 UNIT/GM powder, Apply topically 3 (three) times a day, Disp: 15 g, Rfl: 0 nystatin (Mycostatin) cream, Apply topically 2 (two) times a day, Disp: 30 g, Rfl: 2 omeprazole (PriLOSEC) [address] capsule, Take 20 mg by mouth Daily, Disp: , Rfl: triamcinolone (Kenalog) 0.1 % cream, Apply topically 2 (two) times a day, Disp: 30 g, Rfl: 2 valACYclovir (Valtrex) 1 g tablet, Every 12 hours, Disp: , Rfl: [3] Past Medical History: Diagnosis Date High blood pressure [4] Past Surgical History: Procedure Laterality Date CHOLECYSTECTOMY TONSILLECTOMY [5] Family History Problem Relation Name Age of Onset Hyperlipidemia Mother Asthma Sister Hyperlipidemia Daughter COPD Mother's Sister Stroke Mother's Sister Cancer Mother's Brother Breast cancer Maternal Grandmother Hyperlipidemia Maternal Grandmother Stroke Maternal Grandmother Diabetes Maternal Grandfather Penile cancer Maternal Grandfather Stroke Maternal Grandfather [6] Social History Tobacco Use Smoking Status Never Smokeless Tobacco Never documented in this encounterSullivan County Memorial [id number] History of Present illness Narrative* Ar Quiñonez MD - 12/11/2024 9:45 AM EDT Images from the original note were not included. Ar Quiñonez MD Obstetrics and Gynecology Patient: Alma Andino : 1970 (53 y.o.) Exam Date: 12/11/2024 Reason for Visit - Chief Complaint Patient presents with Follow-up Follow-up following in-house ultrasound for cervical polyps LMP greater than 1 year History of Present Illness The patient is a 53-year-old female who presents for evaluation of irregularities in the uterine lining. Her last menstrual period was over a year ago. Concern is expressed regarding the potential growth of polyps. Minor bleeding was experienced following her most recent Pap smear. GYNECOLOGICAL HISTORY: - Last menstrual period: Greater than a year ago Visit Vitals OB Status Postmenopausal Smoking Status Never History of Present Illness, Associated Treatments and Results - OB History Para Term AB Living 2 0 0 0 0 0 SAB IAB Ectopic Multiple Live Births 0 0 0 0 3 # Outcome Date GA Lbr Randy/2nd Weight Sex Type Anes PTL Lv 2 1 Constitutional: Negative. HENT: Negative. Eyes: Negative. Respiratory: Negative. Cardiovascular: Negative. Gastrointestinal: Negative. Endocrine: Negative. Genitourinary: Negative. Musculoskeletal: Negative. Skin: Negative. Allergic/Immunologic: Negative. Neurological: Negative. Hematological: Negative. Psychiatric/Behavioral: Negative. Allergies Allergen Reactions Acetaminophen Unknown Other Reaction(s): Palpitations, nausea, palpitations Diphenhydramine Unknown Other Reaction(s): Difficulty Breathing, can't breathe and heat palpitations Hydrocodone Other Reaction(s): Palpitations, nausea, palpitations Penicillins Hives Current Outpatient Medications: acyclovir (Zovirax) 400 MG tablet, take 1 tablet by ORAL route every day while awake Oral, Disp: , Rfl: xvgnkzuocl-mwiezjsxamhar-nqyhgvup (Fioricet) 50-300-40 MG capsule, 1 capsule as needed Orally prn, Disp: , Rfl: cyclobenzaprine (Flexeril) 10 MG tablet, Three times daily, Disp: , Rfl: ibuprofen 600 MG tablet, Three times daily, Disp: , Rfl: losartan (Cozaar) 25 MG tablet, Daily, Disp: , Rfl: nystatin (Mycostatin) [id number] UNIT/GM powder, Apply topically 3 (three) times a day, Disp: 15 g, Rfl: 0 nystatin (Mycostatin) cream, Apply topically 2 (two) times a day, Disp: 30 g, Rfl: 2 omeprazole (PriLOSEC) [address] capsule, Take 20 mg by mouth Daily, Disp: , Rfl: triamcinolone (Kenalog) 0.1 % cream, Apply topically 2 (two) times a day, Disp: 30 g, Rfl: 2 valACYclovir (Valtrex) 1 g tablet, Every 12 hours, Disp: , Rfl: Past Medical History: Diagnosis Date High blood pressure (CMS/HCC) Past Surgical History: Procedure Laterality Date CHOLECYSTECTOMY TONSILLECTOMY Family History Problem Relation Name Age of Onset Hyperlipidemia Mother Asthma Sister Hyperlipidemia Daughter COPD Mother's Sister Stroke Mother's Sister Cancer Mother's Brother Breast cancer Maternal Grandmother Hyperlipidemia Maternal Grandmother Stroke Maternal Grandmother Diabetes Maternal Grandfather Penile cancer Maternal Grandfather Stroke Maternal Grandfather Social History Tobacco Use Smoking Status Never Smokeless Tobacco Never Physical Exam - General appearance, mentation, extraocular movements, facial strength and movement, hearing, upper and lower extremity strength and tone, sensation to gross testing, coordination, and gait are normalor at baseline unless noted below. Physical Exam Constitutional: Appearance: Normal appearance. HENT: Head: Normocephalic and atraumatic. Neurological: Mental Status: She is alert and oriented to person, place, and time. Psychiatric: Mood and Affect: Mood normal. Behavior: Behavior normal. TUS today ransvaginal scans of the pelvis were obtained. Today's ultrasound was compared to a previous pelvicultrasound performed in our office on 06/17/2024. The uterus is normal in size and has contour disruption by a suspected uterine fibroid. The myometrium is rather inhomogenous in echotexture with a single suspected fibroid measuring 23 mm x 13 mm x 25 mm. The endometrium measures 4.1 mm in thickness. The endometrium appears normal in contour and contains multiple tiny sonolucencies throughout. Both ovaries are visible. The right ovary contains a 8 mm x 5 mm x 6 mm hyperechoic area, with no vascularity. There is no free fluid visible within the pelvis. Assessment/Plan ICD-10-CM 1. Encounter for screening for cervical cancer Z12.4 2. Cervical polyp N84.1 3. Ovarian mass N83.8 4. Intertrigo L30.4 5. Asymptomatic menopausal state Z78.0 Assessment & Plan Irregularities in the uterine lining. - Ultrasound results show small pockets frequently observed, not well-defined, and non-cancerous. - Uterine lining appears normal, suggesting a benign condition. - Schedule repeat ultrasound in 6 months to monitor condition. - Conduct biopsy if irregularities persist to ensure benign nature. - Advise immediate medical attention if experiencing any bleeding unrelated to a Pap smear. Follow-up Follow up in 6 months. Continue present management for intertrigo documented in this encounterSullivan County Memorial [id number] History of Present illness Narrative* Ar Quiñonez MD - 11/24/2024 9:15 AM EDT Images from the original note were not included. Ar Quiñonez MD Obstetrics and Gynecology Patient: Alma Andino : 1970 (53 y.o.) Exam Date: 11/24/2024 Reason for Visit - Chief Complaint Patient presents with Follow-up 6 month follow-up for menopause status, pap test LMP 2023 evealed a cervical fibroid measuring 16 x 12 x 18 mm, a normal endometrial lining at 4.7 mm, and a small area on the right ovary less than one centimeter. The plan includes monitoring the fibroid annually, repeating the ultrasound for the ovarian lesion in 6 months, and ordering blood teststo confirm menopause statust The patient reports amenorrhea, stating It's been a long time since her last menstrual period. She denies any recent spotting. The patient experiences hot flashes, a common menopausal symptom. The patient describes a rash in multiple areas, including the belly, groin, and behind the knees. She mentions not applying any treatments to the affected areas. The rash appears to be exacerbated bysweating and gjlh-zw-kfxr contact. The patient also mentions a cervical polyp, which has been previously identified and is pending further evaluation with an ultrasound scheduled for today. The patient's current and past medications and supplements include cream and powder for the rash. The review of systems indicates absence of menstrual periods for a long time in the reproductive system, hot flashes in the endocrine system, and rashes in the belly area, groin area, and behind knees in the skin system. Visit Vitals BP 124/76 (BP Location: Left arm) Wt 280 lb OB Status Postmenopausal Smoking Status Never History of Present Illness, Associated Treatments and Results - OB History Para Term AB Living 2 0 0 0 0 0 SAB IAB Ectopic Multiple Live Births 0 0 0 0 3 # Outcome Date GA Lbr Randy/2nd Weight Sex Type Anes PTL Lv 2 1 Constitutional: Negative. HENT: Negative. Eyes: Negative. Respiratory: Negative. Cardiovascular: Negative. Gastrointestinal: Negative. Endocrine: Negative. Genitourinary: Negative. Musculoskeletal: Negative. Skin: Negative. Allergic/Immunologic: Negative. Neurological: Negative. Hematological: Negative. Psychiatric/Behavioral: Negative. Allergies Allergen Reactions Acetaminophen Unknown Other Reaction(s): Palpitations, nausea, palpitations Diphenhydramine Unknown Other Reaction(s): Difficulty Breathing, can't breathe and heat palpitations Hydrocodone Other Reaction(s): Palpitations, nausea, palpitations Penicillins Hives Current Outpatient Medications: acyclovir (Zovirax) 400 MG tablet, take 1 tablet by ORAL route every day while awake Oral, Disp: , Rfl: cdteuazgjc-zyrkjwhwxsdcg-anbfpgnn (Fioricet) 50-300-40 MG capsule, 1 capsule as needed Orally prn, Disp: , Rfl: cyclobenzaprine (Flexeril) 10 MG tablet, Three times daily, Disp: , Rfl: fluconazole (Diflucan) 150 MG tablet, Take 1 tablet (150 mg) by mouth 1 (one) time for 1 dose, Disp: 1 tablet, Rfl: 1 ibuprofen 600 MG tablet, Three times daily, Disp: , Rfl: losartan (Cozaar) 25 MG tablet, Daily, Disp: , Rfl: nystatin (Mycostatin) [id number] UNIT/GM powder, Apply topically 3 (three) times a day, Disp: 15 g, Rfl: 0 nystatin (Mycostatin) cream, Apply topically 2 (two) times a day, Disp: 30 g, Rfl: 2 omeprazole (PriLOSEC) [address] capsule, Take 20 mg by mouth Daily, Disp: , Rfl: triamcinolone (Kenalog) 0.1 % cream, Apply topically 2 (two) times a day, Disp: 30 g, Rfl: 2 valACYclovir (Valtrex) 1 g tablet, Every 12 hours, Disp: , Rfl: Past Medical History: Diagnosis Date High blood pressure (CMS/HCC) Past Surgical History: Procedure Laterality Date CHOLECYSTECTOMY TONSILLECTOMY Family History Problem Relation Name Age of Onset Hyperlipidemia Mother Asthma Sister Hyperlipidemia Daughter COPD Mother's Sister Stroke Mother's Sister Cancer Mother's Brother Breast cancer Maternal Grandmother Hyperlipidemia Maternal Grandmother Stroke Maternal Grandmother Diabetes Maternal Grandfather Penile cancer Maternal Grandfather Stroke Maternal Grandfather Social History Tobacco Use Smoking Status Never Smokeless Tobacco Never Physical Exam - General appearance, mentation, extraocular movements, facial strength and movement, hearing, upper and lower extremity strength and tone, sensation to gross testing, coordination, and gait are normalor at baseline unless noted below. Physical Exam Constitutional: Appearance: Normal appearance. Genitourinary: Genitourinary Comments: Cervical myoma Right Labia: No rash or lesions. Left Labia: No lesions or rash. No vaginal discharge or erythema. No vaginal prolapse present. No vaginal atrophy present. Right Adnexa: not tender and no mass present. Left Adnexa: not tender and no mass present. No cervical lesion. Uterus is not tender. Uterus is anteverted. Breasts: Right: Normal. No mass or nipple discharge. Left: Normal. No mass or nipple discharge. HENT: Head: Normocephalic and atraumatic. Cardiovascular: Rate and Rhythm: Normal rate and regular rhythm. Pulmonary: Breath sounds: Normal breath sounds. Abdominal: General: There is no distension. Palpations: Abdomen is soft. There is no mass. Tenderness: There is no abdominal tenderness. Musculoskeletal: General: Normal range of motion. Cervical back: Neck supple. Lymphadenopathy: Cervical: No cervical adenopathy. Neurological: Mental Status: She is alert and oriented to person, place, and time. Skin: General: Skin is warm and dry. Psychiatric: Mood and Affect: Mood normal. Assessment/Plan ICD-10-CM 1. Intertrigo L30.4 nystatin (Mycostatin) cream nystatin (Mycostatin) [id number] UNIT/GM powder fluconazole (Diflucan) 150 MG tablet 2. Encounter for screening for cervical cancer Z12.4 IGP, APT HPV,RFX 16/18,45 3. Cervical polyp N84.1 IGP, APT HPV,RFX 16/18,45 4. Ovarian mass N83.8 IGP, APT HPV,RFX 16/18,45 5. Asymptomatic menopausal state Z78.0 IGP, APT HPV,RFX 16/18,45 Follicle stimulating hormone Follicle stimulating hormone Estradiol Follicle stimulating hormone Follicle stimulating hormone CANCELED: Estradiol Pap and exam today 1. Menopausal symptoms: - Patient reports experiencing hot flashes - Long time since patient's last menstrual period - Plan: a) Perform ultrasound to evaluate pelvic structures/Follow up ovarian cyst b) Unlikely hormone therapy options if symptoms persist or worsen c) Follow up after ultrasound results are available 2. Skin rash: - Chronic skin condition affecting belly, groin, and behind the knees - Described as bisonic rash exacerbated by sweating and nbck-ac-xpnl contact - Consistent with intertrigo or similar fungal skin infection - Plan: a) Prescribe topical cream and powder for symptom management b) Recommend use of medication to control sweating c) Advise patient on proper application of treatments d) Educate patient on the chronic nature of the condition and importance of ongoing management e) Schedule follow-up to assess treatment efficacy 3. Cervical myoma - Small roll of tissue identified previously - Currently asymptomatic - Plan: a) Perform ultrasound to evaluate the cervical polyp b) Discuss surgical removal option with patient c) Follow up after ultrasound to determine next steps documented in this encounterSullivan County Memorial [id number] Evaluation note* Diagnosis Onset Date Resolution Status Admit Date COVID-19 acuteFebruary 2024 10:53am [facility] Work Phone: [phone]) 861-542311-04-2024 History of Present illness Narrative* Ar Quiñonez MD - 06/23/2024 4:15 PM EST Images from the original note were not included. Ar Quiñonez MD Obstetrics and Gynecology Patient: Alma Andino : 1970 (53 y.o.) Exam Date: 06/23/2024 Reason for Visit - Chief Complaint Patient presents with Televisit Televisit follow up from 06/17/24 appointment. Blood work has been completed. The patient presented for a follow-up regarding her recent lab work and ultrasound results. She reported not experiencing any menstrual periods recently. The patient denied taking any hormonal medications, vitamin E, soy, omega-3, or hormone replacement pellets. Visit Vitals OB Status Postmenopausal Smoking Status Never History of Present Illness, Associated Treatments and Results - OB History Para Term AB Living 2 0 0 0 0 0 SAB IAB Ectopic Multiple Live Births 0 0 0 0 3 # Outcome Date GA Lbr Randy/2nd Weight Sex Type Anes PTL Lv 2 1 Constitutional: Negative. HENT: Negative. Eyes: Negative. Respiratory: Negative. Cardiovascular: Negative. Gastrointestinal: Negative. Endocrine: Negative. Genitourinary: Negative. Musculoskeletal: Negative. Skin: Negative. Allergic/Immunologic: Negative. Neurological: Negative. Hematological: Negative. Psychiatric/Behavioral: Negative. Allergies Allergen Reactions Acetaminophen Unknown Other Reaction(s): Palpitations, nausea, palpitations Diphenhydramine Unknown Other Reaction(s): Difficulty Breathing, can't breathe and heat palpitations Hydrocodone Other Reaction(s): Palpitations, nausea, palpitations Penicillins Hives Current Outpatient Medications: acyclovir (Zovirax) 400 MG tablet, take 1 tablet by ORAL route every day while awake Oral, Disp: , Rfl: nqsxuxdzma-jxismedwcbsgm-vjkqnveg (Fioricet) 50-300-40 MG capsule, 1 capsule as needed Orally prn, Disp: , Rfl: cyclobenzaprine (Flexeril) 10 MG tablet, Three times daily, Disp: , Rfl: ibuprofen 600 MG tablet, Three times daily, Disp: , Rfl: losartan (Cozaar) 25 MG tablet, Daily, Disp: , Rfl: omeprazole (PriLOSEC) [address] capsule, Take 20 mg by mouth Daily, Disp: , Rfl: triamcinolone (Kenalog) 0.1 % cream, Apply topically 2 (two) times a day, Disp: 30 g, Rfl: 2 valACYclovir (Valtrex) 1 g tablet, Every 12 hours, Disp: , Rfl: Past Medical History: Diagnosis Date High blood pressure (CMS/HCC) Past Surgical History: Procedure Laterality Date CHOLECYSTECTOMY TONSILLECTOMY Family History Problem Relation Name Age of Onset Hyperlipidemia Mother Asthma Sister Hyperlipidemia Daughter COPD Mother's Sister Stroke Mother's Sister Cancer Mother's Brother Breast cancer Maternal Grandmother Hyperlipidemia Maternal Grandmother Stroke Maternal Grandmother Diabetes Maternal Grandfather Penile cancer Maternal Grandfather Stroke Maternal Grandfather Social History Tobacco Use Smoking Status Never Smokeless Tobacco Never Physical Exam - General appearance, mentation, extraocular movements, facial strength and movement, hearing, upper and lower extremity strength and tone, sensation to gross testing, coordination, and gait are normalor at baseline unless noted below. OBGyn Exam Assessment/Plan Verbal consent given for televisit over the phone, provider in office and patient at home. ICD-10-CM 1. Cervical polyp N84.1 2. Ovarian mass N83.8 3. Asymptomatic menopausal state Z78.0 1. Menopausal status: - Lab work indicates patient is not currently menopausal - Plan: a) Repeat the test in 4 to 6 months to monitor changes. 2. Ovarian health: - Test for serious ovarian issues came back normal - Plan: a) No specific action required at this time. 3. Menstrual cycle irregularities: - Patient reports not having a recent period - Womb lining measured at 4.7 (within normal range) - Lab work presents a puzzle regarding menstrual cycle - No hormonal medications or supplements being taken - Plan: a) Repeat ultrasound in 3 months to check womb lining. b) Consider performing a biopsy if irregularities persist. 4. Follow-up: - Plan: a) Instruct patient to call office to schedule follow-up ultrasound in 3 months. b) Patient to call if not contacted by office within 48 to 72 hours. c) Continue monitoring menstrual cycle and reproductive health. d) Address any concerns or changes as they arise. documented in this encounterSullivan County Memorial [id number] History of Present illness Narrative* Ar Quiñonez MD - 06/17/2024 2:45 PM EDT Images from the original note were not included. Ar Quiñonez MD Obstetrics and Gynecology Patient: Alma Andino : 1970 (53 y.o.) Exam Date: 06/17/2024 Reason for Visit - Chief Complaint Patient presents with Follow-up Follow up after in house ultrasound for cervical polyp. reports not having a period for several years and is concerned about her menopausal status. An ultrasound performed earlier today revealed a cervical fibroid measuring 16 x 12 x 18 mm, a normal endometrial lining at 4.7 mm, and a small area on the right ovary less than one centimeter. The plan includes monitoring the fibroid annually, repeating the ultrasound for the ovarian lesion in 6 months, and ordering blood tests to confirm menopause status. A follow-up telephone visit is scheduled for next Sunday to discuss lab results. The ultrasound all the habits for okay on the endometrial 5 we will hold Diovan as what we want a full normal she did have a fibroid is the volar benign this 1 was 16 x 12 x 18 mm [place] muscle Kenalog year urges plan to roll the muscle of the uterus mostly benign cancers less than 1 percent in age of greater than 65 being menopause and outlet now wishes to get every year couple your papule ultrasound just before and no on the ovary fibroid and normal liner will Visit Vitals OB Status Postmenopausal Smoking Status Never History of Present Illness, Associated Treatments and Results - OB History Para Term AB Living 2 0 0 0 0 0 SAB IAB Ectopic Multiple Live Births 0 0 0 0 3 # Outcome Date GA Lbr Randy/2nd Weight Sex Type Anes PTL Lv 2 1 Constitutional: Negative. HENT: Negative. Eyes: Negative. Respiratory: Negative. Cardiovascular: Negative. Gastrointestinal: Negative. Endocrine: Negative. Genitourinary: Negative. Musculoskeletal: Negative. Skin: Negative. Allergic/Immunologic: Negative. Neurological: Negative. Hematological: Negative. Psychiatric/Behavioral: Negative. Allergies Allergen Reactions Acetaminophen Unknown Other Reaction(s): Palpitations, nausea, palpitations Diphenhydramine Unknown Other Reaction(s): Difficulty Breathing, can't breathe and heat palpitations Hydrocodone Other Reaction(s): Palpitations, nausea, palpitations Penicillins Hives Current Outpatient Medications: acyclovir (Zovirax) 400 MG tablet, take 1 tablet by ORAL route every day while awake Oral, Disp: , Rfl: yofwbdpvei-krroqbibwajup-ufpxdanj (Fioricet) 50-300-40 MG capsule, 1 capsule as needed Orally prn, Disp: , Rfl: cyclobenzaprine (Flexeril) 10 MG tablet, Three times daily, Disp: , Rfl: ibuprofen 600 MG tablet, Three times daily, Disp: , Rfl: losartan (Cozaar) 25 MG tablet, Daily, Disp: , Rfl: omeprazole (PriLOSEC) [address] capsule, Take 20 mg by mouth Daily, Disp: , Rfl: triamcinolone (Kenalog) 0.1 % cream, Apply topically 2 (two) times a day, Disp: 30 g, Rfl: 2 valACYclovir (Valtrex) 1 g tablet, Every 12 hours, Disp: , Rfl: Past Medical History: Diagnosis Date High blood pressure (CMS/HCC) Past Surgical History: Procedure Laterality Date CHOLECYSTECTOMY TONSILLECTOMY Family History Problem Relation Name Age of Onset Hyperlipidemia Mother Asthma Sister Hyperlipidemia Daughter COPD Mother's Sister Stroke Mother's Sister Cancer Mother's Brother Breast cancer Maternal Grandmother Hyperlipidemia Maternal Grandmother Stroke Maternal Grandmother Diabetes Maternal Grandfather Penile cancer Maternal Grandfather Stroke Maternal Grandfather Social History Tobacco Use Smoking Status Never Smokeless Tobacco Never Physical Exam - General appearance, mentation, extraocular movements, facial strength and movement, hearing, upper and lower extremity strength and tone, sensation to gross testing, coordination, and gait are normalor at baseline unless noted below. OBGyn Exam Assessment/Plan ICD-10-CM 1. Cervical polyp N84.1 1. Cervical fibroid: - Size: 16 x 12 x 18 mm - Location: In the muscle - Plan: a) Monitor annually with ultrasound. b) No intervention needed at this time as the fibroid is small and mostly benign. 2. Endometrial lining: - Thickness: 4.7 mm - Assessment: Normal - Plan: a) No intervention needed. 3. Ovarian lesion: - Size: Less than 1 cm - Location: Right ovary - Plan: a) Repeat ultrasound in 6 months to monitor the lesion. b) Order lab tests to rule out any malignancy or abnormal cells. 4. Menopause status: - Last period: Years ago - Assessment: Likely menopausal - Plan: a) Order blood tests to confirm menopause status. b) Schedule a telephone visit to discuss results. 5. Follow-up: - Plan: a) Schedule a telephone visit for next Sunday to discuss lab results and any concerns. b) Instruct the patient to visit [facility] for the required tests. documented in this encounterSullivan County Memorial [id number] History of Present illness Narrative* Ar Quiñonez MD - 05/21/2024 1:00 PM EDT Images from the original note were not included. Ar Quiñonez MD Obstetrics and Gynecology Patient: Alma Andino : 1970 (53 y.o.) Yearly Wellness Exam Date: 05/21/2024 Reason for Visit - Chief Complaint Patient presents with Gynecologic Exam LMP: [employer] 8 years Last Mammogram: 2023- [facility] Last Pap: about 4 years Colonoscopy: about 2 years ago, removed polyps Complaints: rashes that come and go on vagina and groin area, incontinence, Vaginal trauma, torn by clitoris area, causes irritation. Visit Vitals BP 140/80 Wt 273 lb OB Status Postmenopausal Smoking Status Never History of Present Illness, Associated Treatments and Results - OB History Para Term AB Living 2 0 0 0 0 0 SAB IAB Ectopic Multiple Live Births 0 0 0 0 3 # Outcome Date GA Lbr Randy/2nd Weight Sex Type Anes PTL Lv 2 1 Review of Systems - Constitutional: Negative. HENT: Negative. Eyes: Negative. Respiratory: Negative. Cardiovascular: Negative. Gastrointestinal: Negative. Endocrine: Negative. Genitourinary: Negative. Musculoskeletal: Negative. Skin: Negative. Allergic/Immunologic: Negative. Neurological: Negative. Hematological: Negative. Psychiatric/Behavioral: Negative. Allergies Allergen Reactions Acetaminophen Unknown Other Reaction(s): Palpitations, nausea, palpitations Diphenhydramine Unknown Other Reaction(s): Difficulty Breathing, can't breathe and heat palpitations Hydrocodone Other Reaction(s): Palpitations, nausea, palpitations Penicillins Hives Current Outpatient Medications: cyclobenzaprine (Flexeril) 10 MG tablet, Three times daily, Disp: , Rfl: ibuprofen 600 MG tablet, Three times daily, Disp: , Rfl: losartan (Cozaar) 25 MG tablet, Daily, Disp: , Rfl: omeprazole (PriLOSEC) [address] capsule, Take 20 mg by mouth Daily, Disp: , Rfl: valACYclovir (Valtrex) 1 g tablet, Every 12 hours, Disp: , Rfl: acyclovir (Zovirax) 400 MG tablet, take 1 tablet by ORAL route every day while awake Oral, Disp: , Rfl: dtboblyjyf-abasivrvwehng-pfqlpkyc (Fioricet) 50-300-40 MG capsule, 1 capsule as needed Orally prn, Disp: , Rfl: Past Medical History: Diagnosis Date High blood pressure (CMS/HCC) Past Surgical History: Procedure Laterality Date CHOLECYSTECTOMY TONSILLECTOMY Family History Problem Relation Name Age of Onset Hyperlipidemia Mother Asthma Sister Hyperlipidemia Daughter COPD Mother's Sister Stroke Mother's Sister Cancer Mother's Brother Breast cancer Maternal Grandmother Hyperlipidemia Maternal Grandmother Stroke Maternal Grandmother Diabetes Maternal Grandfather Penile cancer Maternal Grandfather Stroke Maternal Grandfather Social History Tobacco Use Smoking Status Never Smokeless Tobacco Never Physical Exam - General appearance, mentation, extraocular movements, facial strength and movement, hearing, upper and lower extremity strength and tone, sensation to gross testing, coordination, and gait are normalor at baseline unless noted below. Physical Exam Constitutional: Appearance: Normal appearance. Genitourinary: Right Labia: No rash or lesions. Left Labia: No lesions or rash. No vaginal discharge or erythema. No vaginal prolapse present. No vaginal atrophy present. Right Adnexa: not tender and no mass present. Left Adnexa: not tender and no mass present. No cervical lesion. Uterus is not tender. Uterus is anteverted. Breasts: Right: Normal. No mass or nipple discharge. Left: Normal. No mass or nipple discharge. HENT: Head: Normocephalic and atraumatic. Cardiovascular: Rate and Rhythm: Normal rate and regular rhythm. Pulmonary: Breath sounds: Normal breath sounds. Abdominal: General: There is no distension. Palpations: Abdomen is soft. There is no mass. Tenderness: There is no abdominal tenderness. Musculoskeletal: General: Normal range of motion. Cervical back: Neck supple. Lymphadenopathy: Cervical: No cervical adenopathy. Neurological: Mental Status: She is alert and oriented to person, place, and time. Skin: General: Skin is warm and dry. Psychiatric: Mood and Affect: Mood normal. Skin tags of nrck Thyroid enlargement Cervical polyp Vulvitis Assessment/Plan ICD-10-CM 1. Screening for malignant neoplasm of cervix Z12.4 SENDOUT TEST MISCELLANEOUS [facility] 2. Encounter for gynecological examination without abnormal finding Z01.419 SENDOUT TEST MISCELLANEOUS [facility] 3. Encounter for screening mammogram for malignant neoplasm of breast Z12.31 Bilateral screening mammogram with tomosynthesis documented in this encounterS[facility] [id number] Evaluation note* Encounter Date Diagnosis Assessment Notes Treatment Notes Treatment Clinical Notes Sep, Acute bacterial conjunctivitis o f both eyes (ICD-10 - H10.33) Discussed diagnosis [...] understanding and is agreeable to treatment plan. [facility] Other 11-19-2023 Evaluation note* Encounter Date Diagnosis Assessment Notes Treatment Notes Treatment Clinical Notes Jun, Sore throat (ICD-10 - J02.9) Jun,cute sinusitis, unspecified (ICD-10 - J01.90) Advised patient [...] and Capmist as directed. Encouraged supportive care asdirected today. Push fluids/rest, nasal saline washes as directed, may use Tylenol oas needed for discomfort/ Patient to follow up with PCP or UC for any new or worsening symptoms. Immediate eval if SOB, wheezing, difficulty breathing, or other concerning symptoms. Patient verbalizes understanding and is agreeable to treatment plan. Jun,Other viral agents as the cause of diseases classified elsewhere (ICD-10 - B97.89) [facility] 01-10-2023 [facility]* Encounter Date Diagnosis Assessment Notes Treatment Notes Treatment Clinical Notes May, Family history of ma lignant neoplasm of digestive organs (ICD-10 - Z80.0) [facility] Other 09-26-2022 Evaluation note* Encounter Date Diagnosis Assessment Notes Treatment Notes Treatment Clinical Notes Apr, Brain tumor (ICD-10 - D49.6) referral is being made today to neurology due to history of brain tumor symptoms of dizziness and vertigo symptoms that she was told related to that Apr,Encounter for wellness examination (ICD-10 - Z00.00)Today during your appointment we discussed your health history and family history of chronic healthproblems. We also discussed screenings that should be done to rule out chronic health problems. These screenings can help prevent many health problems from becoming major as early intervention is thebest treatment for all conditions. We will be checking your cholesterol, kidney function, blood sugar as well as special tests to rule out breast cancer and colon cancer. Based on the findings, we will come up with a plan together of when the best time for your next screening should be. Apr,Family hx of colon cancer requiring screening colonoscopy (ICD-10 - Z80.0) [facility] Other 01-31-2022 Evaluation note* Encounter Date Diagnosis Assessment Notes Treatment Notes Treatment Clinical Notes Aug, Herpes zoster without complicati on (ICD-10 - B02.9) Drink plenty fluids, get plenty of rest. Continue home medications as prescribed. Take the acyclovir as prescribed until gone. Use the ibuprofen as prescribed as needed for mild to moderate pain for severe pain use the Adams, hydrocodone as prescribed. Follow-up with your family physician, call tomorrow for an appointment for recheck without fail to discuss your home situation and anxiety as wellas reevaluate your herpes rash Aug,nxiety (ICD-10 - F41.9) [facility] [employer] Other Evaluation note* Diagnosis Onset Date Resolution Status History of colon polyps acute [facility] Work Phone: Evaluation noteNo InformationNortWarren General Hospital [employer] Other Evaluation noteNo assessment information available [facility] Work Phone: Evaluation note* Diagnosis Onset Date Resolution Status Achilles tendinitis acuteAnxietyacuteBenign meningioma of brainacuteGERD (gastroesophageal reflux disease)acuteHypertensionacuteMigraineacuteRecurrent cold soresacuteVision changesacute [facility] Work Phone: Evaluation note* Diagnosis Chronic vulvitis- Primary Unspecified vaginitis and vulvovaginitis Screening for malignant neoplasm of cervix Screening for malignant neoplasm of the cervix Encounter for gynecological examination without abnormal finding Encounter for screening mammogram for malignant neoplasm of breast [facility] Diagnosis Ovarian mass- Primary Unspecified noninflammatory disorder of ovary, fallopian tube, and broad ligament Cervical polyp Mucous polyp of cervix Asymptomatic menopausal state [facility] Diagnosis Cervical polyp Mucous polyp of cervix Ovarian mass Unspecified noninflammatory disorder of ovary, fallopian tube, and broad ligament Asymptomatic menopausal state [facility]* Diagnosis Onset Date Resolution Status Admit Date COVID-19 acuteFebruary 2024 10:53am [facility] Work Phone: Evaluation note* Diagnosis Intertrigo- Primary Other specified erythematous condition Encounter for screening for cervical cancer Cervical polyp Mucous polyp of cervix Ovarian mass Unspecified noninflammatory disorder of ovary, fallopian tube, and broad ligament Asymptomatic menopausal state documented in this encounter [facility]* Diagnosis Cervical polyp Mucous polyp of cervix Ovarian mass Unspecified noninflammatory disorder of ovary, fallopian tube, and broad ligament [facility] Other specified erythematous condition Asymptomatic menopausal state documented in this encounter [facility]* Diagnosis Onset Date Resolution Status Admit Date Hypertension acuteOctober 2024 9:29amImpaired fasting glucoseacuteOct2024 9:29amRight shoulder painacuteOct2024 9:29amWellness examinationacute May 20, 2025 9:29am [facility] Work Phone: Evaluation note* Diagnosis Cervical polyp Mucous polyp of cervix Ovarian mass Unspecified noninflammatory disorder of ovary, fallopian tube, and broad ligament [facility] Other specified erythematous condition Asymptomatic menopausal state documented in this encounter [facility]* Diagnosis Endometrial cancer (HCC)- Primary Malignant neoplasm of corpus uteri, except isthmus documented in this encounter [facility] HospitalHistory general Narrative - Reported* Type Description Date Medical History anxiety Medical HistorydepressionMedical HistoryBrain tumorSurgical Historytonsillectomy Surgical HistorycholecystectomyHospitalization Historysee above surgical history [facility] Other Hospital Discharge instructions Additional Instructions DISCHARGE [...] me in 3 months Low FODMAP diet Arvinas 1 p.o. every morning which is OTC Repeat colonoscopy in 5 years Take it easy today. Back to normal tomorrow. -Notify the doctor if you have any problems. -Office number [phone] [facility] Work Phone: Reason for referral (narrative)No reason for referral information availableUniversity [facility]als [facility] Work Phone: Reason for Referral Reason patient has gi ngosed brain tumor - scans in [facility] Diagnosis 1 Brain tumor (D49.6) Referral Organization [facility] Family Medicin e Basil Referring Provider First Name Idania Referring Provider Last Name Mariella Referring Provider Specialty Nurse Pract itantoniettar Referred Organization [facility] Referred Provider Tera Banegas Referred Address [address],[place], [place],[address] Referred Provider Specialty Neurology Referral Priority Routine General Notes Jakob Seema M 022 09:28:25 AM >Received today and waiting for office notes to be locked before sending referral Reason screening colon oscopy Diagnosis 1 Family hx of colon c ancer requiring screening colonoscopy (Z80.0) Referral Organization [facility] Family Medicin e Basil Referring Provider First Name Idania Referring Provider Last Name Mariella Referring Provider Specialty Nurse Pract itioner Referred Organization [facility] Gastroenterolo gy Referred Provider [place] Referred Address [address] ,[place], [place],[address] Referred Provider Specialty Gastroentero logy Referral Priority Routine General Notes Jakob Seema M 022 03:01:03 PM >Received today and sent P2P Chief Complaint and Reason for Visit Chief Complaint r27.0 Family Hx of Colon CancerReason for VisitHistory of colon polyps Chief Complaint d32.9 Chief Complaint left achilles tendon pain H53.9 G43.909 D32.0Reason for VisitAchilles tendinitis Anxiety Benign meningioma of brain GERD (gastroesophageal reflux disease) Hypertension Migraine Recurrent cold sores Vision changes Chief Complaint Admit Date headache, cough October 10, 2024 10:53am Reason for Visit Admit Date COVID-19 October 10, 2024 10:53am Chief Complaint Admit Date headache, cough October 10, 2024 10:53am Cough, Congestion, exposure to Flu A Mar 2024 12:04pm Chief Complaint Admit Date Wellness May 20, 2025 9: 29am Reason for Visit Admit Date Hypertension May 20, 2025 9: 29am Impaired fasting glucose May 20 9:29am Right shoulder pain May 20, 2025 9: 29am Wellness examination May 20, 2025 9 :29am Advance Directives No Advanced Directives Records Found Advance Directive Response Recorded Date/ Time Advance Directives No September 10:36am Advance Directive Response Recorded Date/ Time Advance Directives No September 11:36am Summary Purpose Family History Relationship Condition Age at Onset Recorded Date/T shelby Not Specified No pertinent family history Unknown motherHypertensionUnknownHistory of strokeUnknownNo Family History Records Found Additional Source Comments REASON FOR VISIT (unrecogniz ed section and content) ReasonCommentsGynecologic ExamReasonCommentsFollow-upReasonCommentsTelevisit Care Teams (unrecognized sec tion and content) Team Status: Inactive Member Role Status Dates PHYSICIAN NO FAMILY Primary Care Provider Active Uvaldo Castillo ProviderActive Team Status: Inactive Member Role Status Dates PHYSICIAN NO FAMILY Primary Care Provider Active Rio Ng ProviderActive Team Status: Active Member Role Status Dates PHYSICIAN NO FAMILY Primary Care Provider Active Team Status: Inactive Member Role Status Dates PHYSICIAN NO FAMILY Primary Care Provider Active Rio Durbin ProviderActive Team Status: Active Member Role Status Dates Krys Zhou APRN MACHINE FORMER-C Primary Care Provider Active Team Status: Active Member Role Status Dates Krys Zhou APRN MACHINE FORMER-C Primary Care Provider Active Start: February 07, 2024 Rio Messer ProviderActiveStart: February 07, 2024 Team Status: Inactive Member Role Status Dates Krys Zhou APRN MACHINE FORMER-C Primary Care Provider, Attending Provider Active Start: March 20, 2024 End: March 20, 2024 Team Status: Inactive Member Role Status Dates Krys Zhou APRN MACHINE FORMER-C Primary Care Provider, Attending Provider Active Start: April 23, 2024 End: April 23, 2024Team MemberRelationshipSpecialtyStart DateEnd Date Krys Zhou NP [address] [place] [address] PCP - GeneralFamily Medicine04/30/24 Kromer, Tamara PCP - [facility]02/18/24Team MemberRelationshipSpecialtyStart DateEnd Date Krys Zhou NP [address] [place] [address] PCP - GeneralFamily Medicine04/30/24 Kryanely Tamara PCP - [facility]02/18/24Team MemberRelationshipSpecialtyStart DateEnd Date Krys Zhou NP [address] [place] [address] PCP - GeneralFamily Medicine04/30/24 Kromer, Tamara PCP - [facility]02/18/24 Team Status: Inactive Member Role Status Dates Krys Zhou APRN MACHINE FORMER-C Primary Care Provider, Attending Provider Active Start: October 10, 2024 End: October 10, 2024 Team Status: Inactive Member Role Status Dates Krys Zhou APRN MACHINE FORMER-C Primary Care Provider Active Start: October 27, 2024 End: October 27Katheryn Morse ProviderActiveStart: October 27, 2024 End: October 27, 2024Team MemberRelationshipSpecialtyStart DateEnd Date Krys Zhou NP [address] [place] [address] PCP - GeneralFamily Medicine04/30/24 Tamara Staples PCP - [facility]02/18/24Team MemberRelationshipSpecialtyStart DateEnd Date Krys Zhou NP [address] [place] [address] PCP - GeneralFamily Medicine04/30/24 Tamara Staples PCP - [facility]02/18/24 Team Status: Inactive Member Role Status Dates Krys Zhou APRN MACHINE FORMER-C Primary Care Provider Active Start: May 20, 2025 End: May 20, 2025Krys Zhou APRN MACHINE FORMER-CAttending ProviderActive Start: May 20, 2025 End: May 20, 2025Team MemberRelationshipSpecialtyStart DateEnd Date Krys Zhou NP [address] [place] [address] PCP - GeneralFamily Medicine04/30/24 Tamara Staples PCP - [facility]02/18/24Team MemberRelationshipSpecialtyStart DateEnd Date Krys Zhou NP [address] [place], [place] [id number] PCP - GeneralFamily Medicine04/30/24 Tamara Staples PCP - [facility]02/18/24 INFORMATION SOURCE (unrecogn ized section and content) DATE CREATED AUTHOR 12/28/2022 [facility] DATE CREATED AUTHOR AUTHOR'S ORGANIZ ATION 04/24/2024 [facility] DATE CREATED AUTHOR AUTHOR'S ORGANIZ ATION 11/21/2024 [facility] DATE CREATED AUTHOR AUTHOR'S ORGANIZ ATION 06/28/2025 [facility] EPIC Goals (unrecognized section and content) Goals may [...] BE BASED ON THE PRIMARY CLINICAL RECORDS. [facility]. provides no warranty or guarantee of the accuracy or completeness of information in this document.
[2025-07-23 11:45] VITALS: BP 175/98
== END 2025-07-23 12:50 | disposition home or self-care (01) ==
PROVIDERS: Emergency Provider Emergency Medicine; PCP Nurse Practitioner Family
DX: I80.8 Phlebitis and thrombophlebitis of other sites (principal); Z87.891 Personal history of nicotine dependence
CPT/HCPCS: 93971; 99284

== ENCOUNTER 2025-07-24 15:29 | Emergency (ER) | payer MEDICAID, SELFPAY ==
[2025-07-24] VITALS (7 sets, daily range): BP systolic 179–212; BP diastolic 87–127; PULSE 74–85; TEMP 36.7; O2SAT 98–100; BMI 46.3
--- NOTE | 2025-07-24 15:49 | XR_ITS ---
The [place] [id number] Patient Name: DELIO BOUDREAUX MRN: [id number] date: 1970 Sex: F Assigned Patient Location: ED.MAIN Current Patient Location: ER Accession/Order Number: [id number] Exam Date: 07/24/2025 16:03 Report Date: 07/24/2025 16:29 At the request of: SHAYY FRANCO MD Procedure: XR chest 1V PA CHEST: CLINICAL HISTORY: CP COMPARISON: 01/19/2022 The heart is normal in size. The lungs are clear. The pulmonary vasculature is normal. Mediastinum and hilar regions are unremarkable. No pleural effusions are seen. Visualized bones are intact. XR/XR chest 1V IMPRESSION: Negative acute pleural-parenchymal disease. Impression dictated by: Darren Gates M.D. 07/24/2025 4:29 PM Dictation Location: [place] [address] Electronically authenticated by: [id number] Y Date: 07/24/2025 16:29
--- NOTE | 2025-07-24 15:49 | ECG_ITS ---
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 Measurements Intervals [place] Rate: 72 P: 55 DC: 144 QRS: 65 QRSD: 88 T: 64 QT: 380 QTc: 404 Interpretive Statements 1100 Sinus rhythm 9110 normal ECG Compared to ECG 02/07/2024 16:17:24 No significant changes Electronically Signed On 07-24-2025 21:56:09 EST by MARTIN XIONG M.D.
--- NOTE | 2025-07-24 15:51 | ED.GENADUL1 ---
HPI HPI - General Adult General Chief complaint: Recheck/Abnormal Lab/Rx Stated complaint: Check for Blood Clot Time Seen by Provider: 07/24/25 15:42 Source: patient Mode of arrival: walk-in History of Present Illness HPI narrative: 54-year-old female presents for pain in her left posterior thigh and the left side of her chest. She had had surgery for uterine cancer a few weeks ago and was seen here yesterday because of pain in the dorsum of her right hand. She had an ultrasound which showed superficial thrombophlebitis and she started aspirin this morning. Since she was here she developed this pain in the posterior right thigh and on the left side of her chest and she is worried about blood clots. No fever or productive cough. Related Data Home Medications ?Medication ?Instructions ?Recorded ?Confirmed acetaminophen 500 mg tablet 500 mg PO Q4H PRN pain 07/23/25 07/24/25 ibuprofen 600 mg tablet 600 mg PO Q8H PRN pain 07/23/25 07/24/25 losartan 25 mg tablet 25 mg PO DAILY 07/23/25 07/24/25 omeprazole 20 mg capsule,delayed 20 mg PO DAILY 07/23/25 07/24/25 release oxycodone 5 mg tablet 5 mg PO BID 07/23/25 07/24/25 senna 187 mg tablet 50 mg PO QAM 07/23/25 07/24/25 sennosides 8.6 mg-docusate sodium 1 tab-cap PO DAILY 07/23/25 07/24/25 50 mg tablet (Senexon-S) aspirin 325 mg tablet 325 mg PO DAILY 07/24/25 07/24/25 Previous Rx's ?Medication ?Instructions ?Recorded sulfacetamide sodium 10 % eye drops 2 drp ophthalmic (eye) Q4H #15 mL 01/11/24 Allergies Allergy/AdvReac Type Severity Reaction Status Date / Time hydrocodone (From Vicodin) Allergy Severe Nausea Verified 07/24/25 15:36 diphenhydramine (From AdvReac Intermediate shortness Verified 07/24/25 15:36 Benadryl) of breath penicillin G AdvReac Intermediate Hives Verified 07/24/25 15:36 Opioid HPI Opioid Management Most Recent Opioid Data: Last Pain Scale 5 Today, 15:50 Review of Systems ROS Narrative A ten point review of systems is negative except as noted above. PFSH PFSH Social History Smoking status: Former smoker Little interest or pleasure in doing things: not at all Feeling down, depressed, or hopeless: not at all Exam Narrative Exam Narrative: Nurses note and vital signs reviewed General:The patient appears well and in no apparent distress.Patient is resting comfortably on cart. Skin:Warm, dry, no pallor noted.There is no rash noted. Head:Normocephalic, atraumatic Eye: Normal conjunctiva, no drainage Ears, Nose, Mouth, and Throat: oral mucosa is moist. Nares patent. Cardiovascular:Regular Rate and Rhythm, not tachycardic Respiratory:Patient is in no distress, no accessory muscle use, lungs are clear to auscultation, no wheezing, rales or rhonchi Back:non-tender GI: Soft and nontender Musculoskeletal: Numerous varicosities in the posterior right thigh. The dorsum of her left hand has no visible swelling or erythema or masses Neurological:A&O, normal speech Psychiatric:Cooperative, appears mildly anxious Constitutional Vital Signs, click to edit/add: Last Vital Signs Temp 98.0 F 07/24/25 15:38 Pulse 74 07/24/25 16:10 Resp 14 07/24/25 16:10 BP 184/87 H 07/24/25 16:13 Pulse Ox 99 07/24/25 18:04 O2 Del Method Room Air 07/24/25 15:38 Course Vital Signs Vital signs: Vital Signs Temperature 98.0 F 07/24/25 15:38 Pulse Rate 78 07/24/25 15:38 Respiratory Rate 20 07/24/25 15:38 Blood Pressure 212/127 H 07/24/25 15:38 Pulse Oximetry 98 07/24/25 15:38 Oxygen Delivery Method Room Air 07/24/25 15:38 Temperature 98.0 F 07/24/25 15:38 Pulse Rate 74 07/24/25 16:10 Respiratory Rate 14 07/24/25 16:10 Blood Pressure 184/87 H 07/24/25 16:13 Pulse Oximetry 99 07/24/25 18:04 Oxygen Delivery Method Room Air 07/24/25 15:38 Medical Decision Making MDM Narrative Medical decision making narrative: Doppler of the right leg and the left arm are both negative. CT scan of the chest is pending to rule out PE and the patient is signed out to Dr. Teixeira at change of shift. Differential Diagnosis Differential Diagnosis: DVT, muscle pain, PE Lab Data Lab results reviewed: Yes I reviewed the patient's lab results Labs: Lab Results 07/24/25 Range/Units 16:09 WBC 8.5 (4.0-11.0) 10^3/uL RBC 4.92 (4.20-5.40) 10^6/uL Hgb 12.8 (12.0-16.0) g/dL Hct 38.8 (36.0-48.0) % MCV 78.9 L (81.0-99.0) fL MCH 26.0 L (26.7-34.0) pg MCHC 33.0 (29.9-35.2) g/dL RDW 14.1 (11.0-15.0) % Plt Count 283 (150-450) 10^3/uL MPV 10.0 (9.5-13.5) fL Neut % (Auto) 67.6 (43.0-75.0) % Lymph % (Auto) 23.7 (20.5-60.0) % Ballard % (Auto) 6.5 (1.7-12.0) % Eos % (Auto) 0.9 (0.9-7.0) % Baso % (Auto) 0.4 (0.2-2.0) % Neut # (Auto) 5.7 (1.4-6.5) 10^3/uL Lymph # (Auto) 2.0 (1.2-3.8) 10^3/uL Ballard # (Auto) 0.6 (0.3-0.8) 10^3/uL Eos # (Auto) 0.1 (0.0-0.7) 10^3/uL Baso # (Auto) 0.0 (0.0-0.1) 10^3/uL Abs Immat Gran (auto) 0.08 H (0.00-0.03) 10^3/uL Imm/Tot Granulo (auto) 0.9 H (0.0-0.5) % Sodium 140 (136-145) mmol/L Potassium 4.0 (3.5-5.1) mmol/L Chloride 103 (98-107) mmol/L Carbon Dioxide 28.8 (21.0-32.0) mmol/L Anion Gap 12.2 BUN 14.0 (7.0-18.0) mg/dL Creatinine 0.87 (0.55-1.02) mg/dL Est GFR ( Amer) >60 (>=60 mL/min/1.73m^2) Est GFR (Non-Af Amer) >60 (>=60 mL/min/1.73m^2) BUN/Creatinine Ratio 16.1 Glucose 144 H (74-106) mg/dL Calcium 8.9 (8.5-10.1) mg/dL Troponin I High Sens 6.5 (4.0-51.3) pg/mL Imaging Data Chest x-ray: Radiologist's impression: ITS Impressions Chest X-Ray 07/24/25 15:49 IMPRESSION: Negative acute pleural-parenchymal disease. Impression dictated by: Darren Gates M.D. 07/24/2025 4:29 PM Dictation Location: [place] [id number] Electronically authenticated by: [id number] Y Date: 07/24/2025 16:29 Right leg and left arm Dopplers are negative per radiologist ECG Data Attestation: I personally reviewed and interpreted this ECG as follows: (EKG on my interpretation shows sinus rhythm without acute change) Discharge Plan Discharge Patient Disposition: Still a Patient
--- OUTSIDE RECORDS SUMMARY | 2025-07-24 15:54 | XMS_ITS | CCD ---
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 CMP, LIPID #### [facility] [address] [address] [address] Rehana ValenciaCholesterol in LDL [Mass/Vol]81.4 mg/dLNoSelect Medical TriHealth Rehabilitation HospitalComoaklawn hospital on above:Performed By: #### CMP, LIPID #### [facility] [address] [address] [address] Rehana Laurentesterzeinab.total/Cholesterol in HDL [Mass ratio]3.3 {ratio} NormalThe [facility] on above:Performed By: #### CMP, LIPID #### [facility] [address] [address] [address] Rehana Barba NORMAL> or = 60 mg/dl - LOW CARDIOVASCULAR RISK <40 mg/dl - HIGH CARDIOVASCULAR RISKMer[facility] Health [facility] on above:Performed By: #### CMP, LIPID #### [facility] [address] [place] [address] Dr. Rehana Holt CALC NORMALSEE BELOWNoSelect Medical TriHealth Rehabilitation HospitalComoaklawn hospital on above:Result Comment: <100 mg/dl OPTIMAL 100 - 129 mg/dl NEAR OR ABOVE OPTIMAL 130 - 159 mg/dl BORDERLINE HIGH 160 - 189 mg/dl HIGH >190 mg/dl VERY HIGH Performed By: #### CMP, LIPID #### [facility] [address] [place] [address] Dr. Rehana ValenciaTriglyceride [Mass/Vol]188 mg/dLCritically high<=150The [facility] on above:Performed By: #### CMP, LIPID #### [facility] [address] [place] [address] Dr. Rehana RedLDL CALC37.6 mg/dLNoSelect Medical TriHealth Rehabilitation HospitalComoaklawn hospital on above: Performed By: #### CMP, LIPID #### [facility] [address] [place] [address] Dr. Rehana Sanchez 14(COMP METB)on [id number] [Mass/Vol]3.7 g/dLNormal 3.4-5.0The [facility] HospitalComment on above:Performed By: #### CMP, LIPID #### [facility] [address] [address] [address] Rehana ValenciaAlbumin/Globulin [Mass ratio]0.9 {ratio}NormalThe [facility] HospitalComment on above:Performed By: #### CMP, LIPID #### [facility] [address] [place], [place] [address] Dr. Rehana BartonP [Catalytic activity/Vol]89 U/JNsltwk16-745Byv [facility] HospitalComment on above:Performed By: #### CMP, LIPID #### [facility] [address] [address] [address] Rehana Ball [Catalytic activity/Vol]78 U/LCritically cggs80-62Eih [facility] HospitalComment on above:Performed By: #### CMP, LIPID #### [facility] [address] [address] [address] Rehana Marquezon gap [Moles/Vol]9.9 mmol/LNormalThe [facility] HospitalComment on above:Performed By: #### CMP, LIPID #### [facility] [address] [address] [address] Rehana ValenciaAST [Catalytic activity/Vol]41 U/LCritically bhia61-36Clc [facility] on above:Performed By: #### CMP, LIPID #### [facility] [address] [address] [address] Rehana ValenciaBilirubin [Mass/Vol]0.4 mg/dLNormal0.2-1.0The [facility] Comment on above:Performed By: #### CMP, LIPID #### [facility] [address] [address] [address] Rehana ValenciaCalcium [Mass/Vol]8.8 mg/dLNormal8.5-10.1The [facility] Comment on above:Performed By: #### CMP, LIPID #### [facility] [address] [address] [address] Rehana ValenciaChloride [Moles/Vol]104 mmol/XJnukpy97-464Dal [facility] Comment on above:Performed By: #### CMP, LIPID #### [facility] [address] [address] [address] Rehana ValenciaCO2 [Moles/Vol]30.9 mmol/EFqtaru94.0-32.0The [facility] Comment on above:Performed By: #### CMP, LIPID #### [facility] [address] [address] [address] Rehana ValenciaCreatinine [Mass/Vol]0.78 mg/dLNormal0.55-1.02The [facility] HospitalComment on above:Performed By: #### CMP, LIPID #### [facility] [address] [address] [address] Rehana TaiGFR-AF MACANESE>60Normal>=60The [facility] HospitalComment on above:Performed By: #### CMP, LIPID #### [facility] [address] [address] [address] Rehana TaiGFR-NON AF MACANESE>60Normal>=60The [facility] HospitalComment on above:Performed By: #### CMP, LIPID #### [facility] [address] [address] [address] Rehana ValenciaGlobulin (S) [Mass/Vol]4.0 g/dLNormalThe [facility] HospitalComment on above:Performed By: #### CMP, LIPID #### [facility] [address] [address] [address] Rehana ValenciaGlucose [Mass/Vol]97 mg/mTCewdyh79-620Iqa [facility] Comment on above:Performed By: #### CMP, LIPID #### [facility] [address] [address] [address] Rehana ValenciaPotassium [Moles/Vol]4.8 mmol/LNormal3.5-5.1The [facility] Comment on above:Performed By: #### CMP, LIPID #### [facility] [address] [address] [address] Rehana ValenciaProtein [Mass/Vol]7.7 g/dLNormal6.4-8.2The [facility] Comment on above:Performed By: #### CMP, LIPID #### [facility] [address] [place] [address] Dr. Rehana Alegriaum [Moles/Vol]140 mmol/PLkxvrj321-751Yfc [facility] Comment on above:Performed By: #### CMP, LIPID #### [facility] [address] [place] [address] Dr. Rehana Munguia nitrogen [Mass/Vol]10.0 mg/dLNormal7.0-18.0The [facility] HospitalComment on above:Performed By: #### CMP, LIPID #### [facility] [address] [place] [address] Dr. Rehana Munguia nitrogen/Creatinine [Mass ratio]12.8 mg/mgNormalThe [facility] HospitalComment on above:Performed By: #### CMP, LIPID #### [facility] [address] [place] [address] Dr. Rehana WILLS 3-6on [id number] [Catalytic activity/Vol]62 U/L Sfspba90-540Vfr [facility] HospitalComment on above:Performed By: #### CMREP #### [facility] [address] [place] [address] Dr. Rehana Carias.MB [Mass/Vol]1.03 ng/mLNormal<=3.60[facility] Comment on above:Performed By: #### CMREP #### [facility] [address] [place] [address] Dr. Rehana GraffTROP8.3 pg/mLNormal4.0-51.3TWexner Medical CenterComment on above:Result Comment: CUT-OFF POINTS HAVE BEEN ESTABLISHED BASED ON THE FOURTH UNIVERSAL DEFINITIONS OF MYOCARDIAL INFARCTION. THE UPPER REFERENCE LIMIT (URL) OF TROPONIN, DEFINED THE 99TH PERCENTILE OF cTnI DISTRIBUTION IN A REFERENCE POPULATION, HAS BEEN CONFIRMED THE DECISION THRESHOLD FOR PA DIAGNOSIS.Performed By: #### CMREP #### [facility] [address] [place] [address] Dr. Rehana WILLS ADMITon [id number] [Catalytic activity/Vol]56 U/L Juktjy44-643VleSheltering Arms HospitalComment on above:Performed By: #### MARY CMADM #### [facility] [address] [place] [address] Dr. Rehana Carias.MB [Mass/Vol]0.98 ng/mLNormal<=3.60[facility] Comment on above:Performed By: #### MARY CMADM #### [facility] [address] [place] [address] Dr. Rehana GraffTROP7.6 pg/mLNormal4.0-51.3The [facility] HospitalComment on above:Result Comment: CUT-OFF POINTS HAVE BEEN ESTABLISHED BASED ON THE FOURTH UNIVERSAL DEFINITIONS OF MYOCARDIAL INFARCTION. THE UPPER REFERENCE LIMIT (URL) OF TROPONIN, DEFINED THE 99TH PERCENTILE OF cTnI DISTRIBUTION IN A REFERENCE POPULATION, HAS BEEN CONFIRMED THE DECISION THRESHOLD FOR PA DIAGNOSIS.Performed By: #### ASIF HERNANDEZDM #### [facility] [address] [place] [address] Dr. Rehana PinaO45 ng/mLNormal9-82The [facility] HospitalComment on above: Performed By: #### ASIF HERNANDEZDM #### [facility] [address] [place] [address] Dr. Rehana López AUTO DIFFon [id number] #0.0 103/ulNormal0.0-0.1[facility] HospitalComment on above:Performed By: #### CBC #### [facility] [address] [place] [address] Dr. Rehana Alvarengasophils/100 WBC (Bld)0.3 %Normal0.2-2.0[facility] Comment on above:Performed By: #### CBC #### [facility] [address] [place] [address] Dr. Rehana Magdaleno #0.1 103/ulNormal0.0-0.7The [facility] HospitalComment on above: Performed By: #### CBC #### [facility] [address] [place] [address] Dr. Rehana Taiosinophils/100 WBC (Bld)1.2 %Normal0.9-7.0[facility] Comment on above:Performed By: #### CBC #### [facility] [address] [place] [address] Dr. Rehana Tairythrocyte distribution width (RBC) [Ratio]13.8 %Oguphx58.0-15.0 The [facility] HospitalComment on above:Performed By: #### CBC #### [facility] [address] [place] [address] Dr. Rehana ValenciaHematocrit (Bld) [Volume fraction]38.5 %Ysllvt00.0-48.0The [facility] HospitalComment on above:Performed By: #### CBC #### [facility] [address] [place] [address] Dr. Rehana ValenciaHemoglobin (Bld) [Mass/Vol]12.9 g/qINyzicg34.0-16.0The [facility] HospitalComment on above:Performed By: #### CBC #### [facility] [address] [place] [address] Dr. Rehana White #0.11 10e3/ulCritically high0.00-0.03[facility] Comment on above:Performed By: #### CBC #### [facility] [address] [place] [address] Dr. Rehana White %1.2 %Critically high0.0-0.5The [facility] HospitalComment on above:Performed By: #### CBC #### [facility] [address] [place] [address] Dr. Rehana MartinH #3.0 103/ulNormal1.2-3.8The [facility] HospitalComment on above:Performed By: #### CBC #### [facility] [address] [place] [address] Dr. Rehana Hernandezmphocytes/100 WBC (Bld)31.8 %Qyuifg74.5-60.0The [facility] HospitalComment on above:Performed By: #### CBC #### [facility] [address] [place] [address] Dr. Rehana Chandra DIFF REQNONormalThe [facility] HospitalComment on above: Performed By: #### CBC #### [facility] [address] [place] [address] Dr. Rehana Chamorro (RBC) [Entitic mass]26.4 pgCritically low26.7-34.0The [facility] HospitalComment on above:Performed By: #### CBC #### [facility] [address] [place] [address] Dr. Rehana Chamorro (RBC) [Mass/Vol]33.5 g/zNGxsasc79.9-35.2The [facility] HospitalComment on above:Performed By: #### CBC #### [facility] [address] [place] [address] Dr. Rehana Chamorro (RBC) [Entitic vol]78.9 fLCritically low81.0-99.0The [facility] HospitalComment on above:Performed By: #### CBC #### [facility] [address] [place] [address] Dr. Rehana Knowles #0.6 103/ulNormal0.3-0.8The [facility] HospitalComment on above:Performed By: #### CBC #### [facility] [address] [place] [address] Dr. Rehana Joyocytes/100 WBC (Bld)6.8 %Normal1.7-12.0The [facility] Comment on above:Performed By: #### CBC #### [facility] [address] [place] [address] Dr. Rehana Arreola #5.5 103/ulNormal1.4-6.5The [facility] HospitalComment on above:Performed By: #### CBC #### [facility] [address] [place] [address] Dr. Rehana Dyeutrophils/100 WBC (Bld)58.7 %Dntfum67.0-75.0The [facility] HospitalComment on above:Performed By: #### CBC #### [facility] [address] [address] [address] Rehnaa ValenciaPlatelet mean volume (Bld) [Entitic vol]10.0 fLNormal9.5-13.5The [facility] HospitalComment on above:Performed By: #### CBC #### [facility] [address] [address] [address] Rehana ValenciaPLT237 103/rcEizuul732-316Nlg [facility] HospitalComment on above: Performed By: #### CBC #### [facility] [address] [place] [address] Dr. Rehana ValenciaRBC4.88 106/ulNormal4.20-5.40The [facility] HospitalComment on above:Performed By: #### CBC #### [facility] [address] [place] [address] Dr. Rehana ValenciaWBC9.4 103/ulNormal4.0-11.0The [facility] HospitalComment on above: Performed By: #### CBC #### [facility] [address] [place] [address] Dr. Rehana ValenciaPROF CHEM 8 (BAS METB)on [id number] gap [Moles/Vol]8.1 mmol/LNormalThe [facility] HospitalComment on above:Performed By: #### BMP, CMADM #### [facility] [address] [place] [address] Dr. Rehana ValenciaCalcium [Mass/Vol]9.1 mg/dLNormal8.5-10.1The [facility] Comment on above:Performed By: #### BMP, CMADM #### [facility] [address] [place] [address] Dr. Rehana ValenciaChloride [Moles/Vol]104 mmol/OYmhvka81-748Rif [facility] Comment on above:Performed By: #### BMP, CMADM #### [facility] [address] [place] [address] Dr. Rehana ValenciaCO2 [Moles/Vol]32.3 mmol/LCritically high21.0-32.0The [facility] HospitalComment on above:Performed By: #### BMP, CMADM #### [facility] [address] [address] [address] Rehana ValenciaCreatinine [Mass/Vol]0.83 mg/dLNormal0.55-1.02The [facility] Clinicment on above:Performed By: #### BMP, CMADM #### [facility] [address] [address] [address] Rehana TaiGFR-AF MACANESE>60Normal>=60The [facility] HospitalComment on above:Performed By: #### BMP, CMADM #### [facility] [address] [address] [address] Rehana TaiGFR-NON AF MACANESE>60Normal>=60The [facility] HospitalComment on above:Performed By: #### BMP, CMADM #### [facility] [address] [address] [address] Rehana ValenciaGlucose [Mass/Vol]123 mg/dLCritically bkik72-424Vpk [facility] on above:Performed By: #### BMP, CMADM #### [facility] [address] [address] [address] Rehana ValenciaPotassium [Moles/Vol]4.4 mmol/LNormal3.5-5.1[facility] Comment on above:Performed By: #### BMP, CMADM #### [facility] [address] [address] [address] Rehana ValenciaSodium [Moles/Vol]140 mmol/SPjdkic753-484Sni [facility] Comment on above:Performed By: #### BMP, CMADM #### [facility] [address] [address] [address] Rehana ValenciaUrea nitrogen [Mass/Vol]15.0 mg/dLNormal7.0-18.0The [facility] on above:Performed By: #### BMP, CMADM #### [facility] [address] [address] [address] Rehana ValenciaUrea nitrogen/Creatinine [Mass ratio]18.1 mg/mgNormalThe [facility] HospitalComment on above:Performed By: #### BMP, CMADM #### [facility] [address] [address] [address] Rehana ValenciaXR CHEST 1 Von [id number] CHEST 1 VEXAM: XR CHEST 1 V [...] Electronically authenticated by: MARIO VINCENT Date: 2022-01-19 01:58[facility] Vital Signs Date TimeVital SignValuePerforming OukzehuknHndxhmam63-03-8750 09:09-0400Body yykcec502.6 Bradley Quiñonez MD Work Phone: [facility] [phone] 09:09-0400Body mass index (BMI) [Ratio]46.35 kg/d6BuyssgAr Quiñonez MD Work Phone: [facility] HospitalJrzllympga32-09-6850 09:09-0400Body raruab651.47 kgAr Quiñonez MD Work Phone: [facility] HospitalFcoqlxbfpp80-18-4449 09:09-0400Diastolic blood paqljudy29 mm[Hg]Ar Quiñonez MD Work Phone: [facility] HospitalEzrewpziku60-44-3651 09:09-0400Systolic blood xkezvuqp381 mm[Hg]Ar Quiñonez MD Work Phone: [facility] HospitalUcodpyurkw56-28-8830 09:34-0400Body eqicsk890.02 cmKrys Zhou APRN Work Phone: [facility]10-01-2025 09:34-0400 Body mass index (BMI) [Ratio]48.5 kg/l9CsmlcxgeKrys Zhou APRN Work Phone: [facility]10-01-2025 09:34-0400 Body hgvpadzuils93.3 [degF]Krys Winnie SUPERVISOR WET END Work Phone: [phone]10-01-2025 09:34-0400 Body dvmuaq723.28 kgKrys Murillocaragenovevafahad SUPERVISOR WET END Work Phone: [phone] [place], [place] 2788410-01-2025 09:34-0400 Diastolic blood hlfdcdko85 mm[Hg]Krys Winnie SUPERVISOR WET [employer] Work Phone: [phone]10-01-2025 09:34-0400 Heart rate73 /minAixaarmen Zhou SUPERVISOR WET END Work Phone: [phone]10-01-2025 09:34-0400 SaO2% (BldA) [Mass fraction]97 %Krysrebecca Zhou SUPERVISOR WET END Work Phone: [phone]10-01-2025 09:34-0400 Systolic blood mm[Hg]Krys Winnie CHOUDHURY Work Phone: [phone] [place], [place] 2788404-24-2025 09:30-0400 Body cxeygs200.91 Delaney Quiñonez MD Work Phone: [facility] HospitalKecbujkrfx54-14-5965 09:30-0400Diastolic blood poqxqnla23 mm[Hg]Ar Quiñonez MD Work Phone: [facility] HospitalDkygqofdhc38-64-9596 09:30-0400Systolic blood psmigjuo244 mm[Hg]Ar Quiñonez MD Work Phone: noJefferson [facility] HospitalSvzjvwxbgu62-67-0512 09:25-0400Body edogay934.01 Delaney Quiñonez MD Work Phone: noJefferson Memorial HospitalYuhyfuphqc00-27-2246 09:25-0400Diastolic blood cozeaunz08 mm[Hg]Ar Quiñonez MD Work Phone: [facility] HospitalQrvnxsspnf32-48-0993 09:25-0400Systolic blood lpsioysn733 mm[Hg]Ar Quiñonez MD Work Phone: [facility] HospitalJdlsjlxetz46-53-6788 12:09-0400Body kmygxh328.02 cmOhio[facility]03-10-2025 12:09-0400Body mass index (BMI) [Ratio]47.9 kg/f2ZbktpvukbOhiohealth Arthur G.[facility]03-10-2025 12:09-0400Body erotmuocfbq56.9 [degF][facility]03-10-2025 12:09-0400Body dykbxc001.81 kgOhiohealth Arthur [facility]. [facility]03-10-2025 12:09-0400Diastolic blood afpqxpbe70 mm[Hg][facility]03-10-2025 12:09-0400 Heart rate85 /[facility]03-10-2025 12:09-0400 Respiratory rate16 /[facility]03-10-2025 12:09-0400 SaO2% (BldA) [Mass fraction]97 %[facility]03-10-2025 12:09-0400Systolic blood elcapsqa954 mm[Hg][facility] 10-10-2024 10:59-0500Body .02 cmOhio[facility] 10-10-2024 10:59-0500Body mass index (BMI) [Ratio]47.5 kg/t0CmiuhcjteOhiohealth Arthur G.H. [facility], [facility], [facility] Center02-21-2025 10:59-0500Body qabgtjsllvb21.4 [degF][facility]02-21-2025 10:59-0500Body erocvd608.56 kgOhiohealth Arthur G.[facility]. [facility]02-21-2025 10:59-0500Diastolic blood wazsucyr50 mm[Hg][facility]02-21-2025 10:59-0500Heart rate85 /[facility]02-21-2025 10:59-1069UkD5% (BldA) [Mass fraction]97 %[facility]02-21-2025 10:59-0500Systolic blood aoygvlxe463 mm[Hg] [facility]10-29-2024 15:32-0400Body .29 kgAr Quiñonez MD Work Phone: [facility] HospitalSsjvhqsnzr46-04-7581 15:32-0400Diastolic blood tcoinqwz18 mm[Hg]Ar Quiñonez MD Work Phone: [facility] HospitalCusrafvdbu26-65-9080 15:32-0400Systolic blood lfzyogwf111 mm[Hg]Ar Quiñonez MD Work Phone: [facility] HospitalDsxpmualfd33-87-7032 13:11-0400Body .83 kgAr Quiñonez MD Work Phone: [phone]-[facility] HospitalBhkyhmrack16-60-4222 13:11-0400Diastolic blood lhqczloa82 mm[Hg]Ar Quiñonez MD Work Phone: [facility] HospitalNfkgcouxrg61-51-9948 13:11-0400Systolic blood zcwrzyse350 mm[Hg]Ar Quiñonez MD Work Phone: [phone]-[facility] HospitalKtymruiudn78-44-0897 07:11-0400Body dnrynl286.02 cmAGURJIT Zhou Work Phone: [phone] [address]09-04-2024 07:11-0400 Body iuzobq750.46 kgAPRYanet Zhou Work Phone: [phone] [address]08-01-2024 13:46-0400 Body nizmfh008.02 cmAGURJIT Zhou Work Phone: [phone] [address]08-01-2024 13:46-0400 Body mass index (BMI) [Ratio]47.8 kg/m2KEI Zhou Work Phone: [phone] [place], [place] 2788408-01-2024 13:46-0400 Body qrlhvy912.46 kgKEI Zhou Work Phone: [phone] [address]08-01-2024 13:46-0400 Diastolic blood qfbtopgs09 mm[Hg]KEI Zhou Work Phone: [phone] [place], [place] 2788408-01-2024 13:46-0400 Heart rate80 /minAPRYanet Zhou Work Phone: [facility]08-01-2024 13:46-0400 SaO2% (BldA) [Mass fraction]98 %KEI Zhou Work Phone: [facility]08-01-2024 13:46-0400 Systolic blood uugotwwb672 mm[Hg]KEI Zhou Work Phone: [facility]02-10-2024 09:30-0500 Body .02 cmAfatoumata Soriano Other [facility] Other 02-10-2024 09:30-0500Body mass index (BMI) [Ratio] 44.78 kg/t5DoekaTracey Soriano Other [facility] Other 02-10-2024 09:30-0500Body ertxkbtnqvb67.2 [degF]Tracey Soriano Other [facility] Other 02-10-2024 09:30-0500Body eeceoy737.67 kgTracey Soriano Other [facility] Other 02-10-2024 09:30-0500Diastolic blood culjpqvf59 mm[Hg] Tracey Soriano Other [facility] Other 02-10-2024 09:30-0500Respiratory rate18 /minTracey Soriano Other [facility] Other 02-10-2024 09:30-1506QcD6% (BldA) [Mass fraction]98 % Tracey Soriano Other [facility] Other 02-10-2024 09:30-0500Systolic blood mm[Hg] Tracey Soriano Other [employer] Other 11-19-2023 10:35-0500Body qchyix370.02 cmAmbartemio Soriano Other [employer] Other 11-19-2023 10:35-0500Body mass index (BMI) [Ratio] 43.32 kg/q0KoesmTracey Soriano Other [employer] Other 11-19-2023 10:35-0500Body fssmxlsjnev33 [degF]Tracey Soriano Other [facility] Other 11-19-2023 10:35-0500Body sqwuip517.95 kgTracey Soriano Other [facility] Other 11-19-2023 10:35-0500Respiratory rate18 /minTracey Soriano Other [employer] Other 11-19-2023 10:35-6854JoX1% (BldA) [Mass fraction]97 % Tracey Soriano Other [employer] Other 691827-50-2500 12:43-0500Diastolic blood czexsltl59 mm[Hg] PHYSICIAN NO [facility]01-10-2023 12:43-0500Heart rate70 /minPHYSICIAN [facility]01-10-2023 12:43-0500Respiratory rate16 /minPHYSICIAN [facility]01-10-2023 12:43-7310EtV5% (BldA) [Mass fraction]98 %PHYSICIAN NO [facility]01-10-2023 12:43-0500Systolic blood fpeagdab281 mm[Hg]PHYSICIAN NO [facility]01-10-2023 09:36-0500 Body .56 cmPHYSICIAN [facility] 08-29-2022 09:36-0500Body tnhuvmlkyfe10.4 [degF]PHYSICIAN [facility]01-10-2023 09:36-0500Body yvjzdc876.93 kgPHYSICIAN [facility]10-24-2022 14:26-0400Body mnfywi760.02 cm PHYSICIAN NO [facility]10-24-2022 14:26-0400Body okztuz319.86 kgPHYSICIAN [facility]09-26-2022 14:30-0400Body .02 cmSmillie Wolff Other [facility] Other 09-26-2022 14:30-0400Body mass index (BMI) [Ratio] 42.16 kg/u2CwigclifiIdania Wolff Other [facility] Other 09-26-2022 14:30-0400Body ncbcsesopnw93.8 [degF] Idania Wolff Other [facility] Other 09-26-2022 14:30-0400Body pzbqsy255.96 kgStchica Wolff Other [facility] Other 09-26-2022 14:30-0400Diastolic blood jzlbtquc15 mm[Hg] Idania Wolff Other [facility] Other 09-26-2022 14:30-0400Respiratory rate18 /minSmillie Wolff Other [facility] Other 09-26-2022 14:30-3822RbW8% (BldA) [Mass fraction]98 % Idania Wolff Other [employer] Other 09-26-2022 14:30-0400Systolic blood rfqeimhr351 mm[Hg] Idania Wolff Other [employer] Other 01-31-2022 19:40-0500Body iaowvt089.02 cmPamela Anita Other [facility] Other 01-31-2022 19:40-0500Body mass index (BMI) [Ratio] 44.81 kg/q9Bjxrhn Anita Other [facility] Other 01-31-2022 19:40-0500Body rcrccpppsco96.8 [degF]Roxanna Anita Other [facility] Other 01-31-2022 19:40-0500Body .76 kgPamelzachary Anita Other [facility] Other 01-31-2022 19:40-0500Diastolic blood hvlyhwml19 mm[Hg] Roxanna Anita Other [facility] Other 01-31-2022 19:40-0500Respiratory rate18 /minPamela Anita Other [facility] Other 01-31-2022 19:40-4852YxF9% (BldA) [Mass fraction]99 % Roxanna Anita Other [facility] Other 01-31-2022 19:40-0500Systolic blood djelnsqv557 mm[Hg] Roxanna Anita Other [employer] Other Encounters Encounter DateEncounter TypeCare ProviderFacilityStart: 06-24-2025 End: 89-12-8704cpcwvzmlpzWOFJVJ P JONESNot AvailableStart: 06-23-2025 End: 66-49-5990Wrgwkg OnlyAr Quiñonez MD Work Phone: [facility] [place] OBGYNComment on above:Endometrial cancer (HCC) (Primary Dx)Start: 06-15-2025 End: 67-75-8401Rtizmnd encounter procedureAr Quiñonez MD Work Phone: [facility] [place] OBGYNComment on above:Cervical polyp; Ovarian mass; Intertrigo; Asymptomatic menopausal stateStart: 06-15-2025 End: 52-23-8337relcnqkzqnGLAERY P JONESNot AvailableStart: 05-20-2025 End: 71-14-9150ymsatftszfAtoplzqx Rohrbacher APRN Work Phone: [facility] Work Phone: Start: 05-20-2025 End: 08-61-5448Xprnvmx encounter procedureKrys Zhou APRN [facility] Work Phone: Start: 05-20-2025 End: 58-89-5298Tjbvslj encounter statusKrys Zhou APRN [facility]tart: 12-11-2024 End: 00-32-7679Bwsdif outpatient visit 15 minutesAr Quiñonez MD Work Phone: noms SWS OBComment on above:Cervical polyp; Ovarian mass; Intertrigo; Asymptomatic menopausal stateStart: 12-11-2024 End: 06-66-3600cqtxjxuqbnIFWYIM P JONESNot AvailableStart: 11-24-2024 End: 09-63-9810Cpmtvaeg preventive med est patient 40-64yrsPfausto Quiñonez MD Work Phone: [facility] SWS OBComment on above:Intertrigo (Primary Dx); Encounter for screening for cervical cancer; Cervical polyp; Ovarian mass; Asymptomatic menopausal stateStart: 11-24-2024 End: 38-66-3267kvlpwzansuASAMZJ P JONESNot AvailableStart: 11-18-2024 End: 01-17-0765Eyoxuakgx department patient visitKRYS RamirezSanta Clara Valley Medical Centertart: 10-27-2024 End: 61-01-7760vlrxsizvxeDbrvdyfiySelect [facility] Work Phone: Start: 10-27-2024 End: 06-21-8976Huqwgur encounter procedureFirsthealth [facility] Work Phone: Start: 10-10-2024 End: 52-80-1650xvieyktdmbQpasalmtcMercy Health – [facility] Work Phone: Start: 10-10-2024 End: 32-20-4647Ynyabhv encounter procedureFirsthealth Montgomery [facility] Work Phone: Start: 06-23-2024 End: 96-10-2084Lgiqhi outpatient visit 10 minutesAr Quiñonez MD Work Phone: [facility] SWS OBComment on above:Cervical polyp; Ovarian mass; Asymptomatic menopausal stateStart: 06-17-2024 End: 91-94-2669Xpfxue outpatient visit 15 minutesAr Quiñonez MD Work Phone: [facility] SWS OBComment on above:Ovarian mass (Primary Dx); Cervical polyp; Asymptomatic menopausal stateStart: 05-21-2024 End: 13-56-7568Qlqtgwv encounter statusAr Quiñonez MD Work Phone: noms HealthcareStart: 05-21-2024 End: 52-47-1000Ejahtjly preventive med est patient 40-64yrsPfausto Quiñonez MD Work Phone: [facility] SWS OBComment on above:Chronic vulvitis (Primary Dx); Screening for malignant neoplasm of cervix; Encounter for gynecological examination without abnormal finding; Encounter for screening mammogram for malignant neoplasm of breastStart: 04-23-2024 End: 45-13-7923Pdecycw encounter procedureKEI Zhou Work Phone: [facility] [place] Work Phone: Start: 04-23-2024 End: 07-59-7759zdgbtkvrccKNTP Krysfaviola Zhou Work Phone: [facility] Work Phone: Start: 03-20-2024 End: 17-25-4048Aajqaof encounter procedureAPRYanet Krysrebecca Zhou Work Phone: [facility] Work Phone: Start: 37-63-1901Lzg-patient / Non-visitAPRYanet Zhou Work Phone: [facility] Work Phone: Start: 09-29-2023 End: 16-12-7783zzxqlbmearKvkml Keller Other [facility] Other Start: 95-29-3135Zyjkvd outpatient visit 15 minutes Tracey MikylerFPG Urgent Care ClydeStart: 07-08-2023 End: 62-38-9055ksywevqrmxTfogn Keller Other [facility] Other Start: 01-66-1029Otkbwo outpatient visit 25 minutes Tracey BoFPG Urgent Care ClydeStart: 05-19-2023 End: 45-90-5941Mjzhmmd encounter procedurePHYSICIAN NO [facility] [place] Work Phone: Start: 05-19-2023 End: 18-61-3769avsaffsnwjXHMZOYTZR NO [facility] Work Phone: Start: 41-83-3893Wnrzhtolu for general adult medical examination without abnormal findingsCHICA [facility] Start: 12-20-2022 End: 95-06-7892ueniqbawrkTFVOUUXBH BREAULTFacility:M0Fmhhf: 12-20-2022 End: 17-66-1694Zodpzwpcn for general adult medical examination without abnormal findingsSTEPHANIE MARIELLAFacility:D0Rbebn: 10-12-2022 End: 63-54-0642kkuldkjbzoQfyenjlao Mariella Other [employer] Other Start: 97-43-7273Brqjzkqpk encounterStephanie Mariella [facility] ClydeStart: 10-11-2022 End: 09-16-3184akxcipwvknRtydotfcp Mariella Other [employer] Other Start: 78-04-9513Bsiptmlyp encounterStephanie Mariella [facility] ClydeStart: 09-08-2022 End: 98-53-6513gxqghcftkzQuuucixs Jaya Other [facility] Other Start: 16-91-2221Qgesjwuim encounterLawrence Jaya [facility] Referral CoordinatorStart: 08-29-2022 End: 07-89-2792Lkgcyauhx to same day surgery centerPHYSICIAN NO [facility] Work Phone: Start: 08-29-2022 End: 54-80-6158hpnsmmyjskNXKUDZUPD NO [facility] Work Phone: Start: 06-23-2022 End: 97-78-5567Qsztqmt encounter procedurePHYSICIAN NO [facility] [place] Work Phone: Start: 06-07-2022 End: 16-00-2718luonhqpgymGxsoksqy Jaya Other [facility] Other Start: 02-15-8025Aawkyynot encounterLawrence Jaya [facility] GastroenterologyStart: 05-15-2022 End: 19-87-0498jmkuwzsudoQGJAAXDED [facility] [employer] Other Start: 27-35-0118Bzpznwkxb for general adult medical examination without abnormal findingsStepsarika NoriegaaultFPG Family [facility] Basil Start: 33-95-5855Dwmzuahe preventive med est patient 40-64yrsStephanie Mariella [facility] Family Medicine ClydeStart: 01-19-2022 End: 67-51-8992njnkpiakcrSHTPF PARKERFacility:L1Redlx: 09-19-2021 End: 62-21-8497lxsakvzaxxObilfe Anita Other [place] [employer] Other Start: 77-34-1324Ihudmv outpatient visit 15 minutes Roxanna HowardFPRupesh Urgent Care Basil Procedures DateProcedureProcedure DetailPerforming ClinicianStart: 32-74-8914LAGJAEUUZQC BIOPSYAr Quiñonez MD Work Phone: start: 11-34-5977ZYX of headAPRN Krys Winnie Work Phone: Start: 41-63-0400SKZ of headPHYSICIAN NO FAMILYStart: 73-18-2898JnbqgeofsvkESPHXBRIE NO FAMILYStart: 90-96-5676SEE of headPHYSICIAN NO FAMILYStart: 47-45-1886RilstolvzbyVacppj Jones MD Work Phone: Plan of Treatment DateCare ActivityDetailAuthorStart: 88-72-5208Ucbohtxtt for malignant neoplasm of cervixNOMS HealthcareStart: 07-01-2025 End: 19-73-6226Vizcloi encounter rsjiqnchf54/12/2025 11:00 AM EST Office Visit MELONIE PELAEZ [address] [place] [id number] Ar Quiñonez MD [address] [place] [address] MELONIE GARCIAGYNStart: 07-01-2025 End: 51-28-3951Lauckosfgrgp / ancillary services vuybuzumap09/12/2025 10:30 AM EST Ancillary Procedure [facility] [address] [place] [address] [facility] [place] OBGYNStart: 06-23-2025 End: 79-10-0736Tvrilvkljc [Mass/volume] in Serum or PlasmaCreatinine, Serum Lab Routine Endometrial cancer (HCC) Expected: 06/23/2025 (Approximate), Expires: 06/23/2026NONM HealthcareComment on above:Expected: 06/23/2025 (Approximate), Expires: 06/23/2026Start: 06-23-2025 End: 72-36-0615KD Abdomen and Pelvis W contrast IVCT abdomen pelvis w IV contrast Imaging High Priority Endometrial cancer (HCC) Expected: 06/23/2025, Expires: 06/23/2026[facility] Work Phone: comment on above:Expected: 06/23/2025, Expires: 06/23/2026Start: 06-15-2025 End: 33-86-3401Cdnwizhw stimulating hormoneFollicle stimulating hormone Lab Routine Asymptomatic menopausal state Expected: 06/15/2025 (Approximate), Expires: 06/15/2026NOMS HealthcareComment on above:Expected: 06/15/2025 (Approximate), Expires: 06/15/2026Start: 06-15-2025 End: 54-17-0611Zlopvdv encounter huhgigodi56/27/2025 9:15 AM EDT Office Visit [facility] [address] [place] [address] Ar Quiñonez MD [address] [place] [address] [facility] OBStart: 05-21-2025 End: 35-60-2663LOH Breast - bilateral screeningBilateral screening mammogram with tomosynthesis Imaging Routine Encounter for screening mammogram for malignant neoplasm of breast Expected: 05/21/2025, Expires: 08/21/2025NONM HealthcareComment on above:Expected: 05/21/2025, Expires: 08/21/2025Start: 22-41-3198SKAYY-19 Vaccine ( season)COVID-19 Vaccine ( season)[facility] HealthcareStart: 48-98-6663Ffpazeuau vaccinationNONM Healthcare Start: 12-11-2024 End: 58-29-1416Bvrtawk encounter mupvdfryi15/24/2025 9:45 AM EDT Office Visit [facility] [address] [place] [address] Ar Quiñonez MD [address] [place] [address] [facility] OBStart: 12-11-2024 End: 25-84-3110Tbgxjbqeygra / ancillary services xoepevjwlj83/24/2025 8:30 AM EDT Ancillary Procedure [facility] [address] [place] [address] [phone] SWS OBStart: 11-24-2024 End: 15-06-5727Sgykcwad stimulating hormoneFollicle stimulating hormone Lab Routine Asymptomatic menopausal state Expected: 11/24/2024 (Approximate), Expires: 11/24/2025NONM HealthcareComment on above:Expected: 11/24/2024 (Approximate), Expires: 11/24/2025Start: 11-24-2024 End: 33-62-3429Dkfetzx encounter znhnqotsc60/07/2025 9:15 AM EDT Office Visit [facility] [address] [place] [address] Ar Quiñonez MD [address] [place] [address] [facility] OBStart: 06-23-2024 End: 40-11-1932Hjwikfe encounter qhomfmbzc08/04/2024 4:15 PM EST Office Visit [facility] [address] [place] [address] Ar Quiñonez MD [address] [place] [address] [facility] OBStart: 06-17-2024 End: 26-26-9137Hprjoye encounter oxkuiudhx28/29/2024 2:45 PM EDT Office Visit [facility] [address] [place] [address] Ar Quiñonez MD [address] [place] [address] [facility] OBStart: 06-17-2024 End: 03-08-0753KE 125CA 125 Lab Routine Ovarian mass Expected: 06/17/2024 (Approximate), Expires: 06/17/2025NONM HealthcareComment on above:Expected: 06/17/2024 (Approximate), Expires: 06/17/2025Start: 06-17-2024 End: 67-41-6835Hwlaacub stimulating hormoneFollicle stimulating hormone Lab Routine Asymptomatic menopausal state Expected: 06/17/2024 (Approximate), Expires: 06/17/2025[facility] Work Phone: comment on above:Expected: 06/17/2024 (Approximate), Expires: 06/17/2025Start: 06-17-2024 End: 28-60-6503Rmtdlwwutdmk / ancillary services civtlwytzb06/29/2024 2:00 PM EDT Ancillary Procedure [facility] [address] [place] [address] [facility] OBStart: 26-73-0858Oupezdrwt vaccination Influenza Vaccine (#1)[facility] HealthcareStart: 56-42-9725KjregzxxsACMC Healthcare System Glenbeightart: 78-41-9438Kulkunuwp for malignant neoplasm of breastMammogramNOMS HealthcareStart: 40-16-2636Jsxghvyzz for malignant neoplasm of cervixNOMS HealthcareStart: 72-95-1521Qwwmtoajo for malignant neoplasm of cervixPap Smear [facility] HealthcareStart: 85-78-6586Dlkusabdx B Vaccines (1 of 3 - 19+ 3-dose series)Hepatitis B Vaccines (1 of 3 - 19+ 3-dose series)[facility] HealthcareStart: 03-58-7829TSnM/Tdap/Td Vaccines (1 - Tdap)DTaP/Tdap/Td Vaccines (1 - Tdap)[facility] HospitalStart: 47-47-0331VNI Vaccines (1 of 1 - Standard series)MMR Vaccines (1 of 1 - Standard series)[facility] HospitalStart: 79-97-5572Nwjhuzuim for malignant neoplasm of colonNONM HealthcareComprehensive metabolic 2000 panel - Serum or PlasmaOhiohealth Arthur G.H. Bing, Md, Cancer CenterEstradiolEstradiol Lab Routine Asymptomatic menopausal state Ordered: 11/24/2024[facility] HealthcareComment on above:Ordered: 11/24/2024EstradiolEstradiol Lab Routine Asymptomatic menopausal state Ordered: 06/15/2025[facility] Healthcare Work Phone: comment on above:Ordered: 06/15/2025IGP, APT HPV,RFX 16/18,45IGP, APT HPV,RFX 16/18,45 Lab Routine Encounter for screening for cervical cancer Cervical polyp Ovarian mass Asymptomatic menopausal state Ordered: 11/24/2024[facility] Healthcare Work Phone: comment on above:Ordered: 11/24/2024Pathology Report Pathology Report Pathology and Cytology Routine Cervical polyp Ovarian mass Ordered: 06/15/2025[facility] HealthcareComment on above:Ordered: 06/15/2025Patient EducationColon Polyps [facility] Work Phone: SENDOUT TEST MISCELLANEOUS LABC[facility]PSENDOUT TEST MISCELLANEOUS [facility] Lab Routine Screening for malignant neoplasm of cervix Encounterfor gynecological examination without abnormal finding Ordered: 05/21/2024[facility] Healthcare Work Phone: comment on above:Ordered: 05/21/2024[facility] Immunizations Immunization DateImmunizationNotesCare TkpvecxxAbyquloz53-57-9545vuupphx toxoid, reduced diphtheria toxoid, and acellular pertussis vaccine, adsorbedPamela Anita Other [facility] Payers DatePayer CategoryPayerPolicy [id number] 2023Medicaid [id number] [id number] 1971 [id number] 2.0.1.657988.3.57[id number] 2..1.636305.3.579.[id number] 2..1.175538.3.57[id number] 2..1.568902.3.579.[id number] 2..1.999364.3.579.2.376988-06-8744Eovqytm44790018 2..1.104365.3.579.2.23[id number] 2..1.585632.3.579.[id number] 2..1.998516.3.579.2.187775-28-8593Bjnhazt5262027 2..1.115582.3.57[id number] 2..1.215687.19 [id number] 2..[id number] 2.0.1.3[id number] 2.0.1.677934.3.579.2.531 [id number] Social History DateTypeDetailFacilityUnknown if ever smokedSt. Elizabeth Hospital [employer] Other Start: 05-21-2024 End: 09-08-5152Xsc Assigned At [facility] [employer] Other Start: 08-29-2022 End: 52-20-8338Ujgclzs smoking status NHISEx-smoker (finding)[facility]art: 52-75-4177Iyt Assigned At [facility] Hospitaltart: 19-79-9359Fpmucom smoking status NHISNever smoked tobacco [facility] HealthcareStart: 05-15-5724Najoxta use and exposureSmokeless tobacco non-userNOMS HealthcareStart: 05-21-2024 End: 77-67-6806Ggcvaikov beverage intakeCurrent drinker of alcohol (finding)[facility] HealthcareStart: 05-21-2024 End: 85-13-5717Kmznqwe of Social functionNOMS HealthcareHow often to you have a drink containing alcohol?Monthly or lessNOMS HealthcareHow many standard drinks containing alcohol do you have on a typical day?1 or 2NOMS HealthcareHow often do you have 6 or more drinks on 1 occasion?Less than monthlyNOMS Healthcare Start: 97-99-1563Cpz assigned at birthNot on fileFILLMORE COMMUNITY MEDICAL CENTER HealthcareStart: 10-10-2024 End: 62-53-9732MhdDzoclr (finding)[facility]ightart: 03-68-2944KztBpfwjdDOTM Healthcare Goals DatePatient GoalDesired Activity/State Clinical Notes 09-19-2021 to 06-23-2025 Note Date & EqlnIgumUxnqhgyq01-97-9250 History of Present illness Narrative* Ar Quiñonez MD - 06/23/2025 2:32 PM EST 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 Oncology and Ct scan ordered documented in this encounterNOJefferson Memorial HospitalKvngbelzey84-96-6921 History of Present illness Narrative* Ar Quiñonez [...] day while awake Oral, Disp: , Rfl: vmconbdyua-fvcubffwpiolx-bbzygxjh (Fioricet) 50-300-40 MG capsule, 1 capsule as needed Orally prn, Disp: , Rfl: cyclobenzaprine (Flexeril) 10 MG tablet, Three times daily, Disp: , Rfl: ibuprofen 600 MG tablet, Three times daily, Disp: , Rfl: losartan (Cozaar) 25 MG tablet, Daily, Disp: , Rfl: nystatin (Mycostatin) 355243 UNIT/GM powder, Apply topically 3 (three) times [...] Never Smokeless Tobacco Never documented in this encounterRanken Jordan Pediatric Specialty HospitalNtntfwqokj25-82-1049 History of Present illness Narrative* Ar Quiñonez [...] day while awake Oral, Disp: , Rfl: kcpxboegah-zysegdotvkuco-ynhnazgb (Fioricet) 50-300-40 MG capsule, 1 capsule as needed Orally prn, Disp: , Rfl: cyclobenzaprine (Flexeril) 10 MG tablet, Three times daily, Disp: , Rfl: ibuprofen 600 MG tablet, Three times daily, Disp: , Rfl: losartan (Cozaar) 25 MG tablet, Daily, Disp: , Rfl: nystatin (Mycostatin) 825784 UNIT/GM powder, Apply topically 3 (three) times [...] present management for intertrigo documented in this encounterRanken Jordan Pediatric Specialty HospitalWveiuwedwb19-88-3512 History of Present illness Narrative* Ar Quiñonez [...] rash appears to be exacerbated bysweating and hshz-og-icwl contact. The patient also mentions a cervical [...] day while awake Oral, Disp: , Rfl: cprnlcvfcm-ksqqdurnmtnqv-sgxfxunu (Fioricet) 50-300-40 MG capsule, 1 capsule as [...] tablet, Daily, Disp: , Rfl: nystatin (Mycostatin) 730830 UNIT/GM powder, Apply topically 3 (three) times [...] Intertrigo L30.4 nystatin (Mycostatin) cream nystatin (Mycostatin) 847210 UNIT/GM powder fluconazole (Diflucan) 150 MG tablet [...] as bisonic rash exacerbated by sweating and inzs-ih-xtmv contact - Consistent with intertrigo or similar [...] to determine next steps documented in this encounterRanken Jordan Pediatric Specialty HospitalIlultwqglj96-74-2212 Evaluation note* Diagnosis Onset Date Resolution Status Admit Date COVID-19 acuteFebruary 2024 10:53am [facility] Work Phone: 1(844) 893-369511-04-2024 History of Present illness Narrative* Ar Quiñonez [...] day while awake Oral, Disp: , Rfl: ojxfqhwafu-useshcogvjlhz-xqwbgsec (Fioricet) 50-300-40 MG capsule, 1 capsule as [...] changes as they arise. documented in this encounterRanken Jordan Pediatric Specialty HospitalZmymnluwau27-68-3711 History of Present illness Narrative* Ar Quiñonez [...] day while awake Oral, Disp: , Rfl: xryglqfoki-osfscxhithkdc-bgmbukba (Fioricet) 50-300-40 MG capsule, 1 capsule as [...] for the required tests. documented in this encounterRanken Jordan Pediatric Specialty HospitalYjsjarbuag08-97-3550 History of Present illness Narrative* Ar Quiñonez MD - 05/21/2024 1:00 PM EDT Images from the original note were not included. 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 [facility] Other 11-19-2023 Evaluation note* Encounter Date Diagnosis [...] of diseases classified elsewhere (ICD-10 - B97.89) [facility] Other 01-10-2023 Procedure noteOhiohealth Arthur G.[facility], Cancer Center10-19-2022 Evaluation note* Encounter Date Diagnosis Assessment Notes Treatment Notes Treatment Clinical Notes May, Family history of ma lignant neoplasm of digestive organs (ICD-10 - Z80.0) [facility] Other 09-26-2022 Evaluation note* Encounter Date Diagnosis [...] cancer requiring screening colonoscopy (ICD-10 - Z80.0) [facility] Other 01-31-2022 Evaluation note* Encounter Date Diagnosis Assessment Notes Treatment Notes Treatment Clinical Notes Aug, Herpes zoster without complicati on (ICD-10 - B02.9) Drink plenty fluids, get plenty of rest. Continue home medications as prescribed. Take the acyclovir as prescribed until gone. Use the ibuprofen as prescribed as needed for mild to moderate pain for severe pain use the [place], hydrocodone as prescribed. Follow-up with your family physician, call tomorrow for an appointment for recheck without fail to discuss your home situation and anxiety as wellas reevaluate your herpes rash Aug,nxiety (ICD-10 - F41.9) [facility] [employer] Other Evaluation note* Diagnosis Onset Date Resolution Status History of colon polyps acute [facility] Work Phone: Evaluation noteNo InformationNortKaleida Health [employer] Other Evaluation noteNo assessment information available [facility] Work Phone: Evaluation note* Diagnosis Onset Date Resolution Status Achilles tendinitis acuteAnxietyacuteBenign meningioma of brainacuteGERD (gastroesophageal reflux disease)acuteHypertensionacuteMigraineacuteRecurrent cold soresacuteVision changesacute [facility] Work Phone: Evaluation note* Diagnosis Chronic [...] Status Admit Date COVID-19 acuteFebruary 2024 10:53am [facility] Work Phone: Evaluation note* Diagnosis Intertrigo- Primary Other specified erythematous condition Encounter for screening for cervical cancer Cervical polyp Mucous polyp of cervix Ovarian mass Unspecified noninflammatory disorder of ovary, fallopian tube, and broad ligament Asymptomatic menopausal state documented in this encounter [facility] HealthcareEvaluation note* Diagnosis Cervical polyp Mucous polyp of cervix Ovarian mass Unspecified noninflammatory disorder of ovary, fallopian tube, and broad ligament Intertrigo Other specified erythematous condition Asymptomatic menopausal state documented in this encounter [facility] HealthcareEvaluation note* Diagnosis Onset Date Resolution Status Admit Date Hypertension acuteOctober 2024 9:29amImpaired fasting glucoseacuteOct2024 9:29amRight shoulder painacuteOct2024 9:29amWellness examinationacute May 20, 2025 9:29am [facility] Work Phone: Evaluation note* Diagnosis Cervical polyp Mucous polyp of cervix Ovarian mass Unspecified noninflammatory disorder of ovary, fallopian tube, and broad ligament Intertrigo Other specified erythematous condition Asymptomatic menopausal state documented in this encounter [facility] HealthcareEvaluation note* Diagnosis Endometrial cancer (HCC)- Primary Malignant neoplasm of corpus uteri, except isthmus documented [facility] N[facility]ative - Reported* Type Description Date Medical History anxiety Medical HistorydepressionMedical HistoryBrain tumorSurgical Historytonsillectomy Surgical HistorycholecystectomyHospitalization Historysee above surgical history Next [facility] Other Hospital Discharge instructions Additional Instructions DISCHARGE [...] me in 3 months Low FODMAP diet T[employer] 1 p.o. every morning which is OTC Repeat colonoscopy in 5 years Take it easy today. Back to normal tomorrow. -Notify the doctor if you have any problems. -Office number [phone] Work Phone: Reason for referral (narrative)No reason for referral information availableGuern[facility] Work Phone: Reason for Referral Reason patient has gi ngosed brain tumor - scans in [facility] Diagnosis 1 Brain tumor (D49.6) Referral Organization [facility] Family Medicin e Basil Referring Provider First Name Idania Referring Provider Last Name Mariella Referring Provider Specialty Nurse Pract itantoniettar Referred Organization [facility] Referred Provider Tera Banegas Referred Address [address] [facility],[place], [place],[address] Referred Provider Specialty Neurology Referral Priority Routine General Notes Jakob Seema M 022 09:28:25 AM >Received today and waiting for office notes to be locked before sending referral Reason screening colon oscopy Diagnosis 1 Family hx of colon c ancer requiring screening colonoscopy (Z80.0) Referral Organization [facility] Family Medicin e Basil Referring Provider First Name Idania Referring Provider Last Name Mariella Referring Provider Specialty Nurse Pract itioner Referred Organization [facility] Gastroenterolo gy Referred Provider [place] Referred Address [address] ,[place], [place],[address] Referred Provider Specialty Gastroentero logy Referral Priority [...] Member Role Status Dates Krys Zhou APRN SALES DEVELOPMENT REPRESENTATIVE-C Primary Care Provider Active Team Status: Active Member Role Status Dates Krys Zhou APRN SALES DEVELOPMENT REPRESENTATIVE-C Primary Care Provider Active Start: February 07, 2024 Rio Messer ProviderActiveStart: February 07, 2024 Team Status: Inactive Member Role Status Dates Krys Zhou APRN SALES DEVELOPMENT REPRESENTATIVE-C Primary Care Provider, Attending Provider Active Start: March 20, 2024 End: March 20, 2024 Team Status: Inactive Member Role Status Dates Krys Zhou APRN SALES DEVELOPMENT REPRESENTATIVE-C Primary Care Provider, Attending Provider Active Start: April 23, 2024 End: April 23, 2024Team MemberRelationshipSpecialtyStart DateEnd Date Krys Zhou NP [address] [place] [id number] PCP - GeneralFamily Medicine04/30/24 Kromer, Tamara PCP - [facility]02/18/24Team MemberRelationshipSpecialtyStart DateEnd Date Krys Zhou NP [address] [place] [address] PCP - GeneralFamily Medicine04/30/24 Kryanely Tamara PCP - [facility]02/18/24Team MemberRelationshipSpecialtyStart DateEnd Date Krys Zhou NP [address] [place] [id number] PCP - GeneralFamily Medicine04/30/24 Kromer, Tamara PCP - [facility]02/18/24 Team Status: Inactive Member Role Status Dates Krys Zhou APRN SALES DEVELOPMENT REPRESENTATIVE-C Primary Care Provider, Attending Provider Active Start: October 10, 2024 End: October 10, 2024 Team Status: Inactive Member Role Status Dates Krys Zhou APRN SALES DEVELOPMENT REPRESENTATIVE-C Primary Care Provider Active Start: October 27, 2024 End: October 27Katheryn Morse ProviderActiveStart: October 27, 2024 End: October 27, 2024Team MemberRelationshipSpecialtyStart DateEnd Date Krys Zhou NP [address] [place] [address] PCP - GeneralFamily Medicine04/30/24 Tamara Staples PCP - [facility]02/18/24Team MemberRelationshipSpecialtyStart DateEnd Date Krys Zhou NP [address] [place] [address] PCP - GeneralFamily Medicine04/30/24 Tamara Staples PCP - [facility]02/18/24 Team Status: Inactive Member Role Status Dates Krys Zhou APRN SALES DEVELOPMENT REPRESENTATIVE-C Primary Care Provider Active Start: May 20, 2025 End: May 20, 2025Krys Zhou APRN SALES DEVELOPMENT REPRESENTATIVE-CAttending ProviderActive Start: May 20, 2025 End: May 20, 2025Team MemberRelationshipSpecialtyStart DateEnd Date Krys Zhou NP [address] [place] [address] PCP - GeneralFamily Medicine04/30/24 Tamara Staples PCP - [facility]02/18/24Team MemberRelationshipSpecialtyStart DateEnd Date Krys Zhou NP [address] [place], [place] [id number] PCP - GeneralFamily Medicine04/30/24 Tamara Staples PCP - [facility]02/18/24 INFORMATION SOURCE (unrecogn ized section and content) DATE CREATED AUTHOR 12/28/2022 [facility] DATE CREATED AUTHOR AUTHOR'S ORGANIZ ATION 04/24/2024 [facility] DATE CREATED AUTHOR AUTHOR'S ORGANIZ ATION 11/21/2024 [facility] DATE CREATED AUTHOR AUTHOR'S ORGANIZ ATION 06/28/2025 [facility] EPIC Goals (unrecognized [...] BE BASED ON THE PRIMARY CLINICAL RECORDS. [employer] [employer] [facility]. provides no warranty or guarantee of the accuracy or completeness of information in this document.
[2025-07-24 16:38] LABS: Hematocrit 38.8 % (36.0-48.0); Hemoglobin 12.8 g/dL (12.0-16.0); Immature Granulocytes Abs Auto 0.08 10^3/uL (0.00-0.03); Immature Granulocytes Pct Auto 0.9 % (0.0-0.5); Lymphocytes Absolute Auto 2.0 10^3/uL (1.2-3.8); Mean Corpuscular HGB Conc 33.0 g/dL (29.9-35.2); Mean Corpuscular Hemoglobin 26.0 pg (26.7-34.0); Mean Corpuscular Volume 78.9 fL (81.0-99.0); Platelet Count 283 10^3/uL (150-450); Red Blood Count 4.92 10^6/uL (4.20-5.40); White Blood Count 8.5 10^3/uL (4.0-11.0)
[2025-07-24 16:56] LABS: Anion Gap 12.2; Blood Urea Nitrogen 14.0 mg/dL (7.0-18.0); Calcium 8.9 mg/dL (8.5-10.1); Carbon Dioxide 28.8 mmol/L (21.0-32.0); Chloride 103 mmol/L (98-107); Estimated GFR (African America >60 (>=60 mL/min/1.73m^2); Estimated GFR (Non-African Ame >60 (>=60 mL/min/1.73m^2); Glucose 144 mg/dL (74-106); Potassium 4.0 mmol/L (3.5-5.1); Sodium 140 mmol/L (136-145)
--- NOTE | 2025-07-24 17:25 | CT_ITS ---
The [address] [address] Patient Name: DELIO BOUDREAUX MRN: [id number] date: 1970 Sex: F Assigned Patient Location: ER Current Patient Location: [facility] Accession/Order Number: [id number] Exam Date: 07/24/2025 18:09 Report Date: 07/24/2025 18:59 At the request of: SHAYY FRANCO MD Procedure: CT angio chest CTA chest CLINICAL DATA: Shortness of breath, chest pain. Chest x-ray 07/24/2025 TECHNIQUE: Intravenous contrast-enhanced CT angiography of the chest was performed. Axial, sagittal, coronal, and 3D-dimensional reconstructions were created and reviewed. These CT exams were performed using one or more of the following dose reduction techniques: Automated exposure control, adjustment of the mA and/or kV according to patient size, or use of iterative reconstruction technique. FINDINGS: Chest: Mediastinum:Heart is grossly unremarkable in size. No pericardial effusion. No pathologic adenopathy identified. Negative for Central, lobar or segmental branch pulmonary emboli. Aorta normal in caliber without dissection flap. Lungs:Minimal left basilar atelectasis and or scarring. No focal opacity, effusion or pneumothorax. Abd: Heterogeneous splenic enhancement likely related to arterial phase enhancement. Diffuse low attenuation liver worrisome for fatty infiltration. Cholecystectomy. Trace perisplenic fluid noted may be related to recent surgery.[ Soft tissues/Bones: [Multilevel degenerative changes of the thoracic spine. No suspicious osseous lesion.] CT/CT angio chest IMPRESSION: Negative acute pleural-parenchymal disease or central to segmental branch pulmonary emboli. Impression dictated by: Darren Gates M.D. 07/24/2025 6:59 PM Dictation Location: [place] [address] Electronically authenticated by: [id number] Y Date: 07/24/2025 18:59
== END 2025-07-24 19:36 | disposition home or self-care (01) ==
PROVIDERS: Emergency Medicine; Emergency Provider Internal Medicine; PCP Nurse Practitioner Family
DX: M79.651 Pain in right thigh (principal); M79.602 Pain in left arm; R07.9 Chest pain, unspecified; Z98.890 Other specified postprocedural states
CPT/HCPCS: 36415; 71045; 71275; 80048; 84484; 85025; 93005; 93971; 99285; Q9967